=== PATIENT | female | born 1950 | race Caucasian/White ===

== ENCOUNTER 2016-03-02 16:50 | Inpatient (IN) | payer MEDICAID ==
--- NOTE | 2016-03-02 17:46 | EDPHY ---
H & P Stated Complaint: +abd and back pain since last ;no inj,no n/v/d; decreased w/tramadol Time Seen by Provider: 03/02/16 17:46 - Personal History Current Tetanus Diphtheria and Acellular Pertussis (TDAP): Yes - Medical/Surgical History Hx Asthma: No Hx Chronic Respiratory Disease: Yes Hx Diabetes: No Hx Cardiac Disease: Yes Hx Renal Disease: Yes Hx Cirrhosis: No Hx Alcoholism: No Hx HIV/AIDS: No Hx Splenectomy or Spleen Trauma: No Other PMH: HYPOTHYROIDISM, HAS A PORT,OPEN HEART SURGERY; HYPONATREMIA;BIPASS SURGERY;L .MASTECTOMY;CERVICAL CANCER;B CATARACTS;LAP IVANNA; CERVICAL CANCER; SHAUNA; BIPOLAR - Social History Smoking Status: Never smoked Constitutional: Initial Vital Signs Temperature (C) 37 C 03/02/16 17:11 Heart Rate 101 H 03/02/16 17:11 Respiratory Rate 18 03/02/16 17:11 Blood Pressure 141/84 H 03/02/16 17:11 O2 Sat (%) 94 03/02/16 17:11 O2 Delivery Mode Room Air O2 (L/minute) 2 Allergies/Adverse Reactions: morphine [Morphine] Allergy (Severe, Verified 03/02/16 17:11) SEVERE GENERALIZED PAIN codeine [Codeine] Allergy (Mild, Verified 03/02/16 17:11) hydrocodone bitartrate [From Vicodin] Allergy (Mild, Verified 03/02/16 17:11) Home Medications: Medication Instructions Recorded ARIPiprazole [Abilify 10 mg (*)] 10 mg PO DAILY@11/19/14 ARIPiprazole [Abilify 5 mg (*)] 5 mg PO HS@11/19/14 Acetaminophen [Tylenol ES 500 mg 500 mg PO Q6 PRN 11/19/14 (*)] Alendronate Sodium [Fosamax 70 MG 70 mg PO MO@0700 11/19/14 (*)] Aspirin [Aspirin 81mg (*)] 81 mg PO DAILY@11/19/14 Atorvastatin Calcium [Lipitor 20 20 mg PO HS@11/19/14 mg (*)] Calcium Carbonate/Vitamin D3 1 tab PO TID@08,12,11/19/14 [Os-Derek 500-Vit D3 600 Caplet] Cholecalciferol Vit D3 [Vitamin D3 800 units PO DAILY@11/19/14 (*)] Clobetasol Propionate 1 davin TP Q4 PRN 11/19/14 Diclofenac Sodium [Voltaren Gel 2 davin TP QID@08,,, PRN 11/19/14 (*)] Divalproex ER [Depakote ER 250 MG 250 mg PO HS@11/19/14 (*)] Divalproex ER [Depakote ER 500 MG 500 mg PO HS@11/19/14 (*)] Docusate Sodium [Colace 100 MG (*)] 100 mg PO DAILY@,11/19/14 Ferrous Sulfate [Ferrous Sulf 325 325 mg PO DAILY@11/19/14 MG (*)] Levothyroxine [Synthroid 175 mcg 175 mcg PO DAILY@11/19/14 (*)] Loperamide HCl [Imodium 2 mg (*)] 2 mg PO DAILY PRN 11/19/14 Prochlorperazine Maleate 10 mg PO Q6 PRN 11/19/14 [Compazine 10mg (*)] Ranitidine HCl [Zantac] 150 mg PO BID@,11/19/14 Tizanidine HCl 4 mg PO TID@,,11/19/14 Hydrocortisone [Cortef 10 mg (*)] 10 mg PO DAILY@15 #30 tab 11/30/14 Polyethylene Glycol 3350 [Miralax 17 gm PO DAILY@01/14/15 17 gm (*)] Melatonin [Melatonin 3 MG (*)] 3 mg PO DAILY18 #30 tab 01/15/15 traMADol [Ultram 50 mg (*)] 25 mg PO DAILY PRN #0 tab 01/15/15 Hydrocortisone [Cortef 10 mg (*)] 20 mg PO DAILY@01/19/15 Acetaminophen [Tylenol ES 500 mg 500 mg PO Q6 PRN #40 tab 01/29/15 (*)] Furosemide [Lasix 20 MG (*)] 20 mg PO Q2D #15 tab 01/29/15 Metoprolol Succinate Xr [Toprol Xl 50 mg PO DAILY #30 tab 01/29/15 25 mg (*)] Warfarin Sodium [Coumadin 5MG (*)] 5 mg PO DAILY16 #30 tab 01/29/15 Medical Decision Making ED Course/Re-evaluation: CHIEF COMPLAINT: Abdominal and back pain HISTORY OF PRESENT ILLNESS: The patient is a 66 y/o female, with a complicated medical history, complaining of back and abdominal pain onset last upon waking, 5 days ago. Her pain is diffusely located throughout her abdomen and back. She denies vomiting, constipation, changes in food or fluid intake. She describes pain with eating. She has a history that includes bipolar disorder and developmental delay, CAD, CHF, and chronic kidney disease. REVIEW OF SYSTEMS: A 10 point review of systems was performed and is negative with the exception of the elements mentioned in the history of present illness. PHYSICAL EXAM: HR, BP, O2 Sat, RR. Temp noted General Appearance: Alert, well hydrated, appropriate, and cachectic. Head: Atraumatic without scalp tenderness or obvious injury Eyes: Pupils equal, round, reactive to light and accommodation, EOMI, no trauma , no injection. Ears: Clear bilaterally, no perforation, normal landmarks Nose: Atraumatic, no rhinorrhea, clear. Throat: There is no erythema or exudates, no lesions, normal tonsils, mucus membranes moist. Neck: Supple, 2+ carotid upstroke, nontender, no lymphadenopathy. Respiratory: No retractions, no distress, no wheezes, and no accessory muscle use. Lungs are clear to auscultation bilaterally. Cardiovascular: Regular rate and rhythm, no murmurs, rubs, or gallops. Bilateral carotid, radial, dorsalis pedis, and posterior tibial pulses intact. Good capillary refill all extremities. Gastrointestinal: Abdomen is soft, diffuse tenderness and some distension, no masses, no rebound, no guarding, no peritoneal signs. Musculoskeletal: Normal active ROM of all extremities, atraumatic. Diffuse thoracic tenderness. Neurological: Alert, appropriate, and interactive. The patient has normal DTRs and non-focal cranial nerves, motor, sensory, and cerebellar exam. Skin: No rashes, good turgor, no nodules on palpation. Past medical history: CAD post CABG, valvular heart disease, chronic kidney disease baseline creatinine of 1.1 to 1.4, chronic hyponatremia, CHF with diastolic dysfunction, pulmonary hypertension, bipolar mood disorder, breast cancer 2009, chronic anemia Past surgical history: CABG, cholecystectomy, left mastectomy, right port placement Family history: Noncontributory Social history: Family at bedside. Has lived at [facility] Prior medical history reviewed including [id number]/2015 for lethargy. DIAGNOSTICS/PROCEDURES/CRITICAL CARE TIME: The 12 lead EKG was interpreted by myself. EKG shows atrial fibrillation v-rate 75-100 with right axis deviation. See hard copy and/or "tracemaster" electronic copy for interpretation. Study: Chest x-ray Indication: Pain Results: Chest x-ray was obtained. The results of the study are Sequela of prior CABG, with no significant interval change since January 19, 2015. The study was read by the radiologist, Dr. Rodríguez. I viewed the images myself on the PACS system. Study: CT of the Abdomen/Pelvis Indication: Pain Results: CT scan of the abdomen was obtained. The results of the study are constipation. The study was read by the radiologist, Dr. Spears. I viewed the images myself on the PACS system. DIFFERENTIAL DIAGNOSIS: The differential diagnosis for the patient's abdominal pain included but was not limited to ovarian cyst, pelvic inflammatory disease, ovarian torsion, urinary tract infection, ectopic , cholecystitis, and appendicitis. MEDICAL DECISION MAKING: This is a chronically ill 66 y/o female with extensive cardiac, pulmonary, and mental health history who presents today with a 5-day history of diffuse abdominal and thoracic back pain. She denies changes in bowel or bladder function or food and fluid intake, however, patient has a developmental delay limiting us from verifying history. Plan for IV, labs, UA, EKG, chest x-ray, and abdominal CT. 50mcg IV Fentanyl and 4mg IV Zofran administered for symptoms. Her EKG shows a-fib, which is not previously mentioned in her records. No WBC. Creatinine 1.0. UA pending. 1852: Spoke with hospitalist service. Dr. Isaac accepts admission. 1956: 1gm IV Ceftriaxone administered due to UTI. CT shows constipation per Dr. Spears. I informed Dr. Isaac of this. - Data Points Laboratory Results: Laboratory Results 03/02/16 17:30 03/02/16 17:30 03/02/16 17:30 WBC 9.35 10^3/uL (3.80-9.50) RBC 3.38 L 10^6/uL (4.18-5.33) Hgb 11.3 L g/dL (12.6-16.3) Hct 33.4 L % (38.0-47.0) MCV 98.8 fL (81.5-99.8) MCH 33.4 pg (27.9-34.1) MCHC 33.8 g/dL (32.4-36.7) RDW 13.5 % (11.5-15.2) Plt Count 161 10^3/uL (150-400) MPV 10.1 fL (8.7-11.7) Neut % (Auto) 66.4 % (39.3-74.2) Lymph % (Auto) 19.1 % (15.0-45.0) [place] % (Auto) 11.1 % (4.5-13.0) Eos % (Auto) 1.1 % (0.6-7.6) Baso % (Auto) 0.5 % (0.3-1.7) Nucleat RBC Rel Count 0.0 % (0.0-0.2) Absolute Neuts (auto) 6.20 10^3/uL (1.70-6.50) Absolute Lymphs (auto) 1.79 10^3/uL (1.00-3.00) Absolute Monos (auto) 1.04 H 10^3/uL (0.30-0.80) Absolute Eos (auto) 0.10 10^3/uL (0.03-0.40) Absolute Basos (auto) 0.05 10^3/uL (0.02-0.10) Absolute Nucleated RBC 0.00 10^3/uL (0-0.01) Immature Gran % 1.8 H % (0.0-1.1) Immature Gran # 0.17 H 10^3/uL (0.00-0.10) D-Dimer 0.31 ug/mLFEU (0.00-0.50) Sodium 132 L mEq/L (134-144) Potassium 5.2 mEq/L (3.5-5.2) Chloride 85 L mEq/L (97-110) Carbon Dioxide 39 H mEq/l (22-31) Anion Gap 8 mEq/L (8-16) BUN 33 H mg/dL (7-23) Creatinine 1.0 mg/dL (0.6-1.0) Estimated GFR 56 Glucose 113 H mg/dL (70-100) Calcium 9.3 mg/dL (8.5-10.4) Medications Given: Discontinued Medications Fentanyl (Sublimaze) 50 mcg IVP EDNOW ONE Stop: 03/02/16 18:27 Last Admin: 03/02/16 18:37 Dose: 50 mcg Ondansetron HCl (Zofran) 4 mg IVP EDNOW ONE Stop: 03/02/16 18:27 Last Admin: 03/02/16 18:37 Dose: 4 mg Departure - Departure Disposition: [facility] Inpatient Acute Clinical Impression: Abdominal pain, New onset atrial fibrillation, UTI (urinary tract infection), Pyelonephritis Condition: Fair Report Scribed for: César Wong Report Scribed by: Jennifer Dan Date of Report: 03/02/16 Time of Report: 18:15
[2016-03-02 18:00] LABS: % IMMATURE GRANULYOCYTES 1.8 % (0.0-1.1); ABSOLUTE IMMATURE GRANULOCYTES 0.17 10^3/uL (0.00-0.10); ADD DIFF? NO; ADD MORPH? NO; ADD SCAN? NO; ATYPICAL LYMPHOCYTE FLAG 10 (0-99); FRAGMENT RBC FLAG 0 (0-99); HEMATOCRIT 33.4 % (38.0-47.0); HEMOGLOBIN 11.3 g/dL (12.6-16.3); LEFT SHIFT FLG 10 (0-99); LIPEMIA HEMOLYSIS FLAG 90 (0-99); MEAN CELL HEMOGLOBIN 33.4 pg (27.9-34.1); MEAN CELL HEMOGLOBIN CONCENTR. 33.8 g/dL (32.4-36.7); MEAN CELL VOLUME 98.8 fL (81.5-99.8); MEAN PLATELET VOLUME 10.1 fL (8.7-11.7); PLATELET CLUMPS FLAG 10 (0-99); PLATELET COUNT 161 10^3/uL (150-400); RED BLOOD CELL COUNT 3.38 10^6/uL (4.18-5.33); RED CELL DISTRIBUTION WIDTH 13.5 % (11.5-15.2)
[2016-03-02] MEDS ORDERED: ONDANSETRON 4 MG/2 ML VIAL IVP ONE (18:26)
[2016-03-02] MEDS ORDERED: fentaNYL 100 MCG/2 ML INJ IVP ONE (18:26)
[2016-03-02 18:34] LABS: ANION GAP 8 mEq/L (8-16); CALCIUM 9.3 mg/dL (8.5-10.4); CARBON DIOXIDE 39 mEq/l (22-31); CHLORIDE 85 mEq/L (97-110); GLOMERULAR FILTRATION RATE 56; GLUCOSE 113 mg/dL (70-100); POTASSIUM 5.2 mEq/L (3.5-5.2); SODIUM 132 mEq/L (134-144)
--- NOTE | 2016-03-02 18:36 | CPEKG ---
Heart Rate: 88 RR Interval: 682 QRSD Interval: 88 QT Interval: 396 QTC Interval: 480 QRS Gwinn: 125 T Wave Gwinn: 51 EKG Severity - ABNORMAL ECG - EKG Impression: ATRIAL FIBRILLATION, V-RATE 75-100 EKG Impression: RIGHT AXIS DEVIATION Electronically Signed By: César Wong 02-Mar-2016 20:16:23
--- NOTE | 2016-03-02 18:40 | DX ---
Chest, AP Upright and Lateral Views, at 5:46 p.m. Clinical History: 66-year-old female with chest and back pain. Comparison Study: Chest, dated January 19, 2015. Findings: Median sternotomy wires and mediastinal surgical clips are consistent with prior CABG. Ther e are surgical clips projected over the left axilla. There is a right subclavian central venous leeann ter Mediport which terminates at the SVC-right atrial junction. The cardiac size is upper normal. The pulmonary vasculature is equalized but unchanged, and there is some mild central perihilar bronchial wall thickening. There is persistent eventration of the anterior right hemidiaphragm. The bones are demineralized, and there is an old moderate compression fracture of L1, which is stable. There has be en development of a very mild compression deformity at T8 since the previous exam, and there is an ol d mild stable superior cortical endplate compression deformity at T10. There is no pneumothorax. Impression: Sequela of prior CABG, with no significant interval change since January 19, 2015.
[2016-03-02 19:37] LABS: COLOR YELLOW; LEUKOCYTE ESTERASE,URINE 3+ (NEGATIVE); NITRITE,URINE POSITIVE (NEGATIVE)
[2016-03-02 19:44] LABS: BACTERIA 4+ /hpf (NONE SEEN); MUCUS TRACE /lpf (NONE-1+); RBC,URINE 50-182 /hpf (0-3); WBC,URINE 50-182 /hpf (0-3)
[2016-03-02] MEDS ORDERED: ONDANSETRON 4 MG/2 ML VIAL IVP PRN (19:46)
[2016-03-02] MEDS ORDERED: ONDANSETRON DISINTEGRATING 4 MG TAB PO PRN (19:46)
[2016-03-02] MEDS ORDERED: ACETAMINOPHEN 325 MG TAB PO PRN (19:46)
[2016-03-02 20:10] LABS: INR 2.99 (0.83-1.16); PROTIME(PATIENT) 31.5 SEC (12.0-15.0)
[2016-03-02 20:11] LABS: APTT 63.8 SEC (23.0-38.0)
--- NOTE | 2016-03-02 20:17 | CT ---
CT abdomen pelvis without contrast dated March 02, 2016 Indication: 66-year-old woman with diffuse abdominal pain, suspected pyelonephritis. Evaluate for ob struction. Technique: 1.25-mm thick helically acquired slices were obtained through the abdomen and pelvis. IV c ontrast was not administered due to chronic nephritis. Dose reduction techniques were utilized. Comparison: CT abdomen and pelvis dated November 23, 2014. Findings: Large volume of retained stool is present throughout the normal caliber bowel. No obstruct ion or adynamic ileus. The appendix is normal. Scattered diverticula are present throughout the sigmo id colon. No pneumoperitoneum, ascites, enlarged lymph node, or mass. The noncontrast liver, spleen, pancreas, adrenal glands, and kidneys are unremarkable. No hydronephro sis or perinephric fluid collection. No nephrolithiasis or ureteral calculi. The contracted urinary b ladder has mild diffuse wall thickening, similar to October 2014. The uterus is normal in size. No adnexal mass. Coarse calcification along the posterior and anterior wall of the pericardium and right atrium is unc hanged. Chronic right basilar scarring versus atelectasis is unchanged. No pleural effusion. The abdominal aorta is normal caliber with moderate calcified plaque. The moderate L1 compression fra cture is unchanged. A mild T10 compression fracture is new since 2014, however, does not appear to be acute. Chronic/old bilateral sacral insufficiency fractures, sclerosis of the left anterior column of the ac etabulum, sclerosis in the right inferior pubic ramus, and deformed healed bilaterally inferior pubic rami fractures are all unchanged. No new fractures or new sclerotic lesions. Impression: 1. Constipation. No evidence of acute bowel obstruction. 2. Normal appendix. 3. Mild sigmoid diverticulosis is unchanged. 4. No hydronephrosis, ureteral calculi or localized perinephric inflammatory process. 5. Old compression fractures at L1 and T10. 6. Old sacral insufficiency fractures. Stable sclerotic lesions in the pelvis are likely sequela of r emote trauma. Comment: The results were discussed with Dr. César Wong at 7:58 p.m. on March 02, 2016.
[2016-03-02] MEDS ORDERED: traMADol 50 MG TAB PO PRN (20:19)
[2016-03-02] MEDS ORDERED: HYDROmorphONE/DILAUDID 1 MG/ML SYR IVP PRN (22:09)
[2016-03-02] MEDS: POLYETHYLENE GLYCOL 3350 17 GM PKT PO SCH (22:43)
[2016-03-02] MEDS ORDERED: NS 1,000 ML IV SCH (23:00)
--- NOTE | 2016-03-02 23:33 | GHP ---
[f rep st] HISTORY AND PHYSICAL DATE OF ADMISSION: 03/02/2016 CHIEF COMPLAINT: Abdominal and back pain. HPI: a 66-year-old female with history of developmental delay, CAD status post CABG, SHAUNA, CKD presenting with abdominal pain since . It is diffuse and sharp in nature that has been constant with some radiation to her back. She denies any associated nausea or emesis. No diarrhea. She has had increased urinary frequency and urgency but no dysuria. She has had a decreased appetite and more fatigued. No fevers, chills, or sweats. She has shortness of breath that is chronic with exertion. She also has headaches which are chronic for her. She has not eaten any unusual foods or any trauma to her abdomen. REVIEW OF SYSTEMS: I completed a 10-point review of systems, negative except as noted in HPI. PAST MEDICAL HISTORY: 1. CAD status post CABG. 2. Valvular heart disease. 3. CKD with a baseline creatinine of 1.1 to 1.4. 4. Chronic hyponatremia. 5. Diastolic heart failure. 6. Pulmonary hypertension. 7. Chronic hypoxemic respiratory failure, 2-3 L. 8. Hypothyroidism. 9. Hypertension. 10. History of breast cancer. 11. Anemia. 12. 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 13. SHAUNA. 14. Bipolar. 15. Atrial fibrillation (01/2015). PAST SURGICAL HISTORY: 1. Left mastectomy. 2. Cholecystectomy. FAMILY HISTORY: Dad with an CO. Mother with COPD and CHF. SOCIAL HISTORY: Lives at [facility] for 8 years. Has a son. No tobacco , illicits or alcohol. ALLERGIES: Morphine, codeine, hydrocodone. HOME MEDICATIONS: 1. Coumadin 2.5 mg Tuesdays, 5 mg every other day. 2. Tramadol 50 mg p.r.n. 3. Tizanidine three times daily. 4. Zantac twice daily. 5. MiraLAX p.r.n. 6. Synthroid 175 mcg. 7. Cortef 10 mg daily at 5:00, 20 mg at 8:00. 8. Lasix 20 mg every other day. 9. Iron sulfate daily. 10. Colace. 11. Depakote 250 at bedtime. 12. Vitamin D3. 13. Calcium carbonate/vitamin-D. 14. Lipitor 20 mg. 15. Abilify 5 mg at bedtime. 16. 10 mg p.o. daily. 17. Fosamax 70 mg weekly. 18. Tylenol p.r.n. PHYSICAL EXAM: VITAL SIGNS: Temperature 36.8, blood pressure 160/110, heart rate is in the 90s. Respiration 12, 96% on 2 L. GENERAL: appears younger than stated age. No acute distress. Overweight. HEENT: PERRLA and EOMI. Dry mucous membranes. CV: Regular rate and rhythm. No murmurs, gallops, or rubs. LUNGS: Clear to auscultation bilaterally. ABDOMEN: Bilateral suprapubic and lower abdominal pain. No rebound. She does have voluntary guarding. Positive bowel sounds. : Bilateral suprapubic tenderness. No CVA tenderness. MUSCULOSKELETAL: 5/5 upper lower extremity strength. NEURO: 2 through 12 intact. No focal deficits. PSYCH: Alert and oriented x3. Very pleasant. LABS: WBC 9.3, hemoglobin 11.3, hematocrit 33, platelets 161. INR is 2.9. PT is 31. PTT 63. Sodium 132, potassium 5.2, chloride 85, carbon dioxide 39, BUN 33, creatinine 1.0, glucose 113, calcium 9.3. UA: 51-82 WBCs, +4 bacteria, +3 leuko esterase. Urine culture is pending. EKG is personally reviewed by me, poor-quality read as atrial fibrillation. On telemetry patient does have P waves. Chest x-ray is personally reviewed by me. Sternotomy wires in place. No effusion or opacity. Abdominal pelvic CT: Constipation with no evidence of bowel obstruction. Normal appendix. Mild sigmoid diverticulosis is unchanged. No hydronephrosis. Old compression fracture L1 and T10. Old sacral insufficiency fractures. ASSESSMENT/PLAN: 1. Acute abdominal pain: secondary to acute UTI. Abdomen and pelvis was negative for acute obstruction or infection. Culture is pending. Treat with IV ceftriaxone and await sensitivities. 2. Urinary tract infection: No evidence of hydronephrosis. Continue IV ceftriaxone, await culture data. 3. History of coronary artery disease, status post CABG. She is not medically treated for this at this time. 4. Chronic kidney disease. Creatinine actually 1 today. 5. Chronic hyponatremia. Sodium is mildly low today. We will give gentle IV fluids. 6. Compensated diastolic heart failure: Upon review TTE in October 2014 shows an EF of 50%. RA is dilated with an RVSP of 44 mmHg. Will hold Lasix given decreased p.o. intake and appearing dry on exam. 7. Hypothyroidism. Continue levothyroxine. 8. Chronic hypoxemic respiratory failure: Secondary to SHAUNA/pulmonary hypertension at her baseline 2 L. No evidence of volume overload. 9. Bipolar disorder. Continue home medications. 10. Permanent atrial fibrillation: This was initially diagnosed in January 2015. MADHU-VASc score is 3. She is currently rate controlled. INR is 2.99. Will hold Coumadin tonight and recheck INR in the morning. 11. Accelerated hypertension. Suspect this is due to acute pain. Provide p.r.n. tramadol and Tylenol as per her request. 12. History of breast cancer, status post mastectomy. 13. Normocytic anemia. Continue iron. 14. History of AVNRT, stable. 15. Diet: Regular. 16. DVT prophylaxis. On Coumadin. 17. Disposition: Patient warrants observation admission given acute abdominal pain with new UTI. Will treat with IV ceftriaxone and await cultures. /[id number]/MODL MTDD
[2016-03-02] MEDS ORDERED: traMADol 50 MG TAB PO ONE (23:52)
[2016-03-03] MEDS: DIVALPROEX ER 250 MG TAB PO SCH ×2 (00:07→19:36)
[2016-03-03] MEDS: ATORVASTATIN CALCIUM 20 MG TAB PO SCH ×2 (00:09→19:37)
[2016-03-03] MEDS: DOCUSATE SODIUM 100 MG CAP PO SCH ×4 (00:09→20:30)
[2016-03-03] MEDS: ARIPiprazole 5 MG TAB PO SCH ×2 (00:10→19:37)
[2016-03-03] MEDS: traMADol 50 MG TAB PO PRN ×3 (04:07→19:37)
[2016-03-03] MEDS: LEVOTHYROXINE 175 MCG TAB PO SCH (05:24)
[2016-03-03] MEDS: ACETAMINOPHEN 500 MG TAB PO PRN ×3 (05:24→22:30)
[2016-03-03 05:53] LABS: HEMATOCRIT 34.3 % (38.0-47.0); HEMOGLOBIN 11.4 g/dL (12.6-16.3); MEAN CELL HEMOGLOBIN 32.5 pg (27.9-34.1); MEAN CELL HEMOGLOBIN CONCENTR. 33.2 g/dL (32.4-36.7); MEAN CELL VOLUME 97.7 fL (81.5-99.8); RED BLOOD CELL COUNT 3.51 10^6/uL (4.18-5.33); RED CELL DISTRIBUTION WIDTH 13.8 % (11.5-15.2)
[2016-03-03 06:05] LABS: INR 2.99 (0.83-1.16); PROTIME(PATIENT) 31.5 SEC (12.0-15.0)
[2016-03-03 06:07] LABS: ANION GAP 8 mEq/L (8-16); CALCIUM 8.1 mg/dL (8.5-10.4); CARBON DIOXIDE 37 mEq/l (22-31); CHLORIDE 89 mEq/L (97-110); CREATININE 0.8 mg/dL (0.6-1.0); GLOMERULAR FILTRATION RATE > 60; GLUCOSE 98 mg/dL (70-100); POTASSIUM 4.5 mEq/L (3.5-5.2); SODIUM 134 mEq/L (134-144)
[2016-03-03] MEDS: CHOLECALCIFEROL VIT D3 1,000 UNITS TAB PO SCH (07:50)
[2016-03-03] MEDS: ARIPiprazole 10 MG TAB PO SCH (07:50)
[2016-03-03] MEDS: CALCIUM CARB W/VIT D 500 MG TAB PO SCH ×3 (07:51→17:38)
[2016-03-03] MEDS: FAMOTIDINE 20 MG TAB PO SCH ×2 (07:51→17:38)
[2016-03-03] MEDS: HYDROCORTISONE 10 MG TAB PO SCH ×2 (07:51→14:41)
[2016-03-03] MEDS: FERROUS SULFATE 325 MG TAB PO SCH (07:52)
[2016-03-03] MEDS ORDERED: DOCUSATE SODIUM 100 MG CAP PO SCH (08:00)
[2016-03-03] MEDS ORDERED: ENOXAPARIN 40 MG/0.4 ML SYR SC SCH (09:00)
--- NOTE | 2016-03-03 10:00 | HOSPPROG ---
Hospitalist Progress Note Assessment/Plan: Patient is a 66-year-old female who has a history of being developmental delayed , coronary artery disease status post CABG, chronic kidney disease who presented to the emergency room abdominal pain since last . Today is my 1st encounter with the patient. Chart reviewed. #. Urinary tract infection ceftriaxone started on March 02 abdominal/pelvic CT shows constipation with no evidence bowel obstruction. Normal appendix. Mild sigmoid diverticulosis. no hydronephrosis #. abdominal pain due to the above also possibly due to constipation #. constipation per patient has not had a bowel movement several days /order bowel protocol #. hematuria will follow in the outpatient setting # permanent atrial fibrillation INR is 2.99/ no change from yesterday will hold for now and recheck in the morning #. hypertension she is on Lasix every other day but not on any other antihypertensive medicines will follow if remains elevated will treat #. coronary artery disease status post CABG #. bipolar disorder on Abilify stable #. chronic kidney disease creatinine is 0.8 #. chronic hypoxemic respiratory failure at her baseline on 2 L #. plan. She will require another midnight stay. She continues to complain of significant abdominal pain. Will recheck an INR in the morning and hopefully can be discharged tomorrow if she has improved. Subjective: Monet is c/o abdominal pain. Objective: Vital Signs Temp Pulse Resp BP Pulse Ox 36.6 C 98 18 152/105 H 94 03/03/16 07:13 03/03/16 07:13 03/03/16 07:13 03/03/16 07:13 03/03/16 07:13 Laboratory Results 03/03/16 05:30 03/03/16 05:30 03/02/16 03/03/16 03/04/16 05:59 05:59 05:59 Intake Total 1125 Output Total 300 Balance 1125 -300 PT 31.5 SEC (12.0-15.0) H 03/03/16 05:30 INR 2.99 (0.83-1.16) H 03/03/16 05:30 - Physical Exam Constitutional: chronically ill appearing, obese Eyes: PERRL Ears, Nose, Mouth, Throat: hearing normal Cardiovascular: regular rate and rhythym Respiratory: no respiratory distress Gastrointestinal: normoactive bowel sounds, No tenderness Skin: warm Neurologic: AAOx3 Psychiatric: interacting appropriately, not anxious ICD10 Worksheet Patient Problems: Problems Problem Status Diagnosed Abdominal pain Acute Acute encephalopathy Acute Altered mental status Acute Atrial fibrillation Acute Chronic diastolic CHF (congestive heart failure) Acute Chronic hypoxemic respiratory failure Acute Hyponatremia Acute New onset atrial fibrillation Acute Pyelonephritis Acute UTI (urinary tract infection) Acute CAD (coronary artery disease), [place] coronary artery Acute Chronic kidney disease (CKD) Acute VHD (valvular heart disease) Acute
[2016-03-03] MEDS ORDERED: BISACODYL 10 MG SUPP PR PRN (10:33)
[2016-03-03] MEDS ORDERED: POLYETHYLENE GLYCOL 3350 17 GM PKT PO PRN (10:33)
[2016-03-03] MEDS ORDERED: LACTULOSE 20 GM/30 ML UDCUP PO PRN (10:33)
[2016-03-03] MEDS ORDERED: DIVALPROEX ER 250 MG TAB PO SCH (20:00)
[2016-03-03] MEDS ORDERED: ATORVASTATIN CALCIUM 20 MG TAB PO SCH (20:00)
[2016-03-03] MEDS ORDERED: ARIPiprazole 5 MG TAB PO SCH (20:00)
[2016-03-03] MEDS: SENNOSIDES/DOCUSATE SODIUM TAB PO SCH (20:27)
[2016-03-03] MEDS: POLYETHYLENE GLYCOL 3350 17 GM PKT PO SCH (22:30)
[2016-03-04] MEDS: traMADol 50 MG TAB PO PRN ×3 (01:32→17:21)
[2016-03-04] MEDS: LEVOTHYROXINE 175 MCG TAB PO SCH (05:02)
[2016-03-04] MEDS: ACETAMINOPHEN 500 MG TAB PO PRN ×3 (05:02→21:18)
[2016-03-04 05:21] LABS: HEMATOCRIT 33.2 % (38.0-47.0); MEAN CELL HEMOGLOBIN 32.4 pg (27.9-34.1); MEAN CELL HEMOGLOBIN CONCENTR. 33.1 g/dL (32.4-36.7); MEAN CELL VOLUME 97.9 fL (81.5-99.8); RED BLOOD CELL COUNT 3.39 10^6/uL (4.18-5.33); RED CELL DISTRIBUTION WIDTH 13.8 % (11.5-15.2)
[2016-03-04 05:38] LABS: INR 2.61 (0.83-1.16); PROTIME(PATIENT) 28.2 SEC (12.0-15.0)
[2016-03-04 05:49] LABS: ANION GAP 5 mEq/L (8-16); CALCIUM 8.4 mg/dL (8.5-10.4); CARBON DIOXIDE 36 mEq/l (22-31); CHLORIDE 88 mEq/L (97-110); CREATININE 0.8 mg/dL (0.6-1.0); GLOMERULAR FILTRATION RATE > 60; GLUCOSE 86 mg/dL (70-100); POTASSIUM 4.9 mEq/L (3.5-5.2); SODIUM 129 mEq/L (134-144)
[2016-03-04] MEDS: DOCUSATE SODIUM 100 MG CAP PO SCH ×2 (08:54→21:14)
[2016-03-04] MEDS: FERROUS SULFATE 325 MG TAB PO SCH (08:54)
[2016-03-04] MEDS: CALCIUM CARB W/VIT D 500 MG TAB PO SCH ×3 (08:54→15:47)
[2016-03-04] MEDS: SENNOSIDES/DOCUSATE SODIUM TAB PO SCH ×2 (08:54→21:13)
[2016-03-04] MEDS: HYDROCORTISONE 10 MG TAB PO SCH ×2 (08:54→15:47)
[2016-03-04] MEDS: ARIPiprazole 10 MG TAB PO SCH (08:54)
[2016-03-04] MEDS: CHOLECALCIFEROL VIT D3 1,000 UNITS TAB PO SCH (08:55)
[2016-03-04] MEDS: FAMOTIDINE 20 MG TAB PO SCH ×2 (08:55→15:47)
[2016-03-04] MEDS ORDERED: FUROSEMIDE 20 MG TAB PO SCH (09:00)
--- NOTE | 2016-03-04 12:55 | HOSPPROG ---
Hospitalist Progress Note Assessment/Plan: Patient is a 66-year-old female who has a history of being developmental delayed , coronary artery disease status post CABG, chronic kidney disease who presented to the emergency room abdominal pain since last . #. Urinary tract infection/ ecoli (rodriguez sensitive) ceftriaxone started on March 02 abdominal/pelvic CT shows constipation with no evidence bowel obstruction. Normal appendix. Mild sigmoid diverticulosis. no hydronephrosis #. abdominal pain c/o left upper quadrant pain not able to reproduce with palpation #. constipation resolved #. hyponatremia urine studies pending #. hematuria follow up in the outpatient setting # permanent atrial fibrillation INR is therapeutic without resuming her normal dose of Coumadin will give a lower dose than home med x 1 today (Coumadin 1 mg) #. hypertension she is on Lasix every other day but not on any other antihypertensive medicines will follow if remains elevated will treat #. coronary artery disease status post CABG #. bipolar disorder on Abilify stable #. chronic kidney disease creatinine is 0.8 #. chronic hypoxemic respiratory failure at her baseline on 2 L #. plan. evaluate urine studies/ increase mobilization/ repeat labs in a.m. Subjective: Sofy says she is tired and is having some luq pain. Says she has a good appetite. Objective: Vital Signs Temp Pulse Resp BP Pulse Ox 36.3 C 73 18 110/55 L 96 03/04/16 11:03 03/04/16 11:03 03/04/16 11:03 03/04/16 11:03 03/04/16 11:03 Laboratory Results 03/04/16 05:08 03/04/16 05:08 03/03/16 03/04/16 03/05/16 05:59 05:59 05:59 Intake Total 1396 Output Total 200 Balance 1196 PT 28.2 SEC (12.0-15.0) H 03/04/16 05:08 INR 2.61 (0.83-1.16) H 03/04/16 05:08 - Physical Exam Constitutional: no apparent distress, obese Eyes: PERRL Ears, Nose, Mouth, Throat: hearing normal Cardiovascular: regular rate and rhythym Respiratory: no respiratory distress Gastrointestinal: normoactive bowel sounds, soft, non-tender abdomen, No guarding, No rebound, No distension Skin: warm Musculoskeletal: no muscle tenderness Neurologic: AAOx3 Psychiatric: interacting appropriately, not anxious ICD10 Worksheet Patient Problems: Problems Problem Status Diagnosed Abdominal pain Acute Acute encephalopathy Acute Altered mental status Acute Atrial fibrillation Acute Chronic diastolic CHF (congestive heart failure) Acute Chronic hypoxemic respiratory failure Acute Hyponatremia Acute New onset atrial fibrillation Acute Pyelonephritis Acute UTI (urinary tract infection) Acute CAD (coronary artery disease), [place] coronary artery Acute Chronic kidney disease (CKD) Acute VHD (valvular heart disease) Acute
[2016-03-04] MEDS ORDERED: WARFARIN SODIUM 1 MG TAB PO ONE (16:00)
[2016-03-04] MEDS: DIVALPROEX ER 250 MG TAB PO SCH (21:12)
[2016-03-04] MEDS: ATORVASTATIN CALCIUM 20 MG TAB PO SCH (21:13)
[2016-03-04] MEDS: ARIPiprazole 5 MG TAB PO SCH (21:13)
[2016-03-04] MEDS: POLYETHYLENE GLYCOL 3350 17 GM PKT PO SCH (21:23)
[2016-03-05] MEDS: traMADol 50 MG TAB PO PRN ×2 (01:46→09:33)
[2016-03-05] MEDS: LEVOTHYROXINE 175 MCG TAB PO SCH (05:11)
[2016-03-05 05:30] LABS: HEMATOCRIT 34.8 % (38.0-47.0); HEMOGLOBIN 11.7 g/dL (12.6-16.3); MEAN CELL HEMOGLOBIN 32.2 pg (27.9-34.1); MEAN CELL HEMOGLOBIN CONCENTR. 33.6 g/dL (32.4-36.7); MEAN CELL VOLUME 95.9 fL (81.5-99.8); RED BLOOD CELL COUNT 3.63 10^6/uL (4.18-5.33); RED CELL DISTRIBUTION WIDTH 13.3 % (11.5-15.2)
[2016-03-05 05:34] LABS: INR 1.89 (0.83-1.16); PROTIME(PATIENT) 21.8 SEC (12.0-15.0)
[2016-03-05 05:45] LABS: CALCIUM 8.6 mg/dL (8.5-10.4); CHLORIDE 85 mEq/L (97-110); CREATININE 0.8 mg/dL (0.6-1.0); GLOMERULAR FILTRATION RATE > 60; GLUCOSE 86 mg/dL (70-100); POTASSIUM 4.5 mEq/L (3.5-5.2); SODIUM 131 mEq/L (134-144)
[2016-03-05 05:56] LABS: ANION GAP 4 mEq/L (8-16)
[2016-03-05 05:58] LABS: CARBON DIOXIDE 42 mEq/l (22-31)
[2016-03-05 07:51] VITALS: RESP 18
[2016-03-05] MEDS: DOCUSATE SODIUM 100 MG CAP PO SCH (08:59)
[2016-03-05] MEDS: SENNOSIDES/DOCUSATE SODIUM TAB PO SCH (08:59)
[2016-03-05] MEDS: ARIPiprazole 10 MG TAB PO SCH (09:00)
[2016-03-05] MEDS: FERROUS SULFATE 325 MG TAB PO SCH (09:00)
[2016-03-05] MEDS: FAMOTIDINE 20 MG TAB PO SCH (09:00)
[2016-03-05] MEDS: HYDROCORTISONE 10 MG TAB PO SCH ×2 (09:00→14:47)
[2016-03-05] MEDS: CHOLECALCIFEROL VIT D3 1,000 UNITS TAB PO SCH (09:00)
[2016-03-05] MEDS: CALCIUM CARB W/VIT D 500 MG TAB PO SCH ×2 (09:00→12:54)
[2016-03-05 11:51] VITALS: BP 129/86; PULSE 90; TEMP 98.4; O2SAT 96
[2016-03-05] MEDS ORDERED: LIDOCAINE 5% 1 EA PATCH TD SCH (12:00)
[2016-03-05] MEDS ORDERED: PATCH REMOVAL 1 EA PATCH TD SCH (21:00)
--- NOTE | 2016-03-06 00:42 | GDS ---
[f rep st] DISCHARGE SUMMARY DISCHARGE DIAGNOSES: 1. Pansensitive Escherichia coli urinary tract infection. 2. Abdominal pain. 3. Constipation. 4. Hyponatremia. 5. Hematuria. 6. Permanent atrial fibrillation. 7. Hypertension. 8. History of coronary artery disease. 9. Bipolar disorder. 10. Multiple compression fractures. 11. Chronic kidney disease. 12. Chronic hypoxemic respiratory failure. STUDIES AND PROCEDURE DONE: CT of the abdomen. PHYSICAL EXAMINATION: GENERAL: The patient is alert and oriented. VITAL SIGNS: Are afebrile at 36.4, pulse is 90, respiratory rate is 18, blood pressure is 129/86. S he is saturating 96% on 2 L. I have seen and evaluated the patient on the day of discharge. HOSPITAL COURSE: The patient is a 66-year-old female, presented to the emergency room, complains of abdominal pain. She was evaluated and diagnosed with: 1. Pansensitive E coli urinary tract infection. She was treated during this hospitalization with Ro cephin, with no further therapy warranted. 2. Hematuria. This requires outpatient followup with a urologist. 3. Abdominal pain. The patient complains of left upper quadrant abdominal pain that is near the wendy ast. This is likely referred pain from the patient's compression fractures. Lidoderm patch has been initiated. 4. Constipation. This has resolved. 5. Hyponatremia. This has improved. The patient's sodium is 131 on the date of disposition. 6. Permanent atrial fibrillation. The patient will continue her normal dose of Coumadin. 7. Hypertension. The patient may require further medication management for her hypertension with th e addition of more antihypertensive medications. I will defer to her primary care physician. 8. History of coronary artery disease. 9. Bipolar disorder. We have continued her previously prescribed medications. 10. Chronic kidney disease. This is within normal limits. 11. Chronic hypoxemic respiratory failure. She is on her baseline 2 L oxygen requirement. DISPOSITION: The patient will be discharged home to return to [facility], where she normally resides. They have assured us that they have plenty of assistance for her at the time of disposition , with no need for further home care. DISCHARGE MEDICATIONS: Please refer to EMR form. I provided the patient a prescription for Lidoderm patches. FOLLOWUP: Will be with her primary care physician, Dr. Arnaldo Zambrano, in the next 3-4 days. TIME SPENT: I spent greater than 35 minutes in the care, coordination, and management of the patient 's disposition. /[id number]/MODL
== END 2016-03-05 15:17 | disposition home health service (06) | DRG 690 ==
LOC: F3E 21:01 → OBSVTOIN 03-03 09:57
PROVIDERS: ADMIT Internal Medicine; ATTEND Internal Medicine
DX: N39.0 Urinary tract infection, site not specified (principal); B96.20 Unspecified Escherichia coli [E. coli] as the cause of diseases classified elsewhere; E87.1 Hypo-osmolality and hyponatremia; R31.9 Hematuria, unspecified; K59.00 Constipation, unspecified; E03.9 Hypothyroidism, unspecified; G47.33 Obstructive sleep apnea (adult) (pediatric); J96.10 Chronic respiratory failure, unspecified whether with hypoxia or hypercapnia; I48.2 Chronic atrial fibrillation; I12.9 Hypertensive chronic kidney disease with stage 1 through stage 4 chronic kidney disease, or unspecified chronic kidney disease; N18.9 Chronic kidney disease, unspecified; I50.30 Unspecified diastolic (congestive) heart failure; I25.10 Atherosclerotic heart disease of native coronary artery without angina pectoris; F31.9 Bipolar disorder, unspecified; Z79.01 Long term (current) use of anticoagulants; Z99.81 Dependence on supplemental oxygen; Z85.3 Personal history of malignant neoplasm of breast; Z95.1 Presence of aortocoronary bypass graft
CPT/HCPCS: 96374; 97116-GP; 97162-GP; G0378; J0696; J2405; J3010

== ENCOUNTER → 2016-09-28 | Outpatient (CLI) | payer MEDICAID | LOC: FIMAGING 14:51 | PROVIDERS: ATTEND Internal Medicine Hematology & Oncology | DX: Z12.31 Encounter for screening mammogram for malignant neoplasm of breast (principal); Z85.3 Personal history of malignant neoplasm of breast; Z90.12 Acquired absence of left breast and nipple | CPT/HCPCS: G0202-52 ==

== ENCOUNTER 2016-12-25 16:38 | Inpatient (IN) | payer MEDICAID ==
--- NOTE | 2016-12-25 16:42 | EDPHY ---
H & P Source: Patient Exam Limitations: No limitations - Medical/Surgical History Hx Asthma: No Hx Chronic Respiratory Disease: Yes Hx Diabetes: No Hx Cardiac Disease: Yes Hx Renal Disease: Yes Hx Cirrhosis: No Hx Alcoholism: No Hx HIV/AIDS: No Hx Splenectomy or Spleen Trauma: No Other PMH: HYPOTHYROIDISM, HAS A PORT,OPEN HEART SURGERY; HYPONATREMIA;BYPASS SURGERY;L .MASTECTOMY;CERVICAL CANCER;B CATARACTS;LAP IVANNA; CERVICAL CANCER; SHAUNA; BIPOLAR - Social History Smoking Status: Never smoked Time Seen by Provider: 12/25/16 16:41 HPI/ROS: CHIEF COMPLAINT: Multiple complaints including dizziness, chest pain and fatigue HISTORY OF PRESENT ILLNESS: The patient presents to the emergency department from a care home with multiple complaints including dizziness, reproducible chest wall pain and fatigue. The patient has a reported history of bipolar mood disorder. She is on a number of medications including Depakote. The patient has a history of atrial fibrillation is chronically anticoagulated. She denies any history of fall or trauma. The patient denies history of fever, vomiting or dysuria. The patient denies any rash, acute arthralgias or abdominal pain. REVIEW OF SYSTEMS: A comprehensive 10 point review of systems is otherwise negative aside from elements mentioned in the history of present illness. (Sam Holguin) - Physical Exam Exam: General Appearance: Alert, no acute distress, obese female Eyes: Pupils equal and round no pallor or injection ENT, Mouth: Mucous membranes moist Respiratory: Tenderness to palpation left anterior chest wall, no subcutaneous emphysema, lungs clear to auscultation Cardiovascular: Regular rate and rhythm Gastrointestinal: Abdomen is soft and nontender, no masses, bowel sounds normal Neurological: A&O, normal motor function, normal sensory exam, normal cranial nerves Skin: Warm and dry, no rashes Musculoskeletal: Neck is supple nontender Extremities: symmetrical, full range of motion (Sam Holguin) Constitutional: Initial Vital Signs Temperature (C) 36.7 C 12/25/16 16:45 Heart Rate 88 12/25/16 16:45 Respiratory Rate 15 12/25/16 16:45 Blood Pressure 136/60 H 12/25/16 16:45 O2 Sat (%) 99 12/25/16 16:45 O2 Delivery Mode Nasal Cannula O2 (L/minute) 2 Allergies/Adverse Reactions: morphine [Morphine] Allergy (Severe, Verified 03/02/16 17:11) SEVERE GENERALIZED PAIN codeine [Codeine] Allergy (Mild, Verified 03/02/16 17:11) hydrocodone bitartrate [From Vicodin] Allergy (Mild, Verified 03/02/16 17:11) Home Medications: Medication Instructions Recorded ARIPiprazole [Abilify 10 mg (*)] 10 mg PO DAILY@11/19/14 ARIPiprazole [Abilify 5 mg (*)] 5 mg PO HS@11/19/14 Acetaminophen [Tylenol ES 500 mg 500 mg PO Q6 PRN 11/19/14 (*)] Alendronate Sodium [Fosamax 70 MG 70 mg PO MO@0700 11/19/14 (*)] Atorvastatin Calcium [Lipitor 20 20 mg PO HS@11/19/14 mg (*)] Calcium Carbonate/Vitamin D3 1 tab PO TID@,,11/19/14 [Os-Derek 500-Vit D3 600 Caplet] Cholecalciferol Vit D3 [Vitamin D3 800 units PO DAILY@11/19/14 (*)] Divalproex ER [Depakote ER 250 MG 750 mg PO HS@11/19/14 (*)] Docusate Sodium [Colace 100 MG (*)] 100 mg PO DAILY@,11/19/14 Ferrous Sulfate [Ferrous Sulf 325 325 mg PO DAILY@11/19/14 MG (*)] Levothyroxine [Synthroid 175 mcg 175 mcg PO DAILY@11/19/14 (*)] Ranitidine HCl [Zantac] 150 mg PO BID@,11/19/14 Tizanidine HCl 4 mg PO TID@,,11/19/14 Hydrocortisone [Cortef 10 mg (*)] 10 mg PO DAILY@15 #30 tab 11/30/14 Polyethylene Glycol 3350 [Miralax 17 gm PO MOTUWETHFRSA 01/14/15 17 gm (*)] Hydrocortisone [Cortef 10 mg (*)] 20 mg PO DAILY@01/19/15 Furosemide [Lasix 20 MG (*)] 20 mg PO Q2D #15 tab 01/29/15 Warfarin Sodium [Coumadin 2.5MG 2.5 mg PO TU 03/02/16 (*)] Warfarin Sodium [Coumadin 5MG (*)] 5 mg PO SUMOWETHFRSA 03/02/16 traMADol [Ultram 50 mg (*)] 50 mg PO DAILY PRN 03/02/16 Lidocaine 5% [Lidoderm 5% Patch 1 ea TD DAILY #30 patch 03/05/16 (*)] Medical Decision Making - Diagnostics EKG Interpretation: EKG: Complete interpretation has been separately recorded in the [facility] archive. Summary impression: Atrial fibrillation, rate 97 (Sam Holguin) Imaging Results: Imaging Impressions Chest X-Ray 12/25/16 16:54 Impression: Nothing acute identified in this patient who has had prior cardiac bypass surgery. ED Course/Re-evaluation: The patient presents to the ED with multiple complaints including reproducible chest wall pain, fatigue and nonspecific dizziness. The patient is anticoagulated for atrial fibrillation. She has no evidence of congestive heart failure on exam or chest x-ray testing. The patient does have reproducible chest wall pain without evidence of zoster. She is in chronic atrial fibrillation. The patient will undergo screening testing including Depakote lab tests, INR checks, urinalysis electrolyte screening. I feel the studies are normal the patient can be discharged home back to her long term facility. The patient will be turned over Dr. Espino at shift change to follow up on the results of the studies. (Sam Holguin) 1800: Patient was signed over to me at 6:00 p.m. shift change. I did go and see and evaluate the patient. She is resting. She does complain of anterior musculoskeletal chest discomfort. It is reproducible on my exam. I have ordered her Tylenol for this. She denies any shortness of breath. I am waiting her labs including electrolytes Depakote level and urine. 1853: Patient's urinalysis resulted shows nitrite positive UTI. I have ordered her 1 g Rocephin. Urine culture. 1855: I did re-evaluate this patient this time. Patient is requesting to be admitted as she is "feels awful "she states she feels globally weak. She does have a nitrite positive UTI. Additionally her sodium is slightly low. I will order 500 cc fluid bolus. I will admitted to the hospitalist service for generalized weakness, UTI as well as hyponatremia. (Paresh Espino) Differential Diagnosis: Differential diagnosis considered includes rib fracture, zoster, pneumothorax, metabolic abnormality, Depakote toxicity, urinary tract infection (Sam Holguin) - Data Points Laboratory Results: Laboratory Results 12/25/16 17:22 12/25/16 17:22 12/25/16 12/25/16 12/25/16 18:10 17:22 17:22 WBC RBC Hgb Hct MCV MCH MCHC RDW Plt Count MPV Neut % (Auto) Lymph % (Auto) [facility] % (Auto) Eos % (Auto) Baso % (Auto) Nucleat RBC Rel Count Absolute Neuts (auto) Absolute Lymphs (auto) Absolute Monos (auto) Absolute Eos (auto) Absolute Basos (auto) Absolute Nucleated RBC Immature Gran % Immature Gran # PT 26.9 SEC H SEC (12.0-15.0) INR 2.46 H (0.83-1.16) APTT 39.6 SEC H SEC (23.0-38.0) Sodium 131 mEq/L L mEq/L (134-144) Potassium 4.8 mEq/L mEq/L (3.3-5.0) Chloride 83 mEq/L L mEq/L (97-110) Carbon Dioxide 39 mEq/l H mEq/l (22-31) Anion Gap 9 mEq/L mEq/L (8-16) BUN 28 mg/dL H mg/dL (7-23) Creatinine 1.0 mg/dL mg/dL (0.6-1.0) Estimated GFR 56 Glucose 117 mg/dL H mg/dL (70-100) Calcium 8.6 mg/dL mg/dL (8.5-10.4) Troponin I < 0.012 ng/mL ng/mL (0.000-0.034) Urine Color YELLOW Urine Appearance MODERATELY TURBID Urine pH 6.0 (5.0-7.5) Ur Specific Henderson 1.015 (1.002-1.030) Urine Protein NEGATIVE (NEGATIVE) Urine Ketones NEGATIVE (NEGATIVE) Urine Blood 1+ H (NEGATIVE) Urine Nitrate POSITIVE H (NEGATIVE) Urine Bilirubin NEGATIVE (NEGATIVE) Urine Urobilinogen 2.0 EU H EU (0.2-1.0) Ur Leukocyte Esterase 3+ H (NEGATIVE) Urine RBC 3-5 /hpf H /hpf (0-3) Urine WBC 50-182 /hpf H /hpf (0-3) Ur Epithelial Cells TRACE /lpf /lpf (NONE-1+) Urine Bacteria 4+ /hpf H /hpf (NONE SEEN) Urine Glucose 1+ H (NEGATIVE) Valproic Acid 58.4 mcg/mL mcg/mL (50.0-150.0) 12/25/16 17:22 WBC 8.92 10^3/uL 10^3/uL (3.80-9.50) RBC 3.10 10^6/uL L 10^6/uL (4.18-5.33) Hgb 10.7 g/dL L g/dL (12.6-16.3) Hct 30.9 % L % (38.0-47.0) MCV 99.7 fL fL (81.5-99.8) MCH 34.5 pg H pg (27.9-34.1) MCHC 34.6 g/dL g/dL (32.4-36.7) RDW 13.3 % % (11.5-15.2) Plt Count 147 10^3/uL L 10^3/uL (150-400) MPV 10.2 fL fL (8.7-11.7) Neut % (Auto) 69.9 % % (39.3-74.2) Lymph % (Auto) 15.5 % % (15.0-45.0) [facility] % (Auto) 10.7 % % (4.5-13.0) Eos % (Auto) 1.6 % % (0.6-7.6) Baso % (Auto) 0.6 % % (0.3-1.7) Nucleat RBC Rel Count 0.0 % % (0.0-0.2) Absolute Neuts (auto) 6.25 10^3/uL 10^3/uL (1.70-6.50) Absolute Lymphs (auto) 1.38 10^3/uL 10^3/uL (1.00-3.00) Absolute Monos (auto) 0.95 10^3/uL H 10^3/uL (0.30-0.80) Absolute Eos (auto) 0.14 10^3/uL 10^3/uL (0.03-0.40) Absolute Basos (auto) 0.05 10^3/uL 10^3/uL (0.02-0.10) Absolute Nucleated RBC 0.00 10^3/uL 10^3/uL (0-0.01) Immature Gran % 1.7 % H % (0.0-1.1) Immature Gran # 0.15 10^3/uL H 10^3/uL (0.00-0.10) PT INR APTT Sodium Potassium Chloride Carbon Dioxide Anion Gap BUN Creatinine Estimated GFR Glucose Calcium Troponin I Urine Color Urine Appearance Urine pH Ur Specific Henderson Urine Protein Urine Ketones Urine Blood Urine Nitrate Urine Bilirubin Urine Urobilinogen Ur Leukocyte Esterase Urine RBC Urine WBC Ur Epithelial Cells Urine Bacteria Urine Glucose Valproic Acid Medications Given: Discontinued Medications Acetaminophen (Tylenol) 500 mg PO EDNOW ONE Stop: 12/25/16 18:01 Last Admin: 12/25/16 18:16 Dose: 500 mg Departure - Departure Disposition: [facility] Acute Clinical Impression: Generalized weakness, Hyponatremia UTI (urinary tract infection) Qualifiers: Urinary tract infection type: acute cystitis Hematuria presence: with hematuria Qualified Code(s): N30.01 - Acute cystitis with hematuria Condition: Fair Referrals: Patient,NotPresent [Unknown] - As per Instructions
--- NOTE | 2016-12-25 16:54 | CPEKG ---
Heart Rate: 97 RR Interval: 619 QRSD Interval: 94 QT Interval: 368 QTC Interval: 468 QRS Wilson: 104 T Wave Wilson: 54 EKG Severity - ABNORMAL ECG - EKG Impression: ATRIAL FIBRILLATION, V-RATE 87-117 EKG Impression: RIGHT AXIS DEVIATION Electronically Signed By: Sam Holguin 25-Dec-2016 17:31:00
[2016-12-25 17:33] LABS: % IMMATURE GRANULYOCYTES 1.7 % (0.0-1.1); ABSOLUTE IMMATURE GRANULOCYTES 0.15 10^3/uL (0.00-0.10); ADD DIFF? NO; ADD MORPH? NO; ADD SCAN? NO; ATYPICAL LYMPHOCYTE FLAG 0 (0-99); FRAGMENT RBC FLAG 0 (0-99); HEMATOCRIT 30.9 % (38.0-47.0); HEMOGLOBIN 10.7 g/dL (12.6-16.3); LEFT SHIFT FLG 10 (0-99); LIPEMIA HEMOLYSIS FLAG 90 (0-99); MEAN CELL HEMOGLOBIN 34.5 pg (27.9-34.1); MEAN CELL HEMOGLOBIN CONCENTR. 34.6 g/dL (32.4-36.7); MEAN CELL VOLUME 99.7 fL (81.5-99.8); MEAN PLATELET VOLUME 10.2 fL (8.7-11.7); PLATELET CLUMPS FLAG 0 (0-99); PLATELET COUNT 147 10^3/uL (150-400); RED CELL DISTRIBUTION WIDTH 13.3 % (11.5-15.2)
[2016-12-25 17:42] LABS: APTT 39.6 SEC (23.0-38.0); INR 2.46 (0.83-1.16); PROTIME(PATIENT) 26.9 SEC (12.0-15.0)
[2016-12-25 17:49] LABS: ANION GAP 9 mEq/L (8-16); CALCIUM 8.6 mg/dL (8.5-10.4); CARBON DIOXIDE 39 mEq/l (22-31); CHLORIDE 83 mEq/L (97-110); GLOMERULAR FILTRATION RATE 56; GLUCOSE 117 mg/dL (70-100); SODIUM 131 mEq/L (134-144)
[2016-12-25 17:50] LABS: POTASSIUM 4.8 mEq/L (3.3-5.0)
[2016-12-25] MEDS ORDERED: ACETAMINOPHEN 500 MG TAB PO ONE (18:00)
[2016-12-25 18:02] LABS: TROPONIN I < 0.012 ng/mL (0.000-0.034)
[2016-12-25 18:41] LABS: COLOR YELLOW; LEUKOCYTE ESTERASE,URINE 3+ (NEGATIVE); NITRITE,URINE POSITIVE (NEGATIVE)
[2016-12-25 18:43] LABS: BACTERIA 4+ /hpf (NONE SEEN); WBC,URINE 50-182 /hpf (0-3)
[2016-12-25] MEDS ORDERED: NS 500 ML IV ONE (18:56)
[2016-12-25] MEDS ORDERED: ONDANSETRON DISINTEGRATING 4 MG TAB PO PRN (20:37)
[2016-12-25] MEDS ORDERED: ONDANSETRON 4 MG/2 ML VIAL IVP PRN (20:37)
[2016-12-25] MEDS ORDERED: KETOROLAC 30 MG/1 ML SDV IVP PRN (20:39)
[2016-12-25] MEDS: DIVALPROEX ER 250 MG TAB PO SCH (21:20)
[2016-12-25] MEDS: DOCUSATE SODIUM 100 MG CAP PO SCH (21:20)
[2016-12-25] MEDS: ARIPiprazole 5 MG TAB PO SCH (21:21)
[2016-12-25] MEDS: SODIUM CL NASAL 45 ML BTL EACHNARE SCH (21:21)
--- NOTE | 2016-12-25 22:43 | GHP ---
[f rep st] HISTORY AND PHYSICAL DATE OF ADMISSION: 12/25/2016 CHIEF COMPLAINT: Weakness, chest pain. HISTORY OF PRESENT ILLNESS: This is a 66-year-old female with history of multiple medical problems. She does have bipolar as well. She presents with a couple days of chest pain, which she states is w orse with deep inspiration and with palpation. She also feels dizzy and fatigued. She admits to a l ittle bit of dysuria. No abdominal pain. No diarrhea. REVIEW OF SYSTEMS: A 10-point review of systems was obtained and, other than stated, was negative. PAST MEDICAL HISTORY: 1. Bipolar. 2. Atrial fibrillation. 3. History of coronary artery disease, status post CABG. 4. Valvular heart disease. 5. Chronic kidney disease. 6. Diastolic heart failure. 7. Pulmonary hypertension. 8. Hypothyroidism. 9. Hypertension. 10. History of breast cancer. 11. History of AV node reentry tachycardia ablation. 12. Obstructive sleep apnea. PAST SURGICAL HISTORY: Left mastectomy, and cholecystectomy. FAMILY HISTORY: Dad with an MD. Mother with COPD and CHF. SOCIAL HISTORY: Lives at the [facility]. No alcohol or tobacco. PHYSICAL EXAMINATION: VITAL SIGNS: Afebrile. Blood pressure is 126/72, heart rate 88, oxygen satur ation 100% on 2 L. GENERAL: The patient is well developed, no apparent distress. HEENT: Nonicteri c sclerae. Extraocular movements intact. Moist mucous membranes. NECK: Supple. No thyromegaly. LUNGS: Good effort. Clear to auscultation bilaterally. CARDIOVASCULAR: Regular rate and rhythm. No murmurs, rubs, gallops. CHEST: There is reproducible chest pain. ABDOMEN: Positive bowel sound s. Soft, nontender, nondistended. No hepatosplenomegaly. EXTREMITIES: 1+ edema which the patient states is chronic. SKIN: Without rash, dry, intact. NEUROLOGIC: Alert and oriented x3. Moving al l 4 extremities equally. PSYCH: Normal affect. LABORATORY DATA: White count 8, hemoglobin 10, platelets 147. Sodium 131, creatinine 1.0. UA shows urinary tract infection. Chest x-ray, personally reviewed and interpreted, is negative. EKG, perso paulino reviewed and interpreted, shows atrial fibrillation. ASSESSMENT: This is a 66-year-old female with multiple medical problems, presenting with urinary tra ct infection. PLAN: 1. Urinary tract infection. Will continue ceftriaxone. Await cultures. 2. History of atrial fibrillation. The patient's INR is therapeutic and rate controlled. 3. Chest pain. This appears reproducible. Will try some IV Toradol. Will get another troponin in the morning, although that I do not believe this is acute coronary syndrome. 4. Bipolar. Continue medications. 5. Presumed adrenal insufficiency. Will continue hydrocortisone. 6. Mild hyponatremia. This is consistent with previous sodiums. /[id number]/MODL
[2016-12-26] MEDS: NS 1,000 ML IV SCH ×2 (00:10→14:19)
[2016-12-26] MEDS: LEVOTHYROXINE 175 MCG TAB PO SCH (04:40)
[2016-12-26 05:03] LABS: % IMMATURE GRANULYOCYTES 1.4 % (0.0-1.1); ABSOLUTE IMMATURE GRANULOCYTES 0.15 10^3/uL (0.00-0.10); ADD DIFF? NO; ADD MORPH? NO; ADD SCAN? NO; ATYPICAL LYMPHOCYTE FLAG 0 (0-99); FRAGMENT RBC FLAG 0 (0-99); HEMATOCRIT 31.9 % (38.0-47.0); HEMOGLOBIN 10.7 g/dL (12.6-16.3); LEFT SHIFT FLG 10 (0-99); LIPEMIA HEMOLYSIS FLAG 80 (0-99); MEAN CELL HEMOGLOBIN 33.6 pg (27.9-34.1); MEAN CELL HEMOGLOBIN CONCENTR. 33.5 g/dL (32.4-36.7); MEAN CELL VOLUME 100.3 fL (81.5-99.8); MEAN PLATELET VOLUME 10.6 fL (8.7-11.7); PLATELET CLUMPS FLAG 0 (0-99); PLATELET COUNT 150 10^3/uL (150-400); RED BLOOD CELL COUNT 3.18 10^6/uL (4.18-5.33); RED CELL DISTRIBUTION WIDTH 13.3 % (11.5-15.2)
[2016-12-26 05:16] LABS: ALANINE AMINOTRANSFERASE 32 IU/L (9-52); ALBUMIN 3.6 g/dL (3.5-5.0); ALKALINE PHOSPHATASE 81 IU/L (38-126); ANION GAP 8 mEq/L (8-16); ASPARTATE AMINOTRANSFERASE 24 IU/L (14-46); BILIRUBIN,TOTAL 0.2 mg/dL (0.1-1.4); CALCIUM 8.4 mg/dL (8.5-10.4); CARBON DIOXIDE 38 mEq/l (22-31); CHLORIDE 89 mEq/L (97-110); CREATININE 0.9 mg/dL (0.6-1.0); GLOMERULAR FILTRATION RATE > 60; GLUCOSE 87 mg/dL (70-100); POTASSIUM 4.2 mEq/L (3.5-5.2); SODIUM 135 mEq/L (134-144); TOTAL PROTEIN 6.6 g/dL (6.3-8.2)
[2016-12-26 05:26] LABS: TROPONIN I < 0.012 ng/mL (0.000-0.034)
[2016-12-26] MEDS ORDERED: NON-FORMULARY NEW DRUG (Ranitidine Hcl [Zantac] 150 MG) PO SCH (08:00)
[2016-12-26] MEDS ORDERED: [UNRECOGNIZED DRUG - OTHER] EACHNARE SCH (08:00)
[2016-12-26] MEDS ORDERED: SODIUM CHLORIDE EACHNARE SCH (08:00)
[2016-12-26] MEDS: METOPROLOL SUCCINATE XR 25 MG TAB PO SCH (09:17)
[2016-12-26] MEDS: HYDROCORTISONE 10 MG TAB PO SCH ×2 (09:18→14:21)
[2016-12-26] MEDS: ARIPiprazole 10 MG TAB PO SCH (09:19)
[2016-12-26] MEDS: DOCUSATE SODIUM 100 MG CAP PO SCH ×2 (09:19→20:29)
[2016-12-26] MEDS: ENOXAPARIN 40 MG/0.4 ML SYR SC SCH (09:20)
[2016-12-26] MEDS: FAMOTIDINE 20 MG TAB PO SCH ×2 (09:20→16:20)
[2016-12-26] MEDS: LIDOCAINE 5% 1 EA PATCH TD SCH (09:22)
[2016-12-26] MEDS: SODIUM CL NASAL 45 ML BTL EACHNARE SCH ×3 (09:29→20:54)
[2016-12-26] MEDS: FERROUS SULFATE 325 MG TAB PO SCH (14:21)
[2016-12-26] MEDS ORDERED: HYDROCORTISONE 100 MG/2 ML VIAL IVP ONE (14:43)
--- NOTE | 2016-12-26 14:43 | HOSPPROG ---
Hospitalist Progress Note Assessment/Plan: * UTI with sepsis -IV ceftriaxone pending culture -patient still very weak with ongoing dysuria -continue to monitor inpatient * Bipolar * Adrenal insufficiency -stress dose IV steroids x 1 * CAD/CABG * Afib, SVT s/p ablation -metprolol -chronic warfarin - continue * Chronic respiratory failure 2L * Obesity BMI 37 Subjective: No complaints other than ongoing weakness Objective: Vital Signs Temp Pulse Resp BP Pulse Ox 37.1 C 94 15 150/67 H 95 12/26/16 12:06 12/26/16 12:06 12/26/16 12:06 12/26/16 12:06 12/26/16 12:06 Laboratory Results 12/26/16 04:30 12/26/16 04:30 12/25/16 12/26/16 12/27/16 05:59 05:59 05:59 Intake Total 1023 Output Total 700 600 Balance 323 -600 PT 26.9 SEC (12.0-15.0) H 12/25/16 17:22 INR 2.46 (0.83-1.16) H 12/25/16 17:22 EKG viewed by me, my personal interpretation is - diffuse TW flat CXR - negative - Physical Exam Constitutional: no apparent distress, appears nourished, not in pain Cardiovascular: regular rate and rhythym, no murmur, rub, or gallop Respiratory: no respiratory distress, no rales or rhonchi, clear to auscultation Gastrointestinal: normoactive bowel sounds, soft, non-tender abdomen, no palpable masses Skin: no rashes or abrasions, no fluctuance, no induration Neurologic: AAOx3, sensation intact bilaterally Psychiatric: interacting appropriately, not anxious, not encephalopathic, thought process linear ICD10 Worksheet Patient Problems: Problems Problem Status Onset Generalized weakness Acute Hyponatremia Acute UTI (urinary tract infection) Acute Abdominal pain Acute Acute encephalopathy Acute Altered mental status Acute Atrial fibrillation Acute CAD (coronary artery disease), [place] coronary artery Acute Chronic diastolic CHF (congestive heart failure) Acute Chronic hypoxemic respiratory failure Acute Chronic kidney disease (CKD) Acute New onset atrial fibrillation Acute Pyelonephritis Acute VHD (valvular heart disease) Acute
--- NOTE | 2016-12-26 15:12 | PDMN ---
Medical Necessity Medical necessity: C/M review: est. > 2 MN LOS for eval and TX of acute and persistent urinary tract with sepsis, generalized weakness requiring IV fluids, ongoing IV Ceftriaxone, acute inpt PT/OT, comorbid bipolar disorder, adrenal insufficiency, CAD S/P CABG, atrial fibrillation / SVT A/P ablation, chronic respiratory failure with continuous O2 2L/min requirement, obesity per 2016 Hospitalist progress note.
[2016-12-26] MEDS: WARFARIN SODIUM 5 MG TAB PO SCH (16:20)
[2016-12-26] MEDS: DIVALPROEX ER 250 MG TAB PO SCH (20:29)
[2016-12-26] MEDS: ARIPiprazole 5 MG TAB PO SCH (20:29)
[2016-12-26] MEDS: ATORVASTATIN CALCIUM 20 MG TAB PO SCH (20:30)
[2016-12-26] MEDS: ACETAMINOPHEN 325 MG TAB PO PRN (20:34)
[2016-12-26] MEDS: traMADol 50 MG TAB PO PRN (20:34)
[2016-12-27] MEDS: LEVOTHYROXINE 175 MCG TAB PO SCH (04:54)
[2016-12-27 05:08] LABS: % IMMATURE GRANULYOCYTES 1.8 % (0.0-1.1); ABSOLUTE IMMATURE GRANULOCYTES 0.19 10^3/uL (0.00-0.10); ADD DIFF? NO; ADD MORPH? NO; ADD SCAN? NO; ATYPICAL LYMPHOCYTE FLAG 0 (0-99); FRAGMENT RBC FLAG 0 (0-99); HEMATOCRIT 31.5 % (38.0-47.0); HEMOGLOBIN 10.9 g/dL (12.6-16.3); LEFT SHIFT FLG 10 (0-99); LIPEMIA HEMOLYSIS FLAG 90 (0-99); MEAN CELL HEMOGLOBIN 34.8 pg (27.9-34.1); MEAN CELL HEMOGLOBIN CONCENTR. 34.6 g/dL (32.4-36.7); MEAN CELL VOLUME 100.6 fL (81.5-99.8); MEAN PLATELET VOLUME 10.2 fL (8.7-11.7); PLATELET CLUMPS FLAG 0 (0-99); PLATELET COUNT 137 10^3/uL (150-400); RED BLOOD CELL COUNT 3.13 10^6/uL (4.18-5.33); RED CELL DISTRIBUTION WIDTH 13.4 % (11.5-15.2)
[2016-12-27 05:17] LABS: INR 1.68 (0.83-1.16); PROTIME(PATIENT) 19.8 SEC (12.0-15.0)
[2016-12-27 05:27] LABS: ANION GAP 7 mEq/L (8-16); CARBON DIOXIDE 37 mEq/l (22-31); CHLORIDE 90 mEq/L (97-110); CREATININE 0.8 mg/dL (0.6-1.0); GLOMERULAR FILTRATION RATE > 60; GLUCOSE 100 mg/dL (70-100); POTASSIUM 4.8 mEq/L (3.5-5.2); SODIUM 134 mEq/L (134-144)
[2016-12-27] MEDS: ARIPiprazole 10 MG TAB PO SCH (08:59)
[2016-12-27] MEDS: FAMOTIDINE 20 MG TAB PO SCH ×2 (08:59→16:20)
[2016-12-27] MEDS: ACETAMINOPHEN 325 MG TAB PO PRN (08:59)
[2016-12-27] MEDS: traMADol 50 MG TAB PO PRN ×2 (08:59→20:41)
[2016-12-27] MEDS: HYDROCORTISONE 10 MG TAB PO SCH ×2 (09:00→14:18)
[2016-12-27] MEDS: ENOXAPARIN 40 MG/0.4 ML SYR SC SCH (09:01)
[2016-12-27] MEDS: DOCUSATE SODIUM 100 MG CAP PO SCH ×2 (09:01→20:42)
[2016-12-27] MEDS: POLYETHYLENE GLYCOL 3350 17 GM PKT PO SCH (09:01)
[2016-12-27] MEDS: LIDOCAINE 5% 1 EA PATCH TD SCH (09:01)
[2016-12-27] MEDS: METOPROLOL SUCCINATE XR 25 MG TAB PO SCH (09:04)
[2016-12-27] MEDS: SODIUM CL NASAL 45 ML BTL EACHNARE SCH ×3 (11:37→20:58)
[2016-12-27] MEDS: FERROUS SULFATE 325 MG TAB PO SCH (14:18)
--- NOTE | 2016-12-27 15:52 | HOSPPROG ---
Hospitalist Progress Note Assessment/Plan: * UTI with sepsis -IV ceftriaxone - Ecoli -change to PO abx on discharge -c/o flank pain - check renal US * Bipolar * Adrenal insufficiency -PO hydrocortisone * CAD/CABG * Afib, SVT s/p ablation -metoprolol -chronic warfarin - continue * Chronic respiratory failure 2L * CHF - suspect a little volume overload - IV lasix x 1 -recheck ECHO (last 2014 with severe pulm HTN, torrential TR) * SHAUNA - CPAP intolerant - likely source of her pulm HTN * Obesity BMI 37 Subjective: Still feels terrible. Back pain. SOB. Objective: Vital Signs Temp Pulse Resp BP Pulse Ox 36.8 C 82 20 101/57 L 99 12/27/16 11:50 12/27/16 11:50 12/27/16 11:50 12/27/16 11:50 12/27/16 11:50 Laboratory Results 12/27/16 04:45 12/27/16 04:45 12/26/16 12/27/16 12/28/16 05:59 05:59 05:59 Intake Total 2499 Output Total 500 350 Balance 1998 - PT 19.8 SEC (12.0-15.0) H 12/27/16 04:45 INR 1.68 (0.83-1.16) H 12/27/16 04:45 CXR viewed, my personal interpretation is - possible CHF - Physical Exam Constitutional: no apparent distress, appears nourished, not in pain Cardiovascular: regular rate and rhythym, no murmur, rub, or gallop Respiratory: no respiratory distress, no rales or rhonchi, clear to auscultation Gastrointestinal: normoactive bowel sounds, soft, non-tender abdomen, no palpable masses Skin: no rashes or abrasions, no fluctuance, no induration Neurologic: AAOx3, sensation intact bilaterally Psychiatric: interacting appropriately, not anxious, not encephalopathic, thought process linear ICD10 Worksheet Patient Problems: Problems Problem Status Onset Generalized weakness Acute Hyponatremia Acute UTI (urinary tract infection) Acute Abdominal pain Acute Acute encephalopathy Acute Altered mental status Acute Atrial fibrillation Acute CAD (coronary artery disease), [place] coronary artery Acute Chronic diastolic CHF (congestive heart failure) Acute Chronic hypoxemic respiratory failure Acute Chronic kidney disease (CKD) Acute New onset atrial fibrillation Acute Pyelonephritis Acute VHD (valvular heart disease) Acute
[2016-12-27] MEDS ORDERED: FUROSEMIDE 20 MG/2 ML VIAL IVP ONE (15:55)
[2016-12-27] MEDS ORDERED: FLU VACC QS 2017-18 (3YR+)/PF 0.5 ML SYR (FLUARIX QUAD) IM ONE (16:06)
[2016-12-27] MEDS: WARFARIN SODIUM 5 MG TAB PO SCH (16:20)
[2016-12-27] MEDS: ATORVASTATIN CALCIUM 20 MG TAB PO SCH (20:41)
[2016-12-27] MEDS: ARIPiprazole 5 MG TAB PO SCH (20:41)
[2016-12-27] MEDS: DIVALPROEX ER 250 MG TAB PO SCH (20:42)
[2016-12-28] MEDS: LEVOTHYROXINE 175 MCG TAB PO SCH (05:30)
[2016-12-28 05:59] LABS: % IMMATURE GRANULYOCYTES 2.2 % (0.0-1.1); ABSOLUTE IMMATURE GRANULOCYTES 0.26 10^3/uL (0.00-0.10); ADD DIFF? NO; ADD MORPH? NO; ADD SCAN? NO; ATYPICAL LYMPHOCYTE FLAG 0 (0-99); FRAGMENT RBC FLAG 0 (0-99); HEMATOCRIT 31.7 % (38.0-47.0); HEMOGLOBIN 10.8 g/dL (12.6-16.3); LEFT SHIFT FLG 20 (0-99); LIPEMIA HEMOLYSIS FLAG 90 (0-99); MEAN CELL HEMOGLOBIN 35.2 pg (27.9-34.1); MEAN CELL HEMOGLOBIN CONCENTR. 34.1 g/dL (32.4-36.7); MEAN CELL VOLUME 103.3 fL (81.5-99.8); MEAN PLATELET VOLUME 10.3 fL (8.7-11.7); PLATELET CLUMPS FLAG 0 (0-99); PLATELET COUNT 127 10^3/uL (150-400); RED BLOOD CELL COUNT 3.07 10^6/uL (4.18-5.33); RED CELL DISTRIBUTION WIDTH 13.9 % (11.5-15.2)
[2016-12-28 06:11] LABS: INR 2.33 (0.83-1.16); PROTIME(PATIENT) 25.8 SEC (12.0-15.0)
[2016-12-28 06:44] LABS: ANION GAP 12 mEq/L (8-16); CALCIUM 8.4 mg/dL (8.5-10.4); CARBON DIOXIDE 36 mEq/l (22-31); CHLORIDE 89 mEq/L (97-110); CREATININE 0.8 mg/dL (0.6-1.0); GLOMERULAR FILTRATION RATE > 60; GLUCOSE 88 mg/dL (70-100); POTASSIUM 4.8 mEq/L (3.5-5.2); SODIUM 137 mEq/L (134-144)
[2016-12-28] MEDS: traMADol 50 MG TAB PO PRN ×3 (08:43→20:54)
[2016-12-28] MEDS: LIDOCAINE 5% 1 EA PATCH TD SCH (08:43)
[2016-12-28] MEDS: ARIPiprazole 10 MG TAB PO SCH (08:43)
[2016-12-28] MEDS: METOPROLOL SUCCINATE XR 25 MG TAB PO SCH (08:43)
[2016-12-28] MEDS: DOCUSATE SODIUM 100 MG CAP PO SCH ×2 (08:44→20:54)
[2016-12-28] MEDS: HYDROCORTISONE 10 MG TAB PO SCH ×2 (08:44→12:31)
[2016-12-28] MEDS: ENOXAPARIN 40 MG/0.4 ML SYR SC SCH (08:45)
[2016-12-28] MEDS: FAMOTIDINE 20 MG TAB PO SCH ×2 (08:45→17:48)
[2016-12-28] MEDS: SODIUM CL NASAL 45 ML BTL EACHNARE SCH ×3 (08:45→20:57)
[2016-12-28] MEDS: POLYETHYLENE GLYCOL 3350 17 GM PKT PO SCH (08:47)
[2016-12-28] MEDS: FERROUS SULFATE 325 MG TAB PO SCH (12:31)
--- NOTE | 2016-12-28 12:59 | ECHO ---
[email or web address] [address] [address] Main: [phone] Fax: Transthoracic Echocardiogram Name: GALLO LIM MR#: [id number] Study Date: 12/28/2016 Study Time: 10:01 AM Date of : 1950 Age: 66 year(s) Height: 152.4 cm (60 in.) Weight: 86.18 kg (190 lb.) BSA: 1.83 m2 Gender: Female Examination: Echo Indication: CHF, History of CABG/Ablation Image Quality: Contrast: Requested by: Waleska Medel BP: 134 mmHg/102 mmHg Heart Rate: Rhythm: Indication: CHF, History of CABG/Ablation Procedure Staff Molder Hand: Letty Wesley Reading Physician: Bronson Vale Requesting Provider: Conclusions: Normal left ventricular size and systolic function. LVEF estimated at 60-65% without ischemic appearing wall motion abnormalities. Flattened interventricular septum noted in diastole consistent with right-sided volume overload. Moderately dilated right-sided chambers. Normal appearing mitral and aortic valves with mild mitral regurgitation. Poorly visualized tricuspid valve with torrential tricuspid regurgitation. The estimated RVSP is moderately elevated at 45 mm Hg. Measurements: Chambers Valvular Assessment AV/MV Valvular Assessment TV/PV Normal Normal Normal Name Value Range Name Value Range Name Value Range Ao Hina (MM): 2.8 cm (2.2 cm-3.7 MV E Vmax: 1.18 m/s ( - ) TR Vmax: 2.96 mm/s ( - ) cm) TR PGmax: 35 mmHg ( - ) IVSd (2D): 1.2 cm (0.6 cm-1.1 syst. PAP: 45 mmHg ( - ) cm) LVDd (2D): 3.9 cm (3.9 cm-5.3 cm) LVPWd (2D): 1.0 cm ( - ) EF Range: 60-65 % Continued Measurements: Chambers Valvular Assessment AV/MV Valvular Assessment TV/PV Name Value Name Value Name Value LADs: 4.1 cm MV E/E' Septal: 10.60 CVP (est.): 10 mmHg LADs Lon.7 cm MV E/E' Lateral: 10.60 LA Area: 20.6 cm2 Additional Vessels Patient: GALLO LIM Study Date: 12/28/2016 Page 1 of 2 10:01 AM Name Value Ao Ascendin.1 cm Findings: Left Ventricle: Normal size left ventricle. The ejection fraction is estimated to be 60-65 %. Flattened septum consistent with RV pressure/volume overload.. Right Ventricle: Moderately dilated right ventricle. Left Atrium: The left atrium is mildly dilated. Right Atrium: The right atrium is severely dilated. Mitral Valve: The mitral valve is normal in appearance. Mild mitral valve regurgitation is present. Aortic Valve: The aortic valve is tri-leaflet. Tricuspid Valve: The pulmonary artery pressure is mildly increased. Tricuspid leaflets do not coapt. Torrential tricuspid regurgitation. RVSP is 45mmHG. . Pulmonic Valve: Pulmonary valve not well visualized. (No Signature Object) Patient: GALLO LIM Study Date: 12/28/2016 Page 2 of 2 10:01 AM [id number]
--- NOTE | 2016-12-28 16:31 | ASMTCMCOM ---
CM Note CM Note Notes: Discharge plan is for patient to return to [facility] assisted living on discharge. Patients B/P up today . Patient has renal infusfficiency, is Bi Polar and has AFIB. When UTI is managed patient will discharge back home. Case management will follow. Date Signed: 12/28/2016 04:31 PM Electronically Signed By:DUSTY Mahoney
[2016-12-28] MEDS ORDERED: WARFARIN SODIUM 2.5 MG TAB PO SCH (17:00)
--- NOTE | 2016-12-28 18:00 | HOSPPROG ---
Hospitalist Progress Note Assessment/Plan: 66 yo F with severe bipolar disease as well as mulitple other medical problems including AI, CAD, A fib, residing at [facility] presenting with UTI # e coli UTI: started on IV ctx, US not showing any abscess or stranding, will be able to transition to oral at discharge # sepsis: 2/2 above, wbc still mildly elevated but afebrile and HD stable, unfortunately blood cultures had not been obtained prior to initiation of abx # bipolar d/o: continued on home meds, patient remains intermittently only limited in responsiveness, will dc back to her prior living situation # pulmonary htn: repeat echo showing RVSP of 45, continued torrential TR, 2/2 underlying zaida/ohs, continue supplemental o2, will add back low dose lasix # AI: continue PO hydrocortisone, no signs of adrenal crisis so far # HTN: very labile BP, largely in goal range but then occasional spikes with SBP >200 for no clear reason (? monitor error), will get f/u with manual BP for very elevated readings, currently BP at goal with only metoprolol 12.5 bid # chronic respiratory failure: baseline o2 need of 2L, has required slightly more but breathing appears unlabored, suspect underlying atelectasis, repeat cxr in am , IS and oob to chair as able # zaida: intolerant of cpap, contributing to right heart failure # obesity: recommending lifestyle modification # IP status Patient new to my care. Old records reviewed and summarized as above. Care plan reviewed with CM, further hx obtained from patients sister present at bedside. Subjective: no significant overnight events, patient denies pain Objective: Vital Signs Temp Pulse Resp BP Pulse Ox 37.1 C 89 22 H 134/72 H 95 12/28/16 17:51 12/28/16 17:51 12/28/16 17:51 12/28/16 17:51 12/28/16 17:51 Laboratory Results 12/28/16 05:45 12/28/16 05:45 12/27/16 12/28/16 12/29/16 05:59 05:59 05:59 Intake Total 2499 2100 650 Output Total 500 1750 650 Balance 1998 350 0 PT 25.8 SEC (12.0-15.0) H 12/28/16 05:45 INR 2.33 (0.83-1.16) H 12/28/16 05:45 awake alert minimally interactive anicteric op clear rrr no mrg dec bs at bases no w/r/r obese soft nt ble edema warm dry well perfused oriented, somnolent, minimally interactive ICD10 Worksheet Patient Problems: Problems Problem Status Onset Chronic kidney disease (CKD) Acute CAD (coronary artery disease), [place] coronary artery Acute VHD (valvular heart disease) Acute Hyponatremia Acute Altered mental status Acute Chronic hypoxemic respiratory failure Acute Acute encephalopathy Acute Atrial fibrillation Acute Chronic diastolic CHF (congestive heart failure) Acute Abdominal pain Acute New onset atrial fibrillation Acute UTI (urinary tract infection) Acute Pyelonephritis Acute Generalized weakness Acute
[2016-12-28] MEDS: ACETAMINOPHEN 325 MG TAB PO PRN (20:54)
[2016-12-28] MEDS: ARIPiprazole 5 MG TAB PO SCH (20:54)
[2016-12-28] MEDS: DIVALPROEX ER 250 MG TAB PO SCH (20:55)
[2016-12-28] MEDS: ATORVASTATIN CALCIUM 20 MG TAB PO SCH (20:55)
[2016-12-29] MEDS: LEVOTHYROXINE 175 MCG TAB PO SCH (05:35)
[2016-12-29] MEDS: ACETAMINOPHEN 325 MG TAB PO PRN ×2 (05:35→22:07)
[2016-12-29 06:46] LABS: % IMMATURE GRANULYOCYTES 2.5 % (0.0-1.1); ABSOLUTE IMMATURE GRANULOCYTES 0.23 10^3/uL (0.00-0.10); ADD DIFF? NO; ADD MORPH? NO; ADD SCAN? NO; ATYPICAL LYMPHOCYTE FLAG 0 (0-99); FRAGMENT RBC FLAG 0 (0-99); HEMATOCRIT 30.2 % (38.0-47.0); LEFT SHIFT FLG 20 (0-99); LIPEMIA HEMOLYSIS FLAG 80 (0-99); MEAN CELL HEMOGLOBIN 34.7 pg (27.9-34.1); MEAN CELL HEMOGLOBIN CONCENTR. 33.1 g/dL (32.4-36.7); MEAN CELL VOLUME 104.9 fL (81.5-99.8); MEAN PLATELET VOLUME 10.9 fL (8.7-11.7); PLATELET CLUMPS FLAG 0 (0-99); PLATELET COUNT 112 10^3/uL (150-400); RED BLOOD CELL COUNT 2.88 10^6/uL (4.18-5.33); RED CELL DISTRIBUTION WIDTH 13.8 % (11.5-15.2)
[2016-12-29 06:57] LABS: INR 3.11 (0.83-1.16); PROTIME(PATIENT) 32.5 SEC (12.0-15.0)
[2016-12-29 07:07] LABS: ANION GAP 10 mEq/L (8-16); CALCIUM 8.2 mg/dL (8.5-10.4); CARBON DIOXIDE 35 mEq/l (22-31); CHLORIDE 87 mEq/L (97-110); CREATININE 1.4 mg/dL (0.6-1.0); GLOMERULAR FILTRATION RATE 38; GLUCOSE 89 mg/dL (70-100); POTASSIUM 5.2 mEq/L (3.5-5.2); SODIUM 132 mEq/L (134-144)
[2016-12-29] MEDS ORDERED: FUROSEMIDE 20 MG TAB PO SCH (09:00)
[2016-12-29] MEDS: LIDOCAINE 5% 1 EA PATCH TD SCH (09:04)
[2016-12-29] MEDS: HYDROCORTISONE 10 MG TAB PO SCH ×2 (09:05→14:11)
[2016-12-29] MEDS: METOPROLOL SUCCINATE XR 25 MG TAB PO SCH (09:06)
[2016-12-29] MEDS: DOCUSATE SODIUM 100 MG CAP PO SCH ×2 (09:06→22:10)
[2016-12-29] MEDS: FAMOTIDINE 20 MG TAB PO SCH (09:07)
[2016-12-29] MEDS: ARIPiprazole 10 MG TAB PO SCH (09:07)
[2016-12-29] MEDS: POLYETHYLENE GLYCOL 3350 17 GM PKT PO SCH (09:08)
[2016-12-29] MEDS: SODIUM CL NASAL 45 ML BTL EACHNARE SCH ×3 (09:12→22:10)
[2016-12-29] MEDS: FERROUS SULFATE 325 MG TAB PO SCH (11:40)
[2016-12-29] MEDS: NS 1,000 ML IV SCH ×2 (12:58→22:04)
--- NOTE | 2016-12-29 16:08 | HOSPPROG ---
Hospitalist Progress Note Assessment/Plan: 66 yo F with severe bipolar disease as well as mulitple other medical problems including AI, CAD, A fib, residing at [facility] presenting with UTI # e coli UTI: started on IV ctx, US not showing any abscess or stranding, will be able to transition to oral at discharge # sepsis: 2/2 above, wbc normalized , unfortunately blood cultures had not been obtained prior to initiation of abx # bipolar d/o: continued on home meds, patient remains intermittently only limited in responsiveness, will dc back to her prior living situation # fabi: new overnight, in setting of getting lasix and limited po intake--will hold lasix and dc toradol, repeat creat in am. Could be due to poor forward flow despite total body overload, but holding diuretics for now. # acute on chronic diastolic heart failure: with preserved EF but new pulmonary edema on cxr and right sided heart failure as next, holding diuresis given fabi as above for now (at home on 3x/week lasix) # pulmonary htn: repeat echo showing RVSP of 45, continued torrential TR, 2/2 underlying zaida/ohs, continue supplemental o2, lasix in am so long as renal function improved # AI: continue PO hydrocortisone, no signs of adrenal crisis so far # HTN: has been essentially low to normal on current dose of metoprolol, some elevated readings noted that were likely errors, continue current meds # chronic respiratory failure: baseline o2 need of 2L, currently increased to 3- 5L with mild pulmonary edema noted on personal review of cxr as above , IS and oob to chair as able, lasix in am if renal function stable # zaida: intolerant of cpap, contributing to right heart failure # obesity: recommending lifestyle modification # IP status Subjective: no significant overnight events, patient states she is feeling "not great" today, with complaints including sob, generalized fatigue Objective: Vital Signs Temp Pulse Resp BP Pulse Ox 36.9 C 84 20 140/99 H 90 L 12/29/16 15:19 12/29/16 15:19 12/29/16 15:19 12/29/16 15:19 12/29/16 15:19 Laboratory Results 12/29/16 05:45 12/29/16 05:45 12/28/16 12/29/16 12/30/16 05:59 05:59 05:59 Intake Total 2100 2150 Output Total 1750 750 500 Balance 350 1400 -500 PT 32.5 SEC (12.0-15.0) H 12/29/16 05:45 INR 3.11 (0.83-1.16) H 12/29/16 05:45 awake alert eating in chair anicteric op clear rrr no mrg dec bs at bases no w/r/r obese soft nt ble edema warm dry well perfused oriented, somnolent, sitting up and eating ICD10 Worksheet Patient Problems: Problems Problem Status Onset Generalized weakness Acute Hyponatremia Acute UTI (urinary tract infection) Acute Abdominal pain Acute Acute encephalopathy Acute Altered mental status Acute Atrial fibrillation Acute CAD (coronary artery disease), [place] coronary artery Acute Chronic diastolic CHF (congestive heart failure) Acute Chronic hypoxemic respiratory failure Acute Chronic kidney disease (CKD) Acute New onset atrial fibrillation Acute Pyelonephritis Acute VHD (valvular heart disease) Acute
[2016-12-29] MEDS: DIVALPROEX ER 250 MG TAB PO SCH (22:04)
[2016-12-29] MEDS: ATORVASTATIN CALCIUM 20 MG TAB PO SCH (22:09)
[2016-12-29] MEDS: ARIPiprazole 5 MG TAB PO SCH (22:09)
[2016-12-29] MEDS: traMADol 50 MG TAB PO PRN (22:10)
[2016-12-30] MEDS: LEVOTHYROXINE 175 MCG TAB PO SCH (05:12)
[2016-12-30 05:42] LABS: INR 3.37 (0.83-1.16); PROTIME(PATIENT) 34.6 SEC (12.0-15.0)
[2016-12-30] MEDS: POLYETHYLENE GLYCOL 3350 17 GM PKT PO SCH (07:55)
[2016-12-30] MEDS: SODIUM CL NASAL 45 ML BTL EACHNARE SCH ×3 (07:56→21:31)
[2016-12-30] MEDS: LIDOCAINE 5% 1 EA PATCH TD SCH (07:56)
[2016-12-30] MEDS: HYDROCORTISONE 10 MG TAB PO SCH ×2 (07:57→13:38)
[2016-12-30] MEDS: METOPROLOL SUCCINATE XR 25 MG TAB PO SCH (07:57)
[2016-12-30] MEDS: FAMOTIDINE 20 MG TAB PO SCH (07:57)
[2016-12-30] MEDS: DOCUSATE SODIUM 100 MG CAP PO SCH ×2 (07:57→21:31)
[2016-12-30] MEDS: ARIPiprazole 10 MG TAB PO SCH (07:58)
[2016-12-30] MEDS: FERROUS SULFATE 325 MG TAB PO SCH (11:50)
--- NOTE | 2016-12-30 12:00 | ASMTCMCOM ---
CM Note CM Note Notes: Pt lives at [facility]. PT/OT are rcommending home care. Pt has used [facility] in the past and would like to use them again. She asked that a PROFESSOR OF PHILOSOPHY be added as well. LM for intake at [facility] and faxed referral. C/M will continue to follow. Date Signed: 12/30/2016 11:59 AM Electronically Signed By:Claudia Kelly LCSW
[2016-12-30 12:26] LABS: ANION GAP 8 mEq/L (8-16); CALCIUM 7.8 mg/dL (8.5-10.4); CARBON DIOXIDE 38 mEq/l (22-31); CHLORIDE 82 mEq/L (97-110); CREATININE 0.7 mg/dL (0.6-1.0); GLOMERULAR FILTRATION RATE > 60; GLUCOSE 158 mg/dL (70-100); POTASSIUM 4.4 mEq/L (3.5-5.2); SODIUM 128 mEq/L (134-144)
[2016-12-30] MEDS ORDERED: FUROSEMIDE 20 MG/2 ML VIAL IVP ONE ×2 (14:46→22:58)
--- NOTE | 2016-12-30 14:51 | HOSPPROG ---
Hospitalist Progress Note Assessment/Plan: 66 yo F with severe bipolar disease as well as mulitple other medical problems including AI, CAD, A fib, residing at [facility] presenting with UTI # e coli UTI: started on IV ctx, US not showing any abscess or stranding, will transition to oral for am dose # sepsis: 2/2 above, wbc normalized , unfortunately blood cultures had not been obtained prior to initiation of abx # bipolar d/o: continued on home meds, patient remains intermittently only limited in responsiveness, will dc back to her prior living situation # fabi: now resolved, will need to resume lasix given volume overload as below, continue to monitor renal function # hyponatremia: appears volume overloaded and resuming lasix x 1 for now, will get urine osms/na, ? SIADH # acute on chronic diastolic heart failure: with preserved EF but new pulmonary edema on cxr and right sided heart failure as next, starting lasix today and will monitor renal function/na # pulmonary htn: repeat echo showing RVSP of 45, continued torrential TR, 2/2 underlying zaida/ohs, continue supplemental o2, lasix as above # AI: continue PO hydrocortisone, no signs of adrenal crisis so far # HTN: has been essentially low to normal on current dose of metoprolol, some elevated readings noted that were likely errors, continue current meds # chronic respiratory failure: baseline o2 need of 2L, currently increased to 3- 5L with mild pulmonary edema noted on personal review of cxr as above , IS and oob to chair as able, lasix in am if renal function stable # zaida: intolerant of cpap, contributing to right heart failure # obesity: recommending lifestyle modification # IP status--will return to [facility] in likely next 1-2 days Subjective: no significant overnight events, when asked how she is doing she says "terrible", states her shoulder hurts but also admits her shoulder always hurts, no other complaints Objective: Vital Signs Temp Pulse Resp BP Pulse Ox 36.8 C 98 20 155/85 H 95 12/30/16 08:00 12/30/16 08:50 12/30/16 08:50 12/30/16 08:50 12/30/16 08:50 Laboratory Results 12/29/16 05:45 12/30/16 11:49 12/29/16 12/30/16 12/31/16 05:59 05:59 05:59 Intake Total 2150 Output Total 750 1450 500 Balance 1400 -1450 -500 PT 34.6 SEC (12.0-15.0) H 12/30/16 04:45 INR 3.37 (0.83-1.16) H 12/30/16 04:45 awake alert minimally verbally interactive anicteric op clear rrr no mrg dec bs at bases no w/r/r obese soft nt ble edema warm dry well perfused oriented, somnolent ICD10 Worksheet Patient Problems: Problems Problem Status Onset Generalized weakness Acute Hyponatremia Acute UTI (urinary tract infection) Acute Abdominal pain Acute Acute encephalopathy Acute Altered mental status Acute Atrial fibrillation Acute CAD (coronary artery disease), [place] coronary artery Acute Chronic diastolic CHF (congestive heart failure) Acute Chronic hypoxemic respiratory failure Acute Chronic kidney disease (CKD) Acute New onset atrial fibrillation Acute Pyelonephritis Acute VHD (valvular heart disease) Acute
--- NOTE | 2016-12-30 18:31 | CPEKG ---
Heart Rate: 91 RR Interval: 659 QRSD Interval: 80 QT Interval: 380 QTC Interval: 468 QRS [place]: 105 T Wave [place]: 83 EKG Severity - ABNORMAL ECG - EKG Impression: ATRIAL FIBRILLATION, V-RATE 68-127 EKG Impression: RIGHT AXIS DEVIATION Electronically Signed By: Jitendra Torres 31-Dec-2016 09:22:47
[2016-12-30] MEDS ORDERED: ATROPINE SULFATE 0.4 MG/ML VIAL IVP PRN (18:36)
--- NOTE | 2016-12-30 18:50 | HOSPPROG ---
Hospitalist Progress Note Assessment/Plan: 66 yo female with h/o CAD, s/p CABG, A fib, and chronic heart failure admitted with UTI, now being diuresed due to volume overload. Called by RN for bradycardia, HR 20-30 for 20-30 sec, 2 events. Reviewed rhythm strips, slow A fib. She had another event lasting 40 seconds with a 7 second pause. Pt evaluated. She c/o CP, SOB, dizziness, and back pain. She received 20 mg IV lasix this afternoon and has diuresed nicely, putting out 1.5L urine since then. CXR reveals pulmonary edema. HR currently 80-90. RR 22. 5 LPM, up from baseline 2 LPM. Gen: pale, slightly somnolent, but awakens and answers questions Neck: +JVD CV irregularly irregular Pulm b/l crackles at bases Ext: 2+ b/l LE pitting edema A&P: Symptomatic bradycardia / slow A fib with HR down to 25-30 and 7 second pause -discussed with cards. -hold coumadin, give Vit K and FFP to reverse INR as she'll need a pacer with 7 sec pause. NPO at midnight. -pacer pads in place -start low dose dopamine -stop beta hiral (last dose this am, just 12.5 mg) -prn atropine -trend trop -cont telemetry monitoring -transfer to SDU -may need more lasix A total of 40 minutes was spent providing face to face critical care, reviewing chart and discussing case with specialty care. Objective: Vital Signs Temp Pulse Resp BP Pulse Ox 36.8 C 83 24 H 148/91 H 94 12/30/16 17:20 12/30/16 17:20 12/30/16 17:20 12/30/16 18:40 12/30/16 17:20 Laboratory Results 12/29/16 05:45 12/30/16 11:49 12/29/16 12/30/16 12/31/16 05:59 05:59 05:59 Intake Total 2150 750 Output Total 750 1450 800 Balance 1400 -1450 -50 PT 34.6 SEC (12.0-15.0) H 12/30/16 04:45 INR 3.37 (0.83-1.16) H 12/30/16 04:45 ICD10 Worksheet Patient Problems: Problems Problem Status Onset Generalized weakness Acute Hyponatremia Acute UTI (urinary tract infection) Acute Abdominal pain Acute Acute encephalopathy Acute Altered mental status Acute Atrial fibrillation Acute CAD (coronary artery disease), [place] coronary artery Acute Chronic diastolic CHF (congestive heart failure) Acute Chronic hypoxemic respiratory failure Acute Chronic kidney disease (CKD) Acute New onset atrial fibrillation Acute Pyelonephritis Acute VHD (valvular heart disease) Acute
[2016-12-30] MEDS ORDERED: ATROPINE SULFATE 1 MG/10 ML SYR IVP PRN (19:00)
[2016-12-30] MEDS ORDERED: PHYTONADIONE 5 MG in NS 50 ML IV ONE (21:07)
[2016-12-30] MEDS: ARIPiprazole 5 MG TAB PO SCH (21:31)
[2016-12-30] MEDS: ATORVASTATIN CALCIUM 20 MG TAB PO SCH (21:31)
[2016-12-30] MEDS: DIVALPROEX ER 250 MG TAB PO SCH (22:00)
[2016-12-30] MEDS: NS 1,000 ML IV SCH (22:06)
[2016-12-30] MEDS: traMADol 50 MG TAB PO PRN (22:06)
--- NOTE | 2016-12-30 23:08 | CPEKG ---
Heart Rate: 112 RR Interval: 536 QRSD Interval: 76 QT Interval: 348 QTC Interval: 475 QRS [place]: 120 T Wave [place]: 11 EKG Severity - ABNORMAL ECG - EKG Impression: ATRIAL FIBRILLATION, V-RATE 85-119 EKG Impression: RIGHT AXIS DEVIATION EKG Impression: MINIMAL ST DEPRESSION, LATERAL LEADS Electronically Signed By: Jitendra Torres 31-Dec-2016 09:22:54
--- NOTE | 2016-12-30 23:08 | HOSPPROG ---
Hospitalist Progress Note Assessment/Plan: Hospitalist Night Float Note Paged by RN patient transferred from PCU to SDU for bradycardia and pauses. History of atrial fibrillation. Patient started on dopamin after 2100 for bradycardia and since noted increased sob. developed worsening dyspnea and hypoxia despite oxy mask with sat 80s. Patient refusing bipap 2/2 discomfort of it. C/o substernal chest pain, chest tightness and SOB. Labs, echo, cxr from approx 1500 reviewed showing pulmonary edema. VS reviewed. SBP 190s, HR 100s. Afib on monitor Gen - NAD. patient appears acute on chronically ill. obese. increased WOB. pale. awake. oxy mask in place. CV - distant heart sounds. tachy, irreg. Resp - tachypneic with shallow breaths. labored breathing. decreased lung sounds right lung base. crackles left lung bases. decreased air movement. no wheezing/rhonchi. Abd - obese. distended but soft. no point tenderness/rebound guarding. Ext - edematous Neuro - nonfocal patient awake. generalized weakness. able to move all extremities. Psych - patient alert and cooperative. slightly anxious. Plan - lasix 20, - d/c dopamine - HR now 100s - trop, ekg now. - cxr from 1500 c/w pulmonary edema. - d/c IVF. - repeat cxr, kub ekg showing afib V rate 100s. minimal st depression inferior leads, movement artifact lateral leads with minimal st depression. Objective: Vital Signs Temp Pulse Resp BP Pulse Ox 36.8 C 30 L 24 H 148/91 H 94 12/30/16 17:20 12/30/16 19:25 12/30/16 17:20 12/30/16 18:40 12/30/16 17:20 Laboratory Results 12/29/16 05:45 12/30/16 11:49 12/29/16 12/30/16 12/31/16 05:59 05:59 05:59 Intake Total 2150 750 Output Total 750 1450 800 Balance 1400 -1450 -50 PT 34.6 SEC (12.0-15.0) H 12/30/16 04:45 INR 3.37 (0.83-1.16) H 12/30/16 04:45 ICD10 Worksheet Patient Problems: Problems Problem Status Onset Generalized weakness Acute Hyponatremia Acute UTI (urinary tract infection) Acute Abdominal pain Acute Acute encephalopathy Acute Altered mental status Acute Atrial fibrillation Acute CAD (coronary artery disease), [place] coronary artery Acute Chronic diastolic CHF (congestive heart failure) Acute Chronic hypoxemic respiratory failure Acute Chronic kidney disease (CKD) Acute New onset atrial fibrillation Acute Pyelonephritis Acute VHD (valvular heart disease) Acute
[2016-12-31 00:02] LABS: PCO2 VENOUS 78 mmHg (40-44); PH VENOUS BLOOD 7.33 (7.31-7.42); PO2 VENOUS 47 mmHg (35-40); TCO2 VENOUS 42 mEq/L (23-27); VEN MEASURED OXYGEN SATURATION 76 % (65-75)
[2016-12-31] MEDS: LORazepam 2 MG/ML INJ IVP PRN (01:57)
[2016-12-31 02:09] LABS: COLOR YELLOW; LEUKOCYTE ESTERASE,URINE NEGATIVE (NEGATIVE); NITRITE,URINE NEGATIVE (NEGATIVE)
[2016-12-31 02:11] LABS: MUCUS TRACE /lpf (NONE-1+)
[2016-12-31 04:50] LABS: ADD DIFF? YES; ADD MORPH? NO; ADD SCAN? NO; ATYPICAL LYMPHOCYTE FLAG 0 (0-99); FRAGMENT RBC FLAG 0 (0-99); HEMATOCRIT 29.8 % (38.0-47.0); LEFT SHIFT FLG 20 (0-99); LIPEMIA HEMOLYSIS FLAG 80 (0-99); MEAN CELL HEMOGLOBIN 33.8 pg (27.9-34.1); MEAN CELL HEMOGLOBIN CONCENTR. 33.6 g/dL (32.4-36.7); MEAN CELL VOLUME 100.7 fL (81.5-99.8); MEAN PLATELET VOLUME 10.1 fL (8.7-11.7); PLATELET CLUMPS FLAG 20 (0-99); PLATELET COUNT 132 10^3/uL (150-400); RED BLOOD CELL COUNT 2.96 10^6/uL (4.18-5.33); RED CELL DISTRIBUTION WIDTH 13.2 % (11.5-15.2)
[2016-12-31] MEDS ORDERED: PROPOFOL/EMULSION 1,000 MG/100 ML BOTTLE IV ONE (04:51)
[2016-12-31] MEDS: FUROSEMIDE 40 MG/4 ML VIAL IVP SCH ×2 (04:58→17:35)
[2016-12-31 04:59] LABS: INR 1.67 (0.83-1.16); PROTIME(PATIENT) 19.7 SEC (12.0-15.0)
[2016-12-31] MEDS ORDERED: PROPOFOL/EMULSION 100 ML IV SCH (05:00)
[2016-12-31] MEDS ORDERED: fentaNYL/NACL 100 ML IV SCH (05:00)
[2016-12-31] MEDS ORDERED: DILTIAZEM 125 MG in D5W 125 ML IV SCH (05:00)
[2016-12-31 05:14] LABS: PLATELET ESTIMATE DECREASED (ADEQ)
[2016-12-31] MEDS ORDERED: MIDAZOLAM 2 MG/2 ML VIAL ONE (05:14)
[2016-12-31 05:15] LABS: MACROCYTES 2+; POLYCHROMASIA 1+; STOMATOCYTES 1+
[2016-12-31 05:16] LABS: LARGE PLATELETS PRESENT
[2016-12-31 05:19] LABS: CALCIUM 8.2 mg/dL (8.5-10.4); CHLORIDE 76 mEq/L (97-110); CREATININE 0.7 mg/dL (0.6-1.0); GLOMERULAR FILTRATION RATE > 60; GLUCOSE 123 mg/dL (70-100); POTASSIUM 4.7 mEq/L (3.5-5.2); SODIUM 128 mEq/L (134-144)
[2016-12-31 05:28] LABS: ANION GAP 10 mEq/L (8-16); CARBON DIOXIDE 42 mEq/l (22-31)
[2016-12-31 05:30] LABS: TROPONIN I < 0.012 ng/mL (0.000-0.034)
[2016-12-31] MEDS ORDERED: MIDAZOLAM 2 MG/2 ML VIAL IVP ONE (05:30)
--- NOTE | 2016-12-31 05:31 | EDPHY ---
Inpatient Procedure Narrative: 0500 12/31/16 I was asked by the hospitalist service to come and see and evaluate this patient for impending respiratory failure and need for emergent intubation. When I arrived to this patient's ICU Room, the patient was tachypneic in the 40s satting 86% on a non-rebreather and tachycardia to the 150s Afib. Upon my evaluation the patient was minimally responsive. She appeared to be in respiratory distress with a significant need for supplemental oxygen. High- flow non-rebreather. Patient impending respiratory failure. The patient is not a DNR. The hospitalist service did talk to her earlier about possible intubation she was okay with this. Intubation Procedure: This patient was laid flat with to towel rolls under her shoulders. My assessment she had a very small oropharyngeal opening, a short neck, with loss of landmarks. I ask for RSI medications. 20 mg of etomidate was pulled up as well as 100 mg succinylcholine. Talpa scope was set up. With the use of glide scope blade 3 direct visualization of the cords was obtained after 20 mg of IV etomidate was given. She maintained an O2 saturation of 100% during intubation. Direct visualization of the cords were seen and passage of a 7.0 endotracheal tube was passed directly through the cords. Humidified air was seen in the endotracheal tube. She had bilateral breath sounds equal. And capnography for change with BVM. She tolerated this very well. There no complications. Endotracheal tube intubation was confirmed with chest x-ray. Critical Care: Total Critical Care Time Spent Managing this Patient: 20 Minutes. This time was spent Exclusively with this patient. This Care was exclusive of procedures. The Organ System/life at risk was impending respiratory failure This Patient was in Critical Condition because respiratory failure, AFib With RVR Final Diagnosis: Respiratory Failure. Final Diagnosis: Afib RVR.
[2016-12-31] MEDS: NOREPINEPHRINE/NS 500 ML IV SCH ×2 (05:35→21:55)
[2016-12-31] MEDS: LEVOTHYROXINE 175 MCG TAB PO SCH (05:57)
[2016-12-31 06:28] LABS: BASE EXCESS 14.3 mEq/L (-2.5-2.5); BICARBONATE 40 mEq/L (22-26); MEASURED OXYGEN SATURATION 99 % (92-95); P/F RATIO 144 RATIO; PCO2 53 mmHg (34-38); PO2 144 mmHg (65-75); SIMV YES
[2016-12-31 06:29] LABS: O2 CONCENTRATIION 100 % (0-100); PRESSURE SUPPORT 10
[2016-12-31 06:31] LABS: TCO2 41 mEq/L (23-27)
[2016-12-31] MEDS ORDERED: SUCCINYLCHOLINE CHLORIDE*ANESTHESIA ONLY*200 MG/10 ML SYR IVP ONE (06:37)
[2016-12-31] MEDS ORDERED: ETOMIDATE 40 MG/20 ML INJ ONE (06:37)
[2016-12-31] MEDS: SODIUM CL NASAL 45 ML BTL EACHNARE SCH ×3 (07:56→21:56)
--- NOTE | 2016-12-31 08:10 | HOSPPROG ---
Hospitalist Progress Note Assessment/Plan: Hospitalist Night Float Note Paged by RN approximately 0298 regarding patient sudden worsening respiratory status, HR to 160s and AMS. Patient was amenable overnight to placement of bipap and appeared to tolerate very well. She also received diuresis with approximately 1.5 liters ouput. Patient c/o sob. no chest pain. fatigue. was not oriented to place/time and was previously conversant. VS, chart reviewed. HR 130s-150s at bedside in rapid afib. Gen - Moderate respiratory distress with poor inspiratory effort and intermittent gasping. patient confused/somnolent but arousable to name. CV - distant heart sounds, tachy 130s. Respiratory - further diminished lung wood diffusely, no wheezing. Abd - obese. soft distended no change from previous exam. Ext - edematous similar. Neuro - patient moves all extremities. generalized weakness but no focal deficits. no facial drooping. confused. Psych - confused to place and time. not agitated. Given patient worsening respiratory status and pulmonary edema felt patient required emergent intubation and ED provider Dr. Polk consulted. Previously discussed with patient during my previous visit regarding her code status and specifically regarding intubation. Patient desired full intubation and this was also relayed to ED provider before proceeding. Patient developed low BPs and HR persistently in the 130s-150s. Cardizem gtt was ordered. patient subsequently developed hypotension and levophed had been started with response. Patient with single port site and unable to obtain peripheral access for sedation. Surgery was consulted to evaluate for additional line access and I spoke with Dr. Brandt. consideration for amiodarone gtt deferred with hx prolonged qt. cardiology previously consulted when patient developed bradycardia and they will be called for further recommendations for atrial fib. Patient s/p ffp with inr down from 3.3 to 1.67 and further diuresis received. Consults overnight ED provider, Surgery, cardiology, critical care. A: acute on chronic respiratory failure with hypercarbia and hypoxia atrial fibrillation RVR. pulmonary edema hypotension/shock suspect cardiogenic. admitted for sepsis but had appeared to be stabilized and on appropriate abx therapy. acute on chronic diastolic chf cad ecoli uti sepsis fabi hyponatremia pulmonary htn benign essential HTN SHAUNA morbid obesity (BMI 40.3) thrombocytopenia leukocytosis hypothyroidism anemia thrombocytopenia P: -intubated and critical care consulted. improved aeration on cxr. persistent pulm edema. -continue diuresis -continue cardizem. cardiology consulted rate improving. -s/p ffp and vit k reversal inr now 1.67 -surgery consulted for additional line access. -BPs improved wean off levophed. -continue levaquin uti. +SIRS criterial with leukocytosis and tachycardia likely reactive related to respiratory/cardiac status. previously normal WBC on abx. afebrile. cultures not re-ordered. total critical care time this morning 45 minutes. Objective: Vital Signs Temp Pulse Resp BP Pulse Ox 36.6 C 96 22 H 213/164 H 99 12/31/16 00:00 12/31/16 07:54 12/31/16 07:54 12/31/16 04:00 12/31/16 07:54 Laboratory Results 12/31/16 04:35 12/31/16 05:00 12/30/16 12/31/16 01/01/17 05:59 05:59 05:59 Intake Total 1244.0 Output Total 1450 2750 Balance -1450 -1506.0 PT 19.7 SEC (12.0-15.0) H D 12/31/16 04:35 INR 1.67 (0.83-1.16) H 12/31/16 04:35 ICD10 Worksheet Patient Problems: Problems Problem Status Onset Generalized weakness Acute Hyponatremia Acute UTI (urinary tract infection) Acute Abdominal pain Acute Acute encephalopathy Acute Altered mental status Acute Atrial fibrillation Acute CAD (coronary artery disease), [place] coronary artery Acute Chronic diastolic CHF (congestive heart failure) Acute Chronic hypoxemic respiratory failure Acute Chronic kidney disease (CKD) Acute New onset atrial fibrillation Acute Pyelonephritis Acute VHD (valvular heart disease) Acute
[2016-12-31] MEDS ORDERED: PIPERACILLIN/TAZO 4.5 GM/DEX 100 ML IV SCH (09:03)
--- NOTE | 2016-12-31 09:17 | HOSPPROG ---
Hospitalist Progress Note Assessment/Plan: # acute respiratory failure d/t diffuse infiltrates - ddx TACO/pulm edema, TRALI, aspiration - intubated, moderate vent settings - cont diuresis - will broaden antibiotics to cover aspiration, check pct; check blood cultures # fever - blood cultures, broad abx for now; check pct # chronic a-fib, had bradycardia with 7s pause last night (was on dopamine), currently RVR - cards consulted; dilt is concerning; will need ppm at some point # sepsis d/t e. coli UTI - now covered with zosyn # shock - on low dose levophed; sepsis vs cardiogenic # dCHF, acute on chronic - cont diuresis # pulm htn # adrenal insufficiency - on hydrocortisone as outpatient - stress dose steroids # metabolic alkalosis - chronic # bipolar - cont abilify, depakote # hyponatremia # SHAUNA # morbid obesity # htn - holding meds total critical care time for hospitalist service is 85 minutes - [address] West, an I spent an additional 40 minutes this morning Subjective: last night events - ellis with 7 second pause; started on dopamine, INR reversed with FFPx2; subsequently developed AMS, resp failure requiring intubation; CXR c/w pulm edema; currently on dilt Objective: Vital Signs Temp Pulse Resp BP Pulse Ox 38.9 C H 98 22 H 104/56 L 99 12/31/16 08:00 12/31/16 08:00 12/31/16 08:00 12/31/16 08:00 12/31/16 08:00 Laboratory Results 12/31/16 04:35 12/31/16 05:00 12/30/16 12/31/16 01/01/17 05:59 05:59 05:59 Intake Total 1244.0 Output Total 1450 2750 360 Balance -1450 -1506.0 -360 PT 19.7 SEC (12.0-15.0) H D 12/31/16 04:35 INR 1.67 (0.83-1.16) H 12/31/16 04:35 - Physical Exam Constitutional: other (intubated, sedated) Cardiovascular: no murmur, rub, or gallop, tachycardia Respiratory: no respiratory distress, other (mild basilar crackels) Gastrointestinal: soft, non-tender abdomen ICD10 Worksheet Patient Problems: Problems Problem Status Onset Generalized weakness Acute Hyponatremia Acute UTI (urinary tract infection) Acute Abdominal pain Acute Acute encephalopathy Acute Altered mental status Acute Atrial fibrillation Acute CAD (coronary artery disease), [place] coronary artery Acute Chronic diastolic CHF (congestive heart failure) Acute Chronic hypoxemic respiratory failure Acute Chronic kidney disease (CKD) Acute New onset atrial fibrillation Acute Pyelonephritis Acute VHD (valvular heart disease) Acute
[2016-12-31] MEDS: DOCUSATE SODIUM 100 MG CAP PO SCH (09:30)
[2016-12-31] MEDS: FAMOTIDINE 20 MG TAB PO SCH (09:30)
[2016-12-31] MEDS: POLYETHYLENE GLYCOL 3350 17 GM PKT PO SCH (09:31)
[2016-12-31 09:37] LABS: INR 1.74 (0.83-1.16); PROTIME(PATIENT) 20.4 SEC (12.0-15.0)
[2016-12-31 09:42] LABS: ANION GAP 9 mEq/L (8-16); CALCIUM 8.3 mg/dL (8.5-10.4); CARBON DIOXIDE 39 mEq/l (22-31); CHLORIDE 77 mEq/L (97-110); CREATININE 0.8 mg/dL (0.6-1.0); GLOMERULAR FILTRATION RATE > 60; GLUCOSE 88 mg/dL (70-100); POTASSIUM 3.7 mEq/L (3.5-5.2); SODIUM 125 mEq/L (134-144)
[2016-12-31 09:53] LABS: TROPONIN I 0.037 ng/mL (0.000-0.034)
[2016-12-31] MEDS ORDERED: ALTEPLASE 2 MG VIAL IVP PRN (10:16)
[2016-12-31] MEDS: ARIPiprazole 10 MG TAB PO SCH (10:46)
[2016-12-31] MEDS: FERROUS SULFATE 325 MG TAB PO SCH (10:47)
[2016-12-31] MEDS: LIDOCAINE 5% 1 EA PATCH TD SCH (10:48)
[2016-12-31] MEDS ORDERED: PROTOCOL POTASSIUM 1 DOSE MISC PRN (10:53)
[2016-12-31] MEDS ORDERED: ACETAMINOPHEN 650 MG/20.3 ML UDCUP TUBE PRN (10:59)
[2016-12-31] MEDS: FAMOTIDINE 20 MG/NACL 50 ML IV SCH (11:28)
[2016-12-31 11:38] LABS: PROCALCITONIN 0.34 ng/mL (0.02-0.10)
--- NOTE | 2016-12-31 11:57 | PDCARCONS ---
Cardiology Consult Reason for Consult: Chronic atrial fibrillation, sick sinus syndrome, bradycardia. Chief Complaint: Chronic atrial fibrillation, bradycardia. Requesting Physician: Dr. Mary Worthington. History of Present Illness: 66-year-old female typically followed as an outpatient in our clinic by Dr. Avi Foster. Her cardiovascular history is significant for CAD status post 2 vessel bypass surgery (gomez to the LAD, SVG to the circumflex) in 2003. She has a history of chronic atrial fibrillation typically treated with low-dose metoprolol and chronic Coumadin therapy as well as chronic diastolic congestive heart failure. She has multiple medical problems to include a history of bipolar disorder. She was admitted with atypical chest discomfort with low suspicion for acute coronary syndrome. She was subsequently found to have a urinary tract infection. Her symptoms are difficult to ascertain in light of her bipolar disorder. Apparently, she had a widely positive review of systems. Currently, she is intubated on mechanical ventilation. We were consulted regarding episodes of bradycardia with heart rates in the 20s. Additionally, she had a single 7 second pause. These were apparently asymptomatic. She is only on metoprolol 12-,1/2 mg twice daily. Because of this and therapeutic INR she was administered fresh frozen plasma last night. Shortly after receiving this medication she developed worsening respiratory failure and ultimately mechanical ventilation. This was associated with a chest x-ray indicating acute volume overload. Her ECG was stable in atrial fibrillation at the time. Her initial set of cardiac enzymes was normal. Currently she is in the intensive care unit. She has had a low-grade temperature overnight. She is on low-dose pressors. During the night she was started on diltiazem for additional rate control. History Information - Allergies/Home Medication List Allergies/Adverse Reactions: morphine [Morphine] Allergy (Severe, Verified 03/02/16 17:11) SEVERE GENERALIZED PAIN codeine [Codeine] Allergy (Mild, Verified 03/02/16 17:11) hydrocodone bitartrate [From Vicodin] Allergy (Mild, Verified 03/02/16 17:11) Home Medications: ARIPiprazole [Abilify 10 mg (*)] 10 mg PO DAILY@08 11/19/14 [Last Taken 12/25/16 ] ARIPiprazole [Abilify 5 mg (*)] 5 mg PO HS@11/19/14 [Last Taken 12/24/16] Acetaminophen [Tylenol ES 500 mg (*)] 500 mg PO Q4 PRN 11/19/14 [Last Taken ] Alendronate Sodium [Fosamax 70 MG (*)] 70 mg PO MO@0700 11/19/14 [Last Taken ] Atorvastatin Calcium [Lipitor 20 mg (*)] 20 mg PO HS@11/19/14 [Last Taken ] Calcium Carbonate/Vitamin D3 [Os-Derek 500-Vit D3 600 Caplet] 1 tab PO TID@, 11/19/14 [Last Taken 12/25/16 12:00] Divalproex ER [Depakote ER 250 MG (*)] 750 mg PO HS@11/19/14 [Last Taken ] Ferrous Sulfate [Ferrous Sulf 325 MG (*)] 325 mg PO DAILY@11/19/14 [Last Taken 12/25/16] Levothyroxine [Synthroid 175 mcg (*)] 175 mcg PO DAILY@11/19/14 [Last Taken 12/25/16] Ranitidine HCl [Zantac] 150 mg PO BID@11/19/14 [Last Taken 12/25/16 08:00] Tizanidine HCl 4 mg PO TID@11/19/14 [Last Taken 12/25/16 14:00] Polyethylene Glycol 3350 [Miralax 17 gm (*)] 8.5 gm PO MOTUWETHFRSA@01/14/15 [Last Taken 12/25/16] Hydrocortisone [Cortef 10 mg (*)] 20 mg PO DAILY@01/19/15 [Last Taken ] Warfarin Sodium [Coumadin 2.5MG (*)] 2.5 mg PO TUTHSA@03/02/16 [Last Taken 17:00] Warfarin Sodium [Coumadin 5MG (*)] 5 mg PO SUMOWEFR@03/02/16 [Last Taken ] traMADol [Ultram 50 mg (*)] 50 mg PO Q12 PRN 03/02/16 [Last Taken 12/23/16] Cholecalciferol Vit D3 [Vitamin D3 (*)] 1,000 units PO DAILY@12/25/16 [Last Taken 12/25/16] Docusate Sodium [Colace 100 MG (*)] 100 mg PO BID 12/25/16 [Last Taken 12/25/16] Furosemide [Lasix 20 MG (*)] 20 mg PO MOWESA@12/25/16 [Last Taken 12/25/16] Hydrocortisone [Cortef 10 mg (*)] 10 mg PO DAILY@14 12/25/16 [Last Taken ] Lidocaine 5% [Lidoderm 5% Patch (*)] 1 ea TD DAILY@12/25/16 [Last Taken 12/25] Metoprolol Succinate Xr [Toprol Xl 25 mg (*)] 12.5 mg PO DAILY@12/25/16 [ Last Taken 12/25/16] Prochlorperazine Maleate [Compazine 10mg (*)] 10 mg PO Q6 PRN 12/25/16 [Last Taken Unknown] Sodium Chloride [[place]] 1 spray EACHNARE TID@,,12/25/16 [Last Taken 12:00] I have personally reviewed and updated: family history, medical history, social history, surgical history Past Medical History: - Social History Smoking Status: Never smoked Physical Exam Physical Exam: She is currently intubated and sedated on mechanical ventilation Temp Pulse Resp BP Pulse Ox 38.9 C H 90 22 H 101/35 L 97 12/31/16 08:00 12/31/16 09:00 12/31/16 09:00 12/31/16 09:00 12/31/16 09:00 O2 (L/minute) 15 FIO2 (%) 50 Cardiovascular: irregularly irregular, No systolic murmur, No diastolic murmur, No JVD Peripheral Pulses: 2+: carotid (R), carotid (L) Respiratory: no rales or rhonchi (Anterior exam) Gastrointestinal: normoactive bowel sounds, soft, non-tender abdomen, No tenderness, No ascites, No lopez's sign Skin: warm Lab and Imaging 12/31/16 04:35 12/31/16 09:05 WBC 14.93 10^3/uL (3.80-9.50) H 12/31/16 04:35 RBC 2.96 10^6/uL (4.18-5.33) L 12/31/16 04:35 Hgb 10.0 g/dL (12.6-16.3) L 12/31/16 04:35 Hct 29.8 % (38.0-47.0) L 12/31/16 04:35 MCV 100.7 fL (81.5-99.8) H 12/31/16 04:35 MCH 33.8 pg (27.9-34.1) 12/31/16 04:35 MCHC 33.6 g/dL (32.4-36.7) 12/31/16 04:35 RDW 13.2 % (11.5-15.2) 12/31/16 04:35 Plt Count 132 10^3/uL (150-400) L 12/31/16 04:35 MPV 10.1 fL (8.7-11.7) 12/31/16 04:35 Neut % (Auto) Not Reported 12/31/16 04:35 Lymph % (Auto) Not Reported 12/31/16 04:35 [place] % (Auto) Not Reported 12/31/16 04:35 Eos % (Auto) Not Reported 12/31/16 04:35 Baso % (Auto) Not Reported 12/31/16 04:35 Nucleat RBC Rel Count 0.0 % (0.0-0.2) 12/31/16 04:35 Absolute Neuts (auto) Not Reported 12/31/16 04:35 Absolute Lymphs (auto) Not Reported 12/31/16 04:35 Absolute Monos (auto) Not Reported 12/31/16 04:35 Absolute Eos (auto) Not Reported 12/31/16 04:35 Absolute Basos (auto) Not Reported 12/31/16 04:35 Absolute Nucleated RBC 0.00 10^3/uL (0-0.01) 12/31/16 04:35 Immature Gran % Not Reported 12/31/16 04:35 Seg Neutrophils % 50 % 12/31/16 04:35 Band Neutrophils % 5 % 12/31/16 04:35 Lymphocytes % 30 % 12/31/16 04:35 Monocytes % 8 % 12/31/16 04:35 Eosinophils % 3 % 12/31/16 04:35 Basophils % 1 % 12/31/16 04:35 Metamyelocytes % 3 % 12/31/16 04:35 Immature Gran # Not Reported 12/31/16 04:35 Absolute Seg Neuts 7.47 10^/uL (1.70-6.50) H 12/31/16 04:35 Absolute Band Neuts 0.75 10^3/uL (0.00-0.70) H 12/31/16 04:35 Absolute Lymphocytes 4.48 10^3/uL (1.00-3.00) H 12/31/16 04:35 Absolute Monocytes 1.19 10^3/uL (0.30-0.80) H 12/31/16 04:35 Absolute Eosinophils 0.45 10^3/uL (0.03-0.40) H 12/31/16 04:35 Absolute Basophils 0.15 10^3/uL (0.02-0.10) H 12/31/16 04:35 Absolute Metamyelocyte 0.45 10^3/mL (0.00-0.00) H 12/31/16 04:35 Platelet Estimate DECREASED (ADEQ) L 12/31/16 04:35 Large Platelets PRESENT H 12/31/16 04:35 Polychromasia 1+ H 12/31/16 04:35 Oval Macrocytes 2+ H 12/31/16 04:35 Stomatocytes 1+ H 12/31/16 04:35 PT 20.4 SEC (12.0-15.0) H 12/31/16 09:05 INR 1.74 (0.83-1.16) H 12/31/16 09:05 APTT 39.6 SEC (23.0-38.0) H 12/25/16 17:22 Puncture Site LEFT RADIAL 12/31/16 06:20 Patient Temperature 37.0 DEGREES 12/31/16 06:20 pCO2 53 mmHg (34-38) H 12/31/16 06:20 pO2 144 mmHg (65-75) H 12/31/16 06:20 Total CO2 41 mEq/L (23-27) H* 12/31/16 06:20 ABG pH 7.49 (7.35-7.45) H 12/31/16 06:20 ABG PO2/FiO2 Ratio 144 RATIO 12/31/16 06:20 ABG HCO3 40 mEq/L (22-26) H 12/31/16 06:20 ABG O2 Saturation 99 % (92-95) H 12/31/16 06:20 ABG Base Excess 14.3 mEq/L (-2.5-2.5) H 12/31/16 06:20 VBG pH 7.33 (7.31-7.42) 12/30/16 23:56 VBG HCO3 39 mEQ/L (22-26) H 12/30/16 23:56 VBG Total CO2 42 mEq/L (23-27) H 12/30/16 23:56 VBG O2 Saturation 76 % (65-75) H 12/30/16 23:56 VBG Base Excess 11.4 mEq/L (-2.5-2.5) H 12/30/16 23:56 VBG Lactic Acid 1.6 mmol/L (0.7-2.1) 12/31/16 06:15 Mixed VBG pCO2 78 mmHg (40-44) H 12/30/16 23:56 Mixed VBG pO2 47 mmHg (35-40) H 12/30/16 23:56 O2 Concentration % 100 % (0-100) 12/31/16 06:20 Set Respiration Rate 20 12/31/16 06:20 SIMV YES 12/31/16 06:20 Tidal Volume 450 12/31/16 06:20 PEEP 5 12/31/16 06:20 Pressure Support 10 12/31/16 06:20 Sodium 125 mEq/L (134-144) L 12/31/16 09:05 Potassium 3.7 mEq/L (3.5-5.2) 12/31/16 09:05 Chloride 77 mEq/L (97-110) L 12/31/16 09:05 Carbon Dioxide 39 mEq/l (22-31) H 12/31/16 09:05 Anion Gap 9 mEq/L (8-16) 12/31/16 09:05 BUN 16 mg/dL (7-23) 12/31/16 09:05 Creatinine 0.8 mg/dL (0.6-1.0) 12/31/16 09:05 Estimated GFR > 60 12/31/16 09:05 Glucose 88 mg/dL (70-100) 12/31/16 09:05 Calcium 8.3 mg/dL (8.5-10.4) L 12/31/16 09:05 Total Bilirubin 0.2 mg/dL (0.1-1.4) 12/26/16 04:30 AST 24 IU/L (14-46) 12/26/16 04:30 ALT 32 IU/L (9-52) 12/26/16 04:30 Alkaline Phosphatase 81 IU/L (38-126) 12/26/16 04:30 Troponin I 0.037 ng/mL (0.000-0.034) H 12/31/16 09:05 NT-Pro-B Natriuret Pep 3840 pg/mL (0-125) H 12/28/16 05:45 Total Protein 6.6 g/dL (6.3-8.2) 12/26/16 04:30 Albumin 3.6 g/dL (3.5-5.0) 12/26/16 04:30 Procalcitonin 0.34 ng/mL (0.02-0.10) H 12/31/16 09:05 Urine Color YELLOW 12/30/16 22:05 Urine Appearance CLEAR 12/30/16 22:05 Urine pH 7.0 (5.0-7.5) 12/30/16 22:05 Ur Specific [place] 1.013 (1.002-1.030) 12/30/16 22:05 Urine Protein 1+ (NEGATIVE) H 12/30/16 22:05 Urine Ketones NEGATIVE (NEGATIVE) 12/30/16 22:05 Urine Blood 1+ (NEGATIVE) H 12/30/16 22:05 Urine Nitrate NEGATIVE (NEGATIVE) 12/30/16 22:05 Urine Bilirubin NEGATIVE (NEGATIVE) 12/30/16 22:05 Urine Urobilinogen NEGATIVE EU (0.2-1.0) 12/30/16 22:05 Ur Leukocyte Esterase NEGATIVE (NEGATIVE) 12/30/16 22:05 Urine RBC 10-15 /hpf (0-3) H 12/30/16 22:05 Urine WBC 1-3 /hpf (0-3) 12/30/16 22:05 Ur Epithelial Cells Not Reported 12/30/16 22:05 Urine Bacteria 4+ /hpf (NONE SEEN) H 12/25/16 18:10 Urine Mucus TRACE /lpf (NONE-1+) 12/30/16 22:05 Urine Osmolality 475 mosmo/kg (300-900) 12/30/16 22:05 Ur Random Sodium 121 mEq/L (30-90) H 12/30/16 22:05 Urine Glucose 2+ (NEGATIVE) H 12/30/16 22:05 Valproic Acid 58.4 mcg/mL (50.0-150.0) 12/25/16 17:22 Patient ABO/Rh A POSITIVE 12/30/16 21:30 Visualized and Interpreted Chest x-ray results: Yes Visualized and Interpreted imaging results: Yes Visualized and Interpreted EKG results: Yes EKG additional interpertation: Atrial fibrillation. No ischemic ST or T changes. I also reviewed telemetry. This indicates atrial fibrillation with periods of bradycardia additionally, she was evidence of a 7 second pause. Echocardiogram: Previous echocardiograms have indicated normal left ventricular systolic function. She did have moderate to severe tricuspid regurgitation. Additionally , she had a stress myocardial perfusion imaging study in our office last December that was noted to be normal. A/P Assessment: 1. Chronic atrial fibrillation. 2. Evidence of sick sinus syndrome with bradycardia and a single 7 second pause. Symptoms are difficult to ascertain at the present time. 3. Coronary artery disease with previous bypass surgery dating back to 2003. Currently, this appears to be quiescent. 4. Acute hypoxic respiratory failure requiring intubation and mechanical ventilation. Likely related to acute congestive heart failure. Likely related to volume overload and history of diastolic dysfunction. Aspiration has not been excluded. Blood transfusion reaction also has not been excluded. 5. Possible sepsis. Discussion: Her history is difficult to ascertain. She does have clear evidence of atrial fibrillation with sick sinus syndrome. She has a class 1 indication for placement of a permanent pacemaker. Her recent medical deterioration, in my opinion, prohibits the safe performance of this procedure at the present time. Fortunately, she appears to be stable and is not manifesting any further bradyarrhythmias. He does have a history of breast cancer with a previous left mastectomy. She also has a right subclavian port in place. It is not clear whether not she had left chest wall radiation in the past however her tissue does not appear consistent with prior radiation. This certainly affects the choice of access for placement of a permanent pacemaker in the future. Her oncologist is Marium Harp. I placed a call out to her earlier today however I have not heard back regarding the details of her previous cancer therapy. Currently, I think her underlying CAD is stable. Plan: 1. I have asked him to reduce the diltiazem to allow relative tachycardia especially in the setting of this acute illness. I think we can accept the resting heart rate of 120 or less. 2. She will be monitored carefully for Chris arrhythmias. 3. I would like to investigate her history of breast cancer further. 4. I think at some point, in the near future, she would benefit from performance of a left-sided venogram to define her venous anatomy as part of planning for placement of a permanent pacemaker. 5. We will continue to trend her enzymes. 6. She is being treated with intravenous diuretics and broad-spectrum antibiotics. 7. Will follow along with you. Review of Systems Review of Systems: At this time review of systems was not possible as the patient is on mechanical ventilation and sedated. Past Medical History PMH: - Personal History Current Tetanus Diphtheria and Acellular Pertussis (TDAP): Unsure - Medical/Surgical History Hx Asthma: No Hx Chronic Respiratory Disease: Yes Hx Cardiac Disease: Yes Hx Diabetes: No Hx Renal Disease: Yes Hx Alcoholism: No Hx Cirrhosis: No Hx HIV/AIDS: No Hx Splenectomy or Spleen Trauma: No Other PMH: HYPOTHYROIDISM, HAS A PORT,OPEN HEART SURGERY; HYPONATREMIA;BYPASS SURGERY;L .MASTECTOMY;CERVICAL CANCER;B CATARACTS;LAP IVANNA; CERVICAL CANCER; SHAUNA; BIPOLAR - Social History Smoking Status: Never smoked Additional Social History:
[2016-12-31] MEDS ORDERED: POTASSIUM Cl (KCl) 50 ML IV ONE ×2 (12:00→19:29)
[2016-12-31 12:28] LABS: ANION GAP 10 mEq/L (8-16); CARBON DIOXIDE 36 mEq/l (22-31); CHLORIDE 79 mEq/L (97-110); CREATININE 0.9 mg/dL (0.6-1.0); GLOMERULAR FILTRATION RATE > 60; GLUCOSE 113 mg/dL (70-100); MAGNESIUM 1.1 mg/dL (1.6-2.3); POTASSIUM 3.4 mEq/L (3.5-5.2); SODIUM 125 mEq/L (134-144)
[2016-12-31 12:38] LABS: TROPONIN I 0.043 ng/mL (0.000-0.034)
[2016-12-31] MEDS: VALPROIC ACID 250 MG/5 ML UDCUP TUBE SCH ×3 (13:08→21:56)
[2016-12-31] MEDS: ARIPiprazole 10 MG TAB TUBE SCH (13:09)
[2016-12-31] MEDS: FERROUS SULFATE 300 MG/5 ML UD CUP TUBE SCH (13:14)
[2016-12-31] MEDS: HYDROCORTISONE 10 MG TAB PO SCH (13:18)
--- NOTE | 2016-12-31 13:22 | ECHO ---
[email or web address] [address] [address] Main: [phone] Fax: Transthoracic Echocardiogram Name: GALLO LIM MR#: [id number] Study Date: 12/31/2016 Study Time: 09:42 AM Date of : 1950 Age: 66 year(s) Height: 152.4 cm (60 in.) Weight: 93.44 kg (206 lb.) BSA: 1.89 m2 Gender: Female Examination: Echo Indication: CHF Image Quality: Contrast: Requested by: Bronson Vale BP: 90 mmHg/53 mmHg Heart Rate: Rhythm: Normal sinus rhythm with ectopy Indication: CHF Procedure Staff Chief Of Hospital Medicine: Jovani Patiño Reading Physician: Bernabe Sequeira Requesting Provider: Measurements: Chambers Valvular Assessment AV/MV Valvular Assessment TV/PV Normal Normal Normal Name Value Range Name Value Range Name Value Range Ao Hina (MM): 2.7 cm (2.2 cm-3.7 AV Vmax: 0.94 m/s (1 m/s-1.7 TR Vmax: 2.95 mm/s ( - ) cm) m/s) TR PGmax: 35 mmHg ( - ) IVSd (2D): 1.0 cm (0.6 cm-1.1 AV maxP mmHg ( - ) syst. PAP: 45 mmHg ( - ) cm) LVOT Vmax: 0.76 m/s (0.7 m/s-1.1 PV Vmax: 0.71 m/s (0.6 m/s-0.9 LVDd (2D): 3.9 cm (3.9 cm-5.3 m/s) m/s) cm) MV E Vmax: 0.87 m/s ( - ) PV PGmax: 2 mmHg ( - ) LVDs (2D): 2.5 cm (2.1 cm-4 cm) LVPWd (2D): 1.1 cm ( - ) LVEF (2D): 64 (>=54 %) RVDd(2D): 5.0 cm (1.9 cm-3.8 cmmm) Continued Measurements: Chambers Valvular Assessment AV/MV Valvular Assessment TV/PV Name Value Name Value Name Value LADs Lon.8 cm MV E/E' Septal: 13.40 CVP (est.): 10 mmHg LA Area: 16.8 cm2 LA Volume: 40 ml LA Volume Index: 21.2 ml/m2 Findings: Left Ventricle: Normal size left ventricle. Normal global systolic LV function. EF is 64 %. Patient: GALLO LIM Study Date: 12/31/2016 Page 1 of 2 09:42 AM Right Ventricle: There is abnormal septal motion with diastolic flattening suggestive of RV volume/pressure overload. . Left Atrium: The left atrium is mildly dilated. Right Atrium: The right atrium is severely dilated. Mitral Valve: The mitral valve is normal in appearance. Mild mitral valve regurgitation is present. Aortic Valve: The aortic valve is tri-leaflet. The aortic valve is normal in appearance. Tricuspid Valve: Severe tricuspid regurgitation is present. RVSP is 45 mmHg.. Pulmonic Valve: The pulmonic valve is normal in appearance and function. Aorta: The aorta is normal. Pericardium: No pericardial effusion. (No Signature Object) Patient: GALLO LIM Study Date: 12/31/2016 Page 2 of 2 09:42 AM [id number]
[2016-12-31] MEDS ORDERED: PROTOCOL MAGNESIUM 1 DOSE IV PRN (13:49)
[2016-12-31] MEDS: HYDROCORTISONE 100 MG/2 ML VIAL IVP SCH ×2 (14:15→21:56)
[2016-12-31 14:17] LABS: BASE EXCESS 14.2 mEq/L (-2.5-2.5); BICARBONATE 36 mEq/L (22-26); MEASURED OXYGEN SATURATION 95 % (92-95); PCO2 31 mmHg (34-38); PO2 65 mmHg (65-75); TCO2 37 mEq/L (23-27)
[2016-12-31] MEDS ORDERED: MAGNESIUM SULF 2 GM/WATER 50 ML IV ONE (14:17)
[2016-12-31 14:19] LABS: ASSIST CONTROL YES
[2016-12-31 14:20] LABS: O2 CONCENTRATIION 40 % (0-100); P/F RATIO 163 RATIO
[2016-12-31] MEDS: PIPERACILLIN/TAZO 4.5 GM/DEX 100 ML IV SCH ×2 (15:53→21:55)
[2016-12-31 17:28] LABS: ASSIST CONTROL YES; BASE EXCESS 12.2 mEq/L (-2.5-2.5); BICARBONATE 37 mEq/L (22-26); MEASURED OXYGEN SATURATION 94 % (92-95); O2 CONCENTRATIION 40 % (0-100); P/F RATIO 163 RATIO; PCO2 46 mmHg (34-38); PO2 65 mmHg (65-75); TCO2 38 mEq/L (23-27)
[2016-12-31 17:29] LABS: END TIDAL CO2 45
[2016-12-31 18:12] LABS: MAGNESIUM 1.9 mg/dL (1.6-2.3)
--- NOTE | 2016-12-31 20:15 | GCON ---
[f rep st] CONSULTATION CRITICAL CARE CONSULT. DATE OF CONSULTATION: 12/31/2016 HISTORY OF PRESENT ILLNESS: The patient is a 66-year-old female with a complex medical history which includes atrial fibrillation and coronary artery disease. She was admitted on 12/25/2016 complainin g of atypical chest pain and dizziness, and was found to have a urinary tract infection, treated with antibiotics. During the course of her hospital stay however, she developed sinus bradycardia followe d by a 7-second pause, was subsequently moved to the telemetry unit of the hospital for further monit oring, and developed exacerbation of her atrial fibrillation. Because of the pause and the rapid Ave b, this was considered to be diagnostic with sick sinus syndrome. Cardiology was notified, was plann ing to put a permanent pacemaker in today. However, she had been chronically anticoagulated with war farin, and was given fresh frozen plasma last evening. Subsequent to that, however, she developed se penelope respiratory failure and required emergent intubation overnight. Her chest x-ray showed diffuse pulmonary infiltrates consistent with edema and possibly a transfusion-related acute lung injury. In any case, after the intubation she was hypotensive and required pressors for some time. Her atrial fibrillation was controlled with diltiazem drip. However, shortly after the intubation the pressors were quickly weaned off. She received stress doses of steroids due to a reported known adrenal insuf ficiency. Her heart rate did slow down to the low 100s, and Cardiology was prompt at the bedside and found her AFib to be relatively rate controlled. In the evaluation, however, it was revealed that s he did have a T-max of 38.9 and increase in her white blood cell count from 9 to 14, and pacer plans were put on hold due to concerns about infection. Blood cultures were drawn. REVIEW OF SYSTEMS: Otherwise negative. PAST MEDICAL HISTORY: Includes: 1. Atrial fibrillation as described above, known diastolic dysfunction. 2. Known pulmonary hypertension, though the severity is unknown to me. 3. Hypothyroidism. 4. Remote breast cancer. 5. Cervical cancer. 6. Cataracts. 7. Bipolar disorder. 8. Hyperlipidemia. 9. Anemia. 10. Hypertension. 11. Possible adrenal insufficiency, though this has not been well explored to this point. PAST SURGICAL HISTORY: Includes mastectomy, coronary artery bypass grafting, laparoscopic cholecyste ctomy, and previous ablation for SVT. SOCIAL HISTORY: Includes no smoking, no alcohol. FAMILY HISTORY: Includes hyperlipidemia. CURRENT MEDICATIONS: Include Abilify, Lipitor, diltiazem, Colace, Pepcid, fentanyl, iron, Lasix 40 m g IV q.12 hours started today, Solu-Cortef 100 mg q.8 hours, Synthroid, Ativan p.r.n., Levophed p.r.n ., which is currently off Zofran, Zosyn, propofol, Zanaflex, Ultram, Depakote, warfarin. EXAMINATION: VITAL SIGNS: As I said, her T-max was quite high, but her T-current is 37.3, a blood p ressure is 139/75, heart rate of 93 in AFib, respiratory rate is 10 on a ventilator, with saturation of 93%. GENERAL: She was sedated on a ventilator in no apparent distress. HEENT: Pupils equally r ound and reactive to light. Nonicteric and noninjected. Mucous membranes are moist without erythema or exudate. NECK: Supple without adenopathy or jugular vein distention. LUNGS: Breath sounds are coarse bilaterally, but no obvious wheezing. HEART: Irregularly irregular. I cannot detect a murmu r. ABDOMEN: Soft, nontender, nondistended with normoactive bowel tones. EXTREMITIES: No clubbing, cyanosis, or edema. NEUROLOGIC: Grossly nonfocal. SKIN: Warm and dry without evidence of rash. OBJECTIVE DATA: Includes chest x-ray showing significant pulmonary edema. White count is 14.9, hematocrit of 29.8, platelets of 132. Her sodium is 125, potassium 3.7, chlorid e 77, bicarb 39, BUN 16, creatinine 0.8. Troponin was negative x2, but did jump to 0.037 after her e vent. Urinalysis from yesterday was fairly unremarkable. ASSESSMENT AND PLAN: 1. Acute respiratory failure in the setting of what is probably pre-existing compensated hypercapnic respiratory failure. The current issue is probably related to pulmonary edema, could be transfusion -associated cardiac overload, though the amount of fresh frozen plasma was fairly small. Transfusion -associated acute lung injury is also a possibility. In all cases, however, I do not think this repr esents an aspiration pneumonia, though it is indeed possible. She is getting diuretic therapy which I think is appropriate. We will continue to support her on the ventilator. Looking at her labs on a dmission, her baseline bicarb is 39, suggesting the chronic elements as mentioned above. Subsequentl y, we should shoot for an acceptable CO2 level that allows her to maintain a bicarb of about 40, and not overshoot this so that we prevent having difficulty extubating her. Otherwise, she should stay s edated today and achieve her diuresis, and then we will reassess that with blood gases and chest x-ra ys in the morning. 2. Atrial fibrillation with rapid ventricular response. Her heart rate has slowed down reasonably w ith diltiazem, and there is no longer hypotension involved. Cardiology will proceed eventually with permanent pacemaker. At this point I do not feel that it is urgent she get a transvenous pacer, but that is always another possibility should she show evidence of sinus pauses. 3. Hypotension. This is probably related to the intubation. It has resolved on its own, though I d o agree with the stress dose steroids in the meantime. If her blood pressure remains stable througho ut the next 24 hours, we can probably reduce her steroid dose down to her baseline. 4. Pulmonary hypertension. An echocardiogram performed on this admission; her right ventricular sys tolic pressure was measured at 45. It is probably related to sleep apnea as well as her atrial fibri llation, diastolic dysfunction, but not pulmonary arterial hypertension, and not a candidate for pulm onary hypertension-specific drugs. Correcting her sleep apnea and maintaining that once she is recov ered from this event would certainly be paramount moving forward. 5. Fever with elevated white count. This certainly could be related to the transfusion that she rec eived last night versus an aspiration. It is difficult to determine that at this time. I think the Zosyn is quite reasonable. Blood cultures have been drawn. We will have to follow this closely. 6. Urinary tract infection, is pansensitive Escherichia coli, and Zosyn should be more than adequate to cover this at this time. A total of about 60 minutes of critical care time was required in the evaluation of this patient, inc luding time at the bedside as well as ongoing ventilator and atrial fibrillation management, discussi ons with family and nurses. /[id number]/[id number]
[2016-12-31] MEDS: ATORVASTATIN CALCIUM 20 MG TAB TUBE SCH (21:56)
[2016-12-31] MEDS: ARIPiprazole 5 MG TAB TUBE SCH (22:00)
[2016-12-31] MEDS ORDERED: DILTIAZEM HCL/D5W 125 ML IV SCH (23:15)
[2017-01-01] MEDS: PIPERACILLIN/TAZO 4.5 GM/DEX 100 ML IV SCH ×4 (04:30→22:18)
[2017-01-01 04:40] LABS: % IMMATURE GRANULYOCYTES 2.1 % (0.0-1.1); ADD DIFF? NO; ADD MORPH? NO; ADD SCAN? NO; ATYPICAL LYMPHOCYTE FLAG 0 (0-99); FRAGMENT RBC FLAG 0 (0-99); HEMATOCRIT 29.5 % (38.0-47.0); HEMOGLOBIN 10.3 g/dL (12.6-16.3); LEFT SHIFT FLG 20 (0-99); LIPEMIA HEMOLYSIS FLAG 90 (0-99); MEAN CELL HEMOGLOBIN 33.6 pg (27.9-34.1); MEAN CELL HEMOGLOBIN CONCENTR. 34.9 g/dL (32.4-36.7); MEAN CELL VOLUME 96.1 fL (81.5-99.8); MEAN PLATELET VOLUME 9.8 fL (8.7-11.7); PLATELET CLUMPS FLAG 0 (0-99); PLATELET COUNT 165 10^3/uL (150-400); RED BLOOD CELL COUNT 3.07 10^6/uL (4.18-5.33); RED CELL DISTRIBUTION WIDTH 13.2 % (11.5-15.2)
[2017-01-01 05:04] LABS: CALCIUM 8.6 mg/dL (8.5-10.4); CHLORIDE 87 mEq/L (97-110); GLOMERULAR FILTRATION RATE 56; GLUCOSE 148 mg/dL (70-100); POTASSIUM 3.4 mEq/L (3.5-5.2); SODIUM 134 mEq/L (134-144)
[2017-01-01 05:10] LABS: ANION GAP 1 mEq/L (8-16)
[2017-01-01 05:12] LABS: CARBON DIOXIDE 46 mEq/l (22-31)
[2017-01-01 06:11] LABS: INR 1.44 (0.83-1.16); PROTIME(PATIENT) 17.5 SEC (12.0-15.0)
[2017-01-01] MEDS: HYDROCORTISONE 100 MG/2 ML VIAL IVP SCH ×3 (06:11→22:15)
[2017-01-01] MEDS: LEVOTHYROXINE 175 MCG TAB TUBE SCH (06:11)
[2017-01-01] MEDS: FUROSEMIDE 40 MG/4 ML VIAL IVP SCH ×2 (06:11→18:07)
[2017-01-01] MEDS: POTASSIUM Cl (KCl) 50 ML IV SCH ×3 (07:41→09:23)
[2017-01-01] MEDS: VALPROIC ACID 250 MG/5 ML UDCUP TUBE SCH ×3 (07:45→19:57)
[2017-01-01] MEDS: FAMOTIDINE 20 MG/NACL 50 ML IV SCH (07:45)
[2017-01-01] MEDS ORDERED: POLYETHYLENE GLYCOL 3350 17 GM PKT TUBE SCH (08:00)
[2017-01-01] MEDS: LIDOCAINE 5% 1 EA PATCH TD SCH (08:49)
[2017-01-01] MEDS: SODIUM CL NASAL 45 ML BTL EACHNARE SCH ×3 (08:49→19:53)
[2017-01-01 08:58] LABS: BASE EXCESS 14.7 mEq/L (-2.5-2.5); BICARBONATE 39 mEq/L (22-26); MEASURED OXYGEN SATURATION 93 % (92-95); PCO2 41 mmHg (34-38); PO2 60 mmHg (65-75); TCO2 40 mEq/L (23-27)
[2017-01-01 09:07] LABS: ASSIST CONTROL YES; O2 CONCENTRATIION 40 % (0-100); P/F RATIO 150 RATIO
[2017-01-01 09:08] LABS: END TIDAL CO2 36; TOTAL RATE 12
[2017-01-01] MEDS ORDERED: ONDANSETRON DISINTEGRATING 4 MG TAB TUBE PRN (10:00)
[2017-01-01] MEDS: ARIPiprazole 10 MG TAB TUBE SCH (10:00)
--- NOTE | 2017-01-01 10:42 | PDCARPN ---
Cardiology Progress Note Chief Complaint: Intubated and sedated Assessment/Plan: Assessment: 01-01-17 Ongoing antibiotic therapy for suspected infection (nothing has been isolated at present). No further high grade AV block has been noted. Currently off anticoagulation. Pulm/crit care with plans to work on weaning the patient off vent today. From a cardiovascular standpoint, the patient will need to have PPM implanted, but given the acuity of the current events, would work toward resolution (if possible) prior to this implant. Would like to have >72 hours of antibiotics as well as lack of pyrexia prior to implant of PPM. 12-31-16 66-year-old female typically followed as an outpatient in our clinic by Dr. Avi Foster. Her cardiovascular history is significant for CAD status post 2 vessel bypass surgery (gomez to the LAD, SVG to the circumflex) in 2003. She has a history of chronic atrial fibrillation typically treated with low-dose metoprolol and chronic Coumadin therapy as well as chronic diastolic congestive heart failure. She has multiple medical problems to include a history of bipolar disorder. She was admitted with atypical chest discomfort with low suspicion for acute coronary syndrome. She was subsequently found to have a urinary tract infection. Her symptoms are difficult to ascertain in light of her bipolar disorder. Apparently, she had a widely positive review of systems. Currently, she is intubated on mechanical ventilation. We were consulted regarding episodes of bradycardia with heart rates in the 20s. Additionally, she had a single 7 second pause. These were apparently asymptomatic. She is only on metoprolol 12-,1/2 mg twice daily. Because of this and therapeutic INR she was administered fresh frozen plasma last night. Shortly after receiving this medication she developed worsening respiratory failure and ultimately mechanical ventilation. This was associated with a chest x-ray indicating acute volume overload. Her ECG was stable in atrial fibrillation at the time. Her initial set of cardiac enzymes was normal. Currently she is in the intensive care unit. She has had a low-grade temperature overnight. She is on low-dose pressors. During the night she was started on diltiazem for additional rate control. Plan: (1) Maintain supportive measure as at present (2) Would resume anticoagulation therapy for this patient given the ongoing and chronic atrial fibrillation (3) Vent weaning trial today (4) Statins should continue with history of HLP (and maintain annual assessment of cholesterol and LFTs) (5) Cardiology will continue to follow over course of stay - patient should not go home without a pacer given the pause duration that was noted Subjective: Intubated and sedated Reviewed/Discussed With: hospitalist, multidisciplinary team Objective: Vital Signs (8 Hrs) Temp Pulse Resp BP Pulse Ox 01/01/17 10:00 80 12 113/65 98 01/01/17 09:17 91 12 94 01/01/17 07:00 36.3 C 87 12 108/53 L 94 01/01/17 06:00 36.4 C 91 12 140/59 H 93 01/01/17 05:00 96 12 140/59 H 94 01/01/17 04:40 89 12 95 01/01/17 03:00 80 17 128/64 H 93 Intake/Output (24 Hrs) 12/31/16 01/01/17 01/02/17 05:59 05:59 04:59 Intake Total 1244.0 1824 Output Total 2750 5485 Balance -1506.0 -3661 Intake: Oral (ml) 700 IV Intake (ml) 312 IV Infused (ml) 544.0 1512 Diltiazem 125 mg In D5w 9.1 99 125 ml @ Per Protocol IV CONT ANNA Rx#:[id number] Norepinephrine/Ns 500 ml 53 676 @ Titrate IV CONT ANNA Rx# :[id number] Ns 1,000 ml @ 100 mls/hr 425 429 IV CONT ANNA Rx#: [id number] Propofol/Emulsion 100 ml 2.6 207 @ Titrate IV CONT ANNA Rx# :[id number] cefTRIAXone 1 GM/DEXTROSE 50 50 ml @ 100 mls/hr IV DAILY ANNA Rx#:[id number] fentaNYL/NACL 100 ml @ As 4.3 101 Directed IV CONT ANNA Rx# :[id number] Output: Urine (ml) 2750 5485 Bedside Commode 500 Catheter 1950 5485 Toilet 300 Other: Weight 93.7 kg 93.4 kg Number of Voids Bedside Commode 4 Toilet 1 Number of Stools Bedside Commode 1 Toilet 1 1 Result Diagrams: 01/01/17 04:36 01/01/17 04:36 Cardiac Labs: Cardiac Lab Results (72 Hrs) 12/31/16 12/31/16 12/31/16 11:45 09:05 05:00 Troponin I 0.043 H 0.037 H < 0.012 12/30/16 23:00 Troponin I < 0.012 Telemetry: atrial fibrillation with mild elevation in heart rates (RVR) - Physical Exam Constitutional: no apparent distress Eyes: PERRL Ears, Nose, Mouth, Throat: moist mucous membranes Cardiovascular: irregularly irregular, No jugular vein distention Peripheral Pulses: 2+: dorsalis-pedis (R), dorsalis-pedis (L) Respiratory: reduced air movement, other (course breath sounds) Gastrointestinal: normoactive bowel sounds Skin: no rashes, no edema Psychiatric: encephalopathic (patient sedated with vent ) ICD10 Worksheet Patient Problems: Problems Problem Status Onset Generalized weakness Acute Hyponatremia Acute UTI (urinary tract infection) Acute Abdominal pain Acute Acute encephalopathy Acute Altered mental status Acute Atrial fibrillation Acute CAD (coronary artery disease), [place] coronary artery Acute Chronic diastolic CHF (congestive heart failure) Acute Chronic hypoxemic respiratory failure Acute Chronic kidney disease (CKD) Acute New onset atrial fibrillation Acute Pyelonephritis Acute VHD (valvular heart disease) Acute
--- NOTE | 2017-01-01 11:00 | HOSPPROG ---
Hospitalist Progress Note Assessment/Plan: # acute hypoxic and hypercapnic respiratory failure d/t diffuse infiltrates - ddx TACO/pulm edema, TRALI, aspiration - intubated, moderate vent settings - cont diuresis/abx # suspected aspiration pna - cont zosyn; BCx ngtd # septic shock d/t aspiration pna - try to wean levophed today # chronic a-fib, had bradycardia with 7s pause currently RVR - tentative plan ppm on Tuesday - cont dilt gtt for HR>120 # dCHF, acute on chronic - cont diuresis # pulm htn # adrenal insufficiency - on hydrocortisone as outpatient - stress dose steroids - taper tomorrow # bipolar - cont abilify, depakote # hyponatremia # SHAUNA # morbid obesity # htn - holding meds Subjective: more alert today; seems uncomfortable Objective: Vital Signs Temp Pulse Resp BP Pulse Ox 36.3 C 80 12 113/65 98 01/01/17 07:00 01/01/17 10:00 01/01/17 10:00 01/01/17 10:00 01/01/17 10:00 Laboratory Results 01/01/17 04:36 01/01/17 04:36 12/31/16 01/01/17 01/02/17 05:59 05:59 04:59 Intake Total 1244.0 1824 Output Total 2750 5485 Balance -1506.0 -3661 PT 17.5 SEC (12.0-15.0) H 01/01/17 04:36 INR 1.44 (0.83-1.16) H 01/01/17 04:36 35 minutes critical care time - Physical Exam Constitutional: other (intubated, uncomfortable, trying to grab ET tube) Cardiovascular: regular rate and rhythym, no murmur, rub, or gallop Respiratory: no respiratory distress, no rales or rhonchi, clear to auscultation Gastrointestinal: normoactive bowel sounds, soft, non-tender abdomen, no palpable masses ICD10 Worksheet Patient Problems: Problems Problem Status Onset Chronic kidney disease (CKD) Acute CAD (coronary artery disease), [place] coronary artery Acute VHD (valvular heart disease) Acute Hyponatremia Acute Altered mental status Acute Chronic hypoxemic respiratory failure Acute Acute encephalopathy Acute Atrial fibrillation Acute Chronic diastolic CHF (congestive heart failure) Acute Abdominal pain Acute New onset atrial fibrillation Acute UTI (urinary tract infection) Acute Pyelonephritis Acute Generalized weakness Acute
--- NOTE | 2017-01-01 11:30 | ASMTCMCOM ---
CM Note CM Note Notes: Flitch Hanger to attempt extubation today. Likely pacemaker placement Tuesday. Therapies will attempt to work with patient when extubated and able. [facility]RN/[facility]). Patient's sister Hallie Hogan is proxy. Date Signed: 01/01/2017 11:29 AM Electronically Signed By:Katie Landeros RN
[2017-01-01] MEDS: ENOXAPARIN 100 MG/ML SYR SC SCH ×2 (13:30→19:52)
[2017-01-01] MEDS: FERROUS SULFATE 300 MG/5 ML UD CUP TUBE SCH (13:32)
--- NOTE | 2017-01-01 16:53 | PDINTPN ---
Supervisor Dehydrogenation Progress Note Assessment/Plan: Assessment/plan: 66 F with ?developmental delay and lives in assisted living admitted with atypical chest pain. She was found to have a UTI and started abx, but developed a sinus pause consistent w/SSS. Because of chronic afib, she was on coumadin and was treated with vitamin K and FFP in anticipation of permanent pacer when she developed respiratory failure, fever, and rapid afib requiring intubation and a dilt drip. Her BP dropped post-intubation but improved rapidly and her dilt kept her rate <120. * Acute respiratory failure with hypoxemia- the ddx includes TRALI, TACO, or PNA ; though I favor PNA based on her Tm >38, elevated WBC, though her procalcitonin was only moderately elevated. She has been treated with Zosyn with improved parameters, and was extubated 01/01 without difficulty. Bcx remain negative. * SHAUNA- this is a known diagnosis and she said she is supposed to wear CPAP at home. Will attempt this tonight empirically to minimize risk of additional arrhythmia. * Acid base- I suspect she has a chronic compensated respiratory acidosis, with a baseline CO2 near 50. SAhe was admitted with a HCO3 of 39. * Afib- she responded fairly well to dilt and is being managed by cards. Avoided amiodarone 2/2 long half life and off at this time. Restart for HR > 120. Start Lovenox for bridge to allow dc for PPM on tuesday * SSS- as above. Subjective: Stable overnight with well-controlled afib off diltiazem. Objective: Vital Signs Temp Pulse Resp BP Pulse Ox 36.7 C 91 25 H 113/68 92 01/01/17 16:00 01/01/17 16:00 01/01/17 16:00 01/01/17 16:00 01/01/17 16:00 Laboratory Results 01/01/17 04:36 01/01/17 04:36 12/31/16 01/01/17 01/02/17 05:59 05:59 04:59 Intake Total 1244.0 1824 Output Total 2750 5485 Balance -1506.0 -3661 PT 17.5 SEC (12.0-15.0) H 01/01/17 04:36 INR 1.44 (0.83-1.16) H 01/01/17 04:36 Physical Exam - Physical Exam General Appearance: alert, no apparent distress, obese EENT: PERRL/EOMI Neck: supple Respiratory: lungs clear, normal breath sounds, No respiratory distress Cardiac/Chest: irregularly irregular, No edema Abdomen: non-tender, soft, No distended Skin: normal color, warm/dry Lymphatic: no adenopathy Extremities: No pedal edema Neuro/Psych: alert, normal mood/affect, cognition abnormalities ICD10 Worksheet Patient Problems: Problems Problem Status Onset Generalized weakness Acute Hyponatremia Acute UTI (urinary tract infection) Acute Abdominal pain Acute Acute encephalopathy Acute Altered mental status Acute Atrial fibrillation Acute CAD (coronary artery disease), [place] coronary artery Acute Chronic diastolic CHF (congestive heart failure) Acute Chronic hypoxemic respiratory failure Acute Chronic kidney disease (CKD) Acute New onset atrial fibrillation Acute Pyelonephritis Acute VHD (valvular heart disease) Acute
[2017-01-01] MEDS: ATORVASTATIN CALCIUM 20 MG TAB TUBE SCH (19:51)
[2017-01-01] MEDS: ARIPiprazole 5 MG TAB TUBE SCH (19:51)
[2017-01-01] MEDS: LORazepam 2 MG/ML INJ IVP PRN (19:53)
[2017-01-01] MEDS: traMADol 50 MG TAB TUBE PRN (19:57)
[2017-01-01] MEDS ORDERED: POTASSIUM Cl (KCl) 50 ML IV SCH (22:30)
[2017-01-02] MEDS: PIPERACILLIN/TAZO 4.5 GM/DEX 100 ML IV SCH ×4 (04:59→21:17)
[2017-01-02] MEDS: FUROSEMIDE 40 MG/4 ML VIAL IVP SCH (05:02)
[2017-01-02] MEDS: HYDROCORTISONE 100 MG/2 ML VIAL IVP SCH ×3 (05:02→21:20)
[2017-01-02] MEDS: LEVOTHYROXINE 175 MCG TAB TUBE SCH (05:02)
[2017-01-02 05:27] LABS: ADD DIFF? NO; ADD MORPH? NO; ADD SCAN? NO; ATYPICAL LYMPHOCYTE FLAG 0 (0-99); FRAGMENT RBC FLAG 0 (0-99); HEMATOCRIT 29.1 % (38.0-47.0); HEMOGLOBIN 10.1 g/dL (12.6-16.3); LEFT SHIFT FLG 10 (0-99); LIPEMIA HEMOLYSIS FLAG 90 (0-99); MEAN CELL HEMOGLOBIN 34.5 pg (27.9-34.1); MEAN CELL HEMOGLOBIN CONCENTR. 34.7 g/dL (32.4-36.7); MEAN CELL VOLUME 99.3 fL (81.5-99.8); MEAN PLATELET VOLUME 9.9 fL (8.7-11.7); PLATELET CLUMPS FLAG 0 (0-99); PLATELET COUNT 164 10^3/uL (150-400); RED BLOOD CELL COUNT 2.93 10^6/uL (4.18-5.33); RED CELL DISTRIBUTION WIDTH 13.7 % (11.5-15.2)
[2017-01-02 05:45] LABS: CALCIUM 7.8 mg/dL (8.5-10.4); CHLORIDE 84 mEq/L (97-110); GLOMERULAR FILTRATION RATE 56; GLUCOSE 128 mg/dL (70-100); POTASSIUM 3.3 mEq/L (3.5-5.2); SODIUM 136 mEq/L (134-144)
[2017-01-02 05:57] LABS: ANION GAP 11 mEq/L (8-16)
[2017-01-02 05:58] LABS: CARBON DIOXIDE 41 mEq/l (22-31)
[2017-01-02] MEDS: ENOXAPARIN 100 MG/ML SYR SC SCH ×2 (08:28→21:21)
[2017-01-02] MEDS: FAMOTIDINE 20 MG/NACL 50 ML IV SCH (08:28)
[2017-01-02] MEDS: POTASSIUM Cl (KCl) 50 ML IV SCH ×3 (08:29→09:03)
[2017-01-02] MEDS: LIDOCAINE 5% 1 EA PATCH TD SCH (08:29)
[2017-01-02] MEDS: SODIUM CL NASAL 45 ML BTL EACHNARE SCH ×3 (08:30→21:22)
[2017-01-02] MEDS: ARIPiprazole 10 MG TAB TUBE SCH (08:35)
[2017-01-02] MEDS: VALPROIC ACID 250 MG/5 ML UDCUP TUBE SCH (08:36)
--- NOTE | 2017-01-02 09:10 | HOSPPROG ---
Hospitalist Progress Note Assessment/Plan: # acute hypoxic and hypercapnic respiratory failure d/t diffuse infiltrates - ddx TACO/pulm edema, TRALI, aspiration - suspect aspiration pneumonia at this point - extubated 01/01 - cont decrease diuretics # suspected aspiration pna - cont zosyn; BCx ngtd # vol status - very negative over the last few days - lasix 20 PO daily # septic shock d/t aspiration pna - resolved, off pressors # chronic a-fib, had bradycardia with 7s pause currently RVR - tentative plan ppm on Tuesday - cont dilt gtt for HR>120 - AC with lovenox # dCHF, chronic - close to euvolemia - lasix PO today # pulm htn # adrenal insufficiency - on hydrocortisone as outpatient - stress dose steroids - tapered today # bipolar - cont abilify, depakote # hyponatremia - resolved # hypoK - replete # SHAUNA # morbid obesity # htn - holding meds Subjective: Extubated successfully yesterday; complains of lower extremity pain Objective: Vital Signs Temp Pulse Resp BP Pulse Ox 36.8 C 117 H 16 176/86 H 96 01/02/17 09:00 01/02/17 09:00 01/02/17 09:00 01/02/17 09:00 01/02/17 09:00 Laboratory Results 01/02/17 05:10 01/02/17 05:10 01/01/17 01/02/17 01/03/17 06:59 05:59 05:59 Intake Total Output Total Balance PT 17.5 SEC (12.0-15.0) H 01/01/17 04:36 INR 1.44 (0.83-1.16) H 01/01/17 04:36 High risk - Physical Exam Constitutional: obese, unkempt Cardiovascular: regular rate and rhythym, no murmur, rub, or gallop Respiratory: no respiratory distress, no rales or rhonchi, clear to auscultation Gastrointestinal: normoactive bowel sounds, soft, non-tender abdomen, no palpable masses ICD10 Worksheet Patient Problems: Problems Problem Status Onset Chronic kidney disease (CKD) Acute CAD (coronary artery disease), [place] coronary artery Acute VHD (valvular heart disease) Acute Hyponatremia Acute Altered mental status Acute Chronic hypoxemic respiratory failure Acute Acute encephalopathy Acute Atrial fibrillation Acute Chronic diastolic CHF (congestive heart failure) Acute Abdominal pain Acute New onset atrial fibrillation Acute UTI (urinary tract infection) Acute Pyelonephritis Acute Generalized weakness Acute
--- NOTE | 2017-01-02 09:42 | PDCARPN ---
Cardiology Progress Note Chief Complaint: Patient feeling better today. Assessment/Plan: Assessment: 01-02-17 Patient doing better today. Pulm/Critical care with extubation yesterday. Pressors have been stopped. IV diltiazem has also been stopped. CVA/thrombus prophylaxis with lovenox continues. Heart rates on telemetry were 110-120 bpm. Patient with semi productive cough, and some chest tightness secondary to this symptom. Ongoing antibiotic therapy. No fevers for the past several days. WBC elevation with left shift continues to be noted. 01-01-17 Ongoing antibiotic therapy for suspected infection (nothing has been isolated at present). No further high grade AV block has been noted. Currently off anticoagulation. Pulm/crit care with plans to work on weaning the patient off vent today. From a cardiovascular standpoint, the patient will need to have PPM implanted, but given the acuity of the current events, would work toward resolution (if possible) prior to this implant. Would like to have >72 hours of antibiotics as well as lack of pyrexia prior to implant of PPM. 12-31-16 66-year-old female typically followed as an outpatient in our clinic by Dr. Avi Foster. Her cardiovascular history is significant for CAD status post 2 vessel bypass surgery (gomez to the LAD, SVG to the circumflex) in 2003. She has a history of chronic atrial fibrillation typically treated with low-dose metoprolol and chronic Coumadin therapy as well as chronic diastolic congestive heart failure. She has multiple medical problems to include a history of bipolar disorder. She was admitted with atypical chest discomfort with low suspicion for acute coronary syndrome. She was subsequently found to have a urinary tract infection. Her symptoms are difficult to ascertain in light of her bipolar disorder. Apparently, she had a widely positive review of systems. Currently, she is intubated on mechanical ventilation. We were consulted regarding episodes of bradycardia with heart rates in the 20s. Additionally, she had a single 7 second pause. These were apparently asymptomatic. She is only on metoprolol 12-,1/2 mg twice daily. Because of this and therapeutic INR she was administered fresh frozen plasma last night. Shortly after receiving this medication she developed worsening respiratory failure and ultimately mechanical ventilation. This was associated with a chest x-ray indicating acute volume overload. Her ECG was stable in atrial fibrillation at the time. Her initial set of cardiac enzymes was normal. Currently she is in the intensive care unit. She has had a low-grade temperature overnight. She is on low-dose pressors. During the night she was started on diltiazem for additional rate control. Plan: (1) Would maintain anticoagulation (lovenox at present, but oral therapies can be resumed) (2) Patient should have PPM prior to discharge, but would follow signs and symptoms over the next 24 hours (3) Statins for HLP to continue (4) Maintain psych medications as at present - there was moderate confusion noted today, but given the acuity of the events that have been noted, this is understandable (5) Would start oral CCB (diltiazem, 30 mg three times per day) for assistance with both HTN and heart rate control (6) Cardiology will continue to see the patient Subjective: Chest pains/pressure noted today, but may be attributed to the coughing that the patient has been manifesting Reviewed/Discussed With: multidisciplinary team Objective: Vital Signs (8 Hrs) Temp Pulse Resp BP Pulse Ox 01/02/17 09:00 36.8 C 117 H 16 176/86 H 96 01/02/17 05:49 36.8 C 90 24 H 106/89 H 93 01/02/17 05:00 36.7 C 84 24 H 132/56 H 94 01/02/17 04:15 83 21 H 93 01/02/17 03:00 36.6 C 86 20 123/68 H 93 Intake/Output (24 Hrs) 01/01/17 01/02/17 01/03/17 06:59 05:59 05:59 Intake Total Output Total Balance Intake: IV Intake (ml) IV Infused (ml) Diltiazem 125 mg In D5w 125 ml @ Per Protocol IV CONT ANNA Rx#:[id number] Norepinephrine/Ns 500 ml @ Titrate IV CONT ANNA Rx# :[id number] Ns 1,000 ml @ 100 mls/hr IV CONT ANNA Rx#: [id number] Propofol/Emulsion 100 ml @ Titrate IV CONT ANNA Rx# :[id number] fentaNYL/NACL 100 ml @ As Directed IV CONT ANNA Rx# :[id number] Output: Urine (ml) Catheter Other: Weight Number of Stools Bedpan Toilet Result Diagrams: 01/02/17 05:10 01/02/17 05:10 Cardiac Labs: Cardiac Lab Results (72 Hrs) 12/31/16 12/31/16 12/31/16 11:45 09:05 05:00 Troponin I 0.043 H 0.037 H < 0.012 12/30/16 23:00 Troponin I < 0.012 Telemetry: atrial fibrillation with rapid ventricular response (up to 120 bpm) - Physical Exam Constitutional: no apparent distress, obese Eyes: PERRL, EOMI Ears, Nose, Mouth, Throat: moist mucous membranes Cardiovascular: irregularly irregular, No jugular vein distention Peripheral Pulses: 2+: dorsalis-pedis (R), dorsalis-pedis (L) Respiratory: reduced air movement, inspiratory crackles Gastrointestinal: no tenderness Skin: warm Neurologic: AAOx3, CN II-XII grossly intact Psychiatric: cooperative, interactive, encephalopathic ICD10 Worksheet Patient Problems: Problems Problem Status Onset Generalized weakness Acute Hyponatremia Acute UTI (urinary tract infection) Acute Abdominal pain Acute Acute encephalopathy Acute Altered mental status Acute Atrial fibrillation Acute CAD (coronary artery disease), [place] coronary artery Acute Chronic diastolic CHF (congestive heart failure) Acute Chronic hypoxemic respiratory failure Acute Chronic kidney disease (CKD) Acute New onset atrial fibrillation Acute Pyelonephritis Acute VHD (valvular heart disease) Acute
[2017-01-02] MEDS ORDERED: FUROSEMIDE 20 MG TAB PO ONE (11:00)
[2017-01-02] MEDS: FERROUS SULFATE 300 MG/5 ML UD CUP TUBE SCH (11:19)
[2017-01-02] MEDS ORDERED: DILTIAZEM 30 MG TAB PO SCH (12:00)
--- NOTE | 2017-01-02 12:51 | PDINTPN ---
Front Office Specialist Progress Note Assessment/Plan: Assessment/plan: 66 F with ?developmental delay and lives in assisted living admitted with atypical chest pain. She was found to have a UTI and started abx, but developed a sinus pause consistent w/SSS. Because of chronic afib, she was on coumadin and was treated with vitamin K and FFP in anticipation of permanent pacer when she developed respiratory failure, fever, and rapid afib requiring intubation and a dilt drip. Her BP dropped post-intubation but improved rapidly and her dilt kept her rate <120. * Acute respiratory failure with hypoxemia- the ddx includes TRALI, TACO, or PNA ; though I favor PNA based on her Tm >38, elevated WBC, though her procalcitonin was only moderately elevated. She has been treated with Zosyn with improved parameters, and was extubated 01/01 without difficulty. Bcx remain negative, and WBC remains stable at 14. * SHAUNA- this is a known diagnosis and she said she is supposed to wear CPAP at home. Tolerated CPAP reasonably well, but did use ativan. Would prefer to avoid sedation on CPAP as much as possible. * Acid base- I suspect she has a chronic compensated respiratory acidosis, with a baseline CO2 near 50. She was admitted with a HCO3 of 39. * Afib- started PO diltiazem today. No further sinus pauses as previously noted. * SSS- as above. 01/02/17 12:49 Subjective: extubated 01/01 Objective: Vital Signs Temp Pulse Resp BP Pulse Ox 36.8 C 113 H 19 119/68 98 01/02/17 09:00 01/02/17 12:27 01/02/17 12:00 01/02/17 12:27 01/02/17 12:00 Laboratory Results 01/02/17 05:10 01/02/17 05:10 01/01/17 01/02/17 01/03/17 06:59 05:59 05:59 Intake Total Output Total 900 Balance -900 PT 17.5 SEC (12.0-15.0) H 01/01/17 04:36 INR 1.44 (0.83-1.16) H 01/01/17 04:36 Physical Exam - Physical Exam General Appearance: alert, no apparent distress, obese EENT: PERRL/EOMI Neck: supple Respiratory: lungs clear, normal breath sounds, No respiratory distress Cardiac/Chest: irregularly irregular, No edema Abdomen: non-tender, soft, No distended Skin: normal color, warm/dry Lymphatic: no adenopathy Extremities: No pedal edema Neuro/Psych: alert, normal mood/affect, cognition abnormalities ICD10 Worksheet Patient Problems: Problems Problem Status Onset Generalized weakness Acute Hyponatremia Acute UTI (urinary tract infection) Acute Abdominal pain Acute Acute encephalopathy Acute Altered mental status Acute Atrial fibrillation Acute CAD (coronary artery disease), [place] coronary artery Acute Chronic diastolic CHF (congestive heart failure) Acute Chronic hypoxemic respiratory failure Acute Chronic kidney disease (CKD) Acute New onset atrial fibrillation Acute Pyelonephritis Acute VHD (valvular heart disease) Acute
[2017-01-02] MEDS: traMADol 50 MG TAB TUBE PRN (14:13)
[2017-01-02] MEDS ORDERED: DILTIAZEM 125 MG in D5W 125 ML IV SCH (14:45)
[2017-01-02] MEDS ORDERED: DILTIAZEM HCL/D5W 125 ML IV SCH (15:00)
[2017-01-02] MEDS ORDERED: ONDANSETRON DISINTEGRATING 4 MG TAB PO PRN (16:00)
[2017-01-02] MEDS: FERROUS SULFATE 325 MG TAB PO SCH (16:04)
[2017-01-02 18:00] LABS: POTASSIUM 3.5 mEq/L (3.5-5.2)
[2017-01-02] MEDS ORDERED: POTASSIUM CL 10 MEQ TAB PO ONE (18:10)
[2017-01-02] MEDS: traMADol 50 MG TAB PO PRN (21:17)
[2017-01-02] MEDS: DIVALPROEX ER 250 MG TAB PO SCH (21:19)
[2017-01-02] MEDS: ARIPiprazole 5 MG TAB PO SCH (21:19)
[2017-01-02] MEDS: ATORVASTATIN CALCIUM 20 MG TAB PO SCH (21:19)
[2017-01-03] MEDS: ACETAMINOPHEN 325 MG TAB PO PRN (00:52)
[2017-01-03] MEDS: LORazepam 2 MG/ML INJ IVP PRN ×2 (00:54→20:44)
[2017-01-03] MEDS: PIPERACILLIN/TAZO 4.5 GM/DEX 100 ML IV SCH ×4 (04:05→20:43)
[2017-01-03 04:19] LABS: HEMATOCRIT 28.1 % (38.0-47.0); HEMOGLOBIN 9.5 g/dL (12.6-16.3); MEAN CELL HEMOGLOBIN 34.2 pg (27.9-34.1); MEAN CELL HEMOGLOBIN CONCENTR. 33.8 g/dL (32.4-36.7); MEAN CELL VOLUME 101.1 fL (81.5-99.8); RED BLOOD CELL COUNT 2.78 10^6/uL (4.18-5.33); RED CELL DISTRIBUTION WIDTH 13.8 % (11.5-15.2)
[2017-01-03 05:05] LABS: CALCIUM 7.2 mg/dL (8.5-10.4); CHLORIDE 79 mEq/L (97-110); CREATININE 1.1 mg/dL (0.6-1.0); GLOMERULAR FILTRATION RATE 50; GLUCOSE 126 mg/dL (70-100); POTASSIUM 3.1 mEq/L (3.5-5.2); SODIUM 134 mEq/L (134-144)
[2017-01-03 05:27] LABS: ANION GAP 11 mEq/L (8-16)
[2017-01-03 05:29] LABS: CARBON DIOXIDE 44 mEq/l (22-31)
[2017-01-03] MEDS: HYDROCORTISONE 100 MG/2 ML VIAL IVP SCH (05:51)
[2017-01-03] MEDS: LEVOTHYROXINE 175 MCG TAB PO SCH (05:51)
[2017-01-03] MEDS: POTASSIUM Cl (KCl) 50 ML IV SCH ×5 (06:08→23:53)
[2017-01-03] MEDS ORDERED: MAGNESIUM SULF 1 GM/DEXTROSE 100 ML IV ONE (06:15)
[2017-01-03] MEDS: LIDOCAINE 5% 1 EA PATCH TD SCH (08:24)
[2017-01-03] MEDS: POLYETHYLENE GLYCOL 3350 17 GM PKT PO SCH (08:43)
[2017-01-03] MEDS: ARIPiprazole 10 MG TAB PO SCH (08:50)
[2017-01-03] MEDS: FUROSEMIDE 20 MG TAB PO SCH (08:51)
[2017-01-03] MEDS: ENOXAPARIN 100 MG/ML SYR SC SCH ×2 (08:52→20:44)
[2017-01-03] MEDS ORDERED: FUROSEMIDE 20 MG/2 ML VIAL IVP SCH (09:00)
[2017-01-03] MEDS: SODIUM CL NASAL 45 ML BTL EACHNARE SCH ×3 (09:23→20:42)
[2017-01-03] MEDS: traMADol 50 MG TAB PO PRN (09:26)
--- NOTE | 2017-01-03 09:32 | HOSPPROG ---
Hospitalist Progress Note Assessment/Plan: 67F with chronic a-fib admitted with weakness. Treated for an e.coli UTI. Course c/b 7s pause. Cards then planned ppm, her INR was reversed with FFP. She subsequently had respiratory failure and fever - concerned for aspiration. She was intubated, now extubated. Plan will be to place ppm soon, timing per cards. # chronic a-fib, had bradycardia with 7s pause currently RVR - ppm per cards - ok to tolerate HR up to 120 - AC with lovenox # acute hypoxic and hypercapnic respiratory failure d/t diffuse infiltrates - ddx TACO/pulm edema, TRALI, aspiration - suspect aspiration pneumonia at this point - extubated 01/01 # acid base - seems most c/w compensated resp acidosis # diarrhea - send c. dif # suspected aspiration pna - cont zosyn D#06/04 # septic shock d/t aspiration pna - resolved, off pressors # dCHF, chronic - close to euvolemia - lasix PO today # pulm htn # adrenal insufficiency - on hydrocortisone as outpatient - home dose steroids today # bipolar - cont abilify, depakote # hyponatremia - resolved # hypoK - replete # SHAUNA # morbid obesity # htn - holding meds, may need to restart soon # dispo - PCU Subjective: having diarrhea; feels "lousy" Objective: Vital Signs Temp Pulse Resp BP Pulse Ox 36.6 C 96 21 H 147/95 H 98 01/03/17 08:00 01/03/17 08:00 01/03/17 08:00 01/03/17 08:00 01/03/17 08:00 Laboratory Results 01/03/17 04:00 01/03/17 04:00 01/02/17 01/03/17 01/04/17 05:59 05:59 05:59 Intake Total 2329 Output Total 1125 Balance 1204 PT 17.5 SEC (12.0-15.0) H 01/01/17 04:36 INR 1.44 (0.83-1.16) H 01/01/17 04:36 high risk - Physical Exam Constitutional: obese Cardiovascular: no murmur, rub, or gallop, irregularly irregular, tachycardia Respiratory: no respiratory distress, no rales or rhonchi, clear to auscultation Gastrointestinal: normoactive bowel sounds, soft, non-tender abdomen, no palpable masses ICD10 Worksheet Patient Problems: Problems Problem Status Onset Chronic kidney disease (CKD) Acute CAD (coronary artery disease), [place] coronary artery Acute VHD (valvular heart disease) Acute Hyponatremia Acute Altered mental status Acute Chronic hypoxemic respiratory failure Acute Acute encephalopathy Acute Atrial fibrillation Acute Chronic diastolic CHF (congestive heart failure) Acute Abdominal pain Acute New onset atrial fibrillation Acute UTI (urinary tract infection) Acute Pyelonephritis Acute Generalized weakness Acute
[2017-01-03] MEDS: HYDROCORTISONE 10 MG TAB PO SCH ×2 (10:15→17:39)
[2017-01-03] MEDS: FERROUS SULFATE 325 MG TAB PO SCH (12:42)
[2017-01-03] MEDS: ARIPiprazole 5 MG TAB PO SCH (20:40)
[2017-01-03] MEDS: ATORVASTATIN CALCIUM 20 MG TAB PO SCH (20:40)
[2017-01-03] MEDS: DIVALPROEX ER 250 MG TAB PO SCH (20:41)
[2017-01-03 20:53] LABS: POTASSIUM 3.3 mEq/L (3.5-5.2)
[2017-01-04] MEDS: traMADol 50 MG TAB PO PRN ×3 (00:31→22:39)
[2017-01-04] MEDS: PIPERACILLIN/TAZO 4.5 GM/DEX 100 ML IV SCH ×4 (03:54→22:39)
[2017-01-04] MEDS: LORazepam 2 MG/ML INJ IVP PRN (04:01)
[2017-01-04 04:14] LABS: % IMMATURE GRANULYOCYTES 2.7 % (0.0-1.1); ABSOLUTE IMMATURE GRANULOCYTES 0.29 10^3/uL (0.00-0.10); ADD DIFF? NO; ADD MORPH? NO; ADD SCAN? NO; ATYPICAL LYMPHOCYTE FLAG 20 (0-99); FRAGMENT RBC FLAG 0 (0-99); HEMATOCRIT 32.7 % (38.0-47.0); LEFT SHIFT FLG 20 (0-99); LIPEMIA HEMOLYSIS FLAG 80 (0-99); MEAN CELL HEMOGLOBIN 34.3 pg (27.9-34.1); MEAN CELL HEMOGLOBIN CONCENTR. 33.6 g/dL (32.4-36.7); MEAN CELL VOLUME 101.9 fL (81.5-99.8); MEAN PLATELET VOLUME 9.4 fL (8.7-11.7); PLATELET CLUMPS FLAG 0 (0-99); PLATELET COUNT 201 10^3/uL (150-400); RED BLOOD CELL COUNT 3.21 10^6/uL (4.18-5.33); RED CELL DISTRIBUTION WIDTH 13.7 % (11.5-15.2)
[2017-01-04 04:38] LABS: CHLORIDE 83 mEq/L (97-110); CREATININE 0.9 mg/dL (0.6-1.0); GLOMERULAR FILTRATION RATE > 60; GLUCOSE 107 mg/dL (70-100); MAGNESIUM 2.2 mg/dL (1.6-2.3); POTASSIUM 3.8 mEq/L (3.5-5.2); SODIUM 137 mEq/L (134-144)
[2017-01-04 04:57] LABS: ANION GAP 7 mEq/L (8-16)
[2017-01-04 05:00] LABS: CARBON DIOXIDE 47 mEq/l (22-31)
[2017-01-04] MEDS ORDERED: POTASSIUM Cl (KCl) 50 ML IV ONE (05:20)
[2017-01-04] MEDS ORDERED: POTASSIUM Cl (KCl) 100 ML IV ONE (05:30)
[2017-01-04] MEDS: LEVOTHYROXINE 175 MCG TAB PO SCH (05:53)
[2017-01-04] MEDS: POLYETHYLENE GLYCOL 3350 17 GM PKT PO SCH (08:30)
[2017-01-04] MEDS: LIDOCAINE 5% 1 EA PATCH TD SCH (08:44)
[2017-01-04] MEDS: HYDROCORTISONE 10 MG TAB PO SCH ×2 (08:45→16:56)
[2017-01-04] MEDS: SODIUM CL NASAL 45 ML BTL EACHNARE SCH ×3 (08:45→20:17)
[2017-01-04] MEDS: FUROSEMIDE 20 MG TAB PO SCH (08:46)
[2017-01-04] MEDS: ARIPiprazole 10 MG TAB PO SCH (10:57)
[2017-01-04] MEDS: ENOXAPARIN 100 MG/ML SYR SC SCH ×2 (10:57→20:18)
--- NOTE | 2017-01-04 11:21 | SOAPPROG ---
SOAP Progress Note Assessment/Plan: Assessment/Plan: This is a 67 yr old female with complex medical and psychosocial prob who has been in AF and had 7 sec of asystole and slow HR on Dilt. Pt has done well off of Dilt and tolerating relative tachycardia. SHe has maintained hemodynamic stability. In terms of placing a PPM, the pt's bipolar disorder as well as predisposition to infection is concerning. Would recommend long-term monitoring and if she has more episodes of bradycardia or heart blocks clinically, consider pacemaker implant. 01/04/17 11:02 Subjective: Pt is concerned about the heat in the room but not answering any questions directed at her. Seems comfortable. Up in chair Objective: Vital Signs Temp Pulse Resp BP Pulse Ox 36.7 C 115 H 19 155/88 H 100 01/04/17 08:00 01/04/17 08:00 01/04/17 08:00 01/04/17 08:00 01/04/17 08:00 Laboratory Results 01/04/17 04:05 01/04/17 04:05 01/03/17 01/04/17 01/05/17 05:59 05:59 05:59 Intake Total 2329 2766 Output Total 1125 1070 Balance 1204 1696 PT 17.5 SEC (12.0-15.0) H 01/01/17 04:36 INR 1.44 (0.83-1.16) H 01/01/17 04:36 Physical Exam - Physical Exam General Appearance: alert, no apparent distress EENT: PERRL/EOMI, No scleral icterus (R), No scleral icterus (L) Neck: non-tender, supple Respiratory: decreased breath sounds, No crackles Cardiac/Chest: irregularly irregular, No gallop Abdomen: non-tender, soft, No organomegaly Skin: warm/dry ICD10 Worksheet Patient Problems: Problems Problem Status Onset Generalized weakness Acute Hyponatremia Acute UTI (urinary tract infection) Acute Abdominal pain Acute Acute encephalopathy Acute Altered mental status Acute Atrial fibrillation Acute CAD (coronary artery disease), [place] coronary artery Acute Chronic diastolic CHF (congestive heart failure) Acute Chronic hypoxemic respiratory failure Acute Chronic kidney disease (CKD) Acute New onset atrial fibrillation Acute Pyelonephritis Acute VHD (valvular heart disease) Acute
[2017-01-04] MEDS: FERROUS SULFATE 325 MG TAB PO SCH (12:58)
--- NOTE | 2017-01-04 17:42 | ASMTCMCOM ---
CM Note CM Note Notes: PT recommending that patient have HC at [facility] [place] OT recommending increased support at [facility]. [facility] has been involved with patient at [facility]. Date Signed: 01/04/2017 05:42 PM Electronically Signed By:Lucille Araiza LCSW
--- NOTE | 2017-01-04 17:51 | HOSPPROG ---
Hospitalist Progress Note Assessment/Plan: 67F with chronic a-fib admitted with weakness. Treated for an e.coli UTI. Course c/b 7s pause. Cards then planned ppm, her INR was reversed with FFP. She subsequently had respiratory failure and fever - concerned for aspiration. She was intubated, now extubated. # chronic a-fib, had bradycardia with prolonged pauses - noted HR in 140's after workign with PT then hours later 5-7 second pauses TELE (persoanlly reviewed and interpreted) afib with rates 110-160 - discussed with Cardiology plan for permanent pacemaker in the morning - ok to tolerate HR up to 120 - AC with lovenox # acute hypoxic and hypercapnic respiratory failure d/t diffuse infiltrates- oxygen saturations 96% on 2 L ddx pulm edema, TRALI, aspiration - suspect aspiration pneumonia at this point - extubated 01/01 - continue Zosyn # diarrhea - negative c. dif # suspected aspiration pna - cont zosyn D#07/04 # septic shock d/t aspiration pna - resolved, off pressors # dCHF, chronic - close to euvolemia - continue lasix PO # pulm htn # adrenal insufficiency - on hydrocortisone as outpatient - home dose steroids today # bipolar - cont abilify, depakote # hyponatremia - resolved # hypoK - replete # SHAUNA # morbid obesity # htn - holding meds # dispo - > 2 midnights as the patient remains acutely ill requiring pacemaker placement I have discussed the case with Dr. Ervin from Cardiology will make patient NPO in anticipation of device Subjective: Feels fatigued denies chest pain Objective: Vital Signs Temp Pulse Resp BP Pulse Ox 36.9 C 23 L 16 98/52 L 96 01/04/17 11:38 01/04/17 16:45 01/04/17 16:00 01/04/17 16:00 01/04/17 16:00 Laboratory Results 01/04/17 04:05 01/04/17 04:05 01/03/17 01/04/17 01/05/17 05:59 05:59 05:59 Intake Total 2329 2766 Output Total 1125 1070 Balance 1204 1696 PT 17.5 SEC (12.0-15.0) H 01/01/17 04:36 INR 1.44 (0.83-1.16) H 01/01/17 04:36 - Physical Exam Constitutional: chronically ill appearing, obese Eyes: anicteric sclera Ears, Nose, Mouth, Throat: moist mucous membranes Cardiovascular: irregularly irregular, tachycardia Respiratory: no respiratory distress, reduced air movement, inspiratory crackles Gastrointestinal: normoactive bowel sounds Genitourinary: no bladder fullness Skin: warm Musculoskeletal: No asymmetric calves Neurologic: AAOx3 Psychiatric: flat affect, No agitated Lymph, Heme, Immunologic: no cervical LAD ICD10 Worksheet Patient Problems: Problems Problem Status Onset Generalized weakness Acute Hyponatremia Acute UTI (urinary tract infection) Acute Abdominal pain Acute Acute encephalopathy Acute Altered mental status Acute Atrial fibrillation Acute CAD (coronary artery disease), [place] coronary artery Acute Chronic diastolic CHF (congestive heart failure) Acute Chronic hypoxemic respiratory failure Acute Chronic kidney disease (CKD) Acute New onset atrial fibrillation Acute Pyelonephritis Acute VHD (valvular heart disease) Acute
[2017-01-04 18:57] LABS: POTASSIUM 3.3 mEq/L (3.5-5.2)
[2017-01-04] MEDS: ARIPiprazole 5 MG TAB PO SCH (20:16)
[2017-01-04] MEDS: DIVALPROEX ER 250 MG TAB PO SCH (20:16)
[2017-01-04] MEDS: ATORVASTATIN CALCIUM 20 MG TAB PO SCH (20:18)
[2017-01-04] MEDS: POTASSIUM Cl (KCl) 50 ML IV SCH ×2 (22:10→22:11)
[2017-01-04] MEDS ORDERED: POTASSIUM CL 10 MEQ TAB PO ONE (22:13)
[2017-01-04] MEDS: ACETAMINOPHEN 325 MG TAB PO PRN (22:38)
[2017-01-05] MEDS: PIPERACILLIN/TAZO 4.5 GM/DEX 100 ML IV SCH ×4 (05:01→21:17)
[2017-01-05] MEDS: LEVOTHYROXINE 175 MCG TAB PO SCH (05:33)
[2017-01-05 06:12] LABS: HEMATOCRIT 32.1 % (38.0-47.0); HEMOGLOBIN 10.4 g/dL (12.6-16.3); MEAN CELL HEMOGLOBIN 33.7 pg (27.9-34.1); MEAN CELL HEMOGLOBIN CONCENTR. 32.4 g/dL (32.4-36.7); MEAN CELL VOLUME 103.9 fL (81.5-99.8); RED BLOOD CELL COUNT 3.09 10^6/uL (4.18-5.33)
[2017-01-05 06:32] LABS: CHLORIDE 84 mEq/L (97-110); CREATININE 0.9 mg/dL (0.6-1.0); GLOMERULAR FILTRATION RATE > 60; GLUCOSE 80 mg/dL (70-100); POTASSIUM 3.5 mEq/L (3.5-5.2); SODIUM 135 mEq/L (134-144)
[2017-01-05 06:42] LABS: ANION GAP 7 mEq/L (8-16)
[2017-01-05 06:44] LABS: CARBON DIOXIDE 44 mEq/l (22-31)
[2017-01-05] MEDS: POLYETHYLENE GLYCOL 3350 17 GM PKT PO SCH (07:45)
[2017-01-05] MEDS ORDERED: POTASSIUM CL 10 MEQ TAB PO ONE (07:49)
[2017-01-05] MEDS: LIDOCAINE 5% 1 EA PATCH TD SCH (07:56)
[2017-01-05] MEDS: FUROSEMIDE 20 MG TAB PO SCH (08:09)
[2017-01-05] MEDS: HYDROCORTISONE 10 MG TAB PO SCH ×2 (08:10→15:14)
[2017-01-05] MEDS: SODIUM CL NASAL 45 ML BTL EACHNARE SCH ×3 (08:11→21:18)
[2017-01-05] MEDS: ACETAMINOPHEN 325 MG TAB PO PRN ×2 (09:33→21:22)
[2017-01-05] MEDS: ENOXAPARIN 100 MG/ML SYR SC SCH (09:34)
[2017-01-05] MEDS: traMADol 50 MG TAB PO PRN ×2 (09:34→21:22)
[2017-01-05] MEDS: ARIPiprazole 10 MG TAB PO SCH (09:34)
[2017-01-05] MEDS: FERROUS SULFATE 325 MG TAB PO SCH (12:30)
--- NOTE | 2017-01-05 14:41 | PDPCPN ---
Palliative Care Progress Note Assessment/Plan: Referring provider: Dr Hanks Reason for consult: Complex medical decision making Symptom control HPI: Monet Gimenez is a 67 yo with PMH diastolic CHF, CKF, a fib and bipolar admitted to the hospital for chest pain, fatigue and dizziness. Found to have postivie UA being treated for UTI. Hospitalization complicated by acute respiatory failure likely 2/2 aspiration requiring intubation. Now extubated. Also complicated by 7 second pause with tachycardia and bradycardia recommended for pacemaker placement. Palliative care consulted for complex medical decision making. Met with Monet this afternoon. She states she is "sick of all this up and down". She states she wants to feel well again and go home. We started a discussion around her goals and what matters most to her. While she is sick of being in the hospital and not feeling good, she wants to get back to being stronger and feeling better with medical interventions. She was a little confused on the exact details of her medical care or discharge plan but understands why she is in the hospital and what is going on. She states her sister Hallie is her MDPOA and they have never had a discussion about her goals of care or wishes. We discussed if she were to get sick again in the future what she might want. She would want re intubation if needed for a short/temporary issues but would not want to be dependent on machines for the rest of her life. She stated she does not want "heroics". We discussed in detail her wishes and she would not want resuscitation if her heart completely stops and instead would want a natural . She values being at the [employer] and participating in activities with singing being her favorite. Also spoke with her sister Hallie about the above conversation. Hallie agrees Monet would likely not survive true resuscitation efforts and is glad to have some details of our conversation. We discussed filling out a MOST form together and Hallie will be in the hospital tomorrow for the pacemaker placement. Hallie had concerns with how to prevent Monet from getting worse in the future and we had a discussion of the normal course of life for someone with multiple medical problems. Discussed it is likely she will have exacerbations of illness in the future including infections due to her MMP and aging. Also discussed quality of life vs quantity and at some point in the future Monet may decide to change her above wishes if she cannot get back to a good quality of life. Assessment: Physical: - Pain: chronic pain -continue tramadol as scheduled - tylenol PRN - zanaflex scheduled - Dyspnea: - oxygen as needed - weakness - PT/OT Emotional/psychological: Hx of bipolar: - continue home meds Advanced Care Planning: Is patient decisional?: yes Code Status: Full- would not want heroics MD KENT: her sister Hallie is MDPOA. Scanned into medical record Plan: Will have PC follow up on filling out a MOST form tomorrow with the sister present. While Monet does not want to keep being sick and "up and down" she would want some medical interventions and life prolonging measures for temporary or short term. She does want a pacemaker. 01/05/17 15:06 Subjective: I'm feeling ok Objective: Social History: 2 sisters local and involved. On disability and has lived at [facility] for 9 years. 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 Medication list reviewed ROS: General: fatigue, weakness ENT: negative Resp: dyspnea, cough GI: negative : negative MS: negative Skin: negative Neuro: negative Psych: bipolar Functional assessment: PPS: 50% Functional status: dependent on ADLs, IADLs Vital Signs Temp Pulse Resp BP Pulse Ox 37.1 C 104 H 18 103/59 L 98 01/05/17 11:12 01/05/17 12:28 01/05/17 11:12 01/05/17 12:28 01/05/17 11:12 Microbiology 12/31/16 09:40 Blood Culture - Final Blood 12/31/16 09:10 Blood Culture - Final Blood Laboratory Results 01/05/17 05:45 01/05/17 05:45 01/04/17 01/05/17 01/06/17 05:59 05:59 05:59 Intake Total 2766 901 Output Total 1070 Balance 1696 901 PT 17.5 SEC (12.0-15.0) H 01/01/17 04:36 INR 1.44 (0.83-1.16) H 01/01/17 04:36 Physical Exam - Physical Exam General Appearance: alert, no apparent distress Respiratory: No respiratory distress, No accessory muscle use Skin: normal color, warm/dry Extremities: pedal edema Neuro/Psych: alert, oriented x 3 ICD10 Worksheet Patient Problems: Problems Problem Status Onset Generalized weakness Acute Hyponatremia Acute Palliative care encounter Acute UTI (urinary tract infection) Acute Abdominal pain Acute Acute encephalopathy Acute Altered mental status Acute Atrial fibrillation Acute CAD (coronary artery disease), [place] coronary artery Acute Chronic diastolic CHF (congestive heart failure) Acute Chronic hypoxemic respiratory failure Acute Chronic kidney disease (CKD) Acute New onset atrial fibrillation Acute Pyelonephritis Acute VHD (valvular heart disease) Acute - ICD10 Problem Qualifiers (1) Palliative care encounter
--- NOTE | 2017-01-05 14:59 | HOSPPROG ---
Hospitalist Progress Note Assessment/Plan: 67F with chronic a-fib admitted with weakness. Treated for an e.coli UTI. Course c/b 7s pause. Cards then planned ppm, her INR was reversed with FFP. She subsequently had respiratory failure and fever - concerned for aspiration. She was intubated, now extubated. # chronic a-fib, had bradycardia with prolonged pauses - variability remained overnight TELE (personally reviewed and interpreted) afib HR in 140's with prolonged pauses - plan for permanent pacemaker in the morning - AC with lovenox # acute hypoxic and hypercapnic respiratory failure d/t diffuse infiltrates- oxygen saturations 98% on 5 L ddx pulm edema, TRALI, aspiration - suspect aspiration pneumonia at this point - extubated 01/01 - completing Zosyn day #08/04 # diarrhea - negative c. dif # suspected aspiration pna - cont zosyn D#08/04 # septic shock d/t aspiration pna - resolved, off pressors # dCHF, chronic - appears euvolemic - continue lasix PO # pulm htn # adrenal insufficiency - on hydrocortisone as outpatient - home dose steroids # bipolar - cont abilify, depakote # hyponatremia - resolved # hypoK - replete # SHAUNA # morbid obesity # htn - holding meds # dispo - > 2 midnights as the patient remains acutely ill requiring pacemaker placement I have discussed the case with Dr. Hanks - we will plan for pacemaker tomorrow am Subjective: exhausted Objective: Vital Signs Temp Pulse Resp BP Pulse Ox 37.1 C 104 H 18 103/59 L 98 01/05/17 11:12 01/05/17 12:28 01/05/17 11:12 01/05/17 12:28 01/05/17 11:12 Microbiology 12/31/16 09:40 Blood Culture - Final Blood 12/31/16 09:10 Blood Culture - Final Blood Laboratory Results 01/05/17 05:45 01/05/17 05:45 01/04/17 01/05/17 01/06/17 05:59 05:59 05:59 Intake Total 2766 901 Output Total 1070 Balance 1696 901 PT 17.5 SEC (12.0-15.0) H 01/01/17 04:36 INR 1.44 (0.83-1.16) H 01/01/17 04:36 - Physical Exam Constitutional: no apparent distress Eyes: anicteric sclera Ears, Nose, Mouth, Throat: moist mucous membranes Cardiovascular: regular rate and rhythym Respiratory: no respiratory distress, No inspiratory crackles Gastrointestinal: normoactive bowel sounds Genitourinary: no bladder fullness Skin: warm Musculoskeletal: No asymmetric calves Neurologic: AAOx3 Psychiatric: interacting appropriately, No agitated Lymph, Heme, Immunologic: no cervical LAD ICD10 Worksheet Patient Problems: Problems Problem Status Onset Generalized weakness Acute Hyponatremia Acute Palliative care encounter Acute UTI (urinary tract infection) Acute Abdominal pain Acute Acute encephalopathy Acute Altered mental status Acute Atrial fibrillation Acute CAD (coronary artery disease), [place] coronary artery Acute Chronic diastolic CHF (congestive heart failure) Acute Chronic hypoxemic respiratory failure Acute Chronic kidney disease (CKD) Acute New onset atrial fibrillation Acute Pyelonephritis Acute VHD (valvular heart disease) Acute
[2017-01-05 20:17] LABS: POTASSIUM 4.1 mEq/L (3.5-5.2)
[2017-01-05] MEDS: ATORVASTATIN CALCIUM 20 MG TAB PO SCH (21:17)
[2017-01-05] MEDS: DIVALPROEX ER 250 MG TAB PO SCH (21:17)
[2017-01-05] MEDS: ARIPiprazole 5 MG TAB PO SCH (21:17)
[2017-01-05] MEDS: PATCH REMOVAL 1 EA PATCH TD SCH (21:18)
[2017-01-06] MEDS: PIPERACILLIN/TAZO 4.5 GM/DEX 100 ML IV SCH ×4 (03:58→22:25)
[2017-01-06] MEDS: ACETAMINOPHEN 325 MG TAB PO PRN ×2 (04:11→23:23)
[2017-01-06 04:46] LABS: ABSOLUTE NRBC COUNT 0.02 10^3/uL (0-0.01); ADD DIFF? YES; ADD MORPH? NO; ADD SCAN? NO; ATYPICAL LYMPHOCYTE FLAG 10 (0-99); FRAGMENT RBC FLAG 0 (0-99); HEMATOCRIT 31.2 % (38.0-47.0); HEMOGLOBIN 10.1 g/dL (12.6-16.3); LEFT SHIFT FLG 50 (0-99); LIPEMIA HEMOLYSIS FLAG 80 (0-99); MEAN CELL HEMOGLOBIN 33.6 pg (27.9-34.1); MEAN CELL HEMOGLOBIN CONCENTR. 32.4 g/dL (32.4-36.7); MEAN CELL VOLUME 103.7 fL (81.5-99.8); MEAN PLATELET VOLUME 9.1 fL (8.7-11.7); NRBC-AUTO% 0.2 % (0.0-0.2); PLATELET CLUMPS FLAG 10 (0-99); PLATELET COUNT 199 10^3/uL (150-400); RED BLOOD CELL COUNT 3.01 10^6/uL (4.18-5.33); RED CELL DISTRIBUTION WIDTH 13.9 % (11.5-15.2)
[2017-01-06 04:55] LABS: INR 1.11 (0.83-1.16); PROTIME(PATIENT) 14.2 SEC (12.0-15.0)
[2017-01-06 04:56] LABS: APTT 34.5 SEC (23.0-38.0)
[2017-01-06 05:12] LABS: ALANINE AMINOTRANSFERASE 67 IU/L (9-52); ALBUMIN 3.3 g/dL (3.5-5.0); ALKALINE PHOSPHATASE 92 IU/L (38-126); ASPARTATE AMINOTRANSFERASE 44 IU/L (14-46); BILIRUBIN,TOTAL 0.3 mg/dL (0.1-1.4); CALCIUM 8.3 mg/dL (8.5-10.4); CHLORIDE 84 mEq/L (97-110); CREATININE 0.9 mg/dL (0.6-1.0); GLOMERULAR FILTRATION RATE > 60; GLUCOSE 84 mg/dL (70-100); MAGNESIUM 1.9 mg/dL (1.6-2.3); POTASSIUM 3.7 mEq/L (3.5-5.2); SODIUM 137 mEq/L (134-144); TOTAL PROTEIN 6.2 g/dL (6.3-8.2)
[2017-01-06 05:31] LABS: ANION GAP 9 mEq/L (8-16)
[2017-01-06 05:32] LABS: CARBON DIOXIDE 44 mEq/l (22-31)
[2017-01-06 05:35] LABS: HYPOCHROMIA 1+; MACROCYTES 2+; PLATELET ESTIMATE ADEQUATE (ADEQ)
[2017-01-06] MEDS ORDERED: BACITRACIN IRRIGATION/NS 50,000 UNITS/1,000 ML BTL IRR ONE (06:00)
[2017-01-06] MEDS ORDERED: NS 1,000 ML IV ONE (06:00)
[2017-01-06] MEDS ORDERED: ceFAZolin 2 GM/SWFI 2 GM/20 ML SYR IVP ONE (06:00)
[2017-01-06] MEDS: LEVOTHYROXINE 175 MCG TAB PO SCH (06:45)
[2017-01-06] MEDS: LIDOCAINE 5% 1 EA PATCH TD SCH (09:09)
[2017-01-06] MEDS: ARIPiprazole 10 MG TAB PO SCH (09:12)
[2017-01-06] MEDS: SODIUM CL NASAL 45 ML BTL EACHNARE SCH ×3 (09:13→22:32)
[2017-01-06] MEDS: HYDROCORTISONE 10 MG TAB PO SCH ×2 (09:13→17:04)
[2017-01-06] MEDS: POLYETHYLENE GLYCOL 3350 17 GM PKT PO SCH (09:14)
--- NOTE | 2017-01-06 10:46 | ASMTCMCOM ---
CM Note CM Note Notes: Pallative met w/ pts sister Hallie this AM. CM spoke w/ Fatimah Sanchez NP and she will have FRANCISCO Sterling fill out consent to have pacemaker placed. Consent obtained and pacemaker will be placed today. OT and PT are both recommending SNF. CM to follow after procedure. Date Signed: 01/06/2017 10:46 AM Electronically Signed By:MARY Crook
[2017-01-06] MEDS ORDERED: MIDAZOLAM 2 MG/2 ML VIAL ONE (11:08)
[2017-01-06] MEDS ORDERED: LIDOCAINE 1% 300 MG/30 ML SDV ONE (11:08)
[2017-01-06] MEDS ORDERED: fentaNYL 100 MCG/2 ML INJ ONE (11:08)
[2017-01-06] MEDS ORDERED: BUPIVACAINE 0.5% 30 ML SDV ONE (11:08)
--- NOTE | 2017-01-06 11:17 | PDPROPOC ---
Sedation Plan of Care Sedation Plan of Care: vital signs stable, mental status noted, patient can tolerate sedation ASA Classification: ASA 3 Planned drugs: midazolam Mallampati Score: Class 3 Mallampati Reference Image: Patient passed 3-3-2 rule?: Yes
--- NOTE | 2017-01-06 11:17 | PDHPUP ---
History & Physical Update H&P update statement: This history and physical update is based on an assessment of the patient which was completed after admission or registration (within 24 hours), but prior to the surgery/procedure. H&P update: H&P reviewed & patient examined, no change in patient's condition since H&P completed
--- NOTE | 2017-01-06 13:53 | HOSPPROG ---
Hospitalist Progress Note Assessment/Plan: 67F with chronic a-fib admitted with weakness. Treated for an e.coli UTI. Course c/b 7s pause. Cards then planned ppm, her INR was reversed with FFP. She subsequently had respiratory failure and fever - concerned for aspiration. She was intubated, now extubated. # Chronic a-fib, also has bradycardia with prolonged pauses - variability remained overnight TELE (personally reviewed and interpreted) afib HR in 110's overnight - plan for permanent pacemaker in the morning - AC with lovenox- has been on hold for pacemaker - restart per cardiology # acute hypoxic and hypercapnic respiratory failure d/t diffuse infiltrates- oxygen saturations 99% on 4 L ddx pulm edema, TRALI, aspiration - suspect aspiration pneumonia at this point - extubated 01/01 - completing Zosyn today #09/03 # diarrhea - resolved -negative c. dif # suspected aspiration pna - cont zosyn D#09/03 # septic shock d/t aspiration pna - resolved, off pressors # dCHF, chronic - appears euvolemic - continue lasix PO # pulm htn # adrenal insufficiency - on hydrocortisone as outpatient - home dose steroids # bipolar - cont abilify, depakote # hyponatremia - resolved # hypoK - replete # SHAUNA # morbid obesity # htn - holding meds # dispo - > 2 midnights as the patient remains acutely ill requiring pacemaker placement I have discussed the case with Dr. Hanks - we will plan for pacemaker today - discussed with RN will work to wean O2 today Subjective: slept well - breathing better Objective: Vital Signs Temp Pulse Resp BP Pulse Ox 37.1 C 102 H 21 H 162/97 H 99 01/06/17 09:03 01/06/17 09:03 01/06/17 09:03 01/06/17 09:03 01/06/17 09:03 Microbiology 12/31/16 09:40 Blood Culture - Final Blood 12/31/16 09:10 Blood Culture - Final Blood Laboratory Results 01/06/17 04:20 01/06/17 04:20 01/05/17 01/06/17 01/07/17 05:59 05:59 05:59 Intake Total 901 1030 Balance 901 1030 PT 14.2 SEC (12.0-15.0) 11/09/17 04:20 INR 1.11 (0.83-1.16) 01/06/17 04:20 - Physical Exam Constitutional: no apparent distress, obese Eyes: anicteric sclera Ears, Nose, Mouth, Throat: moist mucous membranes Cardiovascular: systolic murmur, irregularly irregular Respiratory: no respiratory distress, inspiratory crackles Gastrointestinal: normoactive bowel sounds Genitourinary: no bladder fullness Skin: warm, normal color Musculoskeletal: No asymmetric calves Neurologic: AAOx3 Psychiatric: interacting appropriately, not anxious Lymph, Heme, Immunologic: no cervical LAD ICD10 Worksheet Patient Problems: Problems Problem Status Onset Generalized weakness Acute Hyponatremia Acute Palliative care encounter Acute UTI (urinary tract infection) Acute Abdominal pain Acute Acute encephalopathy Acute Altered mental status Acute Atrial fibrillation Acute CAD (coronary artery disease), [place] coronary artery Acute Chronic diastolic CHF (congestive heart failure) Acute Chronic hypoxemic respiratory failure Acute Chronic kidney disease (CKD) Acute New onset atrial fibrillation Acute Pyelonephritis Acute VHD (valvular heart disease) Acute
--- NOTE | 2017-01-06 14:07 | CPEKG ---
Heart Rate: 88 RR Interval: 682 QRSD Interval: 78 QT Interval: 356 QTC Interval: 431 QRS [place]: 88 T Wave [place]: 88 EKG Severity - ABNORMAL ECG - EKG Impression: ATRIAL FIBRILLATION, V-RATE 79-101 EKG Impression: PAIRED VENTRICULAR PREMATURE COMPLEXES EKG Impression: BORDERLINE RIGHT AXIS DEVIATION EKG Impression: BORDERLINE T ABNORMALITIES, ANT-LAT LEADS Electronically Signed By: Lee Min 06-Jan-2017 17:24:38
[2017-01-06] MEDS: FUROSEMIDE 20 MG TAB PO SCH (14:43)
--- NOTE | 2017-01-06 16:35 | ECHO ---
[email or web address] [place] [id number] Main: [phone] Fax: Transthoracic Echocardiogram Name: GALLO LIM MR#: [id number] Study Date: 01/06/2017 Study Time: 01:24 PM Date of : 1950 Age: 67 year(s) Height: 152.4 cm (60 in.) Weight: 86.64 kg (191 lb.) BSA: 1.83 m2 Gender: Female Examination: Limited Echo Indication: S/P PPm, Increased PVC, eval for effusion 140 Image Quality: Contrast: Requested by: Jonathan Hanks BP: 140 mmHg/70 mmHg Heart Rate: Rhythm: Indication: S/P PPm, Increased PVC, eval for effusion Procedure Staff Senior Care Assistant: Letty Martinez Physician: Jitendra Riley Requesting Provider: Conclusions: Normal size left ventricle. Normal global systolic LV function. Severe tricuspid regurgitation is present. No pericardial effusion. There is pericardial fat. Measurements: Chambers Valvular Assessment AV/MV Valvular Assessment TV/PV Normal Normal Normal Name Value Range Name Value Range Name Value Range TR Vmax: 2.86 mm/s ( - ) TR PGmax: 33 mmHg ( - ) syst. PAP: 43 mmHg ( - ) Continued Measurements: Valvular Assessment TV/PV Name Value CVP (est.): 10 mmHg Findings: Left Ventricle: Normal size left ventricle. Normal global systolic LV function. Tricuspid Valve: Severe tricuspid regurgitation is present. Pericardium: Patient: GALLO LIM Study Date: 01/06/2017 Page 1 of 2 01:24 PM No pericardial effusion. There is pericardial fat. (No Signature Object) Patient: GALLO LIM Study Date: 01/06/2017 Page 2 of 2 01:24 PM [id number]
--- NOTE | 2017-01-06 16:40 | EPPROC ---
Electrophysiology Procedure Note: PROCEDURE PERFORMED: 1. Implantation of an V Pacemaker 2. Subclavian vein angiography 3. Fluoroscopy INDICATION: This is a 67 yr old female who had permanent AF. Pt was in the hospital for urosepsis and while undergoing treatment for the same, she was noted to have significant pauses. When her Diltiazem was stopped she had significant tachycardia. In view of this it was decided to implant single chamber pacemaker so as to manage rate with Diltiazem and the pacemaker will prevent pauses related to diltiazem. PROCEDURE NOTE: Patient presented to the cardiac catheterization laboratory in a fasting, post absorptive state. Cardiac feed mill lab technician nurse administered moderate sedation. The left infraclavicular area was prepped and draped in the usual sterile fashion. Lidocaine plus bupivacaine was used for local anesthesia. Left subclavian venography was performed by injection of iodinated contrast into the PICC line. This was done to assure patency of the vein and also to assess for any anatomical aberrations. Using usual technique, left cephalic vein was accessed and guidewire was placed. Placement of the guidewire into the venous system was confirmed by low -pressure blood return and also by visualizing the guide wire advancing into the inferior vena cava. One #7 Sinhala sheath was advanced under fluoroscopic guidance over the guidewire. An active fixation ventricular lead was advanced into the right ventricular apex and screwed in place. The peel away sheath was removed. Pacing thresholds, sensing parameters and lead impedances were measured. There was no diaphragmatic stimulation at maximum output. The lead was sutured to the prepectoral fascia with 3 nonabsorbable sutures. The pocket was again inspected for any bleeding. The lead was attached to the pacemaker securely. The pacemaker was inserted into the pocket and secured in place with a nonabsorbable suture. Fluoroscopy was performed in [place] and [place] planes to verify right-sided placement of the lead. Also fluoroscopy of the pacemaker pocket was performed. The pacemaker pocket was closed in 3 layers with absorbable monocryl sutures. Appropriate dressing was applied. The patient left the cardiac catheterization laboratory in stable condition. Serial Numbers: 1. Device: ST Damian Assurity MRI [id number] 2. Ventricular Lead: St Damian Tendril [id number] SN [id number] Stimulation Thresholds & Impedance Measurements: 1. Ventricular Lead 6.3mV, 0.7@0.5ms, 467Ohms Chris Pacing Parameters 1. Pacing mode: VVI 2. Lower rate: 60 3. Upper tracking rate:130 4. Upper sensor rate:130 Patient Problems: Problems Problem Status Onset Generalized weakness Acute Hyponatremia Acute Palliative care encounter Acute UTI (urinary tract infection) Acute Abdominal pain Acute Acute encephalopathy Acute Altered mental status Acute Atrial fibrillation Acute CAD (coronary artery disease), [place] coronary artery Acute Chronic diastolic CHF (congestive heart failure) Acute Chronic hypoxemic respiratory failure Acute Chronic kidney disease (CKD) Acute New onset atrial fibrillation Acute Pyelonephritis Acute VHD (valvular heart disease) Acute
[2017-01-06] MEDS ORDERED: POTASSIUM CL 10 MEQ TAB PO ONE ×2 (16:52→22:15)
[2017-01-06] MEDS: traMADol 50 MG TAB PO PRN ×2 (17:03→23:21)
[2017-01-06] MEDS: FERROUS SULFATE 325 MG TAB PO SCH (17:03)
[2017-01-06] MEDS: DIVALPROEX ER 250 MG TAB PO SCH (20:55)
[2017-01-06] MEDS: ARIPiprazole 5 MG TAB PO SCH (20:55)
[2017-01-06] MEDS: ATORVASTATIN CALCIUM 20 MG TAB PO SCH (20:55)
[2017-01-06 21:22] LABS: POTASSIUM 3.6 mEq/L (3.5-5.2)
[2017-01-06] MEDS: PATCH REMOVAL 1 EA PATCH TD SCH (22:32)
[2017-01-06] MEDS ORDERED: NS 500 ML IV ONE (23:54)
[2017-01-07] MEDS ORDERED: NS BOLUS 500 ML (Wide open) IV ONE (02:05)
[2017-01-07] MEDS: LEVOTHYROXINE 175 MCG TAB PO SCH (04:40)
[2017-01-07 05:17] LABS: ABSOLUTE NRBC COUNT 0.02 10^3/uL (0-0.01); ADD DIFF? YES; ADD MORPH? NO; ADD SCAN? NO; ATYPICAL LYMPHOCYTE FLAG 10 (0-99); FRAGMENT RBC FLAG 0 (0-99); HEMATOCRIT 28.2 % (38.0-47.0); HEMOGLOBIN 9.1 g/dL (12.6-16.3); LEFT SHIFT FLG 50 (0-99); LIPEMIA HEMOLYSIS FLAG 80 (0-99); MEAN CELL HEMOGLOBIN 34.1 pg (27.9-34.1); MEAN CELL HEMOGLOBIN CONCENTR. 32.3 g/dL (32.4-36.7); MEAN CELL VOLUME 105.6 fL (81.5-99.8); MEAN PLATELET VOLUME 9.4 fL (8.7-11.7); NRBC-AUTO% 0.2 % (0.0-0.2); PLATELET CLUMPS FLAG 20 (0-99); PLATELET COUNT 176 10^3/uL (150-400); RED BLOOD CELL COUNT 2.67 10^6/uL (4.18-5.33); RED CELL DISTRIBUTION WIDTH 14.1 % (11.5-15.2)
[2017-01-07 05:36] LABS: CALCIUM 7.8 mg/dL (8.5-10.4); CHLORIDE 87 mEq/L (97-110); CREATININE 0.8 mg/dL (0.6-1.0); GLOMERULAR FILTRATION RATE > 60; GLUCOSE 85 mg/dL (70-100); MAGNESIUM 1.9 mg/dL (1.6-2.3); POTASSIUM 4.4 mEq/L (3.5-5.2); SODIUM 135 mEq/L (134-144)
[2017-01-07 05:43] LABS: ANION GAP 5 mEq/L (8-16)
[2017-01-07 05:45] LABS: CARBON DIOXIDE 43 mEq/l (22-31)
[2017-01-07 06:16] LABS: MACROCYTES 1+; PLATELET ESTIMATE ADEQUATE (ADEQ); POLYCHROMASIA 1+
[2017-01-07] MEDS: traMADol 50 MG TAB PO PRN ×2 (08:53→18:22)
[2017-01-07] MEDS: LIDOCAINE 5% 1 EA PATCH TD SCH (09:16)
[2017-01-07] MEDS: ARIPiprazole 10 MG TAB PO SCH (09:16)
[2017-01-07] MEDS: HYDROCORTISONE 10 MG TAB PO SCH ×2 (09:16→15:27)
[2017-01-07] MEDS: FUROSEMIDE 20 MG TAB PO SCH (09:16)
[2017-01-07] MEDS: POLYETHYLENE GLYCOL 3350 17 GM PKT PO SCH (09:21)
[2017-01-07] MEDS: SODIUM CL NASAL 45 ML BTL EACHNARE SCH ×3 (09:21→20:29)
--- NOTE | 2017-01-07 09:24 | CPEKG ---
Heart Rate: 96 RR Interval: 625 QRSD Interval: 82 QT Interval: 352 QTC Interval: 445 QRS [place]: 119 T Wave [place]: -26 EKG Severity - ABNORMAL ECG - EKG Impression: ATRIAL FIBRILLATION, V-RATE 71-123 EKG Impression: RIGHT AXIS DEVIATION Electronically Signed By: Lee Min 07-Jan-2017 15:52:02
--- NOTE | 2017-01-07 11:32 | ASMTCMCOM ---
CM Note CM Note Notes: Pt is post op day 1 from having her pace marker placed. CM met w/ pt for dispo planning. Initially pt was not agreeable to going to SNF. Pt requested CM speak w/ Hallie, sister who is MDPOA. Hallie believes that it would be in pts best interest to go to a SNF. ULTC-100 completed and faxed to [facility]. CM faxed attached signed ULTC-100 to [employer]. Referrals made to [facility], [facility], [facility], [facility], [facility], and to [facility]. CM to follow. Date Signed: 01/07/2017 11:31 AM Electronically Signed By:MARY Crook
--- NOTE | 2017-01-07 13:43 | HOSPPROG ---
Hospitalist Progress Note Assessment/Plan: DIAGNOSES: # acute symptomatic bradycardia in the setting of Chronic a-fib, now status post pacemaker placed earlier January 07 - AC with lovenox- has been on hold for pacemaker - restart per cardiology # acute and chronic hypoxic and hypercapnic respiratory failure d/t diffuse infiltrates- oxygen saturations 99% on 4 L - ddx pulm edema, TRALI, aspiration - suspect aspiration pneumonia at this point - extubated 01/01, has completed a 7 day course of Zosyn # suspected aspiration pna, status post Zosyn # septic shock d/t aspiration pna - resolved, off pressors # ongoing dysuria, associated with bilateral flank pain and tenderness, marked pyuria and E coli urine cultures at the time of admission - follow-up UA on December 30 had improvement in pyuria but she remained symptomatic. In the setting of all of the above question whether this is true urinary tract infection or not, but As her white count is rising and she has ongoing symptoms will want to check to make sure she does not have potentially a pyelonephritis or other complicated aspect to urinary findings # dCHF, chronic - continue lasix PO # SHAUNA and pulm htn, morbid obesity # adrenal insufficiency - on hydrocortisone as outpatient - home dose steroids # bipolar - cont abilify, depakote # hyponatremia - resolved # hypoK - replete # htn - holding meds PLANS: -recheck UA and if concerns may need to consider renal imaging and re-culture -continue observe on senior analytical chemist after pacemaker placement -physical occupational therapy SUBJECTIVE: Patient seen today after her pacemaker placement She complains of ongoing fatigue and weakness, and ongoing pain at her left flank which has been present since admission. She does admit to a little bit of urethral dysuria as well. (she is now status post 7 days of antibiotic for sensitive E coli urine infection) No chills or sweats, no nausea, is hungry Still some mild dyspnea OBJECTIVE Vitals reviewed: Stable without fever Medicare Biller, my review: Currently paced Exam: Fairly somnolent and groggy but arousable to conversation, Extremely weak skin warm dry color ok resps not labored lungs clear BSs heart regular abd soft nondistended very mild diffuse tenderness without guarding or rebound, bowel sounds present Some tenderness at right and left flank limbs warm, no edema iv site ok Laboratory data: White blood cell count is increased somewhat today at 13,000 Hemoglobin is down a bit at 10 Chem panel stable Objective: Vital Signs Temp Pulse Resp BP Pulse Ox 37.1 C 100 18 116/65 98 01/07/17 11:06 01/07/17 08:09 01/07/17 11:06 01/07/17 11:06 01/07/17 11:06 Laboratory Results 01/07/17 04:50 01/07/17 04:50 01/06/17 01/07/17 01/08/17 06:59 06:59 06:59 Intake Total 1030 2700 Output Total 750 Balance 1030 1950 PT 14.2 SEC (12.0-15.0) 01/06/17 04:20 INR 1.11 (0.83-1.16) 01/06/17 04:20 - Time Spent With Patient Time Spent with Patient: greater than 35 minutes Time Spent with Patient: Greater than 35 minutes spent on this patients care, greater than 50% of time spent counseling, educating, and coordinating care regarding the above mentioned plan. ICD10 Worksheet Patient Problems: Problems Problem Status Onset Generalized weakness Acute Hyponatremia Acute Palliative care encounter Acute UTI (urinary tract infection) Acute Abdominal pain Acute Acute encephalopathy Acute Altered mental status Acute Atrial fibrillation Acute CAD (coronary artery disease), [place] coronary artery Acute Chronic diastolic CHF (congestive heart failure) Acute Chronic hypoxemic respiratory failure Acute Chronic kidney disease (CKD) Acute New onset atrial fibrillation Acute Pyelonephritis Acute VHD (valvular heart disease) Acute
[2017-01-07] MEDS: WARFARIN SODIUM 5 MG TAB PO SCH (15:26)
[2017-01-07] MEDS: FERROUS SULFATE 325 MG TAB PO SCH (15:27)
--- NOTE | 2017-01-07 17:17 | PDCARPN ---
Cardiology Progress Note Chief Complaint: Perm Atrial Fibrillation Assessment/Plan: Assessment: Permanent A Fib---On Diltiazem for rate control and Warfarin for anticoagulation on admit. Her rates became low and she had asystole 10 sec pause. She was monitored closely and pacemaker placement was delayed due to her psychosocial state, and concern for infection due to fevers, related to her UTI. Off Diltiazem her heart rates got significantly high. It was felt at this time her risk for infection was low, and a [facility] [employer] single chamber pacemaker was placed with no complications. Pacemaker low rate 60, and high rate 130. Pacer Site evaluation on left upper lateral chest -shoulder: With no bleeding, area swollen, with tenderness, and no hematoma. Pressure dressing in place. Pacemaker will need to be checked by [facility] at [facility] in one week, along with wound check. Follow up with Dr Hanks in one month. Diltiazem restarted. Plan: Will sign off for now. Call if further needs. 01/07/17 16:54 Subjective: "My shoulder hurts." Analgesic given just previous to visit. She answers questions but is groggy. Reviewed/Discussed With: hospitalist, multidisciplinary team Time Spent With Patient: 10 minutes. Objective: Vital Signs (8 Hrs) Temp Pulse Resp BP Pulse Ox 01/07/17 16:00 36.9 C 93 14 116/65 95 01/07/17 11:06 37.1 C 18 116/65 98 Intake/Output (24 Hrs) 01/06/17 01/07/17 01/08/17 05:59 05:59 05:59 Intake Total 1030 2700 Output Total 750 Balance 1030 1950 Intake: Oral (ml) 780 1475 IV Intake (ml) 250 IV Infused (ml) 1225 Ns 500 ml @ 500 mls/hr IV 500 ONCE ONE Rx#:[id number] Ns 500 ml @ 500 mls/hr IV 500 ONCE ONE Rx#:[id number] Piperacillin/Tazo 4.5 gm/ 225 Dex 100 ml @ 200 mls/hr IV Q6H [facility] Rx#:[id number] Output: Urine (ml) 750 Bedside Commode 200 Incontinence 550 Other: Weight 89.4 kg Intake Quantity Yes Sufficient Number of Voids Bedpan 2 Bedside Commode 1 Incontinence 1 Toilet 2 1 Number of Stools Bedside Commode 1 Incontinence 1 Toilet 2 1 Result Diagrams: 01/07/17 04:50 01/07/17 04:50 - Physical Exam Constitutional: general pain (at new implanted pacemaker site. ) Cardiovascular: regular rate and rhythm, no murmurs, no rubs Respiratory: no crackles, no wheezes Skin: warm Psychiatric: cooperative, following commands ICD10 Worksheet Patient Problems: Problems Problem Status Onset Chronic kidney disease (CKD) Acute CAD (coronary artery disease), [place] coronary artery Acute VHD (valvular heart disease) Acute Hyponatremia Acute Altered mental status Acute Chronic hypoxemic respiratory failure Acute Acute encephalopathy Acute Atrial fibrillation Acute Chronic diastolic CHF (congestive heart failure) Acute Abdominal pain Acute New onset atrial fibrillation Acute UTI (urinary tract infection) Acute Pyelonephritis Acute Generalized weakness Acute Palliative care encounter Acute
[2017-01-07 19:06] LABS: POTASSIUM 4.3 mEq/L (3.5-5.2)
[2017-01-07] MEDS: ACETAMINOPHEN 325 MG TAB PO PRN (20:28)
[2017-01-07] MEDS: DIVALPROEX ER 250 MG TAB PO SCH (20:28)
[2017-01-07] MEDS: ATORVASTATIN CALCIUM 20 MG TAB PO SCH (20:29)
[2017-01-07] MEDS: ENOXAPARIN 100 MG/ML SYR SC SCH (20:29)
[2017-01-07] MEDS: ARIPiprazole 5 MG TAB PO SCH (20:29)
[2017-01-07] MEDS: PATCH REMOVAL 1 EA PATCH TD SCH (20:30)
[2017-01-08 03:25] LABS: COLOR PALE YELLOW; LEUKOCYTE ESTERASE,URINE TRACE (NEGATIVE); NITRITE,URINE NEGATIVE (NEGATIVE)
[2017-01-08] MEDS: traMADol 50 MG TAB PO PRN (06:45)
[2017-01-08] MEDS: LEVOTHYROXINE 175 MCG TAB PO SCH (06:45)
[2017-01-08 07:24] LABS: INR 1.14 (0.83-1.16); PROTIME(PATIENT) 14.5 SEC (12.0-15.0)
[2017-01-08] MEDS: POLYETHYLENE GLYCOL 3350 17 GM PKT PO SCH (07:53)
[2017-01-08] MEDS: SODIUM CL NASAL 45 ML BTL EACHNARE SCH ×3 (07:55→21:43)
[2017-01-08] MEDS: ENOXAPARIN 100 MG/ML SYR SC SCH ×2 (07:56→20:45)
[2017-01-08] MEDS: LIDOCAINE 5% 1 EA PATCH TD SCH (07:56)
[2017-01-08 07:58] LABS: POTASSIUM 4.4 mEq/L (3.5-5.2)
[2017-01-08] MEDS: ARIPiprazole 10 MG TAB PO SCH (09:53)
[2017-01-08] MEDS: FUROSEMIDE 20 MG TAB PO SCH (09:53)
[2017-01-08] MEDS: HYDROCORTISONE 10 MG TAB PO SCH ×2 (09:54→17:47)
[2017-01-08] MEDS: ACETAMINOPHEN 325 MG TAB PO PRN (11:34)
[2017-01-08] MEDS: FERROUS SULFATE 325 MG TAB PO SCH (11:34)
[2017-01-08] MEDS ORDERED: FUROSEMIDE 40 MG/4 ML VIAL IVP ONE (14:04)
--- NOTE | 2017-01-08 14:13 | HOSPPROG ---
Hospitalist Progress Note Assessment/Plan: DIAGNOSES: # acute symptomatic bradycardia in the setting of Chronic a-fib, now status post pacemaker placed earlier January 07 - AC with lovenox- has been on hold for pacemaker - restart per cardiology # acute and chronic hypoxic and hypercapnic respiratory failure d/t diffuse infiltrates- oxygen saturations 99% on 4 L - ddx pulm edema, TRALI, aspiration - suspect aspiration pneumonia at this point - extubated 01/01, has completed a 7 day course of Zosyn -still some edema present at this time and probably benefit from further diuresis # suspected aspiration pna, status post Zosyn -unable to see full lung wood on yesterday's chest x-ray adequately, appeared still likely some infiltrates persisting # persisting diffuse of probably related largely to volume resuscitation from her sepsis this with atrial fibrillation and chronic diastolic heart disease # septic shock d/t aspiration pna - resolved, off pressors # ongoing dysuria, associated with bilateral flank pain and tenderness, marked pyuria and E coli urine cultures at the time of admission - repeat UA yesterday borderline with slight increase in pyuria # dCHF, chronic - continue lasix PO # SHAUNA and pulm htn, morbid obesity # adrenal insufficiency - on hydrocortisone as chronically # bipolar - cont abilify, depakote # hyponatremia - resolved # hypoK - replete # htn - holding meds PLANS: -will give extra dose of IV Lasix now on reassess volume status -repeat chest x-ray in morning -continue far temperatures in her flank symptoms and consider repeating UA again tomorrow, I do not think she has infection but difficult to rule out -continue observe on jukebox operator after pacemaker placement -physical occupational therapy -DC planning, will likely need fci facility at discharge SUBJECTIVE: Still complains of pain at her left greater than right flank unchanged from yesterday Otherwise less ache, feels a bit stronger, more alert, eating better Still remains quite weak and nonambulatory Did not work with physical therapy yesterday due to sedation from her pacer OBJECTIVE Vitals reviewed: Temperature 37.4 degrees now, otherwise Stable Traveling Construction Superintendent, my review: Intermittent AFib with rate approximately 100 and pacing Exam: Sitting up in chair E Now wide awake, alert oriented talkative Remains very weak skin warm dry color ok Pacer site looks okay resps not labored lungs clear BSs but difficult auscultation heart regular abd soft nondistended some bilateral flank tenderness otherwise no tenderness today, bowel sounds present limbs warm, no edema iv site ok Objective: Vital Signs Temp Pulse Resp BP Pulse Ox 37.4 C 103 H 21 H 143/65 H 94 01/08/17 11:02 01/08/17 11:02 01/08/17 11:02 01/08/17 11:02 01/08/17 11:02 Laboratory Results 01/07/17 04:50 01/08/17 06:30 01/07/17 01/08/17 01/09/17 06:59 06:59 06:59 Intake Total 2700 800 500 Output Total 750 600 Balance 1950 200 500 PT 14.5 SEC (12.0-15.0) 01/08/17 06:30 INR 1.14 (0.83-1.16) 01/08/17 06:30 - Time Spent With Patient Time Spent with Patient: greater than 35 minutes Time Spent with Patient: Greater than 35 minutes spent on this patients care, greater than 50% of time spent counseling, educating, and coordinating care regarding the above mentioned plan. ICD10 Worksheet Patient Problems: Problems Problem Status Onset Generalized weakness Acute Hyponatremia Acute Palliative care encounter Acute UTI (urinary tract infection) Acute Abdominal pain Acute Acute encephalopathy Acute Altered mental status Acute Atrial fibrillation Acute CAD (coronary artery disease), [place] coronary artery Acute Chronic diastolic CHF (congestive heart failure) Acute Chronic hypoxemic respiratory failure Acute Chronic kidney disease (CKD) Acute New onset atrial fibrillation Acute Pyelonephritis Acute VHD (valvular heart disease) Acute
[2017-01-08] MEDS ORDERED: WARFARIN SODIUM 2.5 MG TAB PO SCH (17:00)
[2017-01-08] MEDS: ARIPiprazole 5 MG TAB PO SCH (19:40)
[2017-01-08] MEDS: ATORVASTATIN CALCIUM 20 MG TAB PO SCH (19:40)
[2017-01-08] MEDS: DIVALPROEX ER 250 MG TAB PO SCH (19:41)
[2017-01-08] MEDS: PATCH REMOVAL 1 EA PATCH TD SCH (20:47)
[2017-01-09 04:37] LABS: ADD DIFF? YES; ADD MORPH? NO; ADD SCAN? NO; ATYPICAL LYMPHOCYTE FLAG 0 (0-99); FRAGMENT RBC FLAG 0 (0-99); HEMATOCRIT 26.9 % (38.0-47.0); HEMOGLOBIN 9.1 g/dL (12.6-16.3); LEFT SHIFT FLG 80 (0-99); LIPEMIA HEMOLYSIS FLAG 90 (0-99); MEAN CELL HEMOGLOBIN 34.7 pg (27.9-34.1); MEAN CELL HEMOGLOBIN CONCENTR. 33.8 g/dL (32.4-36.7); MEAN CELL VOLUME 102.7 fL (81.5-99.8); MEAN PLATELET VOLUME 9.7 fL (8.7-11.7); PLATELET CLUMPS FLAG 0 (0-99); PLATELET COUNT 219 10^3/uL (150-400); RED BLOOD CELL COUNT 2.62 10^6/uL (4.18-5.33); RED CELL DISTRIBUTION WIDTH 14.5 % (11.5-15.2)
[2017-01-09 05:12] LABS: INR 1.62 (0.83-1.16); PROTIME(PATIENT) 19.3 SEC (12.0-15.0)
[2017-01-09 05:29] LABS: MACROCYTES 1+; PLATELET ESTIMATE ADEQUATE (ADEQ); POLYCHROMASIA 1+
[2017-01-09 05:30] LABS: CALCIUM 8.5 mg/dL (8.5-10.4); CHLORIDE 86 mEq/L (97-110); CREATININE 0.7 mg/dL (0.6-1.0); GLOMERULAR FILTRATION RATE > 60; GLUCOSE 95 mg/dL (70-100); POTASSIUM 3.8 mEq/L (3.5-5.2); SODIUM 135 mEq/L (134-144)
[2017-01-09 05:37] LABS: ANION GAP 9 mEq/L (8-16); CARBON DIOXIDE 40 mEq/l (22-31)
[2017-01-09] MEDS: LEVOTHYROXINE 175 MCG TAB PO SCH (06:10)
[2017-01-09] MEDS: SODIUM CL NASAL 45 ML BTL EACHNARE SCH ×3 (08:00→19:49)
[2017-01-09] MEDS: HYDROCORTISONE 10 MG TAB PO SCH ×2 (08:24→16:20)
[2017-01-09] MEDS: ARIPiprazole 10 MG TAB PO SCH (08:24)
[2017-01-09] MEDS: ENOXAPARIN 100 MG/ML SYR SC SCH ×2 (08:24→19:48)
[2017-01-09] MEDS: LIDOCAINE 5% 1 EA PATCH TD SCH (08:25)
[2017-01-09] MEDS: FUROSEMIDE 20 MG TAB PO SCH (09:11)
[2017-01-09] MEDS: FERROUS SULFATE 325 MG TAB PO SCH (11:44)
[2017-01-09] MEDS: traMADol 50 MG TAB PO PRN (11:44)
[2017-01-09] MEDS ORDERED: FUROSEMIDE 40 MG/4 ML VIAL IVP ONE ×2 (15:55→16:15)
--- NOTE | 2017-01-09 16:16 | HOSPPROG ---
Hospitalist Progress Note Assessment/Plan: DIAGNOSES: # Question of free pleural space air vs appearance of that due to pulmonary abnormality - no new clinic symptoms or exam findings to suggest concerning change but hard to define what the anatomy is here -will order CT scan # acute symptomatic bradycardia in the setting of Chronic a-fib, now status post pacemaker placed earlier January 07 - AC with lovenox- has been on hold for pacemaker - restart per cardiology # acute and chronic hypoxic and hypercapnic respiratory failure d/t diffuse infiltrates- oxygen saturations 99% on 4 L - ddx pulm edema, TRALI, aspiration - suspect aspiration pneumonia at this point - extubated 01/01, has completed a 7 day course of Zosyn -still some edema present at this time and probably benefit from further diuresis # suspected aspiration pna, status post Zosyn -unable to see full lung wood on yesterday's chest x-ray adequately, appeared still likely some infiltrates persisting # persisting diffuse of probably related largely to volume resuscitation from her sepsis this with atrial fibrillation and chronic diastolic heart disease # septic shock d/t aspiration pna - resolved, off pressors # ongoing dysuria, associated with bilateral flank pain and tenderness, marked pyuria and E coli urine cultures at the time of admission - repeat UA yesterday borderline with slight increase in pyuria # dCHF, chronic - continue lasix PO # SHAUNA and pulm htn, morbid obesity # adrenal insufficiency - on hydrocortisone as chronically # bipolar - cont abilify, depakote # hyponatremia - resolved # hypoK - replete # htn - holding meds PLANS: -CT chest to evaluate ? of pleural air R subpulmonic -further IV Lasix now, recheck volume status in am -continue observe on environmental services aide after pacemaker placement -physical occupational therapy -DC planning, probable SNF this week ([facility] pending) SUBJECTIVE: Still complains of pain at her left greater than right flank unchanged from yesterday Otherwise less ache, feels a bit stronger, more alert, eating better Still remains quite weak and nonambulatory Did not work with physical therapy yesterday due to sedation from her pacer OBJECTIVE Vitals reviewed: Temperature 37.4 degrees now, otherwise Stable Visual Artist, my review: Intermittent AFib with rate approximately 100 and pacing Exam: Sitting up in chair E Now wide awake, alert oriented talkative Remains very weak skin warm dry color ok Pacer site looks okay resps not labored lungs clear BSs but difficult auscultation heart regular abd soft nondistended some bilateral flank tenderness otherwise no tenderness today, bowel sounds present limbs warm, no edema iv site ok CXR today: I have reviewed with Dr Costa Sin and Dr Hall: There is air that appears to either be a subpulmonic air collection vs some atelectasis or edema in the lower R lung in a band pattern creating that appearance. Objective: Vital Signs Temp Pulse Resp BP Pulse Ox 36.9 C 100 27 H 111/81 H 97 01/09/17 11:24 01/09/17 11:24 01/09/17 11:24 01/09/17 11:24 01/09/17 11:24 Laboratory Results 01/09/17 04:20 01/09/17 04:20 01/08/17 01/09/17 01/10/17 06:59 06:59 06:59 Intake Total 800 2280 150 Output Total 600 2820 300 Balance 200 -540 -150 PT 19.3 SEC (12.0-15.0) H 01/09/17 04:20 INR 1.62 (0.83-1.16) H 01/09/17 04:20 ICD10 Worksheet Patient Problems: Problems Problem Status Onset Generalized weakness Acute Hyponatremia Acute Palliative care encounter Acute UTI (urinary tract infection) Acute Abdominal pain Acute Acute encephalopathy Acute Altered mental status Acute Atrial fibrillation Acute CAD (coronary artery disease), [place] coronary artery Acute Chronic diastolic CHF (congestive heart failure) Acute Chronic hypoxemic respiratory failure Acute Chronic kidney disease (CKD) Acute New onset atrial fibrillation Acute Pyelonephritis Acute VHD (valvular heart disease) Acute
[2017-01-09] MEDS: WARFARIN SODIUM 5 MG TAB PO SCH (16:20)
[2017-01-09] MEDS: DIVALPROEX ER 250 MG TAB PO SCH (19:48)
[2017-01-09] MEDS: ARIPiprazole 5 MG TAB PO SCH (19:49)
[2017-01-09] MEDS: PATCH REMOVAL 1 EA PATCH TD SCH (19:49)
[2017-01-09] MEDS: ATORVASTATIN CALCIUM 20 MG TAB PO SCH (19:49)
[2017-01-10] MEDS: ACETAMINOPHEN 325 MG TAB PO PRN (04:28)
[2017-01-10] MEDS: LEVOTHYROXINE 175 MCG TAB PO SCH (04:29)
[2017-01-10] MEDS: traMADol 50 MG TAB PO PRN ×3 (04:29→23:50)
[2017-01-10 05:05] LABS: ADD DIFF? YES; ADD MORPH? NO; ADD SCAN? NO; ATYPICAL LYMPHOCYTE FLAG 0 (0-99); FRAGMENT RBC FLAG 0 (0-99); HEMATOCRIT 26.9 % (38.0-47.0); HEMOGLOBIN 8.9 g/dL (12.6-16.3); LEFT SHIFT FLG 60 (0-99); LIPEMIA HEMOLYSIS FLAG 80 (0-99); MEAN CELL HEMOGLOBIN 34.1 pg (27.9-34.1); MEAN CELL HEMOGLOBIN CONCENTR. 33.1 g/dL (32.4-36.7); MEAN CELL VOLUME 103.1 fL (81.5-99.8); MEAN PLATELET VOLUME 9.9 fL (8.7-11.7); PLATELET CLUMPS FLAG 20 (0-99); PLATELET COUNT 248 10^3/uL (150-400); RED BLOOD CELL COUNT 2.61 10^6/uL (4.18-5.33); RED CELL DISTRIBUTION WIDTH 14.6 % (11.5-15.2)
[2017-01-10 05:09] LABS: INR 2.27 (0.83-1.16); PROTIME(PATIENT) 25.2 SEC (12.0-15.0)
[2017-01-10] MEDS ORDERED: HYDROmorphone HCL/NS/PF 0.4 MG/2 ML SYR IVP ONE (05:21)
[2017-01-10 05:51] LABS: MACROCYTES 1+; POLYCHROMASIA 1+
[2017-01-10 05:54] LABS: PLATELET ESTIMATE ADEQUATE (ADEQ)
--- NOTE | 2017-01-10 09:05 | HOSPPROG ---
Hospitalist Progress Note Assessment/Plan: #Permanent atrial fibrillation: Dilt 120mg added today. Hold AC with hematoma #Pacemaker hematoma: holding anticoagulation. Repeat H/H in AM. Ice. PRN opioid for pain-control #Septic shock: resolved. Aspiration PNA vxs. UTI . s/p Zosyn #Bradycardia: s/p pacer Jan 07. #Hypothyroidism: LT4 #Decompensated diastolic HF: cont diuresis #SHAUNA/pulm HTN: CPAP, Lasix #Bipolar d/o: depakote #Diet: cardiac #DVT ppx: SCDs #Disp: cont inpatient admission with pacer hematoma, diuresis Subjective: nauseated. Pain at pacer site Objective: Vital Signs Temp Pulse Resp BP Pulse Ox 36.8 C 100 18 165/77 H 100 01/10/17 08:00 01/10/17 08:00 01/10/17 08:00 01/10/17 08:00 01/10/17 08:00 Laboratory Results 01/10/17 04:35 01/09/17 04:20 01/09/17 01/10/17 01/11/17 05:59 05:59 05:59 Intake Total 2280 650 Output Total 3120 950 Balance -840 -300 PT 25.2 SEC (12.0-15.0) H 01/10/17 04:35 INR 2.27 (0.83-1.16) H 01/10/17 04:35 - Physical Exam Constitutional: obese, other (pale) Eyes: PERRL Ears, Nose, Mouth, Throat: moist mucous membranes Cardiovascular: irregularly irregular, edema (+1 LE edema, BL ), other (pacer with hematoma, mild TTP. Small amount of brusing) Respiratory: no respiratory distress Gastrointestinal: normoactive bowel sounds, soft, non-tender abdomen Genitourinary: no bladder fullness Skin: warm Musculoskeletal: full muscle strength Neurologic: AAOx3 Psychiatric: flat affect ICD10 Worksheet Patient Problems: Problems Problem Status Onset Generalized weakness Acute Hyponatremia Acute Palliative care encounter Acute UTI (urinary tract infection) Acute Abdominal pain Acute Acute encephalopathy Acute Altered mental status Acute Atrial fibrillation Acute CAD (coronary artery disease), [place] coronary artery Acute Chronic diastolic CHF (congestive heart failure) Acute Chronic hypoxemic respiratory failure Acute Chronic kidney disease (CKD) Acute New onset atrial fibrillation Acute Pyelonephritis Acute VHD (valvular heart disease) Acute
[2017-01-10] MEDS: FUROSEMIDE 20 MG TAB PO SCH (09:20)
[2017-01-10] MEDS: HYDROCORTISONE 10 MG TAB PO SCH ×2 (09:21→15:36)
[2017-01-10] MEDS: ARIPiprazole 10 MG TAB PO SCH (09:21)
[2017-01-10] MEDS: POLYETHYLENE GLYCOL 3350 17 GM PKT PO SCH (09:21)
[2017-01-10] MEDS: LIDOCAINE 5% 1 EA PATCH TD SCH (09:23)
[2017-01-10] MEDS: SODIUM CL NASAL 45 ML BTL EACHNARE SCH ×3 (09:24→21:14)
--- NOTE | 2017-01-10 09:55 | PDCARPN ---
Cardiology Progress Note Chief Complaint: left shoulder pain Assessment/Plan: Assessment: s/ PPM with pocket hematoma AF HTN UTI Plan: 01/10/17 09:52 Hold coumadin/lovenox Check AM CBC Conservative tx Can re-start AC tx when hematoma stabilizes Subjective: pt c/o pain at PPM site Reviewed/Discussed With: other (RN) Time Spent With Patient: 25 min Objective: Vital Signs (8 Hrs) Temp Pulse Resp BP Pulse Ox 01/10/17 08:00 36.8 C 100 18 165/77 H 100 01/10/17 04:00 36.7 C 99 18 169/91 H 99 Intake/Output (24 Hrs) 01/09/17 01/10/17 01/11/17 05:59 05:59 05:59 Intake Total 2280 650 Output Total 3120 950 Balance -840 -300 Intake: Oral (ml) 2280 650 Output: Urine (ml) 3120 950 Bedpan 1220 Bedside Commode 1900 650 Toilet 300 Other: Weight 88.3 kg Number of Voids Bedpan 1 Bedside Commode 2 2 Incontinence 2 1 Toilet 1 Number of Stools Bedside Commode 1 Incontinence 1 Toilet 2 Post Void Residual Scan Volume (ml) Incontinence 32 Result Diagrams: 01/10/17 04:35 01/09/17 04:20 - Physical Exam Constitutional: no apparent distress Eyes: PERRL Ears, Nose, Mouth, Throat: moist mucous membranes Cardiovascular: irregularly irregular Peripheral Pulses: 1+: dorsalis-pedis (R), dorsalis-pedis (L) Respiratory: no wheezes Skin: other (left sided pocket hematoma) Neurologic: AAOx3 Psychiatric: cooperative ICD10 Worksheet Patient Problems: Problems Problem Status Onset Generalized weakness Acute Hyponatremia Acute Palliative care encounter Acute UTI (urinary tract infection) Acute Abdominal pain Acute Acute encephalopathy Acute Altered mental status Acute Atrial fibrillation Acute CAD (coronary artery disease), [place] coronary artery Acute Chronic diastolic CHF (congestive heart failure) Acute Chronic hypoxemic respiratory failure Acute Chronic kidney disease (CKD) Acute New onset atrial fibrillation Acute Pyelonephritis Acute VHD (valvular heart disease) Acute
[2017-01-10] MEDS ORDERED: HYDROmorphONE/DILAUDID 2 MG TAB PO PRN (10:58)
--- NOTE | 2017-01-10 13:50 | ASMTCMCOM ---
CM Note CM Note Notes: Patient's [facility] video game maker is Monica Uribe [phone]. I called and left a message asking her to let us know when she has completed her ULTC 100 evaluation. Tessa from [facility] and Brendon from the [facility] both called today to stay they can accept patient pending the above. CM will follow. Current case management discharge plan: SNF rehabilitation Date Signed: 01/10/2017 01:50 PM Electronically Signed By:Katie Landeros RN
[2017-01-10] MEDS: FERROUS SULFATE 325 MG TAB PO SCH (15:29)
[2017-01-10] MEDS: DIVALPROEX ER 250 MG TAB PO SCH (21:13)
[2017-01-10] MEDS: ARIPiprazole 5 MG TAB PO SCH (21:14)
[2017-01-10] MEDS: ATORVASTATIN CALCIUM 20 MG TAB PO SCH (21:14)
[2017-01-10] MEDS: PATCH REMOVAL 1 EA PATCH TD SCH (21:18)
[2017-01-11 03:38] LABS: CHLORIDE 79 mEq/L (97-110); CREATININE 0.8 mg/dL (0.6-1.0); GLOMERULAR FILTRATION RATE > 60; GLUCOSE 83 mg/dL (70-100); POTASSIUM 4.1 mEq/L (3.5-5.2); SODIUM 131 mEq/L (134-144)
[2017-01-11 03:50] LABS: ANION GAP 6 mEq/L (8-16)
[2017-01-11 03:52] LABS: CARBON DIOXIDE 46 mEq/l (22-31)
[2017-01-11 04:05] LABS: HEMATOCRIT 24.7 % (38.0-47.0); MEAN CELL HEMOGLOBIN 33.8 pg (27.9-34.1); MEAN CELL HEMOGLOBIN CONCENTR. 32.4 g/dL (32.4-36.7); MEAN CELL VOLUME 104.2 fL (81.5-99.8); RED BLOOD CELL COUNT 2.37 10^6/uL (4.18-5.33); RED CELL DISTRIBUTION WIDTH 14.9 % (11.5-15.2)
[2017-01-11 04:14] LABS: INR 2.56 (0.83-1.16); PROTIME(PATIENT) 27.8 SEC (12.0-15.0)
[2017-01-11] MEDS: LEVOTHYROXINE 175 MCG TAB PO SCH (06:40)
[2017-01-11] MEDS: traMADol 50 MG TAB PO PRN ×3 (06:40→20:46)
--- NOTE | 2017-01-11 07:45 | PDCARPN ---
Cardiology Progress Note Chief Complaint: left shoulder hematoma Assessment/Plan: Assessment: s/ PPM with pocket hematoma AF HTN UTI Plan: 01/10/17 09:52 Hold coumadin/lovenox Check AM CBC Conservative tx Can re-start AC tx when hematoma stabilizes 01/11/17 07:42 Stable Hgb lower, 8.0--continue to monitor No AC tx elevated INR--no reversal needed at this time as AC tx is being held. If INR continues to rise/Hgb drops, can consider transfusion/vit K check labs in AM Subjective: c/o generalized malaise Reviewed/Discussed With: other (RN) Time Spent With Patient: 25 min Objective: Vital Signs (8 Hrs) Temp Pulse Resp BP Pulse Ox 01/11/17 03:05 36.7 C 90 19 104/68 96 01/11/17 00:00 37.1 C 90 18 102/60 94 Intake/Output (24 Hrs) 01/10/17 01/11/17 01/12/17 05:59 05:59 05:59 Intake Total 650 550 Output Total 950 2350 Balance -300 -1800 Intake: Oral (ml) 650 550 Output: Urine (ml) 950 2350 Bedside Commode 650 Incontinence 200 Toilet 300 2150 Other: Weight 88.3 kg 88.9 kg Number of Voids Bedside Commode 2 Incontinence 1 Toilet 1 1 Number of Stools Toilet 2 1 Post Void Residual Scan Volume (ml) Incontinence 32 Result Diagrams: 01/11/17 03:10 01/11/17 03:10 - Physical Exam Constitutional: no apparent distress Eyes: PERRL Ears, Nose, Mouth, Throat: moist mucous membranes Cardiovascular: irregularly irregular Respiratory: clear to auscultate bilat Gastrointestinal: normoactive bowel sounds Skin: no edema, other (left pocket hematoma) Neurologic: AAOx3 Psychiatric: cooperative ICD10 Worksheet Patient Problems: Problems Problem Status Onset Generalized weakness Acute Hyponatremia Acute Palliative care encounter Acute UTI (urinary tract infection) Acute Abdominal pain Acute Acute encephalopathy Acute Altered mental status Acute Atrial fibrillation Acute CAD (coronary artery disease), [place] coronary artery Acute Chronic diastolic CHF (congestive heart failure) Acute Chronic hypoxemic respiratory failure Acute Chronic kidney disease (CKD) Acute New onset atrial fibrillation Acute Pyelonephritis Acute VHD (valvular heart disease) Acute
[2017-01-11] MEDS: HYDROCORTISONE 10 MG TAB PO SCH ×2 (07:52→16:14)
[2017-01-11] MEDS: LIDOCAINE 5% 1 EA PATCH TD SCH (07:53)
[2017-01-11] MEDS: ARIPiprazole 10 MG TAB PO SCH (07:53)
[2017-01-11] MEDS: DILTIAZEM CD 120 MG CAP PO SCH (07:53)
[2017-01-11] MEDS: FUROSEMIDE 20 MG TAB PO SCH (07:53)
[2017-01-11] MEDS: SODIUM CL NASAL 45 ML BTL EACHNARE SCH ×3 (08:03→20:47)
[2017-01-11] MEDS: POLYETHYLENE GLYCOL 3350 17 GM PKT PO SCH (08:04)
[2017-01-11] MEDS: ACETAMINOPHEN 325 MG TAB PO PRN ×2 (08:13→20:47)
[2017-01-11] MEDS ORDERED: NS 250 ML IV ONE (10:00)
--- NOTE | 2017-01-11 10:44 | HOSPPROG ---
Hospitalist Progress Note Assessment/Plan: #Permanent atrial fibrillation: Dilt 120mg added today. Hold AC with hematoma #Somnolence: suspect hypercarbia. Stat ABG #Hypotension: due to overdiuresis. Improved with 250cc NS. #Pacemaker hematoma: holding anticoagulation. Repeat H/H in AM. Ice. PRN opioid for pain-control #Septic shock: resolved. Aspiration PNA vxs. UTI . s/p Zosyn #Bradycardia: s/p pacer Jan 07. #Hypothyroidism: LT4 #Decompensated diastolic HF: cont diuresis #SHAUNA/pulm HTN: CPAP, Lasix #Bipolar d/o: depakote #Diet: cardiac #DVT ppx: SCDs #Disp: cont inpatient admission with pacer hematoma, diuresis Subjective: dizzy this morning with SBP 90. No CP or palps Objective: Vital Signs Temp Pulse Resp BP Pulse Ox 36.8 C 86 17 152/62 H 98 01/11/17 08:14 01/11/17 08:14 01/11/17 08:14 01/11/17 08:14 01/11/17 08:14 Laboratory Results 01/11/17 03:10 01/11/17 03:10 01/10/17 01/11/17 01/12/17 05:59 05:59 05:59 Intake Total 650 550 Output Total 950 2350 Balance -300 -1800 PT 27.8 SEC (12.0-15.0) H 01/11/17 03:10 INR 2.56 (0.83-1.16) H 01/11/17 03:10 - Physical Exam Constitutional: other (pale, sitting in chair, somnolent) Eyes: PERRL Ears, Nose, Mouth, Throat: moist mucous membranes Cardiovascular: regular rate and rhythym, edema (trace ankle edema) Respiratory: other (decreased sounds at bases) Gastrointestinal: normoactive bowel sounds, soft, non-tender abdomen Genitourinary: no bladder fullness, no bladder tenderness Skin: warm Musculoskeletal: full muscle strength, other (left pectoral pacer site with less swelling and bruising today) Neurologic: AAOx3, CN II-XII Intact Psychiatric: interacting appropriately ICD10 Worksheet Patient Problems: Problems Problem Status Onset Generalized weakness Acute Hyponatremia Acute Palliative care encounter Acute UTI (urinary tract infection) Acute Abdominal pain Acute Acute encephalopathy Acute Altered mental status Acute Atrial fibrillation Acute CAD (coronary artery disease), [place] coronary artery Acute Chronic diastolic CHF (congestive heart failure) Acute Chronic hypoxemic respiratory failure Acute Chronic kidney disease (CKD) Acute New onset atrial fibrillation Acute Pyelonephritis Acute VHD (valvular heart disease) Acute
[2017-01-11 11:40] LABS: BASE EXCESS 11.7 mEq/L (-2.5-2.5); BICARBONATE 38 mEq/L (22-26); MEASURED OXYGEN SATURATION 96 % (92-95); PCO2 68 mmHg (34-38); PO2 83 mmHg (65-75); TCO2 40 mEq/L (23-27)
[2017-01-11] MEDS: FERROUS SULFATE 325 MG TAB PO SCH (13:23)
--- NOTE | 2017-01-11 14:02 | ASMTCMCOM ---
CM Note CM Note Notes: 01/11/2017 Case Management Note Received call from Meena Marin [facility] embedded case manager. Faxed OT and PT notes at her request to [phone]. Meena can be reached at [phone]. Case Management anticipating d/c to SNF rehab once approved by [facility]. Case Management to follow. Date Signed: 01/11/2017 02:01 PM Electronically Signed By:Soni Oh RN
[2017-01-11] MEDS: ARIPiprazole 5 MG TAB PO SCH (20:47)
[2017-01-11] MEDS: DIVALPROEX ER 250 MG TAB PO SCH (20:47)
[2017-01-11] MEDS: ATORVASTATIN CALCIUM 20 MG TAB PO SCH (20:47)
[2017-01-11] MEDS: PATCH REMOVAL 1 EA PATCH TD SCH (20:48)
[2017-01-12] MEDS: LEVOTHYROXINE 175 MCG TAB PO SCH (02:09)
[2017-01-12] MEDS: ACETAMINOPHEN 325 MG TAB PO PRN ×3 (02:09→19:51)
[2017-01-12] MEDS: traMADol 50 MG TAB PO PRN ×3 (04:06→17:13)
[2017-01-12 04:46] LABS: HEMATOCRIT 24.5 % (38.0-47.0); HEMOGLOBIN 8.2 g/dL (12.6-16.3); MEAN CELL HEMOGLOBIN 34.9 pg (27.9-34.1); MEAN CELL HEMOGLOBIN CONCENTR. 33.5 g/dL (32.4-36.7); MEAN CELL VOLUME 104.3 fL (81.5-99.8); RED BLOOD CELL COUNT 2.35 10^6/uL (4.18-5.33); RED CELL DISTRIBUTION WIDTH 15.1 % (11.5-15.2)
[2017-01-12 05:03] LABS: ANION GAP 9 mEq/L (8-16); CALCIUM 8.1 mg/dL (8.5-10.4); CARBON DIOXIDE 39 mEq/l (22-31); CHLORIDE 81 mEq/L (97-110); CREATININE 1.1 mg/dL (0.6-1.0); GLOMERULAR FILTRATION RATE 50; GLUCOSE 89 mg/dL (70-100); POTASSIUM 4.1 mEq/L (3.5-5.2); SODIUM 129 mEq/L (134-144)
--- NOTE | 2017-01-12 06:50 | PDCARPN ---
Cardiology Progress Note Chief Complaint: left pocket hematoma Assessment/Plan: Assessment: s/ PPM with pocket hematoma AF HTN UTI Plan: 01/10/17 09:52 Hold coumadin/lovenox Check AM CBC Conservative tx Can re-start AC tx when hematoma stabilizes 01/11/17 07:42 Stable Hgb lower, 8.0--continue to monitor No AC tx elevated INR--no reversal needed at this time as AC tx is being held. If INR continues to rise/Hgb drops, can consider transfusion/vit K check labs in AM 01/12/17 06:47 Hgb low but stable Elevated Cr with decreased Na--check labs in AM INR pending Continue to hold AC tx today hematoma stable Subjective: c/o generalized malaise Time Spent With Patient: 25 min Objective: Vital Signs (8 Hrs) Temp Pulse Resp BP Pulse Ox 01/12/17 04:00 36.1 C 83 16 93/63 L 98 01/11/17 23:11 36.3 C 67 16 99/53 L 91 L Intake/Output (24 Hrs) 01/11/17 01/12/17 01/13/17 05:59 05:59 05:59 Intake Total 550 1650 Output Total 2350 1150 100 Balance -1800 500 -100 Intake: Oral (ml) 550 1650 Output: Urine (ml) 2350 1150 100 Incontinence 200 200 Toilet 2150 950 100 Other: Weight 88.9 kg 90.1 kg Number of Voids Incontinence 1 Toilet 1 1 1 Number of Stools Toilet 1 1 Result Diagrams: 01/12/17 04:30 01/12/17 04:30 - Physical Exam Constitutional: no apparent distress Cardiovascular: irregularly irregular Respiratory: no wheezes Gastrointestinal: no tenderness Skin: warm, other (left pocket hematoma) Musculoskeletal: other Neurologic: AAOx3 Psychiatric: cooperative ICD10 Worksheet Patient Problems: Problems Problem Status Onset Generalized weakness Acute Hyponatremia Acute Palliative care encounter Acute UTI (urinary tract infection) Acute Abdominal pain Acute Acute encephalopathy Acute Altered mental status Acute Atrial fibrillation Acute CAD (coronary artery disease), [place] coronary artery Acute Chronic diastolic CHF (congestive heart failure) Acute Chronic hypoxemic respiratory failure Acute Chronic kidney disease (CKD) Acute New onset atrial fibrillation Acute Pyelonephritis Acute VHD (valvular heart disease) Acute
[2017-01-12] MEDS: POLYETHYLENE GLYCOL 3350 17 GM PKT PO SCH (07:33)
[2017-01-12] MEDS: HYDROCORTISONE 10 MG TAB PO SCH ×2 (07:33→16:25)
[2017-01-12] MEDS: ARIPiprazole 10 MG TAB PO SCH (07:33)
[2017-01-12] MEDS: DILTIAZEM CD 120 MG CAP PO SCH (07:33)
[2017-01-12] MEDS: LIDOCAINE 5% 1 EA PATCH TD SCH (07:34)
[2017-01-12] MEDS: SODIUM CL NASAL 45 ML BTL EACHNARE SCH ×3 (07:50→20:15)
--- NOTE | 2017-01-12 11:40 | HOSPPROG ---
Hospitalist Progress Note Assessment/Plan: #Permanent atrial fibrillation: Dilt 120mg added today. Hold AC with hematoma #Anemia: mild drop in H/H may be due to hematoma. Repeat in AM #Hyponatremia: urine studies c/w pre-renal. Give gentle IVFs. #Somnolence: yesterday due to hypercarbia; improved with Bipap #Hypotension: due to overdiuresis. Improved with IVFs yesterday #Pacemaker hematoma: holding anticoagulation. Repeat H/H in AM. Ice. PRN opioid for pain-control #Septic shock: resolved. Aspiration PNA vxs. UTI . s/p Zosyn #Bradycardia: s/p pacer Jan 07. #Hypothyroidism: LT4 #Decompensated diastolic HF: cont diuresis #SHAUNA/pulm HTN: CPAP, Lasix #Bipolar d/o: depakote #Diet: cardiac #DVT ppx: SCDs #Disp: cont inpatient admission with pacer hematoma, diuresis Subjective: tired this morning Objective: Vital Signs Temp Pulse Resp BP Pulse Ox 36.9 C 85 20 108/62 99 01/12/17 07:45 01/12/17 07:45 01/12/17 07:45 01/12/17 07:45 01/12/17 07:45 Laboratory Results 01/12/17 04:30 01/12/17 04:30 01/11/17 01/12/17 01/13/17 05:59 05:59 05:59 Intake Total 550 2150 Output Total 2350 1650 100 Balance -1800 500 -100 PT 27.8 SEC (12.0-15.0) H 01/11/17 03:10 INR 2.56 (0.83-1.16) H 01/11/17 03:10 - Physical Exam Constitutional: chronically ill appearing, other (tired-appearing) Ears, Nose, Mouth, Throat: moist mucous membranes Cardiovascular: regular rate and rhythym, edema (+3 LE edema) Respiratory: no respiratory distress, no rales or rhonchi Gastrointestinal: normoactive bowel sounds, soft, non-tender abdomen Genitourinary: no bladder fullness Skin: warm Musculoskeletal: full muscle strength, other (left pectoral hematoma smaller today, less bruising) Neurologic: CN II-XII Intact Psychiatric: interacting appropriately, depressed, flat affect ICD10 Worksheet Patient Problems: Problems Problem Status Onset Generalized weakness Acute Hyponatremia Acute Palliative care encounter Acute UTI (urinary tract infection) Acute Abdominal pain Acute Acute encephalopathy Acute Altered mental status Acute Atrial fibrillation Acute CAD (coronary artery disease), [place] coronary artery Acute Chronic diastolic CHF (congestive heart failure) Acute Chronic hypoxemic respiratory failure Acute Chronic kidney disease (CKD) Acute New onset atrial fibrillation Acute Pyelonephritis Acute VHD (valvular heart disease) Acute
[2017-01-12] MEDS: FERROUS SULFATE 325 MG TAB PO SCH (13:24)
[2017-01-12] MEDS ORDERED: NS 1,000 ML IV SCH (14:15)
--- NOTE | 2017-01-12 15:23 | ASMTCMCOM ---
CM Note CM Note Notes: CM spoke w/ Lina at [facility] and she is not approving [facility] care at this time. CM notified [facility] that pt no longer needs LTC. According to Lina at [facility], sister has expressed that pt would like to return back to [facility]. CM spoke w/ La, at [facility] and they are willing to take pt back once she is medically stable. Pt is current w/ [facility]. CM called the sister and requested a call back. CM updated Dr. Isaac regarding d/c POC. CM to follow. Date Signed: 01/12/2017 03:23 PM Electronically Signed By:MARY Crook
[2017-01-12 19:00] LABS: ANION GAP 8 mEq/L (8-16); CALCIUM 7.9 mg/dL (8.5-10.4); CARBON DIOXIDE 38 mEq/l (22-31); CHLORIDE 76 mEq/L (97-110); CREATININE 1.2 mg/dL (0.6-1.0); GLOMERULAR FILTRATION RATE 45; GLUCOSE 126 mg/dL (70-100); POTASSIUM 4.4 mEq/L (3.5-5.2); SODIUM 122 mEq/L (134-144)
[2017-01-12] MEDS ORDERED: FUROSEMIDE 20 MG/2 ML VIAL IVP ONE (19:45)
[2017-01-12] MEDS: DIVALPROEX ER 250 MG TAB PO SCH (19:51)
[2017-01-12] MEDS: ARIPiprazole 5 MG TAB PO SCH (19:51)
[2017-01-12] MEDS: ATORVASTATIN CALCIUM 20 MG TAB PO SCH (20:15)
[2017-01-12] MEDS: PATCH REMOVAL 1 EA PATCH TD SCH (20:15)
[2017-01-13] MEDS: traMADol 50 MG TAB PO PRN ×2 (00:04→09:01)
[2017-01-13 00:23] LABS: ANION GAP 7 mEq/L (8-16); CARBON DIOXIDE 39 mEq/l (22-31); CHLORIDE 78 mEq/L (97-110); GLOMERULAR FILTRATION RATE 56; GLUCOSE 116 mg/dL (70-100); POTASSIUM 4.6 mEq/L (3.5-5.2); SODIUM 124 mEq/L (134-144)
[2017-01-13] MEDS: ACETAMINOPHEN 325 MG TAB PO PRN ×2 (01:51→09:00)
[2017-01-13] MEDS: LEVOTHYROXINE 175 MCG TAB PO SCH (03:50)
[2017-01-13 06:43] LABS: HEMATOCRIT 23.6 % (38.0-47.0); MEAN CELL HEMOGLOBIN 34.9 pg (27.9-34.1); MEAN CELL HEMOGLOBIN CONCENTR. 33.9 g/dL (32.4-36.7); MEAN CELL VOLUME 103.1 fL (81.5-99.8); RED BLOOD CELL COUNT 2.29 10^6/uL (4.18-5.33)
--- NOTE | 2017-01-13 06:56 | PDCARPN ---
Cardiology Progress Note Chief Complaint: hematoma/lethargy Assessment/Plan: Assessment: s/ PPM with pocket hematoma AF HTN UTI Plan: 01/10/17 09:52 Hold coumadin/lovenox Check AM CBC Conservative tx Can re-start AC tx when hematoma stabilizes 01/11/17 07:42 Stable Hgb lower, 8.0--continue to monitor No AC tx elevated INR--no reversal needed at this time as AC tx is being held. If INR continues to rise/Hgb drops, can consider transfusion/vit K check labs in AM 01/12/17 06:47 Hgb low but stable Elevated Cr with decreased Na--check labs in AM INR pending Continue to hold AC tx today hematoma stable 01/13/17 06:54 Labs pending Na reduced overnight, elevated Cr Pt responded well to lasix will reduce cardizem to prevent BP drop Add IV lasix today, can change to PO on 01/14 if Na improves INR pending, hematoma stable Subjective: c/o lethargy Reviewed/Discussed With: other (RN) Time Spent With Patient: 25 min Objective: Vital Signs (8 Hrs) Temp Pulse Resp BP Pulse Ox 01/13/17 03:51 36.6 C 60 12 100/69 96 01/13/17 00:15 114/52 L Intake/Output (24 Hrs) 01/12/17 01/13/17 01/14/17 05:59 05:59 05:59 Intake Total 2150 2340 Output Total 1650 1050 Balance 500 1290 Intake: Oral (ml) 2150 1840 IV Intake (ml) 200 IV Infused (ml) 300 Ns 1,000 ml @ 100 mls/hr 300 IV CONT ANNA Rx#: [id number] Output: Urine (ml) 1650 1050 Incontinence 700 200 Toilet 950 850 Other: Weight 90.1 kg 92.5 kg Intake Quantity Yes Sufficient Number of Voids Incontinence 2 1 Toilet 1 4 Number of Stools Toilet 1 1 Bladder Scan Volume (ml) Toilet 23 Result Diagrams: 01/13/17 06:10 01/12/17 23:32 - Physical Exam Constitutional: no apparent distress Cardiovascular: irregularly irregular Respiratory: no crackles Gastrointestinal: normoactive bowel sounds Skin: warm, other (left pocket hematoma) Musculoskeletal: no muscular tenderness Neurologic: AAOx3 Psychiatric: cooperative ICD10 Worksheet Patient Problems: Problems Problem Status Onset Generalized weakness Acute Hyponatremia Acute Palliative care encounter Acute UTI (urinary tract infection) Acute Abdominal pain Acute Acute encephalopathy Acute Altered mental status Acute Atrial fibrillation Acute CAD (coronary artery disease), [place] coronary artery Acute Chronic diastolic CHF (congestive heart failure) Acute Chronic hypoxemic respiratory failure Acute Chronic kidney disease (CKD) Acute New onset atrial fibrillation Acute Pyelonephritis Acute VHD (valvular heart disease) Acute
[2017-01-13 06:58] LABS: INR 1.48 (0.83-1.16); PROTIME(PATIENT) 17.9 SEC (12.0-15.0)
[2017-01-13 07:03] LABS: ANION GAP 5 mEq/L (8-16); CALCIUM 8.1 mg/dL (8.5-10.4); CARBON DIOXIDE 40 mEq/l (22-31); CHLORIDE 77 mEq/L (97-110); CREATININE 0.9 mg/dL (0.6-1.0); GLOMERULAR FILTRATION RATE > 60; GLUCOSE 80 mg/dL (70-100); POTASSIUM 4.1 mEq/L (3.5-5.2); SODIUM 122 mEq/L (134-144)
[2017-01-13] MEDS: LIDOCAINE 5% 1 EA PATCH TD SCH (08:59)
[2017-01-13] MEDS ORDERED: FUROSEMIDE 40 MG/4 ML VIAL IVP SCH (09:00)
[2017-01-13] MEDS: DILTIAZEM 30 MG TAB PO SCH ×2 (09:00→19:57)
[2017-01-13] MEDS: ARIPiprazole 10 MG TAB PO SCH (09:00)
[2017-01-13] MEDS: HYDROCORTISONE 10 MG TAB PO SCH ×2 (09:01→16:03)
[2017-01-13] MEDS: POLYETHYLENE GLYCOL 3350 17 GM PKT PO SCH (09:02)
[2017-01-13] MEDS: SODIUM CL NASAL 45 ML BTL EACHNARE SCH ×3 (09:02→19:59)
--- NOTE | 2017-01-13 09:08 | HOSPPROG ---
Hospitalist Progress Note Assessment/Plan: #Hypotension: multifactorial with Tramadol. Tinazadine, Dilt. Also intrasvasc dry based on urine lytes. Improved with albumin. I discussed with Dr. Joseph. Reduced dose of dilt #Permanent atrial fibrillation: Dilt 120mg added today. Hold AC with hematoma #Anemia: mild drop in H/H may be due to hematoma. Repeat in AM #Hyponatremia: drop overnight. Intravascularly dry and volume overload. Trial Lasix 20mg IV with albumin. #Somnolence: yesterday due to hypercarbia; improved with Bipap, Hold opioids, muscle relaxer #Pacemaker hematoma: holding anticoagulation. Ok to start coumadin without bridge tomorrow if labs stable #Septic shock: resolved. Aspiration PNA vxs. UTI . s/p Zosyn #Bradycardia: s/p pacer Jan 07. #Hypothyroidism: LT4 #Decompensated diastolic HF: cont diuresis #SHAUNA/pulm HTN: CPAP, Lasix #Bipolar d/o: depakote #Diet: cardiac #DVT ppx: SCDs #Disp: cont inpatient admission with pacer hematoma, diuresis Critical care time spent: 45 min bedside evaluating for hypotension, reviewing labs and d/w Dr. Joseph Subjective: lightheaded this morning, no SOB Objective: Vital Signs Temp Pulse Resp BP Pulse Ox 36.9 C 95 20 100/58 L 96 01/13/17 08:08 01/13/17 08:08 01/13/17 08:08 01/13/17 08:08 01/13/17 08:08 Laboratory Results 01/13/17 06:10 01/13/17 06:10 01/12/17 01/13/17 01/14/17 05:59 05:59 05:59 Intake Total 2150 2340 Output Total 1650 1050 100 Balance 500 1290 -100 PT 17.9 SEC (12.0-15.0) H D 01/13/17 06:10 INR 1.48 (0.83-1.16) H 01/13/17 06:10 - Physical Exam Constitutional: chronically ill appearing, other (pale, somnolent, but answering questions appropriately) Eyes: PERRL Ears, Nose, Mouth, Throat: moist mucous membranes Cardiovascular: edema (+2 leg edema) Respiratory: reduced air movement Gastrointestinal: normoactive bowel sounds, soft, non-tender abdomen Skin: warm Musculoskeletal: full muscle strength Neurologic: AAOx3 Psychiatric: other (somlonent, but AxOx3) ICD10 Worksheet Patient Problems: Problems Problem Status Onset Generalized weakness Acute Hyponatremia Acute Palliative care encounter Acute UTI (urinary tract infection) Acute Abdominal pain Acute Acute encephalopathy Acute Altered mental status Acute Atrial fibrillation Acute CAD (coronary artery disease), [place] coronary artery Acute Chronic diastolic CHF (congestive heart failure) Acute Chronic hypoxemic respiratory failure Acute Chronic kidney disease (CKD) Acute New onset atrial fibrillation Acute Pyelonephritis Acute VHD (valvular heart disease) Acute
[2017-01-13] MEDS ORDERED: ALBUMIN 25% 100 ML IV ONE ×2 (11:22→15:30)
[2017-01-13] MEDS ORDERED: DILTIAZEM 30 MG TAB PO SCH (12:00)
[2017-01-13] MEDS: FERROUS SULFATE 325 MG TAB PO SCH (13:21)
[2017-01-13 15:19] LABS: ANION GAP 10 mEq/L (8-16); CALCIUM 8.3 mg/dL (8.5-10.4); CARBON DIOXIDE 38 mEq/l (22-31); CHLORIDE 75 mEq/L (97-110); GLOMERULAR FILTRATION RATE 56; GLUCOSE 142 mg/dL (70-100); POTASSIUM 4.6 mEq/L (3.5-5.2); SODIUM 123 mEq/L (134-144)
[2017-01-13] MEDS ORDERED: FUROSEMIDE 20 MG/2 ML VIAL IVP ONE (15:30)
[2017-01-13] MEDS ORDERED: FUROSEMIDE 20 MG/2 ML VIAL IV ONE (16:00)
[2017-01-13] MEDS: DIVALPROEX ER 250 MG TAB PO SCH (19:56)
[2017-01-13] MEDS: ATORVASTATIN CALCIUM 20 MG TAB PO SCH (19:57)
[2017-01-13] MEDS: ARIPiprazole 5 MG TAB PO SCH (19:57)
[2017-01-13] MEDS: PATCH REMOVAL 1 EA PATCH TD SCH (19:58)
[2017-01-14 05:16] LABS: HEMATOCRIT 26.8 % (38.0-47.0); HEMOGLOBIN 9.1 g/dL (12.6-16.3); MEAN CELL VOLUME 103.1 fL (81.5-99.8); RED BLOOD CELL COUNT 2.6 10^6/uL (4.18-5.33); RED CELL DISTRIBUTION WIDTH 15.3 % (11.5-15.2)
[2017-01-14 05:25] LABS: BASE EXCESS 13.4 mEq/L (-2.5-2.5); BICARBONATE 41 mEq/L (22-26); MEASURED OXYGEN SATURATION 74 % (92-95); PO2 46 mmHg (65-75)
[2017-01-14 05:28] LABS: INR 1.25 (0.83-1.16); PROTIME(PATIENT) 15.7 SEC (12.0-15.0)
[2017-01-14 05:34] LABS: PCO2 78 mmHg (34-38)
[2017-01-14 05:35] LABS: TCO2 44 mEq/L (23-27)
[2017-01-14 05:35] LABS: CHLORIDE 81 mEq/L (97-110); CREATININE 0.7 mg/dL (0.6-1.0); GLOMERULAR FILTRATION RATE > 60; GLUCOSE 107 mg/dL (70-100); POTASSIUM 3.8 mEq/L (3.5-5.2); SODIUM 134 mEq/L (134-144)
[2017-01-14] MEDS: ACETAMINOPHEN 325 MG TAB PO PRN ×2 (05:35→16:31)
[2017-01-14] MEDS: LEVOTHYROXINE 175 MCG TAB PO SCH (05:35)
[2017-01-14 05:42] LABS: ANION GAP 13 mEq/L (8-16); CARBON DIOXIDE 40 mEq/l (22-31)
[2017-01-14] MEDS ORDERED: LORazepam 2 MG/ML INJ IVP PRN (05:44)
--- NOTE | 2017-01-14 07:21 | PDCARPN ---
Cardiology Progress Note Chief Complaint: SOB/lethargy Assessment/Plan: Assessment: s/ PPM with pocket hematoma AF HTN UTI Plan: 01/10/17 09:52 Hold coumadin/lovenox Check AM CBC Conservative tx Can re-start AC tx when hematoma stabilizes 01/11/17 07:42 Stable Hgb lower, 8.0--continue to monitor No AC tx elevated INR--no reversal needed at this time as AC tx is being held. If INR continues to rise/Hgb drops, can consider transfusion/vit K check labs in AM 01/12/17 06:47 Hgb low but stable Elevated Cr with decreased Na--check labs in AM INR pending Continue to hold AC tx today hematoma stable 01/13/17 06:54 Labs pending Na reduced overnight, elevated Cr Pt responded well to lasix will reduce cardizem to prevent BP drop Add IV lasix today, can change to PO on 01/14 if Na improves INR pending, hematoma stable 01/14/17 07:18 Early this AM pt had episode of increased resps/decreased O2 sat--? aspiration On Bipap, lethargic CXR pending elevated WBC pacer site stable, no growth in hematoma Hgb, renal function stabilized Continue supportive care--if patient stabilizes from a respiratory standpoint, can re-start oral AC tx Subjective: lethargic Reviewed/Discussed With: other (RN) Time Spent With Patient: 25 min Objective: Vital Signs (8 Hrs) Temp Pulse Resp BP Pulse Ox 01/14/17 06:21 99 26 H 93 01/14/17 04:48 36.7 C 107 H 40 H 124/90 H 100 01/14/17 04:20 117 H 48 H 78 L 01/14/17 04:00 37.0 C 111 H 20 136/84 H 98 Intake/Output (24 Hrs) 01/13/17 01/14/17 01/15/17 05:59 05:59 05:59 Intake Total 2340 1370 Output Total 1050 2952 Balance 1290 -1582 Intake: Oral (ml) 1840 1170 IV Intake (ml) 200 IV Infused (ml) 300 200 Albumin 25% 100 ml @ As 100 Directed IV ONCE ONE Rx#: [id number] Albumin 25% 100 ml @ As 100 Directed IV ONCE ONE Rx#: [id number] Ns 1,000 ml @ 100 mls/hr 300 IV CONT ANNA Rx#: [id number] Output: Urine (ml) 1050 2952 Bedside Commode 1602 Incontinence 200 1350 Toilet 850 Other: Weight 92.5 kg Intake Quantity Yes Yes Sufficient Output Comment Bedside Commode with student Incontinence soaked the entire bed Number of Voids Incontinence 1 1 Toilet 4 Number of Stools Incontinence 1 Toilet 1 Bladder Scan Volume (ml) Toilet 23 Result Diagrams: 01/14/17 04:55 01/14/17 04:55 - Physical Exam Constitutional: other (lethargic) Eyes: PERRL Cardiovascular: irregularly irregular Peripheral Pulses: 1+: femoral (R), femoral (L) Respiratory: reduced air movement Gastrointestinal: no tenderness Skin: warm Neurologic: other (lethargic) ICD10 Worksheet Patient Problems: Problems Problem Status Onset Generalized weakness Acute Hyponatremia Acute Palliative care encounter Acute UTI (urinary tract infection) Acute Abdominal pain Acute Acute encephalopathy Acute Altered mental status Acute Atrial fibrillation Acute CAD (coronary artery disease), [place] coronary artery Acute Chronic diastolic CHF (congestive heart failure) Acute Chronic hypoxemic respiratory failure Acute Chronic kidney disease (CKD) Acute New onset atrial fibrillation Acute Pyelonephritis Acute VHD (valvular heart disease) Acute
[2017-01-14 08:48] LABS: BASE EXCESS 14.3 mEq/L (-2.5-2.5); BICARBONATE 41 mEq/L (22-26); MEASURED OXYGEN SATURATION 68 % (92-95); PCO2 69 mmHg (34-38); TCO2 43 mEq/L (23-27)
[2017-01-14 08:58] LABS: PO2 35 mmHg (65-75)
[2017-01-14 09:02] LABS: BIPAP YES; EXP PRESSURE 8; O2 CONCENTRATIION 60 % (0-100); P/F RATIO 58 RATIO
[2017-01-14] MEDS ORDERED: FUROSEMIDE 20 MG/2 ML VIAL IVP ONE (09:16)
[2017-01-14] MEDS ORDERED: FUROSEMIDE 20 MG/2 ML VIAL ONE (09:20)
[2017-01-14] MEDS: ARIPiprazole 10 MG TAB PO SCH (09:36)
[2017-01-14] MEDS: DILTIAZEM 30 MG TAB PO SCH ×3 (09:36→20:53)
[2017-01-14] MEDS: HYDROCORTISONE 10 MG TAB PO SCH ×2 (09:37→15:28)
[2017-01-14] MEDS: SODIUM CL NASAL 45 ML BTL EACHNARE SCH ×3 (09:37→20:54)
[2017-01-14] MEDS: POLYETHYLENE GLYCOL 3350 17 GM PKT PO SCH (09:37)
[2017-01-14] MEDS ORDERED: FUROSEMIDE 40 MG/4 ML VIAL IVP ONE (09:39)
--- NOTE | 2017-01-14 10:21 | HOSPPROG ---
Hospitalist Progress Note Assessment/Plan: #Acute hypoxic resp failure: increased edema on CXR (personally reviewed). Diuresing. Transfer to SDU on Bipap. Repeat CXR was negative for PTX as read on firsr one. #Hypotension: resolved. Likely due to opioids, Dilt and intrasvasc dry. Improved with albumintifactorial with Tramadol. Tinazadine, Dilt. Also intrasvasc dry based on urine lytes. Improved with albumin. I discussed with Dr. Joseph. Reduced dose of dilt #Permanent atrial fibrillation: decreased dose of dilt Hold AC with hematoma #Anemia: mild drop in H/H may be due to hematoma. Repeat in AM #Hyponatremia: resolved with albumin and diuresis. #Somnolence: yesterday due to hypercarbia; improved with Bipap, Hold opioids, muscle relaxer #Pacemaker hematoma: holding anticoagulation. Ok to start coumadin without bridge tomorrow if labs stable #Septic shock: resolved. Aspiration PNA vxs. UTI . s/p Zosyn #Bradycardia: s/p pacer Jan 07. #Hypothyroidism: LT4 #Decompensated diastolic HF: cont diuresis #SHAUNA/pulm HTN: CPAP, Lasix #Bipolar d/o: depakote #Diet: cardiac #DVT ppx: SCDs #Disp: cont inpatient admission with pacer hematoma, diuresis Critical care time spent: 45 min bedside evaluating pt, reviewing imaging and coordinating transfer to SDU. Case d/w Dr. Ness Subjective: feeling very SOB, no CP. Objective: Vital Signs Temp Pulse Resp BP Pulse Ox 36.9 C 97 17 154/60 H 100 01/14/17 07:55 01/14/17 09:54 01/14/17 09:54 01/14/17 07:46 01/14/17 09:54 Laboratory Results 01/14/17 04:55 01/14/17 04:55 01/13/17 01/14/17 01/15/17 05:59 05:59 05:59 Intake Total 2340 1370 Output Total 1050 2952 Balance 1290 -1582 PT 15.7 SEC (12.0-15.0) H 01/14/17 04:55 INR 1.25 (0.83-1.16) H 01/14/17 04:55 - Physical Exam Constitutional: chronically ill appearing Eyes: PERRL Ears, Nose, Mouth, Throat: moist mucous membranes, hearing normal, other (Bipap mask in place) Cardiovascular: regular rate and rhythym, edema (+3 LE edema) Respiratory: respiratory distress, other (decreased BS at bilateral bases) Gastrointestinal: normoactive bowel sounds Genitourinary: No cobb in urethra Skin: warm Musculoskeletal: full muscle strength Neurologic: AAOx3, CN II-XII Intact Psychiatric: interacting appropriately ICD10 Worksheet Patient Problems: Problems Problem Status Onset Generalized weakness Acute Hyponatremia Acute Palliative care encounter Acute UTI (urinary tract infection) Acute Abdominal pain Acute Acute encephalopathy Acute Altered mental status Acute Atrial fibrillation Acute CAD (coronary artery disease), [place] coronary artery Acute Chronic diastolic CHF (congestive heart failure) Acute Chronic hypoxemic respiratory failure Acute Chronic kidney disease (CKD) Acute New onset atrial fibrillation Acute Pyelonephritis Acute VHD (valvular heart disease) Acute
[2017-01-14] MEDS: AMPICILLIN/SULBACTAM 3 GM in NS 100 ML IV SCH ×3 (10:31→17:25)
[2017-01-14 10:59] LABS: COLOR COLORLESS; LEUKOCYTE ESTERASE,URINE NEGATIVE (NEGATIVE); NITRITE,URINE NEGATIVE (NEGATIVE)
[2017-01-14] MEDS: FERROUS SULFATE 325 MG TAB PO SCH (15:12)
[2017-01-14] MEDS: LIDOCAINE 5% 1 EA PATCH TD SCH (15:21)
--- NOTE | 2017-01-14 15:28 | GCON ---
[f rep st] CONSULTATION DIGITAL EXPERIENCE MANAGER CONSULTATION REASON FOR ADMISSION TO INTENSIVE CARE UNIT: Hypercarbic respiratory failure. HISTORY OF PRESENT ILLNESS: The patient is a 67-year-old white female with a very extensive past med ical history, including obstructive sleep apnea, history of breast cancer, hypothyroidism, diastolic heart failure, valvular heart disease, atrial fibrillation, bipolar disease, coronary artery disease with coronary bypass graft, chronic renal insufficiency, pulmonary hypertension, and hypertension. S he was initially admitted to the hospital on December 26, 2016, for a urinary tract infection. She sp ent time in the intensive care unit but subsequently transferred to the floor 10 days ago. She began becoming more hypoxemic last night. ABG this morning revealed hypercarbic respiratory failure, and she was transferred to the intensive care unit. Currently, she is arousable and awakens easily, but is unable to provide any history. All history is gleaned from the medical record. PAST MEDICAL HISTORY: As above. ALLERGIES: Morphine, codeine, and hydrocodone. SOCIAL HISTORY: She resides at [facility]. No history of tobacco use. No history of alcohol use. CURRENT MEDICATIONS: Include Tylenol, Abilify, Lipitor, Cardizem, Depakote, Colace, ferrous sulfate, low-dose Lasix, hydrocortisone, levothyroxine, Ativan, Zofran, Zanaflex, tramadol, and Unasyn. PHYSICAL EXAMINATION: VITAL SIGNS: Blood pressure is 154/60, pulse is 100, respirations 20, tempera ture 36.9, oxygen saturation 100% on BiPAP. GENERAL: She is a moderately overweight elderly white f emale who is somnolent but arousable. HEENT: Eyes are PERRLA, EOMI. Throat exam is deferred second vani to BiPAP. NECK: Supple. No cervical adenopathy. HEART: Regular rate and rhythm without murmu rs, rubs, or gallops. LUNGS: Diminished breath sounds. There is very poor air movement but no whee ze. ABDOMEN: Soft, nontender. Bowel sounds are present. EXTREMITIES: No clubbing, cyanosis, or e gaurang. LABORATORY: Arterial blood gas: pH 7.39, pCO2 of 69, pO2 of 35, bicarb 43, oxygen saturation 68%. White count is 15 (this is up from 8.5 yesterday), hemoglobin 9.1, hematocrit 26, platelet count 286. Sodium 134, potassium 3.8, chloride 81, CO2 40, BUN 11, creatinine 0.7, glucose 107. Chest x-ray: Apical view shows diffuse pulmonary edema. There is a hint of a left pneumothorax. IMPRESSION: 1. Hypercarbic respiratory failure. 2. Diffuse pulmonary edema. 3. Possible pneumothorax. 4. Chronic renal insufficiency. 5. Bipolar disease. 6. Obstructive sleep apnea. 7. History of breast cancer. 8. Hypothyroidism. 9. History of pulmonary hypertension. PLAN: 1. Patient will be admitted to the step-down unit. 2. Will continue BiPAP. 3. Will recheck an ABG. 4. Would aggressively diurese the patient. 5. Check an echocardiogram. 6. Close cardiovascular monitoring. 7. Continue the majority of her current medications. /[id number]/MODL
[2017-01-14] MEDS: PATCH REMOVAL 1 EA PATCH TD SCH (20:53)
[2017-01-14] MEDS: DIVALPROEX ER 250 MG TAB PO SCH (20:53)
[2017-01-14] MEDS: ATORVASTATIN CALCIUM 20 MG TAB PO SCH (20:53)
[2017-01-14] MEDS: ARIPiprazole 5 MG TAB PO SCH (20:53)
[2017-01-15] MEDS: AMPICILLIN/SULBACTAM 3 GM in NS 100 ML IV SCH ×4 (00:45→17:56)
[2017-01-15 05:16] LABS: INR 1.3 (0.83-1.16); PROTIME(PATIENT) 16.2 SEC (12.0-15.0)
[2017-01-15 05:30] LABS: CALCIUM 8.6 mg/dL (8.5-10.4); CHLORIDE 80 mEq/L (97-110); CREATININE 0.6 mg/dL (0.6-1.0); GLOMERULAR FILTRATION RATE > 60; GLUCOSE 100 mg/dL (70-100); POTASSIUM 3.5 mEq/L (3.5-5.2); SODIUM 135 mEq/L (134-144)
[2017-01-15 05:46] LABS: ANION GAP 7 mEq/L (8-16)
[2017-01-15 05:47] LABS: CARBON DIOXIDE 48 mEq/l (22-31)
[2017-01-15] MEDS: LEVOTHYROXINE 175 MCG TAB PO SCH (07:26)
[2017-01-15] MEDS ORDERED: FUROSEMIDE 20 MG/2 ML VIAL IVP SCH (09:00)
--- NOTE | 2017-01-15 09:36 | PDINTPN ---
Immigration Law Specialist Progress Note Assessment/Plan: Assessment/Plan: * Hypercarbic respiratory failure-improved with BiPAP. Oxygen saturations are excellent, however patient is somewhat somnolent this morning -check ABG -wean FiO2 * Obstructive sleep apnea * Hypothyroidism * Diastolic heart failure * Atrial fibrillation * Bipolar disease * Coronary artery disease with history of coronary bypass graft * Chronic renal insufficiency * Pulmonary hypertension Subjective: Up in chair. Drowsy this morning. Objective: Vital Signs Temp Pulse Resp BP Pulse Ox 36.7 C 104 H 31 H 177/65 H 93 01/15/17 08:00 01/15/17 08:00 01/15/17 08:00 01/15/17 08:00 01/15/17 08:00 Laboratory Results 01/14/17 04:55 01/15/17 04:50 01/14/17 01/15/17 01/16/17 05:59 05:59 05:59 Intake Total 1370 750 Output Total 2952 4250 Balance -1582 -3500 PT 16.2 SEC (12.0-15.0) H 01/15/17 04:50 INR 1.30 (0.83-1.16) H 01/15/17 04:50 Physical Exam - Physical Exam General Appearance: other (Awakens easily but drowsy) EENT: PERRL/EOMI Neck: non-tender, full range of motion, supple, normal inspection Respiratory: decreased breath sounds, prolonged expiration, No wheezing Cardiac/Chest: normal peripheral pulses, regular rate, rhythm, systolic murmur Abdomen: normal bowel sounds, non-tender, soft Pelvic Exam: deferred Rectal: deferred Skin: normal color, warm/dry Extremities: non-tender Neuro/Psych: other (Drowsy) ICD10 Worksheet Patient Problems: Problems Problem Status Onset Generalized weakness Acute Hyponatremia Acute Palliative care encounter Acute UTI (urinary tract infection) Acute Abdominal pain Acute Acute encephalopathy Acute Altered mental status Acute Atrial fibrillation Acute CAD (coronary artery disease), [place] coronary artery Acute Chronic diastolic CHF (congestive heart failure) Acute Chronic hypoxemic respiratory failure Acute Chronic kidney disease (CKD) Acute New onset atrial fibrillation Acute Pyelonephritis Acute VHD (valvular heart disease) Acute
[2017-01-15] MEDS: LIDOCAINE 5% 1 EA PATCH TD SCH (09:45)
[2017-01-15] MEDS: POLYETHYLENE GLYCOL 3350 17 GM PKT PO SCH (09:45)
[2017-01-15] MEDS: ARIPiprazole 10 MG TAB PO SCH (09:45)
[2017-01-15] MEDS: FUROSEMIDE 20 MG/2 ML VIAL IVP SCH ×2 (09:46→14:58)
[2017-01-15] MEDS: DILTIAZEM 30 MG TAB PO SCH ×2 (09:46→19:36)
[2017-01-15] MEDS: HYDROCORTISONE 10 MG TAB PO SCH ×2 (09:46→15:04)
[2017-01-15] MEDS: SODIUM CL NASAL 45 ML BTL EACHNARE SCH ×4 (09:46→19:37)
[2017-01-15 10:37] LABS: ABSOLUTE NRBC COUNT 0.04 10^3/uL (0-0.01); ADD DIFF? YES; ADD MORPH? NO; ADD SCAN? NO; ATYPICAL LYMPHOCYTE FLAG 10 (0-99); FRAGMENT RBC FLAG 0 (0-99); HEMATOCRIT 27.2 % (38.0-47.0); LEFT SHIFT FLG 20 (0-99); LIPEMIA HEMOLYSIS FLAG 80 (0-99); MEAN CELL HEMOGLOBIN CONCENTR. 33.1 g/dL (32.4-36.7); MEAN CELL VOLUME 105.8 fL (81.5-99.8); MEAN PLATELET VOLUME 9.3 fL (8.7-11.7); NRBC-AUTO% 0.3 % (0.0-0.2); PLATELET CLUMPS FLAG 0 (0-99); PLATELET COUNT 261 10^3/uL (150-400); RED BLOOD CELL COUNT 2.57 10^6/uL (4.18-5.33); RED CELL DISTRIBUTION WIDTH 15.7 % (11.5-15.2)
[2017-01-15] MEDS ORDERED: PROTOCOL MAGNESIUM 1 DOSE IV PRN (11:36)
[2017-01-15] MEDS ORDERED: PROTOCOL POTASSIUM 1 DOSE MISC PRN (11:36)
[2017-01-15] MEDS ORDERED: POTASSIUM CL 10 MEQ TAB PO ONE ×2 (11:52→17:56)
[2017-01-15] MEDS: FERROUS SULFATE 325 MG TAB PO SCH (12:11)
[2017-01-15 14:07] LABS: MACROCYTES 2+; PLATELET ESTIMATE ADEQUATE (ADEQ); POLYCHROMASIA 2+
[2017-01-15 14:08] LABS: TOXIC GRANULATION PRESENT
--- NOTE | 2017-01-15 15:09 | HOSPPROG ---
Hospitalist Progress Note Assessment/Plan: #Acute hypoxic resp failure: increased edema on CXR (personally reviewed). Diuresing. improved w diuresis still w hypercarbia unasyn started given resp failure cxr yesterday w no infiltrate (interp by me) will likely dc abnx 01/16 #Hypotension: resolved. Likely due to opioids, Dilt and intrasvasc dry. Improved with albumintifactorial with Tramadol. Tinazadine, Dilt. Also intrasvasc dry based on urine lytes. Improved with albumin. I discussed with Dr. Joseph. Reduced dose of dilt #Permanent atrial fibrillation: decreased dose of dilt Hold AC with hematoma #Anemia: mild drop in H/H may be due to hematoma. Repeat in AM #Hyponatremia: resolved with albumin and diuresis. #Somnolence: yesterday due to hypercarbia; improved with Bipap, Hold opioids, muscle relaxer #Pacemaker hematoma: holding anticoagulation. start warfain today #Septic shock: resolved. Aspiration PNA vxs. UTI . s/p Zosyn #Bradycardia: s/p pacer Jan 07. #Hypothyroidism: LT4 #Decompensated diastolic HF: cont diuresis #SHAUNA/pulm HTN: CPAP, Lasix #Bipolar d/o: depakote #Diet: cardiac Subjective: diuresing well. case d/w dr del angel Objective: Vital Signs Temp Pulse Resp BP Pulse Ox 37.0 C 106 H 28 H 149/59 H 100 01/15/17 12:00 01/15/17 12:00 01/15/17 12:00 01/15/17 12:00 01/15/17 12:00 Laboratory Results 01/15/17 10:10 01/15/17 04:50 01/14/17 01/15/17 01/16/17 05:59 05:59 05:59 Intake Total 1370 750 Output Total 2952 4250 1150 Balance -1582 -3500 -1150 PT 16.2 SEC (12.0-15.0) H 01/15/17 04:50 INR 1.30 (0.83-1.16) H 01/15/17 04:50 - Physical Exam Constitutional: no apparent distress, appears nourished Eyes: PERRL, anicteric sclera Ears, Nose, Mouth, Throat: moist mucous membranes, hearing normal Cardiovascular: regular rate and rhythym, no murmur, rub, or gallop, other ( pacre hematoma w no redness, warmth or drainage) Respiratory: no respiratory distress, no rales or rhonchi Gastrointestinal: normoactive bowel sounds, soft, non-tender abdomen Genitourinary: cobb in urethra Skin: warm, normal color Musculoskeletal: full muscle strength ICD10 Worksheet Patient Problems: Problems Problem Status Onset Generalized weakness Acute Hyponatremia Acute Palliative care encounter Acute UTI (urinary tract infection) Acute Abdominal pain Acute Acute encephalopathy Acute Altered mental status Acute Atrial fibrillation Acute CAD (coronary artery disease), [place] coronary artery Acute Chronic diastolic CHF (congestive heart failure) Acute Chronic hypoxemic respiratory failure Acute Chronic kidney disease (CKD) Acute New onset atrial fibrillation Acute Pyelonephritis Acute VHD (valvular heart disease) Acute
[2017-01-15] MEDS: WARFARIN SODIUM 5 MG TAB PO SCH (15:26)
[2017-01-15 17:40] LABS: POTASSIUM 3.9 mEq/L (3.5-5.2)
--- NOTE | 2017-01-15 18:24 | ASMTCMCOM ---
CM Note CM Note Notes: Reviewed chart regarding discharge plan, pt's progress. Per prior CM notes, pt current w/ [facility]. Pt was previously at [facility] and would like to return. Pt has been accepted back. Lina at [facility] is not approving pt for LTC at this time (as of 01/12/17). Per MD notes, pt w/ hypercarbic resp failure on BiPap, extensive medical hx. Discharge needs and date remain TBD at this time. CM will cont to follow for potential needs. Current Discharge Plan: TBD Date Signed: 01/15/2017 06:23 PM Electronically Signed By:Shaniqua Yoo RN
[2017-01-15] MEDS: ATORVASTATIN CALCIUM 20 MG TAB PO SCH (19:36)
[2017-01-15] MEDS: DIVALPROEX ER 250 MG TAB PO SCH (19:36)
[2017-01-15] MEDS: ARIPiprazole 5 MG TAB PO SCH (19:36)
[2017-01-15] MEDS: PATCH REMOVAL 1 EA PATCH TD SCH (19:39)
[2017-01-16] MEDS: AMPICILLIN/SULBACTAM 3 GM in NS 100 ML IV SCH ×3 (00:07→12:30)
[2017-01-16 04:51] LABS: ADD DIFF? YES; ADD MORPH? NO; ADD SCAN? NO; ATYPICAL LYMPHOCYTE FLAG 0 (0-99); FRAGMENT RBC FLAG 0 (0-99); HEMATOCRIT 26.4 % (38.0-47.0); HEMOGLOBIN 8.7 g/dL (12.6-16.3); LEFT SHIFT FLG 30 (0-99); LIPEMIA HEMOLYSIS FLAG 80 (0-99); MEAN CELL HEMOGLOBIN 34.7 pg (27.9-34.1); MEAN CELL VOLUME 105.2 fL (81.5-99.8); MEAN PLATELET VOLUME 9.3 fL (8.7-11.7); PLATELET CLUMPS FLAG 0 (0-99); PLATELET COUNT 238 10^3/uL (150-400); RED BLOOD CELL COUNT 2.51 10^6/uL (4.18-5.33); RED CELL DISTRIBUTION WIDTH 15.5 % (11.5-15.2)
[2017-01-16 05:00] LABS: INR 1.37 (0.83-1.16); PROTIME(PATIENT) 16.9 SEC (12.0-15.0)
[2017-01-16 05:04] LABS: CALCIUM 8.3 mg/dL (8.5-10.4); CHLORIDE 77 mEq/L (97-110); CREATININE 0.6 mg/dL (0.6-1.0); GLOMERULAR FILTRATION RATE > 60; GLUCOSE 105 mg/dL (70-100); MAGNESIUM 1.4 mg/dL (1.6-2.3); POTASSIUM 3.7 mEq/L (3.5-5.2); SODIUM 132 mEq/L (134-144)
[2017-01-16 05:10] LABS: ANION GAP 7 mEq/L (8-16)
[2017-01-16 05:11] LABS: CARBON DIOXIDE 48 mEq/l (22-31)
[2017-01-16] MEDS ORDERED: POTASSIUM CL 10 MEQ TAB PO ONE (05:17)
[2017-01-16 05:37] LABS: MACROCYTES 1+; MICROCYTES 1+; PLATELET ESTIMATE ADEQUATE (ADEQ); POLYCHROMASIA 1+; TOXIC GRANULATION PRESENT; TOXIC VACUOLIZATION PRESENT
[2017-01-16 05:38] LABS: STOMATOCYTES 1+
[2017-01-16] MEDS: LEVOTHYROXINE 175 MCG TAB PO SCH (06:05)
[2017-01-16] MEDS ORDERED: MAGNESIUM SULF 2 GM/WATER 50 ML IV ONE (07:06)
[2017-01-16] MEDS: LIDOCAINE 5% 1 EA PATCH TD SCH (07:47)
[2017-01-16] MEDS: SODIUM CL NASAL 45 ML BTL EACHNARE SCH ×3 (07:47→21:17)
[2017-01-16] MEDS: DILTIAZEM 30 MG TAB PO SCH ×2 (07:48→21:09)
[2017-01-16] MEDS: FUROSEMIDE 20 MG/2 ML VIAL IVP SCH ×2 (07:48→16:07)
[2017-01-16] MEDS: ARIPiprazole 10 MG TAB PO SCH (07:48)
--- NOTE | 2017-01-16 09:28 | PDINTPN ---
Process Server Progress Note Assessment/Plan: Assessment/Plan: * Hypercarbic respiratory failure-improved with BiPAP. -continue BiPAP at night * Obstructive sleep apnea-continue BiPAP at night * Hypothyroidism * Diastolic heart failure * Atrial fibrillation * Bipolar disease * Coronary artery disease with history of coronary bypass graft * Chronic renal insufficiency * Pulmonary hypertension * Disposition-will transfer patient to the floor Subjective: Of with PT. Breathing easily. Awake and alert. Objective: Vital Signs Temp Pulse Resp BP Pulse Ox 36.6 C 108 H 19 148/58 H 94 01/16/17 07:58 01/16/17 07:58 01/16/17 07:58 01/16/17 07:58 01/16/17 07:58 Laboratory Results 01/16/17 04:35 01/16/17 04:35 01/15/17 01/16/17 01/17/17 05:59 05:59 05:59 Intake Total 750 1550 Output Total 4250 2950 Balance -3500 -1400 PT 16.9 SEC (12.0-15.0) H 01/16/17 04:35 INR 1.37 (0.83-1.16) H 01/16/17 04:35 Physical Exam - Physical Exam General Appearance: alert, no apparent distress EENT: PERRL/EOMI Neck: non-tender, full range of motion, supple, normal inspection Respiratory: decreased breath sounds, No respiratory distress, No wheezing Cardiac/Chest: normal peripheral pulses, regular rate, rhythm Abdomen: normal bowel sounds, non-tender, soft Pelvic Exam: deferred Rectal: deferred Skin: normal color, warm/dry ICD10 Worksheet Patient Problems: Problems Problem Status Onset Generalized weakness Acute Hyponatremia Acute Palliative care encounter Acute UTI (urinary tract infection) Acute Abdominal pain Acute Acute encephalopathy Acute Altered mental status Acute Atrial fibrillation Acute CAD (coronary artery disease), [place] coronary artery Acute Chronic diastolic CHF (congestive heart failure) Acute Chronic hypoxemic respiratory failure Acute Chronic kidney disease (CKD) Acute New onset atrial fibrillation Acute Pyelonephritis Acute VHD (valvular heart disease) Acute
[2017-01-16] MEDS: HYDROCORTISONE 10 MG TAB PO SCH ×2 (09:54→16:09)
[2017-01-16] MEDS: WARFARIN SODIUM 5 MG TAB PO SCH (16:09)
[2017-01-16] MEDS: FERROUS SULFATE 325 MG TAB PO SCH (16:09)
--- NOTE | 2017-01-16 16:19 | HOSPPROG ---
Hospitalist Progress Note Assessment/Plan: Acute hypoxic resp failure: increased edema on CXR (personally reviewed). Diuresing. improved w diuresis still w hypercarbia dc abx Hypotension: resolved. Likely due to opioids, Dilt and intrasvasc dry. Improved with albumintifactorial with Tramadol. Tinazadine, Dilt. Also intrasvasc dry based on urine lytes. Improved with albumin. I discussed with Dr. Joseph. Reduced dose of dilt Permanent atrial fibrillation: decreased dose of dilt Hold AC with hematoma Anemia: mild drop in H/H may be due to hematoma. Repeat in AM Hyponatremia: resolved with albumin and diuresis. Somnolence: yesterday due to hypercarbia; improved with Bipap, Hold opioids, muscle relaxer Pacemaker hematoma: holding anticoagulation. start warfain today Septic shock: resolved. Aspiration PNA vxs. UTI . s/p Zosyn #Bradycardia: s/p pacer Jan 07. #Hypothyroidism: LT4 #Decompensated diastolic HF: cont diuresis #SHAUNA/pulm HTN: CPAP, Lasix #Bipolar d/o: depakote #Diet: cardiac Subjective: case d/w dr del angel Objective: Vital Signs Temp Pulse Resp BP Pulse Ox 36.9 C 100 18 147/66 H 96 01/16/17 16:00 01/16/17 16:00 01/16/17 16:00 01/16/17 16:00 01/16/17 16:00 Laboratory Results 01/16/17 04:35 01/16/17 04:35 01/15/17 01/16/17 01/17/17 05:59 05:59 05:59 Intake Total 750 1550 Output Total 4250 2950 Balance -3500 -1400 PT 16.9 SEC (12.0-15.0) H 01/16/17 04:35 INR 1.37 (0.83-1.16) H 01/16/17 04:35 - Physical Exam Constitutional: no apparent distress, appears nourished Eyes: PERRL, anicteric sclera Ears, Nose, Mouth, Throat: moist mucous membranes, hearing normal Cardiovascular: regular rate and rhythym, no murmur, rub, or gallop, other ( hematoma soft, not warm) Respiratory: no respiratory distress, no rales or rhonchi Gastrointestinal: normoactive bowel sounds, soft, non-tender abdomen Genitourinary: no bladder fullness, cobb in urethra Skin: warm, normal color Musculoskeletal: full muscle strength, no muscle tenderness Neurologic: AAOx3 Psychiatric: interacting appropriately, not anxious ICD10 Worksheet Patient Problems: Problems Problem Status Onset Generalized weakness Acute Hyponatremia Acute Palliative care encounter Acute UTI (urinary tract infection) Acute Abdominal pain Acute Acute encephalopathy Acute Altered mental status Acute Atrial fibrillation Acute CAD (coronary artery disease), [place] coronary artery Acute Chronic diastolic CHF (congestive heart failure) Acute Chronic hypoxemic respiratory failure Acute Chronic kidney disease (CKD) Acute New onset atrial fibrillation Acute Pyelonephritis Acute VHD (valvular heart disease) Acute
[2017-01-16 18:06] LABS: POTASSIUM 4.2 mEq/L (3.5-5.2)
[2017-01-16] MEDS: DIVALPROEX ER 250 MG TAB PO SCH (21:08)
[2017-01-16] MEDS: ARIPiprazole 5 MG TAB PO SCH (21:09)
[2017-01-16] MEDS: ATORVASTATIN CALCIUM 20 MG TAB PO SCH (21:09)
[2017-01-16] MEDS: PATCH REMOVAL 1 EA PATCH TD SCH (21:11)
[2017-01-17 04:13] LABS: ADD DIFF? YES; ADD MORPH? NO; ADD SCAN? NO; ATYPICAL LYMPHOCYTE FLAG 0 (0-99); FRAGMENT RBC FLAG 0 (0-99); HEMATOCRIT 26.9 % (38.0-47.0); LEFT SHIFT FLG 30 (0-99); LIPEMIA HEMOLYSIS FLAG 80 (0-99); MEAN CELL HEMOGLOBIN 34.7 pg (27.9-34.1); MEAN CELL HEMOGLOBIN CONCENTR. 33.5 g/dL (32.4-36.7); MEAN CELL VOLUME 103.9 fL (81.5-99.8); PLATELET CLUMPS FLAG 10 (0-99); PLATELET COUNT 232 10^3/uL (150-400); RED BLOOD CELL COUNT 2.59 10^6/uL (4.18-5.33); RED CELL DISTRIBUTION WIDTH 15.3 % (11.5-15.2)
[2017-01-17 04:31] LABS: CALCIUM 8.2 mg/dL (8.5-10.4); CHLORIDE 76 mEq/L (97-110); CREATININE 0.7 mg/dL (0.6-1.0); GLOMERULAR FILTRATION RATE > 60; GLUCOSE 106 mg/dL (70-100); MAGNESIUM 1.8 mg/dL (1.6-2.3); POTASSIUM 3.9 mEq/L (3.5-5.2); SODIUM 130 mEq/L (134-144)
[2017-01-17 04:34] LABS: INR 1.75 (0.83-1.16); PROTIME(PATIENT) 20.5 SEC (12.0-15.0)
[2017-01-17 04:40] LABS: ANION GAP 9 mEq/L (8-16)
[2017-01-17 04:44] LABS: CARBON DIOXIDE 45 mEq/l (22-31)
[2017-01-17 04:50] LABS: MACROCYTES 1+; PLATELET ESTIMATE ADEQUATE (ADEQ); POLYCHROMASIA 1+; STOMATOCYTES 1+
[2017-01-17] MEDS ORDERED: POTASSIUM CL 10 MEQ TAB PO ONE (05:13)
[2017-01-17] MEDS ORDERED: MAGNESIUM SULF 1 GM/DEXTROSE 100 ML IV ONE (05:28)
[2017-01-17] MEDS: LEVOTHYROXINE 175 MCG TAB PO SCH (05:35)
[2017-01-17] MEDS: ACETAMINOPHEN 325 MG TAB PO PRN (05:44)
[2017-01-17] MEDS: ARIPiprazole 10 MG TAB PO SCH (08:02)
[2017-01-17] MEDS: POLYETHYLENE GLYCOL 3350 17 GM PKT PO SCH (08:02)
[2017-01-17] MEDS: DILTIAZEM 30 MG TAB PO SCH ×2 (08:03→20:44)
[2017-01-17] MEDS: LIDOCAINE 5% 1 EA PATCH TD SCH (08:03)
[2017-01-17] MEDS: FUROSEMIDE 20 MG/2 ML VIAL IVP SCH ×2 (08:03→15:30)
[2017-01-17] MEDS: HYDROCORTISONE 10 MG TAB PO SCH ×2 (09:14→15:28)
[2017-01-17] MEDS: SODIUM CL NASAL 45 ML BTL EACHNARE SCH ×3 (09:15→21:54)
[2017-01-17] MEDS: FERROUS SULFATE 325 MG TAB PO SCH (13:13)
--- NOTE | 2017-01-17 15:09 | ASMTCMCOM ---
CM Note CM Note Notes: Hospitalist concerned that patient has been in [facility] for a month and Therapies recommending SNF. Talking with Monet, she thinks that she is at her baseline activity house. She reports that she can transfer, use her walker and get to the bathroom, which is what Monet Diaz Norberto needs her to do. [facility] They can come out Tuesday AM to assess her. Spoke to her sister, Hallie who would like her to return to [facility] and is afraid if she goes to LTC will lose her bed at [facility]. She has had [facility] and they are will to continue their care of her. Referral info sent to [facility]. Date Signed: 01/17/2017 03:09 PM Electronically Signed By:Lucille Araiza LCSW
[2017-01-17] MEDS: WARFARIN SODIUM 5 MG TAB PO SCH (15:28)
--- NOTE | 2017-01-17 16:44 | HOSPPROG ---
Hospitalist Progress Note Assessment/Plan: Acute hypoxic resp failure: increased edema on CXR (personally reviewed). Diuresing. improved w diuresis still w hypercarbia dc abx Hypotension: resolved. Permanent atrial fibrillation: decreased dose of dilt Hold AC with hematoma Anemia: mild drop in H/H may be due to hematoma. Repeat in AM Hyponatremia: resolved with albumin and diuresis. Somnolence: yesterday due to hypercarbia; improved with Bipap, Hold opioids, muscle relaxer Pacemaker hematoma: holding anticoagulation. start warfain today volume overload: dc IV lasix Septic shock: resolved. Aspiration PNA vxs. UTI . s/p Zosyn #Bradycardia: s/p pacer Jan 07. #Hypothyroidism: LT4 #Decompensated diastolic HF: cont diuresis #SHAUNA/pulm HTN: CPAP, Lasix #Bipolar d/o: depakote #Diet: cardiac Subjective: anxious for dc. improving w PT and OT. case d/w dr almanza Objective: Vital Signs Temp Pulse Resp BP Pulse Ox 37.0 C 103 H 20 90/47 L 97 01/17/17 15:14 01/17/17 15:14 01/17/17 15:14 01/17/17 15:14 01/17/17 15:14 Laboratory Results 01/17/17 04:05 01/17/17 04:05 01/16/17 01/17/17 01/18/17 05:59 05:59 05:59 Intake Total 1550 1000 Output Total 2950 2500 Balance -1400 -1500 PT 20.5 SEC (12.0-15.0) H 01/17/17 04:05 INR 1.75 (0.83-1.16) H 01/17/17 04:05 - Physical Exam Constitutional: no apparent distress, appears nourished Eyes: PERRL, anicteric sclera Ears, Nose, Mouth, Throat: moist mucous membranes, hearing normal Cardiovascular: regular rate and rhythym, no murmur, rub, or gallop Respiratory: no respiratory distress, no rales or rhonchi Gastrointestinal: normoactive bowel sounds, soft, non-tender abdomen Genitourinary: No cobb in urethra Skin: warm, normal color Musculoskeletal: full muscle strength, no muscle tenderness Neurologic: AAOx3 ICD10 Worksheet Patient Problems: Problems Problem Status Onset Generalized weakness Acute Hyponatremia Acute Palliative care encounter Acute UTI (urinary tract infection) Acute Abdominal pain Acute Acute encephalopathy Acute Altered mental status Acute Atrial fibrillation Acute CAD (coronary artery disease), [place] coronary artery Acute Chronic diastolic CHF (congestive heart failure) Acute Chronic hypoxemic respiratory failure Acute Chronic kidney disease (CKD) Acute New onset atrial fibrillation Acute Pyelonephritis Acute VHD (valvular heart disease) Acute
[2017-01-17] MEDS: ATORVASTATIN CALCIUM 20 MG TAB PO SCH (20:44)
[2017-01-17] MEDS: ARIPiprazole 5 MG TAB PO SCH (20:44)
[2017-01-17] MEDS: DIVALPROEX ER 250 MG TAB PO SCH (20:45)
[2017-01-17] MEDS: PATCH REMOVAL 1 EA PATCH TD SCH (21:54)
[2017-01-18] MEDS: traMADol 50 MG TAB PO PRN (05:08)
[2017-01-18] MEDS: LEVOTHYROXINE 175 MCG TAB PO SCH (05:08)
[2017-01-18 05:54] LABS: ADD DIFF? YES; ADD MORPH? NO; ADD SCAN? NO; ATYPICAL LYMPHOCYTE FLAG 0 (0-99); FRAGMENT RBC FLAG 0 (0-99); HEMATOCRIT 28.8 % (38.0-47.0); HEMOGLOBIN 9.6 g/dL (12.6-16.3); LEFT SHIFT FLG 30 (0-99); LIPEMIA HEMOLYSIS FLAG 80 (0-99); MEAN CELL HEMOGLOBIN 34.3 pg (27.9-34.1); MEAN CELL HEMOGLOBIN CONCENTR. 33.3 g/dL (32.4-36.7); MEAN CELL VOLUME 102.9 fL (81.5-99.8); PLATELET CLUMPS FLAG 0 (0-99); PLATELET COUNT 223 10^3/uL (150-400); RED CELL DISTRIBUTION WIDTH 14.9 % (11.5-15.2)
[2017-01-18 06:03] LABS: CALCIUM 8.7 mg/dL (8.5-10.4); CHLORIDE 78 mEq/L (97-110); CREATININE 0.7 mg/dL (0.6-1.0); GLOMERULAR FILTRATION RATE > 60; GLUCOSE 99 mg/dL (70-100); INR 2.01 (0.83-1.16); MAGNESIUM 1.8 mg/dL (1.6-2.3); POTASSIUM 3.8 mEq/L (3.5-5.2); PROTIME(PATIENT) 22.9 SEC (12.0-15.0); SODIUM 129 mEq/L (134-144)
[2017-01-18 06:12] LABS: ANION GAP 9 mEq/L (8-16); CARBON DIOXIDE 42 mEq/l (22-31)
[2017-01-18 06:39] LABS: HYPOCHROMIA 1+; MICROCYTES 1+; POLYCHROMASIA 1+; STOMATOCYTES 1+
[2017-01-18 06:42] LABS: TOXIC VACUOLIZATION PRESENT
[2017-01-18 06:43] LABS: PLATELET ESTIMATE ADEQUATE (ADEQ)
[2017-01-18] MEDS ORDERED: MAGNESIUM SULF 1 GM/DEXTROSE 100 ML IV ONE (07:05)
[2017-01-18] MEDS ORDERED: POTASSIUM CL 10 MEQ TAB PO ONE (07:05)
[2017-01-18 07:16] VITALS: BP 143/69; RESP 20; TEMP 98.3
[2017-01-18] MEDS: POLYETHYLENE GLYCOL 3350 17 GM PKT PO SCH (07:34)
[2017-01-18] MEDS: HYDROCORTISONE 10 MG TAB PO SCH ×2 (07:36→15:30)
[2017-01-18] MEDS: ARIPiprazole 10 MG TAB PO SCH (07:36)
[2017-01-18] MEDS: LIDOCAINE 5% 1 EA PATCH TD SCH (07:36)
[2017-01-18] MEDS: DILTIAZEM 30 MG TAB PO SCH (07:36)
[2017-01-18] MEDS: SODIUM CL NASAL 45 ML BTL EACHNARE SCH ×2 (07:37→12:02)
[2017-01-18] MEDS: FERROUS SULFATE 325 MG TAB PO SCH (12:02)
[2017-01-18 13:46] VITALS: PULSE 114; O2SAT 94
[2017-01-18] MEDS: WARFARIN SODIUM 5 MG TAB PO SCH (15:30)
--- NOTE | 2017-01-18 15:58 | HOSPPROG ---
Hospitalist Progress Note Assessment/Plan: Acute hypoxic resp failure: increased edema on CXR (personally reviewed). Diuresing. improved w diuresis still w hypercarbia dc abx Hypotension: resolved. Permanent atrial fibrillation: decreased dose of dilt Hold AC with hematoma Anemia: mild drop in H/H may be due to hematoma. Repeat in AM Hyponatremia: resolved with albumin and diuresis. Somnolence: yesterday due to hypercarbia; improved with Bipap, Hold opioids, muscle relaxer Pacemaker hematoma: holding anticoagulation. start warfain today volume overload: dc IV lasix Septic shock: resolved. Aspiration PNA vxs. UTI . s/p Zosyn #Bradycardia: s/p pacer Jan 07. #Hypothyroidism: LT4 #Decompensated diastolic HF: cont diuresis #SHAUNA/pulm HTN: CPAP, Lasix #Bipolar d/o: depakote #dispo: back to [facility] > 30 minutes on dc Subjective: cleared for dc back to [facility] Objective: Vital Signs Temp Pulse Resp BP Pulse Ox 36.8 C 114 H 20 143/69 H 94 01/18/17 07:15 01/18/17 10:33 01/18/17 07:15 01/18/17 07:15 01/18/17 10:33 Laboratory Results 01/18/17 05:35 01/18/17 05:35 01/17/17 01/18/17 01/19/17 05:59 05:59 05:59 Intake Total 1000 1550 Output Total 2500 500 500 Balance -1500 1050 -500 PT 22.9 SEC (12.0-15.0) H 01/18/17 05:35 INR 2.01 (0.83-1.16) H 01/18/17 05:35 - Physical Exam Constitutional: no apparent distress, appears nourished Eyes: PERRL, anicteric sclera Ears, Nose, Mouth, Throat: moist mucous membranes, hearing normal Cardiovascular: regular rate and rhythym, no murmur, rub, or gallop Respiratory: no respiratory distress, no rales or rhonchi Gastrointestinal: normoactive bowel sounds, soft, non-tender abdomen Genitourinary: no bladder fullness Skin: warm, normal color Musculoskeletal: full muscle strength Neurologic: AAOx3 ICD10 Worksheet Patient Problems: Problems Problem Status Onset Chronic kidney disease (CKD) Acute CAD (coronary artery disease), [place] coronary artery Acute VHD (valvular heart disease) Acute Hyponatremia Acute Altered mental status Acute Chronic hypoxemic respiratory failure Acute Acute encephalopathy Acute Atrial fibrillation Acute Chronic diastolic CHF (congestive heart failure) Acute Abdominal pain Acute New onset atrial fibrillation Acute UTI (urinary tract infection) Acute Pyelonephritis Acute Generalized weakness Acute Palliative care encounter Acute
--- NOTE | 2017-01-18 16:02 | PDIAF ---
- Diagnosis Diagnosis: bradycardia Code Status: Full Code - Medication Management Discharge Medications: Medications to Continue on Transfer ARIPiprazole [Abilify 10 mg (*)] 10 mg PO DAILY@11/19/14 [Last Taken 12/25/16 ] ARIPiprazole [Abilify 5 mg (*)] 5 mg PO HS@11/19/14 [Last Taken 12/24/16] Acetaminophen [Tylenol ES 500 mg (*)] 500 mg PO Q4 PRN 11/19/14 [Last Taken ] Alendronate Sodium [Fosamax 70 MG (*)] 70 mg PO MO@0711/19/14 [Last Taken ] Atorvastatin Calcium [Lipitor 20 mg (*)] 20 mg PO HS@11/19/14 [Last Taken ] Calcium Carbonate/Vitamin D3 [Os-Derek 500-Vit D3 600 Cap[place]] 1 tab PO TID@11/19/14 [Last Taken 12/25/16 12:00] Divalproex ER [Depakote ER 250 MG (*)] 750 mg PO HS@11/19/14 [Last Taken ] Ferrous Sulfate [Ferrous Sulf 325 MG (*)] 325 mg PO DAILY@11/19/14 [Last Taken 12/25/16] Levothyroxine [Synthroid 175 mcg (*)] 175 mcg PO DAILY@11/19/14 [Last Taken 12/25/16] Ranitidine HCl [Zantac] 150 mg PO BID@11/19/14 [Last Taken 12/25/16 08:00] Tizanidine HCl 4 mg PO TID@11/19/14 [Last Taken 12/25/16 14:00] Polyethylene Glycol 3350 [Miralax 17 gm (*)] 8.5 gm PO MOTUWETHFRSA@01/14/15 [Last Taken 12/25/16] Hydrocortisone [Cortef 10 mg (*)] 20 mg PO DAILY@01/19/15 [Last Taken ] Warfarin Sodium [Coumadin 2.5MG (*)] 2.5 mg PO TUTHSA@03/02/16 [Last Taken 17:00] Warfarin Sodium [Coumadin 5MG (*)] 5 mg PO SUMOWEFR@17 03/02/16 [Last Taken ] traMADol [Ultram 50 mg (*)] 50 mg PO Q12 PRN 03/02/16 [Last Taken 12/23/16] Cholecalciferol Vit D3 [Vitamin D3 (*)] 1,000 units PO DAILY@12/25/16 [Last Taken 12/25/16] Docusate Sodium [Colace 100 MG (*)] 100 mg PO BID 12/25/16 [Last Taken 12/25/16] Furosemide [Lasix 20 MG (*)] 20 mg PO MOWESA@12/25/16 [Last Taken 12/25/16] Hydrocortisone [Cortef 10 mg (*)] 10 mg PO DAILY@14 12/25/16 [Last Taken ] Lidocaine 5% [Lidoderm 5% Patch (*)] 1 ea TD DAILY@12/25/16 [Last Taken 12/25] Metoprolol Succinate Xr [Toprol Xl 25 mg (*)] 12.5 mg PO DAILY@12/25/16 [ Last Taken 12/25/16] Prochlorperazine Maleate [Compazine 10mg (*)] 10 mg PO Q6 PRN 12/25/16 [Last Taken Unknown] Sodium Chloride [[place]] 1 spray EACHNARE TID@08,12,20 12/25/16 [Last Taken 12:00] Diltiazem [Cardizem Ir Q6hr] 30 mg PO Q12HRS #60 tab 01/18/17 [Last Taken Unknown] Discharge Medications: Refer to the Discharge Home Medication list for PRN reason. - Orders Services needed: Home Prison Care Face to Face: I certify that this patient was under my care and that I had the required [id number] encounter meeting the encounter requirements on the discharge day. My findings support the fact that the patient is homebound as defined in Home Care Face to Face Continued: CMS Chapter 7 Medicare Benefits Manual 30.1.1 , The condition of the patient is such that there exists a normal inability to leave home and consequently, leaving home would require a considerable and taxing effort. Isolation Type: None Diet Texture: Regular Texture Diet, Thin Liquids, Meds Whole w/Liquids - Follow Up Care Current Providers and Referrals: Patient,NotPresent [Unknown] - As per Instructions
--- NOTE | 2017-01-19 02:44 | GDS ---
[f rep st] DISCHARGE SUMMARY DISCHARGE DIAGNOSES: 1. Sepsis secondary to urinary tract infection with negative blood cultures. 2. Hypoxemic respiratory failure requiring intubation. 3. History of coronary artery disease. 4. History of atrial fibrillation. 5. Renal insufficiency. 6. Bradycardia, status post pacemaker. 7. Pacemaker pocket hematoma. 8. Chronic hypercarbic respiratory failure. 9. Bipolar. 10. Acute on chronic diastolic heart failure. 11. Pulmonary hypertension. 12. Chronic kidney disease. 13. History of breast cancer. 14. History of AV dali re-entry tachycardia, status post ablation. 15. Obstructive sleep apnea, intolerant of CPAP. Please see the admission history and physical by Dr. Zhen Gardiner on 12/25/2016. HOSPITAL COURSE: The patient presented with chest pain and was found to have, at that time, a normal white count, normal venous lactate, and positive UA. She was treated for E. coli UTI and subsequent ly developed bilateral pulmonary edema, ultimately, requiring mechanical ventilation. She was noted to be bradycardic in the 20s with a 7-second pause and pacer was placed. That was complicated by a s mall pacer pocket hematoma, which resolved and has been stable with resumption of anticoagulation. S he was on Coumadin prior to this. She was seen by palliative care with no major acute changes in the direction of her care. The patient was diuresed while here because of the volume resuscitation associated with sepsis. She received courses of antibiotics for pneumonia and was seen by Physical Therapy who initially recommen ding SNF, but she has achieved her baseline and is suitable for discharge back to the [facility]. She has outpatient followup with Cardiology. /[id number]/MODL
== END 2017-01-18 16:55 | disposition home health service (06) | DRG 871 ==
LOC: EDUNIT# → INTOOBSV 19:04 → F1N 19:55 → OBSVTOIN 12-26 14:07 → F2W 12-30 17:10 → F2N 12-30 20:06 → F2W 01-04 21:42 → F2N 01-14 09:50
PROVIDERS: ADMIT Internal Medicine; ATTEND Internal Medicine
DX: A41.9 Sepsis, unspecified organism (principal); J96.01 Acute respiratory failure with hypoxia; I50.33 Acute on chronic diastolic (congestive) heart failure; N39.0 Urinary tract infection, site not specified; L76.32 Postprocedural hematoma of skin and subcutaneous tissue following other procedure; J96.12 Chronic respiratory failure with hypercapnia; I25.10 Atherosclerotic heart disease of native coronary artery without angina pectoris; I48.2 Chronic atrial fibrillation; R00.1 Bradycardia, unspecified; F31.9 Bipolar disorder, unspecified; I27.20 Pulmonary hypertension, unspecified; N18.9 Chronic kidney disease, unspecified; G47.33 Obstructive sleep apnea (adult) (pediatric); B96.20 Unspecified Escherichia coli [E. coli] as the cause of diseases classified elsewhere; I49.5 Sick sinus syndrome; E66.09 Other obesity due to excess calories; Z68.37 Body mass index [BMI] 37.0-37.9, adult; Z85.3 Personal history of malignant neoplasm of breast; Z66 Do not resuscitate; Z23 Encounter for immunization; Z79.01 Long term (current) use of anticoagulants; Z95.1 Presence of aortocoronary bypass graft
CPT/HCPCS: 92526-GN; 92610-GN; 96365; 97110-GP; 97116-GP; 97161-GP; 97166-GO; 97168-GO; 97530-GO; 97530-GP; 97535-GO; C1751; C1769; C1786; C1898; G0008; G0378; G8978-GP-CJ; G8979-GP-CI; G8996-GN-CK; G8997-GN-CI; J0295; J0330; J0690; J0696; J1170; J1265; J1650; J1885; J1940; J2060; J2250; J2543; J2704; J3010; J3430; J3475; P9016; P9017; P9047

== ENCOUNTER 2017-01-24 12:04 | Inpatient (IN) | payer OTHER, MEDICAID ==
--- NOTE | 2017-01-24 12:20 | CPEKG ---
Heart Rate: 95 RR Interval: 632 QRSD Interval: 82 QT Interval: 344 QTC Interval: 433 QRS [place]: 124 T Wave [place]: 43 EKG Severity - ABNORMAL ECG - EKG Impression: ATRIAL FIBRILLATION, V-RATE 66-112 EKG Impression: ABERRANT COMPLEX EKG Impression: LEFT POSTERIOR FASCICULAR BLOCK Electronically Signed By: Jagdish Cardona 24-Jan-2017 15:33:27
[2017-01-24 12:47] LABS: ADD DIFF? YES; ADD MORPH? NO; ADD SCAN? NO; ATYPICAL LYMPHOCYTE FLAG 0 (0-99); FRAGMENT RBC FLAG 30 (0-99); HEMATOCRIT 24.8 % (38.0-47.0); HEMOGLOBIN 8.1 g/dL (12.6-16.3); LEFT SHIFT FLG 60 (0-99); LIPEMIA HEMOLYSIS FLAG 80 (0-99); MEAN CELL HEMOGLOBIN 33.8 pg (27.9-34.1); MEAN CELL HEMOGLOBIN CONCENTR. 32.7 g/dL (32.4-36.7); MEAN CELL VOLUME 103.3 fL (81.5-99.8); MEAN PLATELET VOLUME 10.1 fL (8.7-11.7); PLATELET CLUMPS FLAG 10 (0-99); PLATELET COUNT 178 10^3/uL (150-400); RED CELL DISTRIBUTION WIDTH 14.7 % (11.5-15.2)
[2017-01-24 12:53] LABS: ANION GAP 10 mEq/L (8-16); CALCIUM 8.9 mg/dL (8.5-10.4); CARBON DIOXIDE 39 mEq/l (22-31); CHLORIDE 77 mEq/L (97-110); GLOMERULAR FILTRATION RATE 56; GLUCOSE 138 mg/dL (70-100); POTASSIUM 4.4 mEq/L (3.5-5.2); SODIUM 126 mEq/L (134-144)
[2017-01-24] MEDS ORDERED: NALOXONE HCL 0.4 MG/ML INJ IVP ONE (12:55)
[2017-01-24] MEDS ORDERED: NALOXONE HCL 0.4 MG/ML INJ ONE (12:56)
[2017-01-24 13:01] LABS: INR 2.78 (0.83-1.16); PROTIME(PATIENT) 29.7 SEC (12.0-15.0)
[2017-01-24 13:02] LABS: APTT 45.4 SEC (23.0-38.0)
[2017-01-24 13:05] LABS: CK-MB INTERPRETATION NEGATIVE (NEGATIVE); TROPONIN I 0.014 ng/mL (0.000-0.034)
[2017-01-24 13:09] LABS: CREATINE KINASE-MB FRACTION 3.77 ng/mL (0.00-3.19)
--- NOTE | 2017-01-24 13:16 | EDPHY ---
H & P Time Seen by Provider: 01/24/17 12:13 HPI/ROS: HPI Shortness of breath, hypoxia. 67-[facility]-old [facility]. She arrived by ambulance. Recent hospital admission to our facility for urosepsis and hypoxemic respiratory failure requiring intubation. Staff reported this morning that she appeared at her baseline. She is on 2 L of nasal cannula oxygen 24/7. At 10:30 a.m. she started complaining of worsening shortness of breath. She complains of chest tightness now and shortness of breath. She has not had a fever according to the staff. ROS: Constitutional: No fever, no chills. No weakness. Eyes: No discharge. No changes in vision. ENT: No sore throat. No nasal congestion or rhinorrhea. Respiratory: No cough. As above. Cardiac: As above, no palpitations. Gastrointestinal: No abdominal pain, no vomiting, no diarrhea. Genitourinary: No hematuria. No dysuria or increased frequency with urination. Musculoskeletal: No back pain. No neck pain. No myalgias or arthralgias. Skin: No rashes. Neurological: No headache. No focal weakness or altered sensation. Past medical history: As above, history of coronary artery disease, atrial fibrillation on Coumadin, renal insufficiency, bradycardia with pacemaker, pacemaker pocket hematoma, chronic hypercarbic respiratory failure, bipolar, pulmonary hypertension, acute on chronic diastolic heart failure, AV dali reentry tachycardia with ablation, obstructive sleep apnea. She does not tolerate CPAP. Social history: No alcohol or tobacco. Lives at [facility]. Physical Exam: General Appearance: Obese habitus. On 10 L of oxygen by face mask with pulse oximetry currently 95-98%. Sleepy but easily arousable. Dyspneic. This patient is responding to questions appropriately in short wanted 3 word answers. This patient appears well-hydrated and well-nourished. Eyes: Pupils equal and round, small at 1-2 mm bilaterally, symmetrically reactive, no pallor or injection. No lid edema, erythema or injection. Respiratory: Mild retractions, tachypnea at 28, lung sounds are distant but clear anteriorly. Cardiovascular: Irregular rate and rhythm. Heart sounds are distant. No murmur appreciated. Right upper chest wall Port-A-Cath, left upper chest wall pacemaker pocket, draining left upper chest wall/shoulder pacemaker insertion site. Gastrointestinal: Obese habitus. Abdomen is soft and nontender, no masses, bowel sounds present. No focal tenderness at McBurney's point. No Gamez sign. Neurological: Motor sensory function is grossly intact. Cranial nerves are normal. Skin: Warm and dry, no rashes. Musculoskeletal: Neck is supple and nontender. Extremities are symmetrical. All joints range without pain or impingement. Psychiatric: No agitation. No depression. Database: EKG: EKG time is 12:18 p.m.: EKG shows a narrow complex atrial fibrillation with ventricular rate average of 95. Intermittent paced ventricular complexes. Left posterior fascicular block noted. No ST, T-wave changes indicative of ischemic or injury pattern. No significant change from comparison January 07 of this year. Imaging: Chest x-ray AP portable: Mild fluid overload versus CHF. No obvious infiltrate. Left upper chest wall pacemaker. Leads appear to be intact. Right upper chest Port-A-Cath. Interpreted by me. CT angiogram of the chest: Significant for right heart failure, large right atrium and inferior vena cava, small pleural effusions bilaterally, basilar atelectasis noted bilaterally. No pulmonary embolism. Results were discussed with staff radiologist Dr. Dalila Lindsey. Procedures: Emergency department course: IV established. Vital Signs reviewed. Temperature 37.8degrees. Patient is on 10 L of oxygen by face mask with pulse oximetry 96-90%. Blood pressure 86/53. She was given 0.4 mg of IV Narcan without significant response. 1:40 p.m., patient re-evaluated and improving. Now on nasal cannula oxygen at 5 L. pulse oximetry 98%, blood pressure 100/52. She was going for a CT angiogram at this time. Urinalysis ordered. 2:25 p.m., patient re-evaluated. She appears to be resting comfortably at this time. Vital signs are blood pressure 100/52. gasket supervisor shows a narrow complex irregular rhythm with ventricular rate of 78. Pulse oximetry currently is 99% on 5 L of nasal cannula oxygen. Hospitalist paged. She will be started on IV Levaquin for treatment of urinary tract infection. During her last admission she was treated with ceftriaxone. The patient was also given 40 mg of IV Lasix in the emergency department. Her anemia with a hemoglobin of 8.1 is not far off of her baseline. Of note during her last admission she was intubated after being given FFP for reversal of her INR prior to pacemaker placement. 2:35 p.m., spoke with on-call hospitalist. Patient's case and test results discussed in detail. Patient admitted to the hospitalist service in stable and improved condition. Differential Diagnosis: The differential diagnosis on this patient includes but is not limited to hypercarbic respiratory failure, pulmonary embolus, acute coronary syndrome, pneumonia, congestive heart failure exacerbation. This represents a partial list of diagnoses considered. These considerations are based on history, physical exam, past history, reassessment and diagnostic testing. Smoking Status: Never smoked Constitutional: Initial Vital Signs Temperature (C) 37.8 C 01/24/17 12:04 Heart Rate 89 01/24/17 12:04 Respiratory Rate 28 H 01/24/17 12:04 Blood Pressure 114/60 01/24/17 12:04 O2 Sat (%) 65 L 01/24/17 12:04 O2 Delivery Mode Nasal Cannula O2 (L/minute) 6 Allergies/Adverse Reactions: morphine [Morphine] Allergy (Severe, Verified 03/02/16 17:11) SEVERE GENERALIZED PAIN codeine [Codeine] Allergy (Mild, Verified 03/02/16 17:11) hydrocodone bitartrate [From Vicodin] Allergy (Mild, Verified 03/02/16 17:11) Home Medications: Medication Instructions Recorded ARIPiprazole [Abilify 10 mg (*)] 10 mg PO DAILY@08 11/19/14 ARIPiprazole [Abilify 5 mg (*)] 5 mg PO HS@11/19/14 Acetaminophen [Tylenol ES 500 mg 500 mg PO Q4 PRN 11/19/14 (*)] Alendronate Sodium [Fosamax 70 MG 70 mg PO MO@0711/19/14 (*)] Atorvastatin Calcium [Lipitor 20 20 mg PO HS@11/19/14 mg (*)] Calcium Carbonate/Vitamin D3 1 tab PO TID@,,11/19/14 [Os-Derek 500-Vit D3 600 Caplet] Divalproex ER [Depakote ER 250 MG 750 mg PO HS@11/19/14 (*)] Ferrous Sulfate [Ferrous Sulf 325 325 mg PO DAILY@11/19/14 MG (*)] Levothyroxine [Synthroid 175 mcg 175 mcg PO DAILY@11/19/14 (*)] Ranitidine HCl [Zantac] 150 mg PO BID@,11/19/14 Tizanidine HCl 4 mg PO TID@,,11/19/14 Polyethylene Glycol 3350 [Miralax 8.5 gm PO MOTUWETHFRSA@01/14/15 17 gm (*)] Hydrocortisone [Cortef 10 mg (*)] 20 mg PO DAILY@01/19/15 Warfarin Sodium [Coumadin 2.5MG 2.5 mg PO TUTHSA@03/02/16 (*)] Warfarin Sodium [Coumadin 5MG (*)] 5 mg PO SUMOWEFR@03/02/16 traMADol [Ultram 50 mg (*)] 50 mg PO Q12 PRN 03/02/16 Cholecalciferol Vit D3 [Vitamin D3 1,000 units PO DAILY@12/25/16 (*)] Docusate Sodium [Colace 100 MG (*)] 100 mg PO BID 12/25/16 Furosemide [Lasix 20 MG (*)] 20 mg PO MOWESA@12/25/16 Hydrocortisone [Cortef 10 mg (*)] 10 mg PO DAILY@12/25/16 Lidocaine 5% [Lidoderm 5% Patch 1 ea TD DAILY@12/25/16 (*)] Metoprolol Succinate Xr [Toprol Xl 12.5 mg PO DAILY@12/25/16 25 mg (*)] Prochlorperazine Maleate 10 mg PO Q6 PRN 12/25/16 [Compazine 10mg (*)] Sodium Chloride [[place]] 1 spray EACHNARE TID@,,12/25/16 Diltiazem [Cardizem Ir Q6hr] 30 mg PO Q12HRS #60 tab 01/18/17 Loperamide HCl [Imodium 2 mg (*)] 2 mg PO PRN PRN 01/24/17 Medical Decision Making - Data Points Laboratory Results: Laboratory Results 01/24/17 12:30 01/24/17 12:30 Microbiology Results: MICROBIOLOGY 01/24/17 13:25 Unspecified Urine Culture - Preliminary Gram Neg Paul Lactose Traveling Nurse 01/24/17 13:25 Nasal, Sinus - Swab Respiratory Panel (PCR) - Final No Organism Detected Medications Given: Acetaminophen (Tylenol) 650 mg PO Q4HRS PRN PRN Reason: Pain, Mild/Fever, Can Take PO Stop: 07/23/17 15:04 Last Admin: 01/24/17 20:50 Dose: 650 mg Albuterol/Ipratropium (Duoneb) 3 ml IH QID [facility] Stop: 07/23/17 15:59 Last Admin: 01/25/17 10:25 Dose: 3 ml Aripiprazole (Abilify) 10 mg PO DAILY@08 [facility] Stop: 07/24/17 07:59 Last Admin: 01/25/17 08:59 Dose: 10 mg Aripiprazole (Abilify) 5 mg PO HS@20 [facility] Stop: 07/23/17 19:59 Last Admin: 01/24/17 20:53 Dose: 5 mg Atorvastatin Calcium (Lipitor) 20 mg PO HS@20 [facility] Stop: 07/23/17 19:59 Last Admin: 01/24/17 20:53 Dose: 20 mg Calcium/Vitamin D (Calcium Carb W/Vit D) 500 mg PO TID@1200,1700,2000 [facility] Stop: 07/23/17 17:14 Last Admin: 01/24/17 20:53 Dose: 500 mg Cholecalciferol (Vitamin D) 1,000 units PO DAILY@08 [facility] Stop: 07/24/17 07:59 Last Admin: 01/25/17 08:59 Dose: 1,000 units Diltiazem HCl (Cardizem Immediate Release) 30 mg PO Q12HRS [facility] Stop: 07/23/17 20:59 Last Admin: 01/25/17 08:58 Dose: 30 mg Divalproex Sodium (Depakote Er) 750 mg PO HS@20 [facility] Stop: 07/23/17 19:59 Last Admin: 01/24/17 20:49 Dose: 750 mg Docusate Sodium (Colace) 100 mg PO BID [facility] Stop: 07/23/17 20:59 Last Admin: 01/25/17 08:58 Dose: 100 mg Famotidine (Pepcid) 20 mg PO BID@0800,1700 [facility] Stop: 07/23/17 16:59 Last Admin: 01/25/17 08:59 Dose: 20 mg Furosemide (Lasix Injection) 20 mg IVP BIDDIUR [facility] Stop: 07/24/17 08:59 Last Admin: 01/25/17 08:59 Dose: 20 mg Hydrocortisone (Cortef) 20 mg PO DAILY@08 [facility] Stop: 07/24/17 07:59 Last Admin: 01/25/17 08:59 Dose: 20 mg Levofloxacin/Dextrose (Levaquin 750 Mg (Premix)) 150 mls @ 100 mls/hr IV DAILY ANNA PRN Reason: Protocol Stop: 02/24/17 08:59 Last Admin: 01/25/17 08:58 Dose: 150 mls Levothyroxine Sodium (Synthroid) 175 mcg PO DAILY@06 [facility] Stop: 07/24/17 05:59 Last Admin: 01/25/17 05:27 Dose: 175 mcg Lidocaine (Lidoderm 5%) 1 ea TD DAILY@08 [facility] Stop: 07/24/17 07:59 Last Admin: 01/25/17 08:57 Dose: 1 ea Metoprolol Succinate (Toprol Xl) 12.5 mg PO DAILY@08 [facility] Stop: 07/24/17 07:59 Last Admin: 01/25/17 08:58 Dose: 12.5 mg Sodium Chloride (Security-[place]) 1 spray EACHNARE TID@0800,1200,2000 [facility] Stop: 07/23/17 19:59 Last Admin: 01/25/17 10:33 Dose: Not Given Tizanidine HCl (Zanaflex) 4 mg PO TID@08,14,20 [facility] Stop: 07/23/17 19:59 Last Admin: 01/25/17 08:58 Dose: 4 mg Tramadol HCl (Ultram) 50 mg PO Q12 PRN PRN Reason: Pain, Moderate Able to Take PO Stop: 07/23/17 16:37 Last Admin: 01/25/17 08:58 Dose: 50 mg Warfarin Sodium (Coumadin) 5 mg PO SUMOWEFR@17 [facility] Stop: 07/23/17 16:59 Last Admin: 01/24/17 18:30 Dose: 5 mg Discontinued Medications Furosemide (Lasix Injection) 40 mg IVP EDNOW ONE Stop: 01/24/17 15:00 Last Admin: 01/24/17 15:56 Dose: 20 mg Levofloxacin/Dextrose (Levaquin 500 Mg (Premix)) 100 mls @ 100 mls/hr IV EDNOW ONE PRN Reason: Protocol Stop: 01/24/17 15:28 Last Admin: 01/24/17 14:38 Dose: 100 mls Naloxone HCl (Narcan) 1 mg IVP EDNOW ONE Stop: 01/24/17 12:56 Last Admin: 01/24/17 12:59 Dose: 1 mg Departure - Departure Disposition: [facility] Acute Clinical Impression: Hypoxia, Congestive heart failure, Urinary tract infection, Anemia
[2017-01-24 13:26] LABS: MACROCYTES 1+; MICROCYTES 1+; POLYCHROMASIA 1+; SCHISTOCYTES 1+
[2017-01-24 13:29] LABS: PLATELET ESTIMATE ADEQUATE (ADEQ)
[2017-01-24] MEDS ORDERED: IOPAMIDOL (ISOVUE 370) 100 ML BTL IV ONE (13:32)
[2017-01-24 13:37] LABS: COLOR YELLOW; LEUKOCYTE ESTERASE,URINE 3+ (NEGATIVE); NITRITE,URINE POSITIVE (NEGATIVE)
[2017-01-24 13:50] LABS: BACTERIA 3+ /hpf (NONE SEEN); WBC,URINE 50-182 /hpf (0-3)
[2017-01-24] MEDS ORDERED: levOFLOXACIN 500 MG/DEXTROSE 100 ML IV ONE (14:29)
[2017-01-24] MEDS ORDERED: FUROSEMIDE 40 MG/4 ML VIAL IVP ONE (14:59)
[2017-01-24] MEDS ORDERED: ONDANSETRON 4 MG/2 ML VIAL IVP PRN (15:05)
[2017-01-24] MEDS ORDERED: ONDANSETRON DISINTEGRATING 4 MG TAB PO PRN (15:05)
--- NOTE | 2017-01-24 16:15 | GHP ---
[f rep st] HISTORY AND PHYSICAL DATE OF ADMISSION: 01/24/2017 CHIEF COMPLAINT: Shortness of breath. HISTORY OF PRESENT ILLNESS: 67-year-old female with recent very long and complicated hospitalization presents with worsening shortness of breath. She was admitted to this hospital from December 26, ischarged on January 18 to [facility]. Since then, she says over the past few days her catrachito rtness of breath has been getting worse. She tells me she has been getting worsening lower extremity edema. She has not had any fever or cough. She does not have any dysuria. Unclear exactly what di et she has been eating, though she has been eating at the cafeteria. She has been ambulating with a walker. She has not yet started PT and OT. Her previous hospitalization was initially for being treated for urinary tract infection, found to sen ve a 7 second pause. She received FFP with plans to place a permanent pacemaker. She then developed respiratory failure (unclear if this was cardiac overload or TRALI) requiring intubation. Continued her treatment for urinary tract infection as well as possible aspiration pneumonia. She did receive a pacemaker during that hospitalization. She had a small pocket hematoma. She had been then resume d on Coumadin for this. She was discharged on furosemide 3 times a week 20 mg oral. Her medications are given to her by staff at the [facility]. On presentation to the emergency department, she was found to be hypoxic about 65% on 5 L of oxygen. She was initially placed on face mask, however, weaned to 5 L nasal cannula without any additional i nterventions. PAST MEDICAL/PAST SURGICAL HISTORY: 1. Chronic hypoxic and hypercapnic respiratory failure. 2. History of coronary artery disease. 3. Chronic atrial fibrillation. Now status post pacemaker given a 7 second pause. 4. Chronic diastolic dysfunction. 5. Adrenal insufficiency. 6. Pulmonary hypertension. 7. Bipolar. 8. Chronic hyponatremia. 9. Hypokalemia. 10. SHAUNA. 11. Morbid obesity. 12. Hypertension. 13. History of breast cancer. MEDICATIONS: Please see medication reconciliation. ALLERGIES: Morphine, codeine, hydrocodone. SOCIAL HISTORY: She lives at [facility]. FAMILY HISTORY: Reviewed and noncontributory. REVIEW OF SYSTEMS: 10-point review of systems is conducted and is negative except for HPI. PHYSICAL EXAM: VITAL SIGNS: Blood pressure 100/52, heart rate 85, respiration rate 23, saturating 1 00% on 6 L nasal cannula. Temperature was 37.8. GENERAL: The patient is a pleasant female who is r esting comfortably in no acute distress. HEENT: Shows her to be normocephalic, atraumatic. CHEST: Shows her to have a recently placed left pacemaker with a small surrounding ecchymosis. CARDIOVASCU LAR: Shows a regular rate and rhythm. No murmurs, rubs, or gallops. PULMONARY: Shows her to have shallow respirations. Exam is difficult. I think there are faint bilateral basilar crackles. ABDOM EN: Soft, nontender, nondistended. SKIN: No rash. : No Sam. NEUROLOGIC: Shows her to be al ert and oriented x3. She is able to provide basic history. PSYCHIATRIC: Shows normal mood and affe ct. LABS: White count is 9.3, hemoglobin 11.1, INR 2.78. Sodium 126, bicarb 39, creatinine 1.0. Urinal ysis is positive nitrates, positive leuk esterase, 50-182 whites. DATA: 1. I discussed this with Dr. Cardona. Will plan to admit to telemetry. 2. I reviewed her chest and thorax CT angiogram that shows no pulmonary embolus, heart failure with a distended right atrium and pulmonary edema. 3. EKG, which I personally viewed and interpreted, shows atrial fibrillation. The rate is 95. She has a paced beat. Nothing acutely ischemic. IMPRESSION/PLAN: This is a 67-year-old female with a very recent, long complicated hospitalization p resents with acute on chronic respiratory failure and a urinary tract infection. 1. Acute on chronic hypoxic respiratory failure: Stabilized in the ED without any significant inter vention. Suspect that this is due to diastolic dysfunction given her pulmonary edema seen on CAT sca n. She has been treated on t.i.d. Lasix. It is possible this is just not enough for her. Her previ ous right ventricular systolic pressure was 45 mmHg with severe tricuspid regurgitation. I think for now will diurese her with furosemide. Follow her electrolytes and renal function. Her bicarb is ac tually lower than previous. I doubt she has significant problems with retention at this point. The likelihood of pulmonary embolus is very low given her therapeutic INR. Does not appear to be pneumon ia on her CT angiogram. Would consider getting another echocardiogram, though I will not order that now. Will trend troponins. 2. Acute on chronic diastolic exacerbation: Treatment as per above. 3. Urinary tract infection: Will send urine culture. Will continue Levaquin for now. 4. Mild acute kidney injury: Will follow this very closely with her furosemide administration. 5. Anemia: This is slightly lower than her previous. Would not transfuse at this point. 6. Hyponatremia: This is mild and she has somewhat chronic hyponatremia. Will follow carefully wit h furosemide. 7. Bipolar: Continue Abilify. 8. Adrenal insufficiency: Continue her steroids. 9. Chronic atrial fibrillation: Pacemaker. Continue diltiazem and Coumadin. 10. Obstructive sleep apnea: Continuous positive airway pressure. 11. Morbid obesity. /[id number]/MODL
[2017-01-24] MEDS: IPRATROPIUM/ALBUTEROL 3 ML DEYVIAL IH SCH ×2 (16:30→21:54)
[2017-01-24] MEDS ORDERED: PROCHLORPERAZINE MALEATE 10 MG TAB PO PRN (16:38)
[2017-01-24] MEDS ORDERED: LOPERAMIDE HCL 2 MG CAP PO PRN (16:38)
[2017-01-24] MEDS: WARFARIN SODIUM 5 MG TAB PO SCH (18:30)
[2017-01-24] MEDS: FAMOTIDINE 20 MG TAB PO SCH (18:30)
[2017-01-24] MEDS: CALCIUM CARB W/VIT D 500 MG TAB PO SCH ×2 (18:30→20:53)
[2017-01-24 19:38] LABS: TROPONIN I 0.092 ng/mL (0.000-0.034)
[2017-01-24] MEDS: DIVALPROEX ER 250 MG TAB PO SCH (20:49)
[2017-01-24] MEDS: traMADol 50 MG TAB PO PRN (20:49)
[2017-01-24] MEDS: ACETAMINOPHEN 325 MG TAB PO PRN (20:50)
[2017-01-24] MEDS: DOCUSATE SODIUM 100 MG CAP PO SCH (20:50)
[2017-01-24] MEDS: DILTIAZEM 30 MG TAB PO SCH (20:50)
[2017-01-24] MEDS: ARIPiprazole 5 MG TAB PO SCH (20:53)
[2017-01-24] MEDS: SODIUM CL NASAL 45 ML BTL EACHNARE SCH (20:53)
[2017-01-24] MEDS: ATORVASTATIN CALCIUM 20 MG TAB PO SCH (20:53)
[2017-01-25] MEDS: LEVOTHYROXINE 175 MCG TAB PO SCH (05:27)
[2017-01-25] MEDS: IPRATROPIUM/ALBUTEROL 3 ML DEYVIAL IH SCH ×4 (05:50→21:09)
[2017-01-25 06:26] LABS: ALANINE AMINOTRANSFERASE 43 IU/L (9-52); ALBUMIN 3.2 g/dL (3.5-5.0); ALKALINE PHOSPHATASE 74 IU/L (38-126); ASPARTATE AMINOTRANSFERASE 48 IU/L (14-46); BILIRUBIN,TOTAL 0.3 mg/dL (0.1-1.4); CALCIUM 8.5 mg/dL (8.5-10.4); CHLORIDE 76 mEq/L (97-110); CREATININE 1.3 mg/dL (0.6-1.0); GLOMERULAR FILTRATION RATE 41; GLUCOSE 78 mg/dL (70-100); POTASSIUM 4.6 mEq/L (3.5-5.2); SODIUM 127 mEq/L (134-144); TOTAL PROTEIN 5.9 g/dL (6.3-8.2)
[2017-01-25 06:27] LABS: ADD DIFF? YES; ADD MORPH? NO; ADD SCAN? NO; ATYPICAL LYMPHOCYTE FLAG 0 (0-99); FRAGMENT RBC FLAG 0 (0-99); HEMATOCRIT 23.8 % (38.0-47.0); HEMOGLOBIN 7.7 g/dL (12.6-16.3); LEFT SHIFT FLG 70 (0-99); LIPEMIA HEMOLYSIS FLAG 80 (0-99); MEAN CELL HEMOGLOBIN 33.3 pg (27.9-34.1); MEAN CELL HEMOGLOBIN CONCENTR. 32.4 g/dL (32.4-36.7); MEAN PLATELET VOLUME 10.6 fL (8.7-11.7); PLATELET CLUMPS FLAG 0 (0-99); PLATELET COUNT 170 10^3/uL (150-400); RED BLOOD CELL COUNT 2.31 10^6/uL (4.18-5.33); RED CELL DISTRIBUTION WIDTH 15.1 % (11.5-15.2)
[2017-01-25 06:28] LABS: INR 3.15 (0.83-1.16); PROTIME(PATIENT) 32.8 SEC (12.0-15.0)
[2017-01-25 06:35] LABS: ANION GAP 9 mEq/L (8-16)
[2017-01-25 06:37] LABS: CARBON DIOXIDE 42 mEq/l (22-31); TROPONIN I 0.098 ng/mL (0.000-0.034)
[2017-01-25 07:08] LABS: HYPOCHROMIA 1+; MACROCYTES 1+; PLATELET ESTIMATE ADEQUATE (ADEQ); POLYCHROMASIA 1+
[2017-01-25] MEDS: LIDOCAINE 5% 1 EA PATCH TD SCH (08:57)
[2017-01-25] MEDS: DOCUSATE SODIUM 100 MG CAP PO SCH ×2 (08:58→21:18)
[2017-01-25] MEDS: traMADol 50 MG TAB PO PRN (08:58)
[2017-01-25] MEDS: METOPROLOL SUCCINATE XR 25 MG TAB PO SCH (08:58)
[2017-01-25] MEDS: DILTIAZEM 30 MG TAB PO SCH ×2 (08:58→21:19)
[2017-01-25] MEDS: HYDROCORTISONE 10 MG TAB PO SCH ×2 (08:59→15:23)
[2017-01-25] MEDS: CHOLECALCIFEROL VIT D3 1,000 UNITS TAB PO SCH (08:59)
[2017-01-25] MEDS: FAMOTIDINE 20 MG TAB PO SCH ×2 (08:59→17:33)
[2017-01-25] MEDS: FUROSEMIDE 20 MG/2 ML VIAL IVP SCH ×2 (08:59→15:23)
[2017-01-25] MEDS: ARIPiprazole 10 MG TAB PO SCH (08:59)
[2017-01-25] MEDS: SODIUM CL NASAL 45 ML BTL EACHNARE SCH ×3 (10:33→21:21)
--- NOTE | 2017-01-25 11:06 | PDMN ---
Medical Necessity Medical necessity: est los>2mn for acute on chronic resp failure, acute on chronic diastolic exacerbation, UTI, DALE, anemia, and mild hyponatremia; admit for IV diuresis and abx, follow cx, labs; other comorbidities: bipolar, adrenal insufficiency, HTN, CAD,and morbid obesity; recent admission for UTI, resp failure, PPM for 7 sec pause; per order and H&P 01/24/17
--- NOTE | 2017-01-25 11:06 | ASMTCMCOM ---
CM Note CM Note Notes: 01/25/2017 Case Management Note Met w/pt. Pt is resident at the [facility]. Pt reports [facility] RN came for intial evaluation on Sunday 01/21. Confirmed with [facility]. PT evaluation for [facility] was to happen on day of hospital admission 01/24. [facility] planned to see pt 3 x/week with PT seeing pt 2x/week. Pt reports support from Rupali, a personal aide at the [facility]. Pt reports that LUCY Kolb instructed pt to come to hospital. Attempted to reach Kennedi, she is not onsite today at the [facility] and a phone number was not given to contact her. Pt expressed concern that she might lose her room at the [facility] with this hospital admission. Left VM for La, resident coordinator, at the [facility] to discuss. Case management d/c poc: To be determined. Case management attempted to place pt in SNF rehab during last admission but required at [facility] 100 Medicaid application and 30 day minimum stay. Pt and sister declined SNF rehab and felt [facility] offerred enough support. Case Management to follow. Date Signed: 01/25/2017 11:05 AM Electronically Signed By:Soni Oh RN
[2017-01-25] MEDS: CALCIUM CARB W/VIT D 500 MG TAB PO SCH ×3 (13:00→21:19)
[2017-01-25] MEDS ORDERED: acetaZOLAMIDE 500 MG in SYRINGE 0 ML IVP ONE (14:29)
--- NOTE | 2017-01-25 14:51 | HOSPPROG ---
Hospitalist Progress Note Assessment/Plan: 67 yo F w bipolar, recemt pacer, known diastolic dysfunction admitted w acute diastolic heart failure exacerbation aDCHF: continue diuresis interrogate pacer metabolic alkalosis: give dose of diamox now query UTI: does endorse some dysuria continue abx for three days h/o FQ sens e coli (previous hosp records reviewed) recent pacer hematoma: improved bipolar: continue meds AF: warfarin, bb chronic proph: anticoagulated coagulopathy: hold warfarin- inr 3.15 Subjective: ccxr w pulm edema (interp by me). this confirmed by CTA (also interp by me) Objective: Vital Signs Temp Pulse Resp BP Pulse Ox 36.5 C 94 20 87/56 L 99 01/25/17 11:29 01/25/17 11:29 01/25/17 11:29 01/25/17 12:11 01/25/17 11:29 Laboratory Results 01/25/17 05:30 01/25/17 05:30 01/24/17 01/25/17 01/26/17 05:59 05:59 05:59 Intake Total 550 Output Total 150 Balance 400 PT 32.8 SEC (12.0-15.0) H 01/25/17 05:30 INR 3.15 (0.83-1.16) H 01/25/17 05:30 - Physical Exam Constitutional: no apparent distress, appears nourished Eyes: PERRL, anicteric sclera Ears, Nose, Mouth, Throat: moist mucous membranes, hearing normal Cardiovascular: regular rate and rhythym, no murmur, rub, or gallop, edema Respiratory: no respiratory distress, expiratory wheeze, inspiratory crackles Gastrointestinal: normoactive bowel sounds, soft, non-tender abdomen Genitourinary: no bladder fullness, No cobb in urethra Skin: warm, normal color Musculoskeletal: full muscle strength, no muscle tenderness Neurologic: AAOx3 ICD10 Worksheet Patient Problems: Problems Problem Status Onset Anemia Acute Congestive heart failure Acute Hypoxia Acute UTI (urinary tract infection) Acute Abdominal pain Acute Acute encephalopathy Acute Altered mental status Acute Atrial fibrillation Acute CAD (coronary artery disease), false pass coronary artery Acute Chronic diastolic CHF (congestive heart failure) Acute Chronic hypoxemic respiratory failure Acute Chronic kidney disease (CKD) Acute Generalized weakness Acute Hyponatremia Acute New onset atrial fibrillation Acute Palliative care encounter Acute Pyelonephritis Acute VHD (valvular heart disease) Acute
[2017-01-25] MEDS: WARFARIN SODIUM 2.5 MG TAB PO SCH (15:24)
[2017-01-25] MEDS: POLYETHYLENE GLYCOL 3350 17 GM PKT PO SCH (15:26)
[2017-01-25] MEDS: FERROUS SULFATE 325 MG TAB PO SCH (17:33)
[2017-01-25] MEDS: ARIPiprazole 5 MG TAB PO SCH (21:19)
[2017-01-25] MEDS: ATORVASTATIN CALCIUM 20 MG TAB PO SCH (21:19)
[2017-01-25] MEDS: DIVALPROEX ER 250 MG TAB PO SCH (21:19)
[2017-01-25] MEDS: PATCH REMOVAL 1 EA PATCH TD SCH (21:20)
[2017-01-26] MEDS: IPRATROPIUM/ALBUTEROL 3 ML DEYVIAL IH SCH ×4 (05:30→21:01)
[2017-01-26] MEDS: LEVOTHYROXINE 175 MCG TAB PO SCH (05:52)
[2017-01-26] MEDS: METOPROLOL SUCCINATE XR 25 MG TAB PO SCH (08:15)
[2017-01-26] MEDS: ARIPiprazole 10 MG TAB PO SCH (08:16)
[2017-01-26] MEDS: FUROSEMIDE 20 MG/2 ML VIAL IVP SCH ×2 (08:16→14:13)
[2017-01-26] MEDS: HYDROCORTISONE 10 MG TAB PO SCH ×2 (08:16→14:13)
[2017-01-26] MEDS: CHOLECALCIFEROL VIT D3 1,000 UNITS TAB PO SCH (08:16)
[2017-01-26] MEDS: DOCUSATE SODIUM 100 MG CAP PO SCH ×2 (08:17→20:20)
[2017-01-26] MEDS: FAMOTIDINE 20 MG TAB PO SCH ×2 (08:17→17:30)
[2017-01-26] MEDS: LIDOCAINE 5% 1 EA PATCH TD SCH (08:17)
[2017-01-26] MEDS: DILTIAZEM 30 MG TAB PO SCH ×2 (08:17→20:20)
[2017-01-26] MEDS: POLYETHYLENE GLYCOL 3350 17 GM PKT PO SCH (08:17)
[2017-01-26] MEDS: SODIUM CL NASAL 45 ML BTL EACHNARE SCH ×3 (09:49→20:21)
[2017-01-26 13:04] LABS: HEMATOCRIT 25.2 % (38.0-47.0); MEAN CELL HEMOGLOBIN 33.3 pg (27.9-34.1); MEAN CELL HEMOGLOBIN CONCENTR. 31.7 g/dL (32.4-36.7); RED BLOOD CELL COUNT 2.4 10^6/uL (4.18-5.33); RED CELL DISTRIBUTION WIDTH 14.9 % (11.5-15.2)
[2017-01-26 13:13] LABS: INR 4.22 (0.83-1.16); PROTIME(PATIENT) 40.2 SEC (12.0-15.0)
[2017-01-26] MEDS: FERROUS SULFATE 325 MG TAB PO SCH (14:13)
[2017-01-26] MEDS: CALCIUM CARB W/VIT D 500 MG TAB PO SCH ×3 (14:13→20:20)
[2017-01-26 14:26] LABS: ANION GAP 11 mEq/L (8-16); CALCIUM 8.9 mg/dL (8.5-10.4); CHLORIDE 71 mEq/L (97-110); CREATININE 1.2 mg/dL (0.6-1.0); GLOMERULAR FILTRATION RATE 45; GLUCOSE 114 mg/dL (70-100); POTASSIUM 4.5 mEq/L (3.5-5.2); SODIUM 122 mEq/L (134-144)
[2017-01-26 14:47] LABS: CARBON DIOXIDE 41 mEq/l (22-31)
[2017-01-26] MEDS ORDERED: acetaZOLAMIDE 500 MG in SYRINGE 0 ML IVP ONE (16:24)
[2017-01-26] MEDS ORDERED: FUROSEMIDE 20 MG/2 ML VIAL IVP SCH (16:25)
--- NOTE | 2017-01-26 16:36 | HOSPPROG ---
Hospitalist Progress Note Assessment/Plan: 67 yo F w bipolar, recemt pacer, known diastolic dysfunction admitted w acute diastolic heart failure exacerbation somnolence: ABG decrease 02 to Sa02 of 87% ADCHF: increase lasix diamox now and in AM metabolic alkalosis: give dose of diamox now con query UTI: does endorse some dysuria continue abx for three days h/o FQ sens e coli (previous hosp records reviewed) recent pacer hematoma: improved bipolar: continue meds AF: warfarin, bb chronic proph: anticoagulated coagulopathy: hold warfarin- inr 3.15 Subjective: tried on bipap overnight, bucked. on 6L. somnolent today although conversant Objective: Vital Signs Temp Pulse Resp BP Pulse Ox 37.1 C 72 25 H 86/63 L 90 L 01/26/17 11:30 01/26/17 11:30 01/26/17 11:30 01/26/17 11:30 01/26/17 11:30 Laboratory Results 01/26/17 12:58 01/26/17 12:58 01/25/17 01/26/17 01/27/17 05:59 05:59 05:59 Intake Total 550 640 450 Output Total 150 Balance 400 640 450 PT 40.2 SEC (12.0-15.0) H 01/26/17 12:58 INR 4.22 (0.83-1.16) H 01/26/17 12:58 - Physical Exam Constitutional: no apparent distress, appears nourished Eyes: PERRL, anicteric sclera Ears, Nose, Mouth, Throat: moist mucous membranes, hearing normal Cardiovascular: regular rate and rhythym, no murmur, rub, or gallop Respiratory: no respiratory distress Gastrointestinal: normoactive bowel sounds, soft, non-tender abdomen Genitourinary: no bladder fullness, No cobb in urethra Skin: warm, normal color Musculoskeletal: full muscle strength Neurologic: AAOx3 ICD10 Worksheet Patient Problems: Problems Problem Status Onset Anemia Acute Congestive heart failure Acute Hypoxia Acute UTI (urinary tract infection) Acute Abdominal pain Acute Acute encephalopathy Acute Altered mental status Acute Atrial fibrillation Acute CAD (coronary artery disease), [place] coronary artery Acute Chronic diastolic CHF (congestive heart failure) Acute Chronic hypoxemic respiratory failure Acute Chronic kidney disease (CKD) Acute Generalized weakness Acute Hyponatremia Acute New onset atrial fibrillation Acute Palliative care encounter Acute Pyelonephritis Acute VHD (valvular heart disease) Acute
[2017-01-26 16:45] LABS: BICARBONATE 41 mEq/L (22-26); MEASURED OXYGEN SATURATION 90 % (92-95); PO2 61 mmHg (65-75)
[2017-01-26 16:55] LABS: BASE EXCESS 14.3 mEq/L (-2.5-2.5)
[2017-01-26 16:58] LABS: PCO2 72 mmHg (34-38); TCO2 43 mEq/L (23-27)
[2017-01-26] MEDS: DIVALPROEX ER 250 MG TAB PO SCH (20:19)
[2017-01-26] MEDS: ATORVASTATIN CALCIUM 20 MG TAB PO SCH (20:20)
[2017-01-26] MEDS: ARIPiprazole 5 MG TAB PO SCH (20:20)
[2017-01-26] MEDS: PATCH REMOVAL 1 EA PATCH TD SCH (20:30)
[2017-01-27] MEDS: ACETAMINOPHEN 325 MG TAB PO PRN ×2 (02:29→11:29)
[2017-01-27] MEDS: LEVOTHYROXINE 175 MCG TAB PO SCH (05:58)
[2017-01-27] MEDS: IPRATROPIUM/ALBUTEROL 3 ML DEYVIAL IH SCH ×4 (06:17→20:45)
[2017-01-27 06:21] LABS: HEMATOCRIT 25.8 % (38.0-47.0); HEMOGLOBIN 8.6 g/dL (12.6-16.3); MEAN CELL HEMOGLOBIN 33.9 pg (27.9-34.1); MEAN CELL HEMOGLOBIN CONCENTR. 33.3 g/dL (32.4-36.7); MEAN CELL VOLUME 101.6 fL (81.5-99.8); RED BLOOD CELL COUNT 2.54 10^6/uL (4.18-5.33); RED CELL DISTRIBUTION WIDTH 14.7 % (11.5-15.2)
[2017-01-27 06:30] LABS: INR 3.72 (0.83-1.16); PROTIME(PATIENT) 36.5 SEC (12.0-15.0)
[2017-01-27 06:43] LABS: CALCIUM 9.5 mg/dL (8.5-10.4); CHLORIDE 74 mEq/L (97-110); CREATININE 1.1 mg/dL (0.6-1.0); GLOMERULAR FILTRATION RATE 50; GLUCOSE 88 mg/dL (70-100); POTASSIUM 3.6 mEq/L (3.5-5.2); SODIUM 125 mEq/L (134-144)
[2017-01-27 06:50] LABS: ANION GAP 10 mEq/L (8-16)
[2017-01-27 06:52] LABS: CARBON DIOXIDE 41 mEq/l (22-31)
[2017-01-27] MEDS: DOCUSATE SODIUM 100 MG CAP PO SCH ×2 (08:41→21:03)
[2017-01-27] MEDS: DILTIAZEM 30 MG TAB PO SCH ×2 (08:41→21:03)
[2017-01-27] MEDS: METOPROLOL SUCCINATE XR 25 MG TAB PO SCH (08:42)
[2017-01-27] MEDS: CHOLECALCIFEROL VIT D3 1,000 UNITS TAB PO SCH (08:42)
[2017-01-27] MEDS: FAMOTIDINE 20 MG TAB PO SCH ×2 (08:42→17:07)
[2017-01-27] MEDS: ARIPiprazole 10 MG TAB PO SCH (08:42)
[2017-01-27] MEDS: HYDROCORTISONE 10 MG TAB PO SCH ×2 (08:42→13:49)
[2017-01-27] MEDS: POLYETHYLENE GLYCOL 3350 17 GM PKT PO SCH (08:43)
[2017-01-27] MEDS: LIDOCAINE 5% 1 EA PATCH TD SCH (08:43)
[2017-01-27] MEDS: SODIUM CL NASAL 45 ML BTL EACHNARE SCH ×3 (08:46→21:10)
[2017-01-27] MEDS ORDERED: acetaZOLAMIDE 500 MG in SYRINGE 0 ML IVP SCH (09:00)
[2017-01-27] MEDS: traMADol 50 MG TAB PO PRN (11:21)
[2017-01-27] MEDS: CALCIUM CARB W/VIT D 500 MG TAB PO SCH ×3 (11:21→21:03)
[2017-01-27] MEDS: FERROUS SULFATE 325 MG TAB PO SCH (11:21)
--- NOTE | 2017-01-27 13:04 | ASMTCMCOM ---
CM Note CM Note Notes: CM spoke w/ LUCY Kaufman regarding d/c POC. OT is recommending home with HC with supports from [facility] vs SNF. PT is recommending SNF. CM met w/ pt for dispo planning. Pt reports that she is not interested in going to SNF at this time and she would like to d/c back to [facility] w/ supports and HC. CM sent updates to [facility]. CM to follow. Plan: Home w/ supports from [facility] w/ HC; PT, OT, RN Date Signed: 01/27/2017 01:03 PM Electronically Signed By:MARY Crook
--- NOTE | 2017-01-27 16:25 | HOSPPROG ---
Hospitalist Progress Note Assessment/Plan: 67 yo F w bipolar, recemt pacer, known diastolic dysfunction admitted w acute diastolic heart failure exacerbation somnolence: ABG improved today w lowering goal of SaO2 to 87% ADCHF: she is symptomatically improved but I+O's dont reflect diuresis add RAMOS's bnp and cxr in AM have dc'd lasix given profound met alk w resultant hypoventilation metabolic alkalosis: give dose of diamox now con query UTI: does endorse some dysuria continue abx for three days h/o FQ sens e coli (previous hosp records reviewed) recent pacer hematoma: improved bipolar: continue meds AF: warfarin, bb chronic proph: anticoagulated coagulopathy: hold warfarin- inr 3.15 dispo: needs snf but refusing, wishing to return to [facility] Subjective: tele: no ebvents, paced, interp by me Objective: Vital Signs Temp Pulse Resp BP Pulse Ox 37.1 C 79 20 124/81 H 99 01/27/17 11:03 01/27/17 12:30 01/27/17 11:32 01/27/17 12:30 01/27/17 12:30 Laboratory Results 01/27/17 06:09 01/27/17 06:09 01/26/17 01/27/17 01/28/17 05:59 05:59 05:59 Intake Total 640 1810 Output Total 700 Balance 640 1110 PT 36.5 SEC (12.0-15.0) H 01/27/17 06:09 INR 3.72 (0.83-1.16) H 01/27/17 06:09 - Physical Exam Constitutional: no apparent distress, appears nourished Eyes: PERRL, anicteric sclera Ears, Nose, Mouth, Throat: moist mucous membranes, hearing normal Cardiovascular: regular rate and rhythym, no murmur, rub, or gallop, edema Respiratory: no respiratory distress, no rales or rhonchi Gastrointestinal: normoactive bowel sounds, soft, non-tender abdomen Genitourinary: no bladder fullness, No cobb in urethra Skin: warm, normal color Musculoskeletal: full muscle strength, no muscle tenderness Neurologic: AAOx3 ICD10 Worksheet Patient Problems: Problems Problem Status Onset Anemia Acute Congestive heart failure Acute Hypoxia Acute UTI (urinary tract infection) Acute Abdominal pain Acute Acute encephalopathy Acute Altered mental status Acute Atrial fibrillation Acute CAD (coronary artery disease), [place] coronary artery Acute Chronic diastolic CHF (congestive heart failure) Acute Chronic hypoxemic respiratory failure Acute Chronic kidney disease (CKD) Acute Generalized weakness Acute Hyponatremia Acute New onset atrial fibrillation Acute Palliative care encounter Acute Pyelonephritis Acute VHD (valvular heart disease) Acute
[2017-01-27] MEDS: DIVALPROEX ER 250 MG TAB PO SCH (21:02)
[2017-01-27] MEDS: ARIPiprazole 5 MG TAB PO SCH (21:02)
[2017-01-27] MEDS: ATORVASTATIN CALCIUM 20 MG TAB PO SCH (21:03)
[2017-01-27] MEDS: PATCH REMOVAL 1 EA PATCH TD SCH (21:10)
[2017-01-27] MEDS: acetaZOLAMIDE 500 MG in SYRINGE 0 ML IVP SCH (21:49)
[2017-01-28 04:14] LABS: INR 2.75 (0.83-1.16)
[2017-01-28 04:17] LABS: HEMATOCRIT 26.9 % (38.0-47.0); HEMOGLOBIN 8.6 g/dL (12.6-16.3); MEAN CELL HEMOGLOBIN 32.7 pg (27.9-34.1); MEAN CELL VOLUME 102.3 fL (81.5-99.8); RED BLOOD CELL COUNT 2.63 10^6/uL (4.18-5.33); RED CELL DISTRIBUTION WIDTH 14.7 % (11.5-15.2)
[2017-01-28 04:28] LABS: CALCIUM 9.4 mg/dL (8.5-10.4); CHLORIDE 73 mEq/L (97-110); CREATININE 1.1 mg/dL (0.6-1.0); GLOMERULAR FILTRATION RATE 50; GLUCOSE 100 mg/dL (70-100); POTASSIUM 3.3 mEq/L (3.5-5.2); SODIUM 125 mEq/L (134-144)
[2017-01-28 04:35] LABS: ANION GAP 12 mEq/L (8-16); CARBON DIOXIDE 40 mEq/l (22-31)
[2017-01-28] MEDS: IPRATROPIUM/ALBUTEROL 3 ML DEYVIAL IH SCH ×4 (05:16→21:19)
[2017-01-28] MEDS: LEVOTHYROXINE 175 MCG TAB PO SCH (06:08)
[2017-01-28] MEDS: acetaZOLAMIDE 500 MG in SYRINGE 0 ML IVP SCH ×2 (09:43→21:20)
[2017-01-28] MEDS: POLYETHYLENE GLYCOL 3350 17 GM PKT PO SCH (09:43)
[2017-01-28] MEDS: ARIPiprazole 10 MG TAB PO SCH (09:44)
[2017-01-28] MEDS: HYDROCORTISONE 10 MG TAB PO SCH ×2 (09:44→13:48)
[2017-01-28] MEDS: DILTIAZEM 30 MG TAB PO SCH ×2 (09:45→21:05)
[2017-01-28] MEDS: CHOLECALCIFEROL VIT D3 1,000 UNITS TAB PO SCH (09:45)
[2017-01-28] MEDS: DOCUSATE SODIUM 100 MG CAP PO SCH ×2 (09:45→21:03)
[2017-01-28] MEDS: METOPROLOL SUCCINATE XR 25 MG TAB PO SCH (09:45)
[2017-01-28] MEDS: LIDOCAINE 5% 1 EA PATCH TD SCH (09:47)
[2017-01-28] MEDS: SODIUM CL NASAL 45 ML BTL EACHNARE SCH ×3 (09:47→21:06)
[2017-01-28] MEDS: FAMOTIDINE 20 MG TAB PO SCH ×2 (09:47→17:26)
[2017-01-28] MEDS ORDERED: BISACODYL 10 MG SUPP PR ONE (09:52)
[2017-01-28] MEDS ORDERED: FUROSEMIDE 100 MG/10 ML VIAL IVP ONE (09:52)
[2017-01-28] MEDS ORDERED: POLYETHYLENE GLYCOL 3350 17 GM PKT PO ONE (09:52)
[2017-01-28] MEDS ORDERED: POTASSIUM CL 20 MEQ/15 ML UDCUP PO ONE (09:58)
--- NOTE | 2017-01-28 10:13 | WOCRNPDOC ---
WOCRN Advanced Assessment Note - Skin Integrity Problem, Advanced Assess Right Breast Dermatitis Dressing Type: Open to Air Exudate Amount: Minimal Exudate Color: Yellow Exudate Characteristic(s): Serous [place] Wound Tissue: Blanching, Erythema, Denuded Wound Bed Color: [place] Skin Integrity Problem Comment: Patient with pink, moist area under right breast , presumably mild intertriginal dermatitis related to skin on skin contact. Recommendation is to keep area clean and dry. Patient preference is a cloth barrier. Will send interdry sheets but pillowcase can also be used. Wound care will not follow this wound. Please reconsult PRN. Bilateral Medial Buttock Dermatitis Dressing Type: Open to Air [place] Wound Tissue: Blanching Skin Integrity Problem Comment: Wound care was consulted to see this patient's gluteal cleft. Patients asked to stand from chair and viewed the area with the assist from LUCY Veras. Patient with moisture related dermatitis. Patient with frequent incontinence likely contributing to moisture. Recommend calazime cream to the area and no briefs. Wound care will not follow this wound. Please reconsult PRN.
--- NOTE | 2017-01-28 10:16 | HOSPPROG ---
Hospitalist Progress Note Assessment/Plan: 67 yo F w bipolar, recemt pacer, known diastolic dysfunction admitted w acute diastolic heart failure exacerbation somnolence: improved constipation: extra dose of miralax, suppository and ambulation ADCHF: she is symptomatically improved but I+O's dont reflect diuresis add RAMOS's cx improved., bnp higher dose of lasix today continue diamox weigh today i think she is clinically improved and has diuresed despite conflictig clinical data metabolic alkalosis: follow daily query UTI: s/p 5 days levaquin recent pacer hematoma: improved bipolar: continue meds AF: warfarin, bb chronic proph: anticoagulated coagulopathy: restart warfarin today dispo: needs snf but refusing, wishing to return to [facility] will begin ambulation today still wishes to return to [facility] Subjective: cxr- slightly improved chf (interp by me_). more alert Objective: Vital Signs Temp Pulse Resp BP Pulse Ox 35.9 C L 98 13 153/76 H 92 01/28/17 07:09 01/28/17 07:09 01/28/17 07:09 01/28/17 07:09 01/28/17 08:39 Laboratory Results 01/28/17 03:50 01/28/17 03:50 01/27/17 01/28/17 01/29/17 05:59 05:59 05:59 Intake Total 1810 640 Output Total 700 450 Balance 1110 190 PT 29.0 SEC (12.0-15.0) H 01/28/17 03:50 INR 2.75 (0.83-1.16) H 01/28/17 03:50 - Physical Exam Constitutional: no apparent distress, appears nourished Eyes: PERRL, anicteric sclera Ears, Nose, Mouth, Throat: moist mucous membranes, hearing normal Cardiovascular: regular rate and rhythym, no murmur, rub, or gallop, systolic murmur Respiratory: no respiratory distress, no rales or rhonchi, other (crackles at bases, no wheeze, good air movement) Gastrointestinal: normoactive bowel sounds, soft, non-tender abdomen Genitourinary: no bladder fullness, No cobb in urethra Skin: warm, normal color Musculoskeletal: full muscle strength Neurologic: AAOx3 Psychiatric: interacting appropriately Lymph, Heme, Immunologic: no cervical LAD ICD10 Worksheet Patient Problems: Problems Problem Status Onset Anemia Acute Congestive heart failure Acute Hypoxia Acute UTI (urinary tract infection) Acute Abdominal pain Acute Acute encephalopathy Acute Altered mental status Acute Atrial fibrillation Acute CAD (coronary artery disease), [place] coronary artery Acute Chronic diastolic CHF (congestive heart failure) Acute Chronic hypoxemic respiratory failure Acute Chronic kidney disease (CKD) Acute Generalized weakness Acute Hyponatremia Acute New onset atrial fibrillation Acute Palliative care encounter Acute Pyelonephritis Acute VHD (valvular heart disease) Acute
[2017-01-28] MEDS: CALCIUM CARB W/VIT D 500 MG TAB PO SCH ×3 (12:55→21:04)
[2017-01-28] MEDS: FERROUS SULFATE 325 MG TAB PO SCH (12:56)
--- NOTE | 2017-01-28 17:06 | ASMTCMCOM ---
CM Note CM Note Notes: Pt has HCBS services through Medicaid. CM confirmed w/ Nilson at [facility] and with [facility]. It is not feasible for pt to go to SNF at this time because pt is paying for [facility] with her SSDI. Also, pt is not interested in SNF. CM left a msg w/ La, the resident coordinator, at the [facility] and requested a call back. CM has been in contact w/ pts sister Hallie regarding d/c POC. Hallie is on board w/ pt going back to [facility]. Hallie informed CM that Thersea from [facility] will stop by today. CM was not able to meet w/ Thesea. CM to follow. Plan: [facility] w/ [facility] Date Signed: 01/28/2017 05:05 PM Electronically Signed By:MARY Crook
[2017-01-28] MEDS: WARFARIN SODIUM 5 MG TAB PO SCH (17:26)
[2017-01-28] MEDS: traMADol 50 MG TAB PO PRN (21:03)
[2017-01-28] MEDS: ARIPiprazole 5 MG TAB PO SCH (21:04)
[2017-01-28] MEDS: DIVALPROEX ER 250 MG TAB PO SCH (21:04)
[2017-01-28] MEDS: ATORVASTATIN CALCIUM 20 MG TAB PO SCH (21:05)
[2017-01-29] MEDS: PATCH REMOVAL 1 EA PATCH TD SCH (03:48)
[2017-01-29] MEDS: LEVOTHYROXINE 175 MCG TAB PO SCH (04:50)
[2017-01-29] MEDS: IPRATROPIUM/ALBUTEROL 3 ML DEYVIAL IH SCH ×4 (05:06→20:15)
[2017-01-29 05:11] LABS: INR 2.13 (0.83-1.16); PROTIME(PATIENT) 23.9 SEC (12.0-15.0)
[2017-01-29 05:32] LABS: ANION GAP 10 mEq/L (8-16); CALCIUM 9.3 mg/dL (8.5-10.4); CARBON DIOXIDE 38 mEq/l (22-31); CHLORIDE 78 mEq/L (97-110); CREATININE 0.9 mg/dL (0.6-1.0); GLOMERULAR FILTRATION RATE > 60; GLUCOSE 99 mg/dL (70-100); POTASSIUM 3.1 mEq/L (3.5-5.2); SODIUM 126 mEq/L (134-144)
[2017-01-29] MEDS: LIDOCAINE 5% 1 EA PATCH TD SCH (10:34)
[2017-01-29] MEDS: POLYETHYLENE GLYCOL 3350 17 GM PKT PO SCH (10:35)
[2017-01-29] MEDS: DILTIAZEM 30 MG TAB PO SCH ×2 (10:36→19:59)
[2017-01-29] MEDS: CHOLECALCIFEROL VIT D3 1,000 UNITS TAB PO SCH (10:37)
[2017-01-29] MEDS: DOCUSATE SODIUM 100 MG CAP PO SCH ×2 (10:37→19:58)
[2017-01-29] MEDS: METOPROLOL SUCCINATE XR 25 MG TAB PO SCH (10:37)
[2017-01-29] MEDS: FAMOTIDINE 20 MG TAB PO SCH ×2 (10:37→16:34)
[2017-01-29] MEDS: HYDROCORTISONE 10 MG TAB PO SCH ×2 (10:38→13:12)
[2017-01-29] MEDS: SODIUM CL NASAL 45 ML BTL EACHNARE SCH ×3 (10:38→19:58)
[2017-01-29] MEDS: acetaZOLAMIDE 500 MG in SYRINGE 0 ML IVP SCH (10:39)
[2017-01-29] MEDS: CALCIUM CARB W/VIT D 500 MG TAB PO SCH ×3 (13:12→19:58)
[2017-01-29] MEDS: FERROUS SULFATE 325 MG TAB PO SCH (13:12)
--- NOTE | 2017-01-29 14:31 | HOSPPROG ---
Hospitalist Progress Note Assessment/Plan: 67-year-old with a history of bipolar disease sleep apnea and pulmonary hypertension is admitted with increasing shortness of breath and probable right- sided heart failure. She was recently admitted for UTI and sepsis complicated by respiratory failure. She eventually was discharged home but readmitted fairly quickly after discharge with recurrent shortness of breath and pulmonary edema. She initially was diuresed with IV Lasix, after increasing bicarb levels her diuresis was changed to Diamox IV. She has been noted to be fairly somnolent at times with a very slow diuresis. # congestive heart failure likely right-sided due to noncompliance with CPAP * Discussed with pulmonology. * Will get ABG * Continue Diamox IV for now but will need a better solution at the time of discharge to help control her symptoms # hyponatremia, multifactorial * Changed to regular diet * Add fluid restriction * Monitor daily sodium levels. # encephalopathy: Improving today, has had significantly elevated PCO2 to levels, will repeat today # bradycardia status post recent pacemaker placement complicated by hematoma # bipolar disease continue current medications # atrial fibrillation currently rate controlled and on anticoagulation with Coumadin dispo: needs snf but refusing, wishing to return to [facility] will begin ambulation today still wishes to return to [facility], did better with physical therapy today Subjective: Patient new to me and chart reviewed. Somewhat lethargic today but apparently did work with physical therapy this morning and did better complains of pain all over her body without specific complaints of shortness of breath Objective: Vital Signs Temp Pulse Resp BP Pulse Ox 36.9 C 96 21 H 144/81 H 100 01/29/17 11:49 01/29/17 11:49 01/29/17 11:49 01/29/17 11:49 01/29/17 11:49 Laboratory Results 01/28/17 03:50 01/29/17 04:45 01/28/17 01/29/17 01/30/17 05:59 05:59 05:59 Intake Total 640 1000 Output Total 450 1200 Balance 190 -200 PT 23.9 SEC (12.0-15.0) H 01/29/17 04:45 INR 2.13 (0.83-1.16) H 01/29/17 04:45 - Physical Exam Constitutional: chronically ill appearing, obese Eyes: PERRL, EOMI Ears, Nose, Mouth, Throat: moist mucous membranes Cardiovascular: regular rate and rhythym Respiratory: no respiratory distress, reduced air movement, inspiratory crackles Gastrointestinal: soft, non-tender abdomen Genitourinary: no bladder fullness Skin: warm Musculoskeletal: generalized weakness Psychiatric: interacting appropriately, other (Sleepy) ICD10 Worksheet Patient Problems: Problems Problem Status Onset Anemia Acute Congestive heart failure Acute Hypoxia Acute UTI (urinary tract infection) Acute Abdominal pain Acute Acute encephalopathy Acute Altered mental status Acute Atrial fibrillation Acute CAD (coronary artery disease), [place] coronary artery Acute Chronic diastolic CHF (congestive heart failure) Acute Chronic hypoxemic respiratory failure Acute Chronic kidney disease (CKD) Acute Generalized weakness Acute Hyponatremia Acute New onset atrial fibrillation Acute Palliative care encounter Acute Pyelonephritis Acute VHD (valvular heart disease) Acute
[2017-01-29] MEDS: FUROSEMIDE 20 MG TAB PO SCH (16:33)
[2017-01-29] MEDS: POTASSIUM CL 20 MEQ TAB PO SCH (16:34)
[2017-01-29] MEDS: WARFARIN SODIUM 2.5 MG TAB PO SCH (16:34)
--- NOTE | 2017-01-29 17:35 | GCON ---
[f rep st] CONSULTATION PULMONARY CONSULT DATE OF CONSULTATION: 01/29/2017 HPI: The patient is a 67-year-old female who has been in and out of the hospital with a variety of p roblems, complicated by her known obstructive sleep apnea, schizophrenia, and bipolar disorder. She also has a history of atrial fibrillation, coronary artery disease, and diastolic dysfunction. She w as admitted to [facility] in early December with respiratory failure and atypical grace st pain, and was found to have sinus pauses consistent with sick sinus syndrome. A permanent pacemak er was placed on January 06, complicated by a pocket hematoma, but she was otherwise stable. During that hospitalization, she did have respiratory failure, was initially treated with BiPAP, but failed that and underwent endotracheal intubation. She subsequently got better, extubated, and went home on the to [facility], where she lives. On the , however, she was readmitted with short ness of breath and increasing edema, was found to be hypoxic, though her oxygen saturation was improv ed, and she was quickly titrated to 5 L nasal cannula. A CT angiogram was performed on admission karthik t showed no pulmonary embolism, but did show pulmonary edema. She was treated with diuretics. She d id have an elevated serum bicarb, which was interpreted as a metabolic alkalosis and more diuresis wa s desired. She started getting Diamox on the , and continued to get it on the . A blood gas on 01/26 showed a pH 7.38, pCO2 62, PO2 61, bicarb 43, with a saturation of 90%. Her Lasix was disc ontinued at that time, and she continued on Diamox. On 01/27, her saturation goal was set to be 87%, though she continued with Diamox, and she was somnolent off and on, sleeping in a chair. She get di d some Lasix 01/28. Today, she is getting close to discharge, and I was asked to help assist with th e diuresis and interpretation of her underlying respiratory issues. The patient is not able to give a very accurate history, though she says that her breathing is better now than when she came into the hospital. Her edema is certainly better, and she is anxious to go h ome. She currently denies any chest pain, cough, sputum production, hemoptysis, or syncope. She has been sleeping in a chair. A CPAP device is in the room, but I am not certain as to whether or not s he is actually using it. PAST MEDICAL HISTORY: Atrial fibrillation, sick sinus syndrome, bipolar disorder, schizophrenia, wendy ast cancer, coronary artery disease, hyperlipidemia, hypothyroidism, gastroesophageal reflux disease, diastolic dysfunction, sleep apnea, mild pulmonary hypertension on a recent echo, chronic kidney dis ease, and systemic hypertension, adrenal insufficiency. PAST SURGICAL HISTORY: Cholecystectomy, coronary artery bypass graft, I believe a lumpectomy and SVT ablation, and the recent pacemaker placement. SOCIAL HISTORY: She is a nonsmoker. No alcohol or IV drug use. FAMILY HISTORY: Noncontributory at this time. MEDICATIONS: DuoNeb, Fosamax, Abilify, Lipitor, vitamin D, diltiazem, Depakote, Colace, Pepcid, iron , hydrocortisone, Synthroid, Imodium, metoprolol, Zofran, MiraLAX, Compazine, Ultram, Coumadin. EXAM: VITAL SIGNS: At this time, her blood pressure is 144/81, heart rate of 96 and normal sinus rh ythm, respirations 21, oxygen saturation 100% on 2 L. GENERAL: She is a morbidly obese female, who is sitting up in bed, awake, alert, and able to speak in full sentences without using accessory muscl es for breathing. HEENT: Pupils are equally round and reactive to light. Nonicteric and noninjecte d. Mucous membranes moist without erythema or exudate. NECK: Supple, without adenopathy or jugular vein distention. Breath sounds were quiet, but did not have any willy wheezes, and certainly no lalit or rales or rhonchi. HEART: Appeared to have a regular rate and rhythm. ABDOMEN: Soft, nontender, nondistended without hepatosplenomegaly. EXTREMITIES: Trace edema bilaterally. There is no clubbi ng, cyanosis or edema. NEUROLOGICAL: Exam is nonfocal including cranial nerves and deep tendon refl exes. SKIN: Warm and dry without evidence of rash. LABORATORY DATA: White count of 7.1, hematocrit of 26.9, and platelets of 190 from yesterday, INR is 2.13 today. Sodium is 126, potassium 3.1, chloride 78, bicarb 38, BUN 14, creatinine 0.9. Her bloo d gas was from 01/26 with pH 7.38, pCO2 72, PO2 61, bicarb 43, saturation 90%. It is unclear what ox ygen supplement she had at that time. ASSESSMENT AND PLAN: Chronic respiratory acidosis with metabolic compensation. Her serum bicarb has been historically high in the upper 30s to low 40s, which is about where it is now. I think that he r blood gas shows compensated respiratory acidosis, likely due to obesity hypoventilation syndrome in the setting of obstructive sleep apnea. She is reportedly using CPAP on a nightly basis, which is c ertainly critically important, particularly when she is at home at the [facility]. If she con tinued to fail this, she may need some respiratory stimulant, such as Provera 20 mg p.o. three times daily in an effort to help bring down the CO2. Acetazolamide may be detrimental in the patient who d oes have a chronic respiratory acidosis since it is does cause a bicarbonate urea or something that s he needs for her compensation. I do not feel that she needs very aggressive diuresis, and she is cer tainly not terribly volume overloaded at this time, and her oxygen requirement is very very low. I d iscontinued the Diamox now, and I suppose she can go home on 20 mg of Lasix daily. The reevaluation would have to depend on the rise in her serum bicarbonate. If it does continue to rise, I would enco urage blood gases so that we can distinguish between a metabolic alkalosis and respiratory acidosis. /[id number]/MODL
[2017-01-29] MEDS: DIVALPROEX ER 250 MG TAB PO SCH (19:58)
[2017-01-29] MEDS: ATORVASTATIN CALCIUM 20 MG TAB PO SCH (19:58)
[2017-01-29] MEDS: ARIPiprazole 5 MG TAB PO SCH (20:01)
[2017-01-30] MEDS: PATCH REMOVAL 1 EA PATCH TD SCH ×2 (02:34→20:38)
[2017-01-30] MEDS: IPRATROPIUM/ALBUTEROL 3 ML DEYVIAL IH SCH ×4 (05:37→20:21)
[2017-01-30 06:04] LABS: INR 2.85 (0.83-1.16); PROTIME(PATIENT) 29.8 SEC (12.0-15.0)
[2017-01-30 06:08] LABS: ANION GAP 10 mEq/L (8-16); CALCIUM 9.3 mg/dL (8.5-10.4); CARBON DIOXIDE 40 mEq/l (22-31); CHLORIDE 79 mEq/L (97-110); CREATININE 0.8 mg/dL (0.6-1.0); GLOMERULAR FILTRATION RATE > 60; GLUCOSE 108 mg/dL (70-100); POTASSIUM 3.7 mEq/L (3.5-5.2); SODIUM 129 mEq/L (134-144)
[2017-01-30] MEDS: LEVOTHYROXINE 175 MCG TAB PO SCH (07:40)
[2017-01-30] MEDS: LIDOCAINE 5% 1 EA PATCH TD SCH (09:54)
[2017-01-30] MEDS: HYDROCORTISONE 10 MG TAB PO SCH ×2 (09:56→14:24)
[2017-01-30] MEDS: DILTIAZEM 30 MG TAB PO SCH ×2 (09:56→20:36)
[2017-01-30] MEDS: POTASSIUM CL 20 MEQ TAB PO SCH (09:56)
[2017-01-30] MEDS: METOPROLOL SUCCINATE XR 25 MG TAB PO SCH (09:56)
[2017-01-30] MEDS: FAMOTIDINE 20 MG TAB PO SCH ×2 (09:56→17:04)
[2017-01-30] MEDS: DOCUSATE SODIUM 100 MG CAP PO SCH ×2 (09:56→20:37)
[2017-01-30] MEDS: CHOLECALCIFEROL VIT D3 1,000 UNITS TAB PO SCH (09:56)
[2017-01-30] MEDS: ARIPiprazole 10 MG TAB PO SCH (09:57)
[2017-01-30] MEDS: FUROSEMIDE 20 MG TAB PO SCH (09:57)
[2017-01-30] MEDS: SODIUM CL NASAL 45 ML BTL EACHNARE SCH ×3 (09:58→20:37)
--- NOTE | 2017-01-30 10:52 | HOSPPROG ---
Hospitalist Progress Note Assessment/Plan: 67-year-old with a history of bipolar disease sleep apnea and pulmonary hypertension is admitted with increasing shortness of breath and probable right- sided heart failure. She was recently admitted for UTI and sepsis complicated by respiratory failure. She eventually was discharged home but readmitted fairly quickly after discharge with recurrent shortness of breath and pulmonary edema. She initially was diuresed with IV Lasix, after increasing bicarb levels her diuresis was changed to Diamox IV. Appreciate pulm. After talking to nurse, the patient has been sleeping in the chair and has not been on CPAP. # congestive heart failure likely right-sided due to noncompliance with CPAP * Discussed with pulmonology. * Continue po lasix * slight weight gain today * Will place on CPAP today since she is so somnolent, primarily when she is napping and use it at night. # hyponatremia, multifactorial * Changed to regular diet * Add fluid restriction * Monitor daily sodium levels. improved today. # encephalopathy: Improving today, has had significantly elevated PCO2 to levels, will repeat today # bradycardia status post recent pacemaker placement complicated by hematoma # bipolar disease continue current medications # atrial fibrillation currently rate controlled and on anticoagulation with Coumadin dispo: needs snf but refusing, wishing to return [facility] will begin ambulation today still wishes to return to [facility], did better with physical therapy today Subjective: very somnolent and difficult to arouse, this has been her MO all week. Objective: Vital Signs Temp Pulse Resp BP Pulse Ox 36.7 C 98 22 H 171/79 H 92 01/30/17 08:09 01/30/17 10:28 01/30/17 10:28 01/30/17 08:09 01/30/17 10:28 Laboratory Results 01/28/17 03:50 01/30/17 05:45 01/29/17 01/30/17 01/31/17 05:59 05:59 05:59 Intake Total 1000 1300 Output Total 1200 Balance -200 1300 PT 29.8 SEC (12.0-15.0) H 01/30/17 05:45 INR 2.85 (0.83-1.16) H 01/30/17 05:45 - Physical Exam Constitutional: no apparent distress, chronically ill appearing, obese Eyes: PERRL Ears, Nose, Mouth, Throat: moist mucous membranes Cardiovascular: regular rate and rhythym, systolic murmur, edema Respiratory: no respiratory distress, No expiratory wheeze, No inspiratory crackles Gastrointestinal: normoactive bowel sounds, soft, non-tender abdomen, No distension Genitourinary: no bladder fullness Skin: warm Neurologic: No AAOx3 Psychiatric: interacting appropriately, other (somnolent) ICD10 Worksheet Patient Problems: Problems Problem Status Onset Chronic kidney disease (CKD) Acute CAD (coronary artery disease), [place] coronary artery Acute VHD (valvular heart disease) Acute Hyponatremia Acute Altered mental status Acute Chronic hypoxemic respiratory failure Acute Acute encephalopathy Acute Atrial fibrillation Acute Chronic diastolic CHF (congestive heart failure) Acute Abdominal pain Acute New onset atrial fibrillation Acute UTI (urinary tract infection) Acute Pyelonephritis Acute Generalized weakness Acute Palliative care encounter Acute Hypoxia Acute Congestive heart failure Acute Anemia Acute
[2017-01-30] MEDS: FERROUS SULFATE 325 MG TAB PO SCH (12:58)
[2017-01-30] MEDS: CALCIUM CARB W/VIT D 500 MG TAB PO SCH ×3 (12:58→20:37)
[2017-01-30] MEDS: WARFARIN SODIUM 5 MG TAB PO SCH (17:04)
[2017-01-30] MEDS: ARIPiprazole 5 MG TAB PO SCH (20:36)
[2017-01-30] MEDS: DIVALPROEX ER 250 MG TAB PO SCH (20:36)
[2017-01-30] MEDS: ATORVASTATIN CALCIUM 20 MG TAB PO SCH (20:37)
[2017-01-31] MEDS: IPRATROPIUM/ALBUTEROL 3 ML DEYVIAL IH SCH ×4 (05:51→20:25)
[2017-01-31] MEDS: LEVOTHYROXINE 175 MCG TAB PO SCH (06:26)
[2017-01-31 06:51] LABS: INR 4.73 (0.83-1.16); PROTIME(PATIENT) 43.9 SEC (12.0-15.0)
[2017-01-31] MEDS ORDERED: ALENDRONATE SODIUM 70 MG TAB PO SCH (07:00)
[2017-01-31 07:22] LABS: ANION GAP 9 mEq/L (8-16); CALCIUM 9.1 mg/dL (8.5-10.4); CARBON DIOXIDE 38 mEq/l (22-31); CHLORIDE 82 mEq/L (97-110); CREATININE 0.7 mg/dL (0.6-1.0); GLOMERULAR FILTRATION RATE > 60; GLUCOSE 94 mg/dL (70-100); POTASSIUM 3.5 mEq/L (3.5-5.2); SODIUM 129 mEq/L (134-144)
[2017-01-31] MEDS: POLYETHYLENE GLYCOL 3350 17 GM PKT PO SCH (08:08)
[2017-01-31] MEDS: LIDOCAINE 5% 1 EA PATCH TD SCH (08:08)
[2017-01-31] MEDS: CHOLECALCIFEROL VIT D3 1,000 UNITS TAB PO SCH ×2 (08:11→08:12)
[2017-01-31] MEDS: DILTIAZEM 30 MG TAB PO SCH ×2 (08:11→20:12)
[2017-01-31] MEDS: ARIPiprazole 10 MG TAB PO SCH (08:11)
[2017-01-31] MEDS: FAMOTIDINE 20 MG TAB PO SCH ×2 (08:11→17:13)
[2017-01-31] MEDS: POTASSIUM CL 20 MEQ TAB PO SCH (08:11)
[2017-01-31] MEDS: FUROSEMIDE 20 MG TAB PO SCH (08:11)
[2017-01-31] MEDS: DOCUSATE SODIUM 100 MG CAP PO SCH ×2 (08:11→20:12)
[2017-01-31] MEDS: HYDROCORTISONE 10 MG TAB PO SCH ×2 (08:12→13:17)
[2017-01-31] MEDS: METOPROLOL SUCCINATE XR 25 MG TAB PO SCH (08:12)
[2017-01-31] MEDS: SODIUM CL NASAL 45 ML BTL EACHNARE SCH ×3 (08:14→20:12)
--- NOTE | 2017-01-31 11:43 | HOSPPROG ---
Hospitalist Progress Note Assessment/Plan: 67-year-old with a history of bipolar disease sleep apnea and pulmonary hypertension is admitted with increasing shortness of breath and probable right- sided heart failure. She was recently admitted for UTI and sepsis complicated by respiratory failure. She eventually was discharged home but readmitted fairly quickly after discharge with recurrent shortness of breath and pulmonary edema. She initially was diuresed with IV Lasix and diamox and is now on PO lasix. She does not have CPAP at home and was able to use it last night with significant improvement in MS today. # congestive heart failure likely right-sided due to noncompliance with CPAP. Has a history of Obesity and hypoventilation syndrome with elevated PCO2 of 70 on blood gas. * Discussed with pulmonology. * Continue po lasix * Discuss with RT re: getting a Trilogy machine for patient at discharge or I am sure she will be readmitted with CHF. # Chronic hypercarbic and hypoxic respiratory failure, on continuous oxygen at home and elevated PCO2 on ABG here. * Given above diagnosis, and hypoventilation, obesity syndrome with recurrent admissions for CHF 2/2 Right sided failure, recommend a Trilogy machine to avoid recurrent admissions. # hyponatremia, multifactorial * Changed to regular diet * Add fluid restriction * Monitor daily sodium levels. improved today. # encephalopathy: Improving today, has had significantly elevated PCO2 to levels, will repeat today # bradycardia status post recent pacemaker placement complicated by hematoma # bipolar disease continue current medications # atrial fibrillation currently rate controlled and on anticoagulation with Coumadin dispo: needs snf but refusing, wishing to return to [facility] will begin ambulation today still wishes to return to [facility], did better with physical therapy today Subjective: more alert today, tolerated CPAP last night and feels like she slept well. Objective: Vital Signs Temp Pulse Resp BP Pulse Ox 36.8 C 94 14 149/76 H 95 01/31/17 08:00 01/31/17 10:05 01/31/17 10:05 01/31/17 08:00 01/31/17 10:05 Laboratory Results 01/28/17 03:50 01/31/17 06:15 01/30/17 01/31/17 02/01/17 05:59 05:59 05:59 Intake Total 1300 1000 Output Total 850 Balance 1300 150 PT 43.9 SEC (12.0-15.0) H D 01/31/17 06:15 INR 4.73 (0.83-1.16) H 01/31/17 06:15 - Physical Exam Constitutional: obese, uncomfortable Eyes: PERRL, EOMI Ears, Nose, Mouth, Throat: moist mucous membranes Cardiovascular: regular rate and rhythym, systolic murmur, edema Respiratory: no respiratory distress, no rales or rhonchi, clear to auscultation Gastrointestinal: normoactive bowel sounds, No tenderness Genitourinary: no bladder fullness Skin: warm Neurologic: No facial droop Psychiatric: interacting appropriately ICD10 Worksheet Patient Problems: Problems Problem Status Onset Chronic kidney disease (CKD) Acute CAD (coronary artery disease), [place] coronary artery Acute VHD (valvular heart disease) Acute Hyponatremia Acute Altered mental status Acute Chronic hypoxemic respiratory failure Acute Acute encephalopathy Acute Atrial fibrillation Acute Chronic diastolic CHF (congestive heart failure) Acute Abdominal pain Acute New onset atrial fibrillation Acute UTI (urinary tract infection) Acute Pyelonephritis Acute Generalized weakness Acute Palliative care encounter Acute Hypoxia Acute Congestive heart failure Acute Anemia Acute
--- NOTE | 2017-01-31 13:14 | ASMTCMCOM ---
CM Note CM Note Notes: Confirmed with [facility] that patient is currently under their service for home RN/PT/OT. Also confirmed that patient's ongoing case planner for Medicaid HCBS services is Lina Gibson [phone]. Mercedes on site today to order CPAP machine for patientl; it will likely be delivered to the [facility] tomorrow. Patient will likely discharge tomorrow - LUCY Urias to call patient's sister/MDPOA with this update. Current Case Management Discharge plan: [facility] with [facility] Date Signed: 01/31/2017 01:13 PM Electronically Signed By:Katie Landeros RN
[2017-01-31] MEDS: FERROUS SULFATE 325 MG TAB PO SCH (13:17)
[2017-01-31] MEDS: CALCIUM CARB W/VIT D 500 MG TAB PO SCH ×3 (13:17→20:12)
--- NOTE | 2017-01-31 16:16 | PDINTPN ---
Dredging Inspector Progress Note Assessment/Plan: Assessment: Obesity-Hypoventilation: She meets criteria, with obesity, hypercapnea, and hypoxemia. She's done well with CPAP in hospital, but is at high risk for worsening without CPAP. Hopefully we can coordinate for her to get CPAP or AVAPS at the time of discharge. Chronic respiratory acidosis: Her last blood gas from a few days ago showed a CO2 of 72 which was well compensated. Her bicarb has come down somewhat over the last few days. She had received Diamox, but is now on only Lasix. Obstructive sleep apnea: The patient states that this was diagnosed previously but she was never put on therapy. She thinks the diagnosis is made in [place] but she can't be more specific. Anemia: Hemoglobin stable Plan: Continue CPAP at night. I will give another dose of Diamox and follow her bicarbonate level. Repeat arterial blood gas may also be beneficial depending on how how she is doing clinically and how long she stays in the hospital. Discussed with Dr. Cordova 01/31/17 16:16 01/31/17 16:18 Subjective: Feels breathing is a bit better, although it fluctuates. Tolerating CPAP at night. Objective: Vital Signs Temp Pulse Resp BP Pulse Ox 36.6 C 97 12 120/59 L 74 L 01/31/17 12:00 01/31/17 15:22 01/31/17 15:22 01/31/17 12:00 01/31/17 15:27 Laboratory Results 01/28/17 03:50 01/31/17 06:15 01/30/17 01/31/17 02/01/17 05:59 05:59 05:59 Intake Total 1300 1000 Output Total 850 Balance 1300 150 PT 43.9 SEC (12.0-15.0) H D 01/31/17 06:15 INR 4.73 (0.83-1.16) H 01/31/17 06:15 Physical Exam - Physical Exam General Appearance: alert, no apparent distress EENT: normal ENT inspection Neck: normal inspection Respiratory: lungs clear, No normal breath sounds Cardiac/Chest: regular rate, rhythm, edema (2+), No gallop, No JVD Abdomen: normal bowel sounds, non-tender, soft Skin: normal color, warm/dry Extremities: non-tender, normal inspection Neuro/Psych: alert, normal mood/affect, oriented x 3 ICD10 Worksheet Patient Problems: Problems Problem Status Onset Anemia Acute Congestive heart failure Acute Hypoxia Acute UTI (urinary tract infection) Acute Abdominal pain Acute Acute encephalopathy Acute Altered mental status Acute Atrial fibrillation Acute CAD (coronary artery disease), [place] coronary artery Acute Chronic diastolic CHF (congestive heart failure) Acute Chronic hypoxemic respiratory failure Acute Chronic kidney disease (CKD) Acute Generalized weakness Acute Hyponatremia Acute New onset atrial fibrillation Acute Palliative care encounter Acute Pyelonephritis Acute VHD (valvular heart disease) Acute
[2017-01-31] MEDS ORDERED: acetaZOLAMIDE 250 MG in SYRINGE 0 ML IVP ONE (16:19)
[2017-01-31] MEDS ORDERED: ALBUTEROL 200 PUFFS/18 GM MDI IH PRN (16:52)
[2017-01-31] MEDS: ARIPiprazole 5 MG TAB PO SCH (20:12)
[2017-01-31] MEDS: PATCH REMOVAL 1 EA PATCH TD SCH (20:12)
[2017-01-31] MEDS: DIVALPROEX ER 250 MG TAB PO SCH (20:12)
[2017-01-31] MEDS: ATORVASTATIN CALCIUM 20 MG TAB PO SCH (20:12)
[2017-02-01] MEDS: IPRATROPIUM/ALBUTEROL 3 ML DEYVIAL IH SCH ×4 (05:07→20:33)
[2017-02-01] MEDS: traMADol 50 MG TAB PO PRN (05:23)
[2017-02-01] MEDS: LEVOTHYROXINE 175 MCG TAB PO SCH (05:23)
[2017-02-01 06:18] LABS: INR 4.22 (0.83-1.16); PROTIME(PATIENT) 40.2 SEC (12.0-15.0)
[2017-02-01 06:23] LABS: ANION GAP 8 mEq/L (8-16); CALCIUM 9.6 mg/dL (8.5-10.4); CARBON DIOXIDE 39 mEq/l (22-31); CHLORIDE 84 mEq/L (97-110); CREATININE 0.7 mg/dL (0.6-1.0); GLOMERULAR FILTRATION RATE > 60; GLUCOSE 96 mg/dL (70-100); POTASSIUM 3.8 mEq/L (3.5-5.2); SODIUM 131 mEq/L (134-144)
[2017-02-01] MEDS: FUROSEMIDE 20 MG TAB PO SCH (09:31)
[2017-02-01] MEDS: METOPROLOL SUCCINATE XR 25 MG TAB PO SCH (09:31)
[2017-02-01] MEDS: FAMOTIDINE 20 MG TAB PO SCH ×2 (09:39→18:27)
[2017-02-01] MEDS: ARIPiprazole 10 MG TAB PO SCH (09:39)
[2017-02-01] MEDS: HYDROCORTISONE 10 MG TAB PO SCH ×2 (09:39→14:23)
[2017-02-01] MEDS: POTASSIUM CL 20 MEQ TAB PO SCH (09:40)
[2017-02-01] MEDS: POLYETHYLENE GLYCOL 3350 17 GM PKT PO SCH (09:40)
[2017-02-01] MEDS: DOCUSATE SODIUM 100 MG CAP PO SCH ×2 (09:40→20:39)
[2017-02-01] MEDS: SODIUM CL NASAL 45 ML BTL EACHNARE SCH ×3 (09:41→20:44)
[2017-02-01] MEDS: DILTIAZEM 30 MG TAB PO SCH ×2 (10:15→20:38)
[2017-02-01 11:09] LABS: BASE EXCESS 8.4 mEq/L (-2.5-2.5); BICARBONATE 35 mEq/L (22-26); MEASURED OXYGEN SATURATION 95 % (92-95); PCO2 66 mmHg (34-38); PO2 81 mmHg (65-75); TCO2 37 mEq/L (23-27)
[2017-02-01] MEDS: LIDOCAINE 5% 1 EA PATCH TD SCH (11:41)
[2017-02-01] MEDS: CALCIUM CARB W/VIT D 500 MG TAB PO SCH ×3 (12:04→20:39)
[2017-02-01] MEDS: FERROUS SULFATE 325 MG TAB PO SCH (12:04)
--- NOTE | 2017-02-01 12:04 | HOSPPROG ---
Hospitalist Progress Note Assessment/Plan: 67-year-old with a history of bipolar disease sleep apnea and pulmonary hypertension is admitted with increasing shortness of breath and probable right- sided heart failure. She was recently admitted for UTI and sepsis complicated by respiratory failure. She eventually was discharged home but readmitted fairly quickly after discharge with recurrent shortness of breath and pulmonary edema. She initially was diuresed with IV Lasix and diamox and is now on PO lasix. She does not have CPAP at home and was able to use it last night with significant improvement in MS today. # congestive heart failure likely right-sided due to noncompliance with CPAP. Has a history of Obesity and hypoventilation syndrome with elevated PCO2 of 70 on blood gas. * Discussed with pulmonology. * Continue po lasix * Discuss with RT regarding getting BiPAP machine for hypercapnia, ABG on awakening is elevated with a pCO2 of 66 * Awaiting PFTs # Chronic hypercarbic and hypoxic respiratory failure, on continuous oxygen at home and elevated PCO2 on ABG here. * Given above diagnosis, and hypoventilation, obesity syndrome with recurrent admissions for CHF 2/2 Right sided failure, recommend BiPAP her CPAP to avoid recurrent admissions # hyponatremia, multifactorial * Changed to regular diet * Add fluid restriction * Monitor daily sodium levels. improved today. # encephalopathy: Improving today, has had significantly elevated PCO2 to levels, will repeat today # bradycardia status post recent pacemaker placement complicated by hematoma # bipolar disease continue current medications # atrial fibrillation currently rate controlled and on anticoagulation with Coumadin dispo: Pt refusing SNF and will return to [facility]. Currently working on getting CPAP or BIPAP prior to dc. Her ABG qualifies for bipap and spirometry showed severe restriction. I have been calling Marilyn, the rep at [phone] who will set up bipap prior to dc. She will be in tomorrow to get copies of spirometry and ABG to send in and get bipap ordered for patient prior to dc. If can get tomorrow she can be discharged. Subjective: Lethargic today prior usual. Will resume her Abilify I suspect her lethargy is related to CO2 retention from her sleep apnea and hypercapnic respiratory failure Objective: Vital Signs Temp Pulse Resp BP Pulse Ox 36.5 C 101 H 19 95/65 L 98 02/01/17 11:37 02/01/17 11:37 02/01/17 11:37 02/01/17 11:37 02/01/17 11:37 Laboratory Results 01/28/17 03:50 02/01/17 05:46 01/31/17 02/01/17 02/02/17 05:59 05:59 05:59 Intake Total 1000 540 Output Total 850 400 Balance 150 140 PT 40.2 SEC (12.0-15.0) H 02/01/17 05:46 INR 4.22 (0.83-1.16) H 02/01/17 05:46 - Physical Exam Constitutional: chronically ill appearing, obese Eyes: PERRL, anicteric sclera, EOMI Ears, Nose, Mouth, Throat: moist mucous membranes Cardiovascular: regular rate and rhythym, systolic murmur, edema Respiratory: no respiratory distress, reduced air movement Gastrointestinal: normoactive bowel sounds Genitourinary: no bladder fullness Skin: warm Psychiatric: interacting appropriately ICD10 Worksheet Patient Problems: Problems Problem Status Onset Chronic kidney disease (CKD) Acute CAD (coronary artery disease), [place] coronary artery Acute VHD (valvular heart disease) Acute Hyponatremia Acute Altered mental status Acute Chronic hypoxemic respiratory failure Acute Acute encephalopathy Acute Atrial fibrillation Acute Chronic diastolic CHF (congestive heart failure) Acute Abdominal pain Acute New onset atrial fibrillation Acute UTI (urinary tract infection) Acute Pyelonephritis Acute Generalized weakness Acute Palliative care encounter Acute Hypoxia Acute Congestive heart failure Acute Anemia Acute
--- NOTE | 2017-02-01 16:22 | PDINTPN ---
Gis Analyst Progress Note Assessment/Plan: Assessment: Obesity-Hypoventilation: She meets criteria, with obesity, hypercapnea, and hypoxemia. She's done well with BiPAP in hospital, but is at high risk for worsening without BiPAP. Hopefully we can coordinate for her to get BiPAP or AVAPS at the time of discharge. Otherwise, she is at high risk of readmission. Severe Restriction: Abraham demonstrates severe restriction. Likely due to obesity , possible neuromuscular weakness as well. Has CO2 retention/respiratory acidosis as a complication, improving with BiPAP. Chronic respiratory acidosis: Her last blood gas from a few days ago showed a CO2 of 72 which was well compensated. Her bicarb has come down somewhat over the last few days, and CO2 down a bit on ABG this morning, done upon patient arising. Obstructive sleep apnea: The patient states that this was diagnosed previously but she was never put on therapy. She thinks the diagnosis is made in [place] but she can't be more specific. Anemia: Hemoglobin stable Plan: Continue BiPAP at night. Will not give Diamox again, as she is mildly acidemic. With her restrictive lung disease and CO2 retention/respiratory acidosis, she would be a good candidate for home ventilation. This will reduce her risk of readmission, and is expected to improve her quality of life. She qualifies for home BiPAP, but may benefit even more from AVAPS if possible. Will likely need home oxygen as well. Discussed with Dr. Cordova 02/01/17 16:24 Subjective: Hungry. Wants to go home. Tolerating BiPAP, feels breathing is a bit better. Denies pain. Objective: Vital Signs Temp Pulse Resp BP Pulse Ox 36.7 C 103 H 17 115/66 99 02/01/17 15:52 02/01/17 15:52 02/01/17 15:52 02/01/17 15:52 02/01/17 15:52 Laboratory Results 01/28/17 03:50 02/01/17 05:46 01/31/17 02/01/17 02/02/17 05:59 05:59 05:59 Intake Total 1000 540 440 Output Total 850 400 550 Balance 150 140 -110 PT 40.2 SEC (12.0-15.0) H 02/01/17 05:46 INR 4.22 (0.83-1.16) H 02/01/17 05:46 Bedside [place]: Severe restriction, FVC 14% predicted, FEV1 16% predicted. Laboratory Tests 02/01/17 10:58 pCO2 66 H pO2 81 H Total CO2 37 H ABG pH 7.35 ABG HCO3 35 H Physical Exam - Physical Exam General Appearance: alert, no apparent distress EENT: pharynx normal Neck: normal inspection Respiratory: decreased breath sounds Cardiac/Chest: regular rate, rhythm, edema (1+) Abdomen: normal bowel sounds, non-tender Skin: normal color, warm/dry Neuro/Psych: alert, normal mood/affect, No motor weakness ICD10 Worksheet Patient Problems: Problems Problem Status Onset Anemia Acute Congestive heart failure Acute Hypoxia Acute UTI (urinary tract infection) Acute Abdominal pain Acute Acute encephalopathy Acute Altered mental status Acute Atrial fibrillation Acute CAD (coronary artery disease), [place] coronary artery Acute Chronic diastolic CHF (congestive heart failure) Acute Chronic hypoxemic respiratory failure Acute Chronic kidney disease (CKD) Acute Generalized weakness Acute Hyponatremia Acute New onset atrial fibrillation Acute Palliative care encounter Acute Pyelonephritis Acute VHD (valvular heart disease) Acute
[2017-02-01] MEDS: ATORVASTATIN CALCIUM 20 MG TAB PO SCH (20:38)
[2017-02-01] MEDS: ARIPiprazole 5 MG TAB PO SCH (20:39)
[2017-02-01] MEDS: DIVALPROEX ER 250 MG TAB PO SCH (20:39)
[2017-02-01] MEDS: PATCH REMOVAL 1 EA PATCH TD SCH (20:40)
[2017-02-02] MEDS: IPRATROPIUM/ALBUTEROL 3 ML DEYVIAL IH SCH ×4 (05:04→22:24)
[2017-02-02] MEDS: LEVOTHYROXINE 175 MCG TAB PO SCH (05:18)
[2017-02-02] MEDS: traMADol 50 MG TAB PO PRN (05:18)
[2017-02-02 06:00] LABS: INR 2.98 (0.83-1.16); PROTIME(PATIENT) 30.8 SEC (12.0-15.0)
--- NOTE | 2017-02-02 08:43 | HOSPPROG ---
Hospitalist Progress Note Assessment/Plan: #Obesity-hypoventilation syndrome: BiPap #Interiginous rash: antifungal cream #RUE cellulitis: prior PICC site. IV Ancef #Hyponatremia: improved with fluid restriction, regular diet #Chronic hypercarbic/hypoxic resp failure: due to restrictive physio, obesity #Metabolic encephalopathy: suspect due to hypercarbia #Atrial fibrillation: rate-controlled on Dilt. Coumadin. INR 2.9 #Bipolar d/o: Abilify #Bradycardia: s/p pacer #Maculopapular rash:no oral involvement. meds vs. detergent? Depakote can cause rash, but been on for years. Trial cortisone cream. Alendronate can as well; hold. Check eosinophils. If not improved, may need punch biopsy. #Diet: regular, 1500ml fluid restriction #DVT ppx: Coumadin #Disp: warrants inpt admission with new cellulitis, rash. Cont IV abx Subjective: rash noted under breasts last couple of days. Now having it over chest and back. itchy. No mouth pain. Objective: Vital Signs Temp Pulse Resp BP Pulse Ox 36.7 C 91 16 79/46 L 98 02/02/17 08:00 02/02/17 08:00 02/02/17 08:00 02/02/17 08:00 02/02/17 08:00 Laboratory Results 01/28/17 03:50 02/01/17 05:46 02/01/17 02/02/17 02/03/17 05:59 05:59 05:59 Intake Total 540 940 Output Total 400 1200 Balance 140 -260 PT 30.8 SEC (12.0-15.0) H D 02/02/17 05:15 INR 2.98 (0.83-1.16) H 02/02/17 05:15 - Physical Exam Constitutional: chronically ill appearing, obese, other (pale) Eyes: PERRL Ears, Nose, Mouth, Throat: dry mucous membranes, other (no oral/buccal lesions or ulcerations) Cardiovascular: regular rate and rhythym, no murmur, rub, or gallop, edema (+2 LE edema), other (pacer site CDI, no hematoma) Respiratory: no respiratory distress Gastrointestinal: normoactive bowel sounds, soft, non-tender abdomen Genitourinary: no bladder fullness Skin: other (right AC fossa with intense erythema, warmth and TTP. Maculopapular rash over upper chest/neck/back. [place]-like erythema under breast) Neurologic: AAOx3, CN II-XII Intact Psychiatric: interacting appropriately, flat affect ICD10 Worksheet Patient Problems: Problems Problem Status Onset Anemia Acute Congestive heart failure Acute Hypoxia Acute UTI (urinary tract infection) Acute Abdominal pain Acute Acute encephalopathy Acute Altered mental status Acute Atrial fibrillation Acute CAD (coronary artery disease), [place] coronary artery Acute Chronic diastolic CHF (congestive heart failure) Acute Chronic hypoxemic respiratory failure Acute Chronic kidney disease (CKD) Acute Generalized weakness Acute Hyponatremia Acute New onset atrial fibrillation Acute Palliative care encounter Acute Pyelonephritis Acute VHD (valvular heart disease) Acute
[2017-02-02] MEDS ORDERED: ceFAZolin 2 GM/DEXTROSE 100 ML IV SCH (09:50)
[2017-02-02] MEDS: ARIPiprazole 10 MG TAB PO SCH (10:45)
[2017-02-02] MEDS: FAMOTIDINE 20 MG TAB PO SCH ×2 (10:46→17:16)
[2017-02-02] MEDS: CHOLECALCIFEROL VIT D3 1,000 UNITS TAB PO SCH (10:46)
[2017-02-02] MEDS: HYDROCORTISONE 10 MG TAB PO SCH ×2 (10:47→17:18)
[2017-02-02] MEDS: METOPROLOL SUCCINATE XR 25 MG TAB PO SCH (10:47)
[2017-02-02] MEDS: FUROSEMIDE 20 MG TAB PO SCH (10:49)
[2017-02-02] MEDS: DILTIAZEM 30 MG TAB PO SCH ×2 (10:49→21:57)
[2017-02-02] MEDS: POTASSIUM CL 20 MEQ TAB PO SCH (10:49)
[2017-02-02] MEDS: DOCUSATE SODIUM 100 MG CAP PO SCH ×2 (10:49→21:59)
[2017-02-02] MEDS: POLYETHYLENE GLYCOL 3350 17 GM PKT PO SCH (10:53)
[2017-02-02] MEDS: LIDOCAINE 5% 1 EA PATCH TD SCH (10:54)
[2017-02-02] MEDS: HYDROCORTISONE 1% CREAM TP SCH ×2 (10:55→22:00)
[2017-02-02] MEDS: SODIUM CL NASAL 45 ML BTL EACHNARE SCH ×3 (11:07→22:01)
[2017-02-02] MEDS: FERROUS SULFATE 325 MG TAB PO SCH (11:21)
[2017-02-02] MEDS: CALCIUM CARB W/VIT D 500 MG TAB PO SCH ×3 (11:21→21:59)
[2017-02-02 12:20] LABS: ADD DIFF? YES; ADD MORPH? NO; ATYPICAL LYMPHOCYTE FLAG 0 (0-99); FRAGMENT RBC FLAG 40 (0-99); HEMATOCRIT 31.5 % (38.0-47.0); HEMOGLOBIN 9.9 g/dL (12.6-16.3); LIPEMIA HEMOLYSIS FLAG 80 (0-99); MEAN CELL HEMOGLOBIN 32.7 pg (27.9-34.1); MEAN CELL HEMOGLOBIN CONCENTR. 31.4 g/dL (32.4-36.7); MEAN PLATELET VOLUME 9.4 fL (8.7-11.7); PLATELET CLUMPS FLAG 10 (0-99); PLATELET COUNT 213 10^3/uL (150-400); RED BLOOD CELL COUNT 3.03 10^6/uL (4.18-5.33); RED CELL DISTRIBUTION WIDTH 15.5 % (11.5-15.2)
[2017-02-02 12:21] LABS: LEFT SHIFT FLG 100 (0-99)
[2017-02-02 13:32] LABS: MACROCYTES 1+; POLYCHROMASIA 1+
[2017-02-02 13:33] LABS: PLATELET ESTIMATE ADEQUATE (ADEQ)
--- NOTE | 2017-02-02 15:22 | WOCRNPDOC ---
WOCRN Advanced Assessment Note - Skin Integrity Problem, Advanced Assess Bilateral Medial Buttock Dermatitis Dressing Type: Open to Air Exudate Amount: None Skin Integrity Problem Comment: Mild Moisture associated dermatitis in gluteal cleft without any denuded area. There is a small [id number] friction injury present. All erythema is blanching. Treat with blue top dimethicone cream. Wound care will sign off.
--- NOTE | 2017-02-02 16:11 | PDINTPN ---
Resource Management Specialist Progress Note Assessment/Plan: Assessment: Obesity-Hypoventilation: She meets criteria, with obesity, hypercapnea, and hypoxemia. She's done well with BiPAP in hospital, but is at high risk for worsening without BiPAP. Hopefully we can coordinate for her to get BiPAP or AVAPS at the time of discharge. Otherwise, she is at high risk of readmission. Severe Restriction: Abraham demonstrates severe restriction. Likely due to obesity , possible neuromuscular weakness as well. Has CO2 retention/respiratory acidosis as a complication, improving with BiPAP. Chronic respiratory acidosis: Her last blood gas from a few days ago showed a CO2 of 72 which was well compensated. Her bicarb has come down somewhat over the last few days, now stable, and CO2 down a bit on last ABG, done upon patient arising. Obstructive sleep apnea: The patient states that this was diagnosed previously but she was never put on therapy. She thinks the diagnosis is made in [place] but she can't be more specific. Anemia: Hemoglobin up today Rash: Suspect catheter-related cellulitis. Plan: Continue BiPAP at night. Will not give Diamox again, as she is mildly acidemic. Continue Lasix. Ancef for cellulitis. With her restrictive lung disease and CO2 retention/respiratory acidosis, she would be a good candidate for home ventilation. This will reduce her risk of readmission, and is expected to improve her quality of life. She qualifies for home BiPAP, but may benefit even more from AVAPS if possible. Will likely need home oxygen as well. Follow Chem-7 02/02/17 16:11 02/02/17 16:11 Subjective: Feels OK, denies dyspnea, CP. Increased activity tolerance. Objective: Vital Signs Temp Pulse Resp BP Pulse Ox 37.1 C 104 H 16 133/86 H 99 02/02/17 12:00 02/02/17 12:00 02/02/17 12:00 02/02/17 12:00 02/02/17 12:00 Laboratory Results 02/02/17 11:16 02/01/17 05:46 02/01/17 02/02/17 02/03/17 05:59 05:59 05:59 Intake Total 540 940 Output Total 400 1200 100 Balance 140 -260 -100 PT 30.8 SEC (12.0-15.0) H D 02/02/17 05:15 INR 2.98 (0.83-1.16) H 02/02/17 05:15 Physical Exam - Physical Exam General Appearance: alert, no apparent distress EENT: normal ENT inspection Neck: normal inspection Respiratory: chest non-tender, lungs clear, normal breath sounds Cardiac/Chest: regular rate, rhythm, No edema Abdomen: normal bowel sounds, non-tender, soft Skin: other (erythema right anticubital fossa. ) ICD10 Worksheet Patient Problems: Problems Problem Status Onset Anemia Acute Congestive heart failure Acute Hypoxia Acute UTI (urinary tract infection) Acute Abdominal pain Acute Acute encephalopathy Acute Altered mental status Acute Atrial fibrillation Acute CAD (coronary artery disease), [place] coronary artery Acute Chronic diastolic CHF (congestive heart failure) Acute Chronic hypoxemic respiratory failure Acute Chronic kidney disease (CKD) Acute Generalized weakness Acute Hyponatremia Acute New onset atrial fibrillation Acute Palliative care encounter Acute Pyelonephritis Acute VHD (valvular heart disease) Acute
[2017-02-02] MEDS: WARFARIN SODIUM 2.5 MG TAB PO SCH (17:16)
[2017-02-02] MEDS: DIPHENHYDRAMINE CREAM TP PRN ×2 (17:21→22:08)
[2017-02-02] MEDS: DIVALPROEX ER 250 MG TAB PO SCH (21:58)
[2017-02-02] MEDS: ATORVASTATIN CALCIUM 20 MG TAB PO SCH (21:59)
[2017-02-02] MEDS: ARIPiprazole 5 MG TAB PO SCH (21:59)
[2017-02-02] MEDS: PATCH REMOVAL 1 EA PATCH TD SCH (22:01)
[2017-02-02] MEDS: CLOTRIMAZOLE 1% 15 GM CRTUBE TP SCH (22:42)
[2017-02-03] MEDS: IPRATROPIUM/ALBUTEROL 3 ML DEYVIAL IH SCH ×4 (05:27→21:14)
[2017-02-03] MEDS: LEVOTHYROXINE 175 MCG TAB PO SCH (06:03)
[2017-02-03 06:27] LABS: INR 2.89 (0.83-1.16); PROTIME(PATIENT) 30.1 SEC (12.0-15.0)
[2017-02-03 06:33] LABS: ANION GAP 9 mEq/L (8-16); CARBON DIOXIDE 37 mEq/l (22-31); CHLORIDE 90 mEq/L (97-110); CREATININE 0.6 mg/dL (0.6-1.0); GLOMERULAR FILTRATION RATE > 60; GLUCOSE 90 mg/dL (70-100); POTASSIUM 3.8 mEq/L (3.5-5.2); SODIUM 136 mEq/L (134-144)
[2017-02-03] MEDS: ACETAMINOPHEN 325 MG TAB PO PRN (07:32)
[2017-02-03] MEDS: LIDOCAINE 5% 1 EA PATCH TD SCH (07:32)
[2017-02-03] MEDS: METOPROLOL SUCCINATE XR 25 MG TAB PO SCH (07:33)
[2017-02-03] MEDS: traMADol 50 MG TAB PO PRN (07:33)
[2017-02-03] MEDS: POLYETHYLENE GLYCOL 3350 17 GM PKT PO SCH (07:33)
[2017-02-03] MEDS: CHOLECALCIFEROL VIT D3 1,000 UNITS TAB PO SCH (07:33)
[2017-02-03] MEDS: FAMOTIDINE 20 MG TAB PO SCH ×2 (07:33→18:26)
[2017-02-03] MEDS: ARIPiprazole 10 MG TAB PO SCH (07:34)
[2017-02-03] MEDS: DIPHENHYDRAMINE CREAM TP PRN ×3 (07:42→20:02)
[2017-02-03] MEDS: SODIUM CL NASAL 45 ML BTL EACHNARE SCH ×3 (08:20→20:02)
[2017-02-03] MEDS: FUROSEMIDE 20 MG TAB PO SCH (09:55)
[2017-02-03] MEDS: POTASSIUM CL 20 MEQ TAB PO SCH (09:56)
[2017-02-03] MEDS: HYDROCORTISONE 10 MG TAB PO SCH ×2 (09:56→14:43)
[2017-02-03] MEDS: DOCUSATE SODIUM 100 MG CAP PO SCH ×2 (09:56→20:08)
[2017-02-03] MEDS: DILTIAZEM 30 MG TAB PO SCH ×2 (09:56→20:09)
[2017-02-03] MEDS: HYDROCORTISONE 1% CREAM TP SCH (09:59)
--- NOTE | 2017-02-03 10:21 | HOSPPROG ---
Hospitalist Progress Note Assessment/Plan: #Obesity-hypoventilation syndrome: BiPap has been arranged through [employer] #RUE cellulitis: prior PICC site. Not improved with Ancef. Negative for DVT #Hyponatremia: resolved with fluid restriction, regular diet #Chronic hypercarbic/hypoxic resp failure: due to restrictive physio, obesity #Metabolic encephalopathy: suspect due to hypercarbia #Atrial fibrillation: rate-controlled on Dilt. Coumadin. INR 2.9 #Bipolar d/o: Abilify, Depakote #Bradycardia: s/p pacer #Maculopapular rash:no oral involvement. Did receive Levaquin 01/24-01/27. Check ESR, CRP, C3, C4, UA. Alendronate can as well; hold. Has been on Depakote for years. Trial oral prednisone along with benadryl cream #Diet: regular, 1500ml fluid restriction #DVT ppx: Coumadin #Disp: warrants inpt admission with new cellulitis, rash. Cont IV abx Subjective: Itchiness improved on her back. No oral lesions Objective: Vital Signs Temp Pulse Resp BP Pulse Ox 36.8 C 103 H 18 156/77 H 98 02/03/17 07:19 02/03/17 08:02 02/03/17 08:02 02/03/17 07:19 02/03/17 08:02 Laboratory Results 02/02/17 11:16 02/03/17 06:10 02/02/17 02/03/17 02/04/17 05:59 05:59 05:59 Intake Total 940 1250 787 Output Total 1200 400 350 Balance -260 850 437 PT 30.1 SEC (12.0-15.0) H 02/03/17 06:10 INR 2.89 (0.83-1.16) H 02/03/17 06:10 - Physical Exam Constitutional: no apparent distress, obese Eyes: PERRL Ears, Nose, Mouth, Throat: moist mucous membranes Cardiovascular: regular rate and rhythym, edema (+ 2 edema legs) Respiratory: no respiratory distress Gastrointestinal: normoactive bowel sounds, soft, non-tender abdomen Genitourinary: no bladder fullness, No cobb in urethra Skin: other (diffuse macular rash over back, chest and neck. Band-like area of erythema over right antecubital fossa that extends up arm to axilla) Musculoskeletal: full muscle strength, No joint tenderness Neurologic: AAOx3 Psychiatric: interacting appropriately, flat affect ICD10 Worksheet Patient Problems: Problems Problem Status Onset Anemia Acute Congestive heart failure Acute Hypoxia Acute UTI (urinary tract infection) Acute Abdominal pain Acute Acute encephalopathy Acute Altered mental status Acute Atrial fibrillation Acute CAD (coronary artery disease), [place] coronary artery Acute Chronic diastolic CHF (congestive heart failure) Acute Chronic hypoxemic respiratory failure Acute Chronic kidney disease (CKD) Acute Generalized weakness Acute Hyponatremia Acute New onset atrial fibrillation Acute Palliative care encounter Acute Pyelonephritis Acute VHD (valvular heart disease) Acute
[2017-02-03] MEDS: VANCOMYCIN 1.25 GM in D5W 250 ML IV SCH (10:59)
[2017-02-03] MEDS: predniSONE 20 MG TAB PO SCH (11:12)
[2017-02-03] MEDS: FERROUS SULFATE 325 MG TAB PO SCH (11:13)
[2017-02-03] MEDS: CALCIUM CARB W/VIT D 500 MG TAB PO SCH ×3 (11:13→20:15)
[2017-02-03 11:22] LABS: HEMATOCRIT 30.3 % (38.0-47.0)
[2017-02-03] MEDS: CLOTRIMAZOLE 1% 15 GM CRTUBE TP SCH ×2 (12:01→20:07)
[2017-02-03 14:42] LABS: COLOR PALE YELLOW; LEUKOCYTE ESTERASE,URINE 1+ (NEGATIVE); NITRITE,URINE NEGATIVE (NEGATIVE)
[2017-02-03 14:47] LABS: BACTERIA TRACE /hpf (NONE SEEN); MUCUS TRACE /lpf (NONE-1+); RBC,URINE 25-50 /hpf (0-3); WBC,URINE 15-25 /hpf (0-3)
--- NOTE | 2017-02-03 15:29 | ASMTCMCOM ---
CM Note CM Note Notes: CM spoke w/ Dennise at [facility] and was informed that pt has Medicare as her primary insurance and Medicaid as her secondary insurance therefore she will need a sleepy study conducted before Medicare allows pt to have a BPAP machine. RT is in the mist of getting [facility] invovled to get pt a BPAP. CM left a msg w/ Elli at [facility]. CM to follow. Plan: pending BPAP and back to [facility] w/ [facility] Date Signed: 02/03/2017 03:28 PM Electronically Signed By:MARY Crook
[2017-02-03] MEDS: WARFARIN SODIUM 2.5 MG TAB PO SCH (18:26)
[2017-02-03] MEDS: ARIPiprazole 5 MG TAB PO SCH (20:08)
[2017-02-03] MEDS: ATORVASTATIN CALCIUM 20 MG TAB PO SCH (20:08)
[2017-02-03] MEDS: DIVALPROEX ER 250 MG TAB PO SCH (20:09)
[2017-02-03] MEDS: PATCH REMOVAL 1 EA PATCH TD SCH (20:16)
[2017-02-04] MEDS: VANCOMYCIN 1.25 GM in D5W 250 ML IV SCH ×2 (00:19→12:09)
[2017-02-04] MEDS: LEVOTHYROXINE 175 MCG TAB PO SCH (05:36)
[2017-02-04] MEDS: IPRATROPIUM/ALBUTEROL 3 ML DEYVIAL IH SCH ×4 (05:45→21:04)
[2017-02-04 05:52] LABS: HEMATOCRIT 32.3 % (38.0-47.0); HEMOGLOBIN 10.3 g/dL (12.6-16.3); INR 2.75 (0.83-1.16); MEAN CELL HEMOGLOBIN 32.6 pg (27.9-34.1); MEAN CELL HEMOGLOBIN CONCENTR. 31.9 g/dL (32.4-36.7); MEAN CELL VOLUME 102.2 fL (81.5-99.8); RED BLOOD CELL COUNT 3.16 10^6/uL (4.18-5.33)
[2017-02-04 05:55] LABS: ANION GAP 10 mEq/L (8-16); CALCIUM 9.5 mg/dL (8.5-10.4); CARBON DIOXIDE 37 mEq/l (22-31); CHLORIDE 87 mEq/L (97-110); CREATININE 0.7 mg/dL (0.6-1.0); GLOMERULAR FILTRATION RATE > 60; GLUCOSE 107 mg/dL (70-100); POTASSIUM 4.6 mEq/L (3.5-5.2); SODIUM 134 mEq/L (134-144)
--- NOTE | 2017-02-04 07:56 | HOSPPROG ---
Hospitalist Progress Note Assessment/Plan: #Obesity-hypoventilation syndrome: BiPap has been difficult to obtain. Initially approved by [employer], but now contacting [facility] #ARPITE cellulitis: prior PICC site. Improved on Vancomycin (previously on Ancef) #Hyponatremia: resolved with fluid restriction, regular diet #Chronic hypercarbic/hypoxic resp failure: due to restrictive physio, obesity #Metabolic encephalopathy: resolved with Bipap #Atrial fibrillation: rate-controlled on Dilt. Coumadin. INR at goal #Bipolar d/o: Abilify, Depakote #Bradycardia: s/p pacer #Maculopapular rash:no oral involvement. Did receive Levaquin 01/24-01/27. Inflammatory markers negative. Has been on Depakote for years. Trial oral -improved with prednisone #Diet: regular, 1500ml fluid restriction #DVT ppx: Coumadin #Disp: warrants inpt admission with new cellulitis, rash. Cont IV abx. Subjective: rash is less itchy today Objective: Vital Signs Temp Pulse Resp BP Pulse Ox 36.4 C 95 14 123/65 H 94 02/04/17 04:00 02/04/17 05:45 02/04/17 05:45 02/04/17 04:00 02/04/17 05:45 Laboratory Results 02/04/17 05:30 02/04/17 05:30 02/03/17 02/04/17 02/05/17 05:59 05:59 05:59 Intake Total 1250 2107 Output Total 400 1400 100 Balance 850 707 -100 PT 29.0 SEC (12.0-15.0) H 02/04/17 05:30 INR 2.75 (0.83-1.16) H 02/04/17 05:30 - Physical Exam Constitutional: chronically ill appearing, obese Eyes: PERRL Ears, Nose, Mouth, Throat: moist mucous membranes Cardiovascular: regular rate and rhythym, No edema Respiratory: reduced air movement Gastrointestinal: normoactive bowel sounds, soft, non-tender abdomen Genitourinary: No cobb in urethra Musculoskeletal: other (right arm cellulits decreased with less redness and warmth. Diffuse rash over chest and back less erythematous. Dry [place] around eyes. No oral lesions) ICD10 Worksheet Patient Problems: Problems Problem Status Onset Anemia Acute Congestive heart failure Acute Hypoxia Acute UTI (urinary tract infection) Acute Abdominal pain Acute Acute encephalopathy Acute Altered mental status Acute Atrial fibrillation Acute CAD (coronary artery disease), [place] coronary artery Acute Chronic diastolic CHF (congestive heart failure) Acute Chronic hypoxemic respiratory failure Acute Chronic kidney disease (CKD) Acute Generalized weakness Acute Hyponatremia Acute New onset atrial fibrillation Acute Palliative care encounter Acute Pyelonephritis Acute VHD (valvular heart disease) Acute
[2017-02-04] MEDS: LIDOCAINE 5% 1 EA PATCH TD SCH (08:55)
[2017-02-04] MEDS: METOPROLOL SUCCINATE XR 25 MG TAB PO SCH (08:56)
[2017-02-04] MEDS: POLYETHYLENE GLYCOL 3350 17 GM PKT PO SCH (08:56)
[2017-02-04] MEDS: CHOLECALCIFEROL VIT D3 1,000 UNITS TAB PO SCH (08:56)
[2017-02-04] MEDS: DILTIAZEM 30 MG TAB PO SCH ×2 (08:57→20:08)
[2017-02-04] MEDS: DOCUSATE SODIUM 100 MG CAP PO SCH ×2 (08:57→20:09)
[2017-02-04] MEDS: predniSONE 20 MG TAB PO SCH (08:57)
[2017-02-04] MEDS: HYDROCORTISONE 10 MG TAB PO SCH ×2 (08:57→15:35)
[2017-02-04] MEDS: FAMOTIDINE 20 MG TAB PO SCH ×2 (08:57→18:23)
[2017-02-04] MEDS: FUROSEMIDE 20 MG TAB PO SCH (08:57)
[2017-02-04] MEDS: POTASSIUM CL 20 MEQ TAB PO SCH (08:57)
[2017-02-04] MEDS: ARIPiprazole 10 MG TAB PO SCH (08:57)
[2017-02-04] MEDS: SODIUM CL NASAL 45 ML BTL EACHNARE SCH ×3 (09:04→20:18)
[2017-02-04] MEDS: CLOTRIMAZOLE 1% 15 GM CRTUBE TP SCH ×2 (10:00→20:10)
[2017-02-04] MEDS: FERROUS SULFATE 325 MG TAB PO SCH (12:09)
[2017-02-04] MEDS: CALCIUM CARB W/VIT D 500 MG TAB PO SCH ×3 (12:09→20:07)
--- NOTE | 2017-02-04 14:13 | PDINTPN ---
Guest Laundry Attendant Progress Note Assessment/Plan: Assessment: Obesity-Hypoventilation: She meets criteria, with obesity, hypercapnea, and hypoxemia. She's done well with BiPAP in hospital, but is at high risk for worsening without BiPAP. Hopefully we can coordinate for her to get BiPAP or AVAPS at the time of discharge. Otherwise, she is at high risk of readmission. Severe Restriction: [place] demonstrates severe restriction. Likely due to obesity , possible neuromuscular weakness as well. Has CO2 retention/respiratory acidosis as a complication, improving with BiPAP. Chronic respiratory acidosis: Her last blood gas from a few days ago showed a CO2 of 72 which was well compensated. Her bicarb has come down somewhat over the last few days, now stable, and CO2 down a bit on last ABG, done upon patient arising. Obstructive sleep apnea: The patient states that this was diagnosed previously but she was never put on therapy. She thinks the diagnosis is made in [place] but she can't be more specific. Anemia: Hemoglobin up today Rash: Suspect catheter-related cellulitis. Plan: Continue BiPAP at night. Will not give Diamox again, as she is mildly acidemic. Continue Lasix, will increase dose. Ancef for cellulitis. With her restrictive lung disease and CO2 retention/respiratory acidosis, she would be a good candidate for home ventilation. This will reduce her risk of readmission, and is expected to improve her quality of life. She qualifies for home BiPAP, but may benefit even more from AVAPS if possible. Will likely need home oxygen as well. Follow Chem-7 02/04/17 14:13 Subjective: Feels that strength is better. Sleeping well. Increased Denies dyspnea. Objective: Vital Signs Temp Pulse Resp BP Pulse Ox 36.9 C 100 22 H 123/72 H 93 02/04/17 11:01 02/04/17 11:38 02/04/17 11:38 02/04/17 11:01 02/04/17 11:38 Laboratory Results 02/04/17 05:30 02/04/17 05:30 02/03/17 02/04/17 02/05/17 05:59 05:59 05:59 Intake Total 1250 2107 Output Total 400 1400 100 Balance 850 707 -100 PT 29.0 SEC (12.0-15.0) H 02/04/17 05:30 INR 2.75 (0.83-1.16) H 02/04/17 05:30 Physical Exam - Physical Exam General Appearance: alert, no apparent distress EENT: normal ENT inspection Neck: normal inspection Respiratory: lungs clear, normal breath sounds Cardiac/Chest: regular rate, rhythm, No edema Abdomen: normal bowel sounds, non-tender, soft Skin: normal color, warm/dry Extremities: normal inspection Neuro/Psych: alert, normal mood/affect, oriented x 3 ICD10 Worksheet Patient Problems: Problems Problem Status Onset Anemia Acute Congestive heart failure Acute Hypoxia Acute UTI (urinary tract infection) Acute Abdominal pain Acute Acute encephalopathy Acute Altered mental status Acute Atrial fibrillation Acute CAD (coronary artery disease), [place] coronary artery Acute Chronic diastolic CHF (congestive heart failure) Acute Chronic hypoxemic respiratory failure Acute Chronic kidney disease (CKD) Acute Generalized weakness Acute Hyponatremia Acute New onset atrial fibrillation Acute Palliative care encounter Acute Pyelonephritis Acute VHD (valvular heart disease) Acute
[2017-02-04] MEDS: WARFARIN SODIUM 2.5 MG TAB PO SCH (15:35)
[2017-02-04 18:31] LABS: C3 COMPLEMENT COMPONENT 107 mg/dL (75 - 175); C4 COMPLEMENT COMPONENT 25 mg/dL (14 - 40)
[2017-02-04] MEDS: DIVALPROEX ER 250 MG TAB PO SCH (20:07)
[2017-02-04] MEDS: ARIPiprazole 5 MG TAB PO SCH (20:08)
[2017-02-04] MEDS: ATORVASTATIN CALCIUM 20 MG TAB PO SCH (20:08)
[2017-02-04] MEDS: PATCH REMOVAL 1 EA PATCH TD SCH (20:11)
[2017-02-04] MEDS: traMADol 50 MG TAB PO PRN (21:00)
[2017-02-04] MEDS: ACETAMINOPHEN 325 MG TAB PO PRN (21:00)
[2017-02-05] MEDS: VANCOMYCIN 1.25 GM in D5W 250 ML IV SCH (00:46)
[2017-02-05] MEDS: ACETAMINOPHEN 325 MG TAB PO PRN ×3 (01:42→18:10)
[2017-02-05] MEDS: LEVOTHYROXINE 175 MCG TAB PO SCH (05:02)
[2017-02-05 05:37] LABS: CALCIUM 8.8 mg/dL (8.5-10.4); CHLORIDE 86 mEq/L (97-110); CREATININE 0.8 mg/dL (0.6-1.0); GLOMERULAR FILTRATION RATE > 60; GLUCOSE 94 mg/dL (70-100); POTASSIUM 4.2 mEq/L (3.5-5.2); SODIUM 134 mEq/L (134-144)
[2017-02-05 05:39] LABS: INR 4.13 (0.83-1.16); PROTIME(PATIENT) 39.6 SEC (12.0-15.0)
[2017-02-05 05:47] LABS: ANION GAP 7 mEq/L (8-16)
[2017-02-05 05:49] LABS: CARBON DIOXIDE 41 mEq/l (22-31)
[2017-02-05] MEDS: IPRATROPIUM/ALBUTEROL 3 ML DEYVIAL IH SCH ×4 (05:51→20:03)
[2017-02-05] MEDS: DIPHENHYDRAMINE CREAM TP PRN ×2 (07:30→20:02)
[2017-02-05] MEDS: POTASSIUM CL 20 MEQ TAB PO SCH (09:25)
[2017-02-05] MEDS: predniSONE 20 MG TAB PO SCH (09:26)
[2017-02-05] MEDS: HYDROCORTISONE 10 MG TAB PO SCH ×2 (09:26→14:47)
[2017-02-05] MEDS: ARIPiprazole 10 MG TAB PO SCH (09:26)
[2017-02-05] MEDS: CHOLECALCIFEROL VIT D3 1,000 UNITS TAB PO SCH (09:27)
[2017-02-05] MEDS: FUROSEMIDE 20 MG TAB PO SCH (09:27)
[2017-02-05] MEDS: FAMOTIDINE 20 MG TAB PO SCH ×2 (09:27→17:52)
[2017-02-05] MEDS: DOCUSATE SODIUM 100 MG CAP PO SCH ×2 (09:28→20:49)
[2017-02-05] MEDS: POLYETHYLENE GLYCOL 3350 17 GM PKT PO SCH (09:31)
[2017-02-05] MEDS: LIDOCAINE 5% 1 EA PATCH TD SCH (09:31)
[2017-02-05] MEDS: DILTIAZEM 30 MG TAB PO SCH ×2 (10:31→20:49)
[2017-02-05] MEDS: METOPROLOL SUCCINATE XR 25 MG TAB PO SCH (10:31)
[2017-02-05] MEDS: traMADol 50 MG TAB PO PRN ×2 (10:32→20:49)
[2017-02-05] MEDS: SODIUM CL NASAL 45 ML BTL EACHNARE SCH ×3 (10:43→20:00)
[2017-02-05] MEDS: CLOTRIMAZOLE 1% 15 GM CRTUBE TP SCH ×2 (10:46→20:50)
[2017-02-05] MEDS ORDERED: VANCOMYCIN 750 MG in D5W 150 ML IV SCH (11:00)
[2017-02-05] MEDS ORDERED: diphenhydrAMINE 25 MG CAP PO PRN (11:35)
[2017-02-05] MEDS ORDERED: diphenhydrAMINE 12.5 MG/5 ML UDCUP PO PRN (11:38)
[2017-02-05] MEDS ORDERED: DOXYCYCLINE HYCLATE 100 MG CAP/TAB PO SCH (11:45)
[2017-02-05] MEDS: CALCIUM CARB W/VIT D 500 MG TAB PO SCH ×3 (12:46→20:49)
[2017-02-05] MEDS: FERROUS SULFATE 325 MG TAB PO SCH (12:46)
[2017-02-05] MEDS: CEPHALEXIN 500 MG CAP PO SCH ×2 (12:46→17:52)
--- NOTE | 2017-02-05 14:37 | HOSPPROG ---
Hospitalist Progress Note Assessment/Plan: #Obesity-hypoventilation syndrome: BiPap has been difficult to obtain. Initially approved by [employer], but now [facility]. Bipap is critical at discharge as this is reason for readmissions. Will have a high chance of bounce back if does not go home with it. #RUE cellulitis: much improved. Change to Keflex (Day 3/ abx) #Hyponatremia: resolved with fluid restriction, regular diet #Chronic hypercarbic/hypoxic resp failure: due to restrictive physio, obesity #High-risk medication: vanc trough 24 with normal Cr. Stop medication #Metabolic encephalopathy: resolved with Bipap #Atrial fibrillation: rate-controlled on Dilt. Coumadin. INR >4, no signs of bleeding. Hold coumadin now and will reduce when restart #Bipolar d/o: Abilify, Depakote #Bradycardia: s/p pacer #Hypothyroidism: LT4 #Maculopapular rash: much improved with oral prednisone. Unclear cause, maybe due to Levaquin 01/24-01/27? Inflammatory markers negative. Has been on Depakote for years. #Deconditioning: working with PT #Diet: regular, 1500ml fluid restriction #DVT ppx: Coumadin #Disp: warrants inpt admission with need for Bipap. Requires approval for device prior to DC. Monitor INR closely Subjective: rash improved. No CP. Objective: Vital Signs Temp Pulse Resp BP Pulse Ox 36.7 C 101 H 17 106/55 L 91 L 02/05/17 12:00 02/05/17 12:00 02/05/17 12:00 02/05/17 12:00 02/05/17 12:00 Laboratory Results 02/04/17 05:30 02/05/17 05:05 02/04/17 02/05/17 02/06/17 05:59 05:59 05:59 Intake Total 2107 1300 Output Total 1400 1200 Balance 707 100 PT 39.6 SEC (12.0-15.0) H D 02/05/17 05:05 INR 4.13 (0.83-1.16) H 02/05/17 05:05 - Physical Exam Constitutional: chronically ill appearing, obese Eyes: PERRL Ears, Nose, Mouth, Throat: moist mucous membranes Cardiovascular: irregularly irregular Respiratory: reduced air movement Gastrointestinal: normoactive bowel sounds Genitourinary: No cobb in urethra Skin: other (RUE erythema minimal. Rash over chest, neck nearly resolved. Newman macular rash still persists on back, but improved. [place] rash under axilla and breasts improved) Musculoskeletal: full muscle strength Neurologic: AAOx3, CN II-XII Intact Psychiatric: interacting appropriately, flat affect ICD10 Worksheet Patient Problems: Problems Problem Status Onset Anemia Acute Congestive heart failure Acute Hypoxia Acute UTI (urinary tract infection) Acute Abdominal pain Acute Acute encephalopathy Acute Altered mental status Acute Atrial fibrillation Acute CAD (coronary artery disease), [place] coronary artery Acute Chronic diastolic CHF (congestive heart failure) Acute Chronic hypoxemic respiratory failure Acute Chronic kidney disease (CKD) Acute Generalized weakness Acute Hyponatremia Acute New onset atrial fibrillation Acute Palliative care encounter Acute Pyelonephritis Acute VHD (valvular heart disease) Acute
[2017-02-05] MEDS: PATCH REMOVAL 1 EA PATCH TD SCH (20:02)
[2017-02-05] MEDS: DIVALPROEX ER 250 MG TAB PO SCH (20:49)
[2017-02-05] MEDS: ARIPiprazole 5 MG TAB PO SCH (20:49)
[2017-02-05] MEDS: ATORVASTATIN CALCIUM 20 MG TAB PO SCH (20:49)
[2017-02-06] MEDS: CEPHALEXIN 500 MG CAP PO SCH ×5 (00:09→23:33)
[2017-02-06 03:47] LABS: INR 4.05 (0.83-1.16)
[2017-02-06 04:08] LABS: ANION GAP 13 mEq/L (8-16); CALCIUM 9.5 mg/dL (8.5-10.4); CARBON DIOXIDE 36 mEq/l (22-31); CHLORIDE 86 mEq/L (97-110); CREATININE 0.9 mg/dL (0.6-1.0); GLOMERULAR FILTRATION RATE > 60; GLUCOSE 100 mg/dL (70-100); POTASSIUM 4.3 mEq/L (3.5-5.2); SODIUM 135 mEq/L (134-144)
[2017-02-06] MEDS: IPRATROPIUM/ALBUTEROL 3 ML DEYVIAL IH SCH ×4 (04:21→20:44)
[2017-02-06] MEDS: LEVOTHYROXINE 175 MCG TAB PO SCH (05:37)
--- NOTE | 2017-02-06 08:41 | HOSPPROG ---
Hospitalist Progress Note Assessment/Plan: #Obesity-hypoventilation syndrome: BiPap has been difficult to obtain. Initially approved by [employer], but now contacting [facility]. Bipap is critical at discharge as this is reason for readmissions. Will have a high chance of bounce back if does not go home with it. #RUE cellulitis: much improved. Change to Keflex (Day 4 abx) #Hyponatremia: resolved with fluid restriction, regular diet #Chronic hypercarbic/hypoxic resp failure: due to restrictive physio, obesity. Must have Bipap at DC #High-risk medication: vanc trough 24 with normal Cr. Discontinued #Metabolic encephalopathy: resolved with Bipap #Atrial fibrillation: rate-controlled on Dilt. Coumadin. INR 4, no signs of bleeding. Hold coumadin now and will reduce when restart #Bipolar d/o: Abilify, Depakote #Bradycardia: s/p pacer #Hypothyroidism: LT4 #Maculopapular rash: Unclear cause, maybe due to Levaquin 01/24-01/27? Inflammatory markers negative. Has been on Depakote for years. -Day 06/02 of prednisone #Deconditioning: working with PT #Diet: regular, 1500ml fluid restriction #DVT ppx: Coumadin #Disp: warrants inpt admission with need for Bipap. Requires approval for device prior to DC. Monitor INR closely Subjective: Working with PT. Not dizzy or lightheaded Objective: Vital Signs Temp Pulse Resp BP Pulse Ox 36.9 C 100 20 121/95 H 99 02/06/17 03:58 02/06/17 03:58 02/06/17 04:23 02/06/17 03:58 02/06/17 04:23 Laboratory Results 02/04/17 05:30 02/06/17 03:31 02/05/17 02/06/17 02/07/17 05:59 05:59 05:59 Intake Total 1300 1350 Output Total 1200 950 Balance 100 400 PT 39.0 SEC (12.0-15.0) H 02/06/17 03:31 INR 4.05 (0.83-1.16) H 02/06/17 03:31 - Physical Exam Eyes: PERRL Ears, Nose, Mouth, Throat: moist mucous membranes Cardiovascular: regular rate and rhythym, edema Respiratory: no respiratory distress Gastrointestinal: normoactive bowel sounds Genitourinary: no bladder fullness, No cobb in urethra Skin: rash (chest/neck rash nearly resolved. Light pink macular rash over back improved. Breast/axillary candidal rash much improved. Cellulitis RUE nearly resolved) Musculoskeletal: full muscle strength Neurologic: AAOx3 Psychiatric: interacting appropriately ICD10 Worksheet Patient Problems: Problems Problem Status Onset Anemia Acute Congestive heart failure Acute Hypoxia Acute UTI (urinary tract infection) Acute Abdominal pain Acute Acute encephalopathy Acute Altered mental status Acute Atrial fibrillation Acute CAD (coronary artery disease), [place] coronary artery Acute Chronic diastolic CHF (congestive heart failure) Acute Chronic hypoxemic respiratory failure Acute Chronic kidney disease (CKD) Acute Generalized weakness Acute Hyponatremia Acute New onset atrial fibrillation Acute Palliative care encounter Acute Pyelonephritis Acute VHD (valvular heart disease) Acute
[2017-02-06] MEDS: FAMOTIDINE 20 MG TAB PO SCH ×2 (08:45→16:59)
[2017-02-06] MEDS: POTASSIUM CL 20 MEQ TAB PO SCH (08:45)
[2017-02-06] MEDS: CHOLECALCIFEROL VIT D3 1,000 UNITS TAB PO SCH (08:45)
[2017-02-06] MEDS: ARIPiprazole 10 MG TAB PO SCH (08:45)
[2017-02-06] MEDS: DILTIAZEM 30 MG TAB PO SCH ×2 (08:46→22:32)
[2017-02-06] MEDS: FUROSEMIDE 20 MG TAB PO SCH (08:46)
[2017-02-06] MEDS: DOCUSATE SODIUM 100 MG CAP PO SCH ×2 (08:46→22:32)
[2017-02-06] MEDS: METOPROLOL SUCCINATE XR 25 MG TAB PO SCH (08:46)
[2017-02-06] MEDS: predniSONE 20 MG TAB PO SCH (08:46)
[2017-02-06] MEDS: HYDROCORTISONE 10 MG TAB PO SCH ×2 (08:51→13:16)
[2017-02-06] MEDS: SODIUM CL NASAL 45 ML BTL EACHNARE SCH ×3 (08:51→19:40)
--- NOTE | 2017-02-06 13:06 | PDINTPN ---
Clothes Ironer Progress Note Assessment/Plan: Assessment: Obesity-Hypoventilation: She meets criteria, with obesity, hypercapnea, and hypoxemia. She's done well with CPAP in hospital, but is at high risk for worsening without BiPAP. Hopefully we can coordinate for her to get BiPAP or AVAPS at the time of discharge. Otherwise, she is at high risk of readmission. Severe Restriction: [place] demonstrates severe restriction. Likely due to obesity , possible neuromuscular weakness as well. Has CO2 retention/respiratory acidosis as a complication, improving with BiPAP. Chronic respiratory acidosis: Her last blood gas from a few days ago showed a CO2 of 72 which was well compensated. Her bicarb has come down somewhat over the last few days, now stable, and CO2 down a bit on last ABG, done upon patient arising. Obstructive sleep apnea: The patient states that this was diagnosed previously but she was never put on therapy. She thinks the diagnosis is made in [place] but she can't be more specific. Anemia: Hemoglobin up today Rash: Suspect catheter-related cellulitis. Plan: Continue CPAP at night. She's been intolerant of BiPAP. Continue Lasix, will increase dose. Ancef for cellulitis. With her restrictive lung disease and CO2 retention/respiratory acidosis, she would be a good candidate for home ventilation. This will reduce her risk of readmission, and is expected to improve her quality of life. She qualifies for home CPAP, but may benefit even more from AVAPS if possible. Will likely need home oxygen as well. trying to arrange this with [facility]. Follow Chem-7 02/06/17 13:05 Subjective: Feels better, breathing improved. Notices less swelling in feet. Sleeping OK with CPAP. Objective: Vital Signs Temp Pulse Resp BP Pulse Ox 36.6 C 96 18 114/55 L 94 02/06/17 12:15 02/06/17 12:15 02/06/17 12:15 02/06/17 12:15 02/06/17 12:15 Laboratory Results 02/04/17 05:30 02/06/17 03:31 02/05/17 02/06/17 02/07/17 05:59 05:59 05:59 Intake Total 1300 1350 Output Total 1200 950 150 Balance 100 400 -150 PT 39.0 SEC (12.0-15.0) H 02/06/17 03:31 INR 4.05 (0.83-1.16) H 02/06/17 03:31 Physical Exam - Physical Exam General Appearance: alert, no apparent distress EENT: normal ENT inspection Neck: normal inspection Respiratory: lungs clear, No normal breath sounds Cardiac/Chest: regular rate, rhythm, edema (1+) Abdomen: normal bowel sounds, non-tender Skin: normal color, warm/dry Extremities: normal inspection Neuro/Psych: alert, normal mood/affect, oriented x 3 ICD10 Worksheet Patient Problems: Problems Problem Status Onset Anemia Acute Congestive heart failure Acute Hypoxia Acute UTI (urinary tract infection) Acute Abdominal pain Acute Acute encephalopathy Acute Altered mental status Acute Atrial fibrillation Acute CAD (coronary artery disease), [place] coronary artery Acute Chronic diastolic CHF (congestive heart failure) Acute Chronic hypoxemic respiratory failure Acute Chronic kidney disease (CKD) Acute Generalized weakness Acute Hyponatremia Acute New onset atrial fibrillation Acute Palliative care encounter Acute Pyelonephritis Acute VHD (valvular heart disease) Acute
[2017-02-06] MEDS: FERROUS SULFATE 325 MG TAB PO SCH (13:14)
[2017-02-06] MEDS: CALCIUM CARB W/VIT D 500 MG TAB PO SCH ×3 (13:15→22:50)
[2017-02-06] MEDS: CLOTRIMAZOLE 1% 15 GM CRTUBE TP SCH ×2 (13:24→22:33)
[2017-02-06] MEDS: LIDOCAINE 5% 1 EA PATCH TD SCH (13:25)
--- NOTE | 2017-02-06 15:20 | PDHOMEO2F ---
Home Oxygen Face to Face Home Orders: I certify that a physician or a nurse practitioner or physician's design assistant has had a [id number] encounter with this patient on the date of this order due to the diagnosis listed, which relates to the primary reason the patient requires home oxygen. Alternative treatments have been tried, or considered, and deemed ineffective. It is anticipated that supplemental oxygen will result in improvement with treatment. Home oxygen qualifying diagnosis: OHS-SHAUNA Home oxygen secondary diagnosis: hypercarbia, COPD, hypoxemia SpO2 on room air (%): 87 Frequency of home oxygen needed: continuous Home oxygen liters per minute: 1-2 Home oxygen delivery device: nasal cannula Concentrator: Yes E-tanks for mobility and back up: Yes If ordering portable O2, is the patient mobile in the home?: Yes I certify that, based on these findings, the home oxygen is medically necessary for this patient for the following length of time. Length of time home oxygen needed: 99 years Home Oxygen Comment: Patient requires CPAP at night. Has been on it here with auto-titration to 12cwp. 2liters oxygen bled in
--- NOTE | 2017-02-06 16:17 | ASMTCMCOM ---
CM Note CM Note Notes: RT Nilson has worked hours on this discharge. Patient's O2 company to come to [facility] Tuesday and fit mask for c-pap then she can be discharged back to [facility]. Date Signed: 02/06/2017 04:17 PM Electronically Signed By:Lucille Araiza LCSW
[2017-02-06] MEDS: ACETAMINOPHEN 325 MG TAB PO PRN ×2 (16:59→22:29)
[2017-02-06] MEDS: traMADol 50 MG TAB PO PRN ×2 (16:59→22:29)
[2017-02-06] MEDS: ATORVASTATIN CALCIUM 20 MG TAB PO SCH (22:30)
[2017-02-06] MEDS: DIVALPROEX ER 250 MG TAB PO SCH (22:31)
[2017-02-06] MEDS: ARIPiprazole 5 MG TAB PO SCH (22:31)
[2017-02-06] MEDS: PATCH REMOVAL 1 EA PATCH TD SCH (22:32)
[2017-02-07] MEDS: ACETAMINOPHEN 325 MG TAB PO PRN (03:50)
[2017-02-07 04:27] LABS: INR 2.49 (0.83-1.16); PROTIME(PATIENT) 26.9 SEC (12.0-15.0)
[2017-02-07 04:40] LABS: CALCIUM 9.5 mg/dL (8.5-10.4); CHLORIDE 83 mEq/L (97-110); CREATININE 0.9 mg/dL (0.6-1.0); GLOMERULAR FILTRATION RATE > 60; GLUCOSE 86 mg/dL (70-100); POTASSIUM 4.4 mEq/L (3.5-5.2); SODIUM 135 mEq/L (134-144)
[2017-02-07 04:41] LABS: ANION GAP 12 mEq/L (8-16)
[2017-02-07 04:56] LABS: CARBON DIOXIDE 40 mEq/l (22-31)
[2017-02-07] MEDS: CEPHALEXIN 500 MG CAP PO SCH ×2 (05:25→11:07)
[2017-02-07] MEDS: LEVOTHYROXINE 175 MCG TAB PO SCH (05:25)
[2017-02-07] MEDS: IPRATROPIUM/ALBUTEROL 3 ML DEYVIAL IH SCH ×2 (05:31→10:48)
[2017-02-07 07:06] VITALS: BP 137/72; TEMP 98.2
[2017-02-07] MEDS: FUROSEMIDE 20 MG TAB PO SCH (08:55)
[2017-02-07] MEDS: METOPROLOL SUCCINATE XR 25 MG TAB PO SCH (08:55)
[2017-02-07] MEDS: POLYETHYLENE GLYCOL 3350 17 GM PKT PO SCH (08:55)
[2017-02-07] MEDS: ARIPiprazole 10 MG TAB PO SCH (08:55)
[2017-02-07] MEDS: CHOLECALCIFEROL VIT D3 1,000 UNITS TAB PO SCH (08:55)
[2017-02-07] MEDS: POTASSIUM CL 20 MEQ TAB PO SCH (08:56)
[2017-02-07] MEDS: predniSONE 20 MG TAB PO SCH (08:56)
[2017-02-07] MEDS: DOCUSATE SODIUM 100 MG CAP PO SCH (08:56)
[2017-02-07] MEDS: HYDROCORTISONE 10 MG TAB PO SCH ×2 (08:56→14:54)
[2017-02-07] MEDS: FAMOTIDINE 20 MG TAB PO SCH (08:56)
[2017-02-07] MEDS: DILTIAZEM 30 MG TAB PO SCH (08:56)
[2017-02-07] MEDS: SODIUM CL NASAL 45 ML BTL EACHNARE SCH ×2 (08:57→11:07)
[2017-02-07] MEDS: LIDOCAINE 5% 1 EA PATCH TD SCH (08:58)
[2017-02-07] MEDS: CLOTRIMAZOLE 1% 15 GM CRTUBE TP SCH (08:58)
--- NOTE | 2017-02-07 10:49 | PDIAF ---
- Diagnosis Diagnosis: OHS-OHA, rash Code Status: Full Code - Medication Management Discharge Medications: Medications to Continue on Transfer ARIPiprazole [Abilify 10 mg (*)] 10 mg PO DAILY@11/19/14 [Last Taken 08:00] ARIPiprazole [Abilify 5 mg (*)] 5 mg PO HS@11/19/14 [Last Taken 01/23/17] Alendronate Sodium [Fosamax 70 MG (*)] 70 mg PO MO@0711/19/14 [Last Taken ] Atorvastatin Calcium [Lipitor 20 mg (*)] 20 mg PO HS@11/19/14 [Last Taken ] Calcium Carbonate/Vitamin D3 [Os-Derek 500-Vit D3 600 Caplet] 1 tab PO TID@, 11/19/14 [Last Taken 01/23/17] Divalproex ER [Depakote ER 250 MG (*)] 750 mg PO HS@11/19/14 [Last Taken ] Ferrous Sulfate [Ferrous Sulf 325 MG (*)] 325 mg PO DAILY@11/19/14 [Last Taken 01/24/17] Levothyroxine [Synthroid 175 mcg (*)] 175 mcg PO DAILY@11/19/14 [Last Taken 01/24/17] Ranitidine HCl [Zantac] 150 mg PO BID@11/19/14 [Last Taken 01/24/17] Polyethylene Glycol 3350 [Miralax 17 gm (*)] 8.5 gm PO MOTUWETHFRSA@01/14/15 [Last Taken 01/24/17] Hydrocortisone [Cortef 10 mg (*)] 20 mg PO DAILY@01/19/15 [Last Taken ] Cholecalciferol Vit D3 [Vitamin D3 (*)] 1,000 units PO DAILY@12/25/16 [Last Taken 01/24/17] Docusate Sodium [Colace 100 MG (*)] 100 mg PO BID 12/25/16 [Last Taken 01/23/17] Hydrocortisone [Cortef 10 mg (*)] 10 mg PO DAILY@12/25/16 [Last Taken ] Lidocaine 5% [Lidoderm 5% Patch (*)] 1 ea TD DAILY@08 12/25/16 [Last Taken 01/24] Prochlorperazine Maleate [Compazine 10mg (*)] 10 mg PO Q6 PRN 12/25/16 [Last Taken Unknown] Sodium Chloride [[place]] 1 spray EACHNARE TID@08,12,20 12/25/16 [Last Taken ] Diltiazem [Cardizem Ir Q6hr] 30 mg PO Q12HRS #60 tab 01/18/17 [Last Taken ] Loperamide HCl [Imodium 2 mg (*)] 2 mg PO PRN PRN 01/24/17 [Last Taken Unknown] Albuterol [Ventolin Hfa Inhaler] 2 puffs IH Q4HRS PRN #1 mdi 02/06/17 [Last Taken Unknown] Furosemide [Lasix 20 MG (*)] 40 mg PO DAILY #60 tab 02/06/17 [Last Taken Unknown ] Metoprolol Succinate Xr [Toprol Xl 25 mg (*)] 12.5 mg PO DAILY@08 #30 tab [Last Taken Unknown] Polyethylene Glycol 3350 [Miralax 17 gm (*)] 8.5 gm PO MOTUWETHFRSA@08 pkt 12/14 [Last Taken Unknown] traMADol [Ultram 50 mg (*)] 50 mg PO Q12 PRN #30 tab 02/06/17 [Last Taken Unknown] Warfarin Sodium 2.5 mg PO DAILY #30 tablet 02/07/17 [Last Taken Unknown] Discharge Medications: Refer to the Discharge Home Medication list for PRN reason. - Orders Services needed: Home Care, Registered Nurse, Certified Hand Miter Operator, Physical Therapy, Occupational Therapy Home Care Face to Face: I certify that this patient was under my care and that I had the required [id number] encounter meeting the encounter requirements on the discharge day. My findings support the fact that the patient is homebound as defined in Home Care Face to Face Continued: CMS Chapter 7 Medicare Benefits Manual 30.1.1 , The condition of the patient is such that there exists a normal inability to leave home and consequently, leaving home would require a considerable and taxing effort. Isolation Type: None Diet Recommendation: sodium restricted Diet Texture: Regular Texture Diet Equipment: MUST wear CPAP nightly - Labs/Radiology PT/INR Date: 02/09/17 - Follow Up Care Current Providers and Referrals: Manpreet Kelly MD [Medical Doctor] - As per Instructions
[2017-02-07 10:56] VITALS: PULSE 98; RESP 22
[2017-02-07] MEDS: CALCIUM CARB W/VIT D 500 MG TAB PO SCH (11:07)
[2017-02-07] MEDS: FERROUS SULFATE 325 MG TAB PO SCH (11:07)
[2017-02-07 11:24] VITALS: O2SAT 80
--- NOTE | 2017-02-07 13:35 | HOSPPROG ---
Hospitalist Progress Note Assessment/Plan: #Obesity-hypoventilation syndrome: BiPap has been difficult to obtain. Initially approved by [employer], but now contacting [facility]. Bipap is critical at discharge as this is reason for readmissions. Will have a high chance of bounce back if does not go home with it. -patient is being sent for sleep study at discharge #RUE cellulitis: much improved. Has completed a course of abx #Hyponatremia: resolved with fluid restriction, regular diet #Chronic hypercarbic/hypoxic resp failure: due to restrictive physio, obesity. Must have Bipap at DC. Outpatient sleep study pending #High-risk medication: vanc trough 24 with normal Cr. Discontinued #Metabolic encephalopathy: resolved with Bipap #Atrial fibrillation: rate-controlled on Dilt. Coumadin. INR now 2.5. DC on coumadin 2.5mg, INR check 02/09 #Bipolar d/o: Abilify, Depakote #Bradycardia: s/p pacer #Hypothyroidism: LT4 #Maculopapular rash: Unclear cause, maybe due to Levaquin 01/24-01/27? Inflammatory markers negative. Has been on Depakote for years. -nearly resolved. Completed 5 days prednisone #Deconditioning: working with PT #Diet: regular, 1500ml fluid restriction #DVT ppx: Coumadin #Disp: DC today with home oxygen and CPAP Subjective: walking with walker without issue Objective: Vital Signs Temp Pulse Resp BP Pulse Ox 36.8 C 98 22 H 137/72 H 80 L 02/07/17 07:04 02/07/17 10:50 02/07/17 10:50 02/07/17 07:04 02/07/17 11:23 Laboratory Results 02/04/17 05:30 02/07/17 04:06 02/06/17 02/07/17 02/08/17 05:59 05:59 05:59 Intake Total 1350 1500 Output Total 950 710 Balance 400 790 PT 26.9 SEC (12.0-15.0) H D 02/07/17 04:06 INR 2.49 (0.83-1.16) H 02/07/17 04:06 - Physical Exam Constitutional: no apparent distress, obese Eyes: PERRL Ears, Nose, Mouth, Throat: moist mucous membranes, hearing normal Cardiovascular: irregularly irregular, edema (+2 pitting edema over ankles) Respiratory: no respiratory distress Gastrointestinal: normoactive bowel sounds Genitourinary: no bladder fullness Skin: warm, rash (nearly resolved rash over chest and back. ) Musculoskeletal: full muscle strength Neurologic: AAOx3, CN II-XII Intact Psychiatric: interacting appropriately ICD10 Worksheet Patient Problems: Problems Problem Status Onset Anemia Acute Congestive heart failure Acute Hypoxia Acute UTI (urinary tract infection) Acute Abdominal pain Acute Acute encephalopathy Acute Altered mental status Acute Atrial fibrillation Acute CAD (coronary artery disease), [place] coronary artery Acute Chronic diastolic CHF (congestive heart failure) Acute Chronic hypoxemic respiratory failure Acute Chronic kidney disease (CKD) Acute Generalized weakness Acute Hyponatremia Acute New onset atrial fibrillation Acute Palliative care encounter Acute Pyelonephritis Acute VHD (valvular heart disease) Acute
--- NOTE | 2017-02-07 14:31 | GDS ---
[f rep st] DISCHARGE SUMMARY DISCHARGE DIAGNOSES: 1. Atrial fibrillation. 2. Sick sinus syndrome status post pacemaker recently. 3. Bipolar disorder. 4. Schizophrenia. 5. h/o breast cancer. 6. Coronary disease. 7. Hyperlipidemia. 8. Hypothyroidism. 9. Gastroesophageal reflux disease. 10. Diastolic dysfunction. 11. Sleep apnea. 12. Obesity hypoventilation syndrome. 13. Mild pulmonary hypertension/. 14. Chronic kidney disease. 15. Hypertension. 16. Adrenal insufficiency. 17. Maculopapular rash. 18. Supratherapeutic INR. 19. Morbid obesity. HISTORY: This is a 67-year-old female with history of atrial fibrillation, sick sinus syndrome status post pacer, bipolar disorder, who has been in and out of the hospital multiple times with volume overload and respiratory failure. She was admitted in December, with atypical chest pain, and was found to have sinus pauses consistent with sick sinus syndrome and had a permanent pacemaker placed January 06, which was complicated by a pocket hematoma. During that stay, she had respiratory failure, was initially treated with BiPAP, but failed and underwent intubation. She went home on the to [facility] where [facility]. She was readmitted on with increased shortness of breath and edema, found to be hypoxic. CTA was negative for PE but showed pulmonary edema. She was treated with diuretics. HOSPITAL COURSE BY PROBLEM: 1. Obesity hypoventilation syndrome: meets criteria with obesity, hypercapnia and hypoxemia. CPAP arranged at [place] and scheduled sleep study scheduled for tomorrow. Will FU with Dr. Sin who may try to prescribe Bipap. 2. Chronic respiratory acidosis secondary: CPAP 3. Rash: may have been due to Cipro that she received the end of December. Has been on Depakote for years without issue. Resolved with prednisone burst.. 4. Right arm cellulitis: completed a full course of abx. 5. Hyponatremia: resolved with fluid restriction. 6. Metabolic encephalopathy:due to hypercarbia. Resolved with scheduled CPAP. 7. Atrial fibrillation: rate-controlled on diltiazem. INR today is 2.5. DC on Coumadin 2.5mg daily. 8. Bipolar disorder: Abilify and Depakote. 9. Bradycardia: Status post pacemaker in December 2016. Hematoma has completely resolved. 10. Hypothyroidism. Synthroid. 11. Deconditioning. Discharged with a walker. DISPOSITION: Patient is stable for discharge with CPAP and walker. NEW MEDICATIONS: 1. Increase Lasix to 40 mg daily. 2. Change Coumadin to 2.5 mg daily. FOLLOWUP: 1. Sleep study tomorrow 2. Anticoagulation Clinic on 02/09 for INR. 3. Cardiology as previously scheduled. Time spent on coordinating discharge was 60 minutes discussing treatment plan with patient as well as coordinating CPAP and oxygen. /[id number]/MODL MTDD
--- NOTE | 2017-02-07 16:42 | ASDISCHSUM ---
Discharge Information Plan Status:Home with Home Health Medically Cleared to Leave:02/06/2017 Discharge Date:02/07/2017 04:28 PM CM D/C Disposition:Home Health Service ADT D/C Disposition:Home, Routine, Self-Care Projected Discharge Date:01/27/2017 11:00 AM Transportation at D/C:Family Discharge Delay Reason: Follow-Up Date:01/27/2017 11:00 AM Discharge Slot: Final Diagnosis:Hypoxia, CHF, Anemia, UTI Placement Information Referral Type:*Home Health Care Services Referral ID:[id number] Provider Name:[facility] Address 1:[address] Phone Number: Address 2: Fax Number: City:[place] Selection Factors: State:[place] Patient Contact Information Contact Name:CUONG Relationship:Sister Address:[address] [place] [address] Work Phone: City:[facility] Phone: State/Zip Code:[place] [address] Email: Financial Information Financial Class: Primary Plan Desc:MEDICARE IP PART B ONLY Primary Plan Number:[id number] Secondary Plan Desc:MEDICAID HEALTH FIRST [place] Secondary Plan Number:[id number] Assessment Information [facility] CM Progress Note CM Note CM Note Notes: 01/25/2017 Case Management Note Met w/pt. Pt is resident at the [facility]. Pt reports [facility] RN came for intial evaluation on Sunday 01/21. Confirmed with [facility]. PT evaluation for [facility] was to happen on day of hospital admission 01/24. [facility] planned to see pt 3 x/week with PT seeing pt 2x/week. Pt reports support from Rupali, a personal aide at the [facility]. Pt reports that LUCY Kolb instructed pt to come to hospital. Attempted to reach Kennedi, she is not onsite today at the [facility] and a phone number was not given to contact her. Pt expressed concern that she might lose her room at the [facility] with this hospital admission. Left VM for La, resident coordinator, at the [facility] to discuss. Case management d/c poc: To be determined. Case management attempted to place pt in SNF rehab during last admission but required at [facility] 100 Medicaid application and 30 day minimum stay. Pt and sister declined SNF rehab and felt [facility]red enough support. Case Management to follow. Date Signed: 01/25/2017 11:05 AM Electronically Signed By:Soni Oh RN [facility] CM Progress Note CM Note CM Note Notes: CM spoke w/ LUCY Kaufman regarding d/c POC. OT is recommending home with HC [facility]. PT is recommending SNF. CM met w/ pt for dispo planning. Pt reports that she is not interested in going to SNF at this time and she [facility]. CM sent updates to [facility]. CM to follow. Plan: Home w/ supports from [facility]/ HC; PT, OT, RN Date Signed: 01/27/2017 01:03 PM Electronically Signed By:MARY Crook [facility] MARSHA Progress Note CM Note MARSHA Note Notes: Pt has HCBS services through Medicaid. CM confirmed w/ Nilson at [facility] and with [facility]. It is not feasible for pt to go to SNF at this time because pt is paying for [facility] with her SSDI. Also, pt is not interested in SNF. CM left a w/ La, the resident coordinator, at the [facility] and requested a call back. CM has been in contact w/ pts sister Hallie regarding d/c POC. Hallie is on board w/ pt going back to [facility]. Hallie informed CM that Thersea from [facility] will stop by today. CM was not able to meet w/ Thesea. CM to follow. Plan: [facility]/ [facility] Date Signed: 01/28/2017 05:05 PM Electronically Signed By:MARY Crook [facility] MARSHA Progress Note CM Note CM Note Notes: Confirmed with [facility] that patient is currently under their service for home RN/PT/OT. 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 [facility] on site today to order CPAP machine for patientl; it will likely be delivered to the [facility] [place] tomorrow. Patient will likely discharge tomorrow - LUCY Urias to call patient's sister/FRANCISCO with this update. Current Case Management Discharge plan: [facility] with [facility] Date Signed: 01/31/2017 01:13 PM Electronically Signed By:Katie Landeros RN [facility] MARSHA Progress Note CM Note CM Note Notes: CM spoke w/ Dennise at [facility] and was informed that pt has Medicare as her primary insurance and Medicaid as her secondary insurance therefore she will need a sleepy study conducted before Medicare allows pt to have a BPAP machine. RT is in the mist of getting [employer] [employer] invovled to get pt a BPAP. CM left a msg w/ Elli at [facility]. CM to follow. Plan: pending BPAP and back to [facility] w/ [facility] Date Signed: 02/03/2017 03:28 PM Electronically Signed By:MARY Crook [facility] CM Progress Note CM Note CM Note Notes: RT Nilson has worked hours on this discharge. Patient's O2 company to come to [facility] Tuesday and fit mask for c-pap then she can be discharged back to [facility]. Date Signed: 02/06/2017 04:17 PM Electronically Signed By:Lucille Araiza LCSW Case Management Discharge Plan Note Case Management Discharge Discharge Order Complete? Answers: Yes Patient to Obtain Answers: Other Notes: [facility] Medications Transportation Arranged Answers: Family/Friends Faxed Final Orders Answers: Yes Agency/Facility Transfer Answers: Yes Report Printed & Faxed to Receiving Agency Family Notified Answers: Yes Notes: Via phone Discharge Comments Notes: 02/07/2017 Case Management Note Notified sister Hallie [phone] of d/c. Hallie's to transport to the [facility]. Notified [facility] and [facility]. Faxed final orders. Date Signed: 02/07/2017 11:14 AM Electronically Signed By:Soni Oh RN LACE LACE Length of stay for Answers: 14 days or more current admission Acuity / Level of Care Answers: Was the patient admitted to hospital via the emergency department? Yes: Comorbidities - select Answers: Cerebrovascular disease all that apply Congestive heart failure Chronic pulmonary disease Emergency dept visits in Answers: 4+ last 6 months Score: 19 Date Signed: 02/07/2017 11:21 AM Electronically Signed By:Soni Oh RN Intervention Information Intervention Type:*IM-Signed Date of Service:02/07/2017 01:58 PM Patient Type:Inpatient Staff Member:Catherine Olson Hours: Discipline: Severity: Comment:
== END 2017-02-07 16:28 | disposition home or self-care (01) | DRG 189 ==
LOC: EDUNIT# → F2W 17:00
PROVIDERS: ADMIT Student in an Organized Health Care Education/Training Program; ATTEND Student in an Organized Health Care Education/Training Program
DX: J96.21 Acute and chronic respiratory failure with hypoxia (principal); G93.41 Metabolic encephalopathy; E66.2 Morbid (severe) obesity with alveolar hypoventilation; E27.40 Unspecified adrenocortical insufficiency; L03.113 Cellulitis of right upper limb; E87.1 Hypo-osmolality and hyponatremia; E87.2 Acidosis; I13.0 Hypertensive heart and chronic kidney disease with heart failure and stage 1 through stage 4 chronic kidney disease, or unspecified chronic kidney disease; I50.32 Chronic diastolic (congestive) heart failure; N18.9 Chronic kidney disease, unspecified; I48.91 Unspecified atrial fibrillation; F31.9 Bipolar disorder, unspecified; F20.9 Schizophrenia, unspecified; I25.10 Atherosclerotic heart disease of native coronary artery without angina pectoris; E78.5 Hyperlipidemia, unspecified; E03.9 Hypothyroidism, unspecified; K21.9 Gastro-esophageal reflux disease without esophagitis; I27.20 Pulmonary hypertension, unspecified; R21 Rash and other nonspecific skin eruption; Z85.3 Personal history of malignant neoplasm of breast; Z79.01 Long term (current) use of anticoagulants; Z95.0 Presence of cardiac pacemaker
CPT/HCPCS: 96365; 97110-GP; 97116-GP; 97162-GP; 97166-GO; 97530-GO; 97530-GP; 97535-GO; G8978-GP-CJ; G8978-GP-CL; G8979-GP-CI; G8979-GP-CJ; G8987-GO-CK; G8987-GO-CL; G8988-GO-CJ; G8989-GO-CJ; J0690; J1120; J1642; J1940; J1956; J2310; J3370; Q9967

== ENCOUNTER → 2017-04-05 | Outpatient (CLI) | payer OTHER, MEDICAID | LOC: FCPNEURO 20:00 | PROVIDERS: ATTEND Student in an Organized Health Care Education/Training Program | DX: G47.33 Obstructive sleep apnea (adult) (pediatric) (principal); G47.31 Primary central sleep apnea ==

== ENCOUNTER 2017-08-10 14:32 | Inpatient (IN) | payer MEDICAID ==
--- NOTE | 2017-08-10 14:50 | EDPHY ---
H & P Time Seen by Provider: 08/10/17 14:48 HPI/ROS: CHIEF COMPLAINT: Abdominal pain HISTORY OF PRESENT ILLNESS: Patient states she has had abdominal pain for the past 2 days. Right upper quadrant and not associated with vomiting or diarrhea or recent injury. Waxes and wanes and says symptoms are moderate currently. And does not radiate and not associated with urinary symptoms or fever. Patient has a well-healed midline incision says she thinks her gallbladder might be gone but she can't be sure. REVIEW OF SYSTEMS: Eye: no change in vision ENT: no sore throat Cardiac: no chest pain or syncope Pulmonary: Chronic hypoxic respiratory failure unchanged Abdomen: HPI Musculoskeletal: Chronic bilateral edema Skin: no rash Neuro: no headache Constitutional: no fever : no urinary symptoms A comprehensive 10 point review of systems is otherwise negative aside from elements mentioned in the history of present illness. PAST MEDICAL HISTORY: Includes AFib on Coumadin, coronary disease, pacemaker, adrenal insufficiency, bipolar disorder on Depakote, hypertension, breast cancer. Right chest port. Social history: [facility]. Temperature 36.9 degrees. General Appearance: Alert and conversant, cooperative. Eyes: No scleral icterus. ENT, Mouth: Normal mucous membranes. Respiratory: Normal respiratory effort, breath sounds equal, lungs are clear to auscultation. Cardiovascular: Regular rate and rhythm. Gastrointestinal: Right upper quadrant and middle abdominal tenderness to palpation, no rebound or guarding. Neurological: Alert, face symmetric, normal motor and sensory in extremities. Skin: Warm and dry, no rashes. Musculoskeletal: Bilateral peripheral edema Psychiatric: Not agitated. Emergency Department course/MDM: Fentanyl 50 mcg IV, i-STAT and CT scan ordered. Protime and liver function test and lipase. 1636: CT scan shows right perinephric fluid otherwise negative for abdominal pain per Dr. Falcon. The admission for pyelonephritis, ceftriaxone 1 g IV, urology consultation. Discussed with Dr. Sinha at 4:56 p.m.. Discussed the patient at 5:05 p.m. 1754: Kaushik for Urology will consult. Smoking Status: Never smoked Constitutional: Initial Vital Signs Heart Rate 92 08/10/17 15:03 Respiratory Rate 18 08/10/17 15:03 Blood Pressure 108/70 08/10/17 15:03 O2 Sat (%) 97 06/13/18 15:03 O2 Delivery Mode Nasal Cannula O2 (L/minute) 36.9 Allergies/Adverse Reactions: morphine [Morphine] Allergy (Severe, Verified 08/10/17 15:07) SEVERE GENERALIZED PAIN codeine [Codeine] Allergy (Mild, Verified 08/10/17 15:07) hydrocodone bitartrate [From Vicodin] Allergy (Mild, Verified 08/10/17 15:07) Home Medications: Medication Instructions Recorded ARIPiprazole [Abilify 10 mg (*)] 10 mg PO DAILY@11/19/14 ARIPiprazole [Abilify 5 mg (*)] 5 mg PO HS@11/19/14 Alendronate Sodium [Fosamax 70 MG 70 mg PO MO@0711/19/14 (*)] Atorvastatin Calcium [Lipitor 20 20 mg PO HS@11/19/14 mg (*)] Calcium Carbonate/Vitamin D3 1 tab PO TID@,,11/19/14 [Os-Derek 500-Vit D3 600 Caplet] Divalproex ER [Depakote ER 250 MG 750 mg PO HS@11/19/14 (*)] Ferrous Sulfate [Ferrous Sulf 325 325 mg PO DAILY@11/19/14 MG (*)] Levothyroxine [Synthroid 175 mcg 175 mcg PO DAILY@11/19/14 (*)] Ranitidine HCl [Zantac] 150 mg PO BID@,11/19/14 Polyethylene Glycol 3350 [Miralax 8.5 gm PO MOTUWETHFRSA@01/14/15 17 gm (*)] Hydrocortisone [Cortef 10 mg (*)] 20 mg PO DAILY@01/19/15 Cholecalciferol Vit D3 [Vitamin D3 1,000 units PO DAILY@12/25/16 (*)] Docusate Sodium [Colace 100 MG (*)] 100 mg PO BID 12/25/16 Hydrocortisone [Cortef 10 mg (*)] 10 mg PO DAILY@12/25/16 Prochlorperazine Maleate 10 mg PO Q6 PRN 12/25/16 [Compazine 10mg (*)] Sodium Chloride [[place]] 1 spray EACHNARE TID@08,,12/25/16 Diltiazem [Cardizem Ir Q6hr] 30 mg PO Q12HRS #60 tab 01/18/17 Loperamide HCl [Imodium 2 mg (*)] 2 mg PO PRN PRN 01/24/17 Albuterol [Ventolin Hfa Inhaler] 2 puffs IH Q4HRS PRN #1 mdi 02/06/17 Furosemide [Lasix 20 MG (*)] 40 mg PO DAILY #60 tab 02/06/17 Metoprolol Succinate Xr [Toprol Xl 12.5 mg PO DAILY@08 #30 tab 02/06/17 25 mg (*)] traMADol [Ultram 50 mg (*)] 50 mg PO Q12 PRN #30 tab 02/06/17 Acetaminophen [Tylenol ES 500 mg 500 mg PO Q6 PRN 08/10/17 (*)] Warfarin Sodium [Coumadin 5MG (*)] 2.5 mg PO SUMOWEFRSA@16 08/10/17 Warfarin Sodium [Coumadin 5MG (*)] 5 mg PO TUTH@16 08/10/17 Medical Decision Making - Diagnostics Imaging Results: Imaging Impressions Abdomen CT 08/10/17 15:19 Impression: 1. Right perinephric fluid, which may represent a urinary tract infection. No definite obstruction or hydronephrosis. 2. Cirrhotic heterogeneous liver. 3. Atherosclerotic aorta, without aneurysm. 4. Sigmoid diverticulosis and constipation, without evidence of diverticulitis or bowel obstruction. 5. Several mild to moderate lower thoracic and lumbar compression fractures. Consider DEXA bone scan evaluation for osteoporosis. Findings and recommendations discussed with Emergency Department physician, Felix Ny M.D., at 1640 hours, on August 10, 2017. Final report concurs with initial preliminary interpretation. Imaging: Discussed imaging studies w/ salt refiner Radiologist Differential Diagnosis: Differential considered including but not limited to hepatitis, gallbladder disease, pancreatitis, appendicitis, diverticulitis, bowel obstruction. - Data Points Laboratory Results: Laboratory Results 08/10/17 14:45 08/10/17 14:45 08/10/17 08/10/17 08/10/17 15:50 15:09 14:45 WBC RBC Hgb POC Hgb 12.2 gm/dL L gm/dL (12.6-16.3) Hct POC Hct 36 % L % (38-47) MCV MCH MCHC RDW Plt Count MPV Neut % (Auto) Lymph % (Auto) [place] % (Auto) Eos % (Auto) Baso % (Auto) Nucleat RBC Rel Count Absolute Neuts (auto) Absolute Lymphs (auto) Absolute Monos (auto) Absolute Eos (auto) Absolute Basos (auto) Absolute Nucleated RBC Immature Gran % Immature Gran # RBC/WBC/PLT Morphology Platelet Estimate PT 30.6 SEC H SEC (12.0-15.0) INR 2.95 H (0.83-1.16) POC Sodium 128 mEq/L L mEq/L (135-145) Sodium POC Potassium 3.6 mEq/L mEq/L (3.3-5.0) Potassium POC Chloride 79 mEq/L L mEq/L (97-110) Chloride Carbon Dioxide Anion Gap POC BUN 22 mg/dL mg/dL (7-23) BUN Creatinine POC Creatinine 1.0 mg/dL mg/dL (0.6-1.0) Estimated GFR Glucose POC Glucose 128 mg/dL H mg/dL (70-100) Calcium Total Bilirubin Conjugated Bilirubin Unconjugated Bilirubin AST ALT Alkaline Phosphatase Total Protein Albumin Lipase Urine Color YELLOW Urine Appearance CLEAR Urine pH 7.0 (5.0-7.5) Ur Specific [place] 1.005 (1.002-1.030) Urine Protein NEGATIVE (NEGATIVE) Urine Ketones NEGATIVE (NEGATIVE) Urine Blood 1+ H (NEGATIVE) Urine Nitrate NEGATIVE (NEGATIVE) Urine Bilirubin NEGATIVE (NEGATIVE) Urine Urobilinogen NEGATIVE EU EU (0.2-1.0) Ur Leukocyte Esterase 3+ H (NEGATIVE) Urine RBC 10-15 /hpf H /hpf (0-3) Urine WBC 50-182 /hpf H /hpf (0-3) Ur Epithelial Cells TRACE /lpf /lpf (NONE-1+) Urine Bacteria 3+ /hpf H /hpf (NONE SEEN) Urine Mucus TRACE /lpf /lpf (NONE-1+) Urine Glucose NEGATIVE (NEGATIVE) 08/10/17 08/10/17 14:45 14:45 WBC 9.42 10^3/uL 10^3/uL (3.80-9.50) RBC 3.52 10^6/uL L 10^6/uL (4.18-5.33) Hgb 11.3 g/dL L g/dL (12.6-16.3) POC Hgb Hct 33.1 % L % (38.0-47.0) POC Hct MCV 94.0 fL fL (81.5-99.8) MCH 32.1 pg pg (27.9-34.1) MCHC 34.1 g/dL g/dL (32.4-36.7) RDW 14.6 % % (11.5-15.2) Plt Count 163 10^3/uL 10^3/uL (150-400) MPV 9.8 fL fL (8.7-11.7) Neut % (Auto) 76.6 % H % (39.3-74.2) Lymph % (Auto) 7.5 % L % (15.0-45.0) [place] % (Auto) 12.2 % % (4.5-13.0) Eos % (Auto) 0.1 % L % (0.6-7.6) Baso % (Auto) 0.3 % % (0.3-1.7) Nucleat RBC Rel Count 0.0 % % (0.0-0.2) Absolute Neuts (auto) 7.22 10^3/uL H 10^3/uL (1.70-6.50) Absolute Lymphs (auto) 0.71 10^3/uL L 10^3/uL (1.00-3.00) Absolute Monos (auto) 1.15 10^3/uL H 10^3/uL (0.30-0.80) Absolute Eos (auto) 0.01 10^3/uL L 10^3/uL (0.03-0.40) Absolute Basos (auto) 0.03 10^3/uL 10^3/uL (0.02-0.10) Absolute Nucleated RBC 0.00 10^3/uL 10^3/uL (0-0.01) Immature Gran % 3.3 % H % (0.0-1.1) Immature Gran # 0.31 10^3/uL H 10^3/uL (0.00-0.10) RBC/WBC/PLT Morphology TNP Platelet Estimate TNP PT INR POC Sodium Sodium 128 mEq/L L mEq/L (135-145) POC Potassium Potassium 3.8 mEq/L mEq/L (3.3-5.0) POC Chloride Chloride 79 mEq/L L mEq/L (97-110) Carbon Dioxide 40 mEq/l H mEq/l (22-31) Anion Gap 9 mEq/L mEq/L (8-16) POC BUN BUN 25 mg/dL H mg/dL (7-23) Creatinine 0.8 mg/dL mg/dL (0.6-1.0) POC Creatinine Estimated GFR > 60 Glucose 118 mg/dL H mg/dL (70-100) POC Glucose Calcium 8.6 mg/dL mg/dL (8.5-10.4) Total Bilirubin 0.5 mg/dL mg/dL (0.1-1.4) Conjugated Bilirubin 0.3 mg/dL mg/dL (0.0-0.5) Unconjugated Bilirubin 0.2 mg/dL mg/dL (0.0-1.1) AST 24 IU/L IU/L (14-46) ALT 25 IU/L IU/L (9-52) Alkaline Phosphatase 85 IU/L IU/L (38-126) Total Protein 6.7 g/dL g/dL (6.3-8.2) Albumin 3.6 g/dL g/dL (3.5-5.0) Lipase 123 IU/L IU/L (23-300) Urine Color Urine Appearance Urine pH Ur Specific [place] Urine Protein Urine Ketones Urine Blood Urine Nitrate Urine Bilirubin Urine Urobilinogen Ur Leukocyte Esterase Urine RBC Urine WBC Ur Epithelial Cells Urine Bacteria Urine Mucus Urine Glucose Medications Given: Sodium Chloride (Ns) 1,000 mls @ 75 mls/hr IV CONT ANNA Stop: 08/11/17 07:34 Last Admin: 08/10/17 20:54 Dose: 1,000 mls Discontinued Medications Fentanyl (Sublimaze) 50 mcg IVP EDNOW ONE Stop: 08/10/17 14:59 Last Admin: 08/10/17 15:11 Dose: 50 mcg Ceftriaxone Sodium/Dextrose (Rocephin 1 Gm (Premix)) 50 mls @ 100 mls/hr IV EDNOW ONE PRN Reason: Protocol Stop: 08/10/17 17:26 Last Admin: 08/10/17 17:15 Dose: 50 mls Point of Care Test Results: Chemistry 08/10/17 15:09 POC Sodium 128 mEq/L L mEq/L (135-145) POC Potassium 3.6 mEq/L mEq/L (3.3-5.0) POC Chloride 79 mEq/L L mEq/L (97-110) POC BUN 22 mg/dL mg/dL (7-23) POC Creatinine 1.0 mg/dL mg/dL (0.6-1.0) POC Glucose 128 mg/dL H mg/dL (70-100) ISTAT H&H 08/10/17 15:09 POC Hgb 12.2 gm/dL L gm/dL (12.6-16.3) POC Hct 36 % L % (38-47) Departure - Departure Disposition: [facility] Inpatient Acute Clinical Impression: Hyponatremia, Acute pyelonephritis Condition: Good
[2017-08-10] MEDS ORDERED: fentaNYL 100 MCG/2 ML INJ IVP ONE (14:58)
[2017-08-10 15:07] LABS: PLATELET COUNT 163 10^3/uL (150-400)
[2017-08-10 15:14] LABS: INR 2.95 (0.83-1.16); PROTIME(PATIENT) 30.6 SEC (12.0-15.0)
[2017-08-10] MEDS ORDERED: IOPAMIDOL (ISOVUE-300) 100 ML BTL ONE (16:01)
[2017-08-10] MEDS ORDERED: ACETAMINOPHEN 325 MG TAB PO PRN (17:44)
[2017-08-10] MEDS ORDERED: ONDANSETRON DISINTEGRATING 4 MG TAB PO PRN (17:44)
[2017-08-10] MEDS ORDERED: ONDANSETRON 4 MG/2 ML VIAL IVP PRN (17:44)
[2017-08-10] MEDS ORDERED: PIPERACILLIN/TAZO 3.375 GM/DEX 50 ML IV SCH (18:00)
[2017-08-10] MEDS ORDERED: fentaNYL 100 MCG/2 ML INJ IVP PRN (18:00)
[2017-08-10] MEDS ORDERED: traMADol 50 MG TAB PO PRN (18:05)
[2017-08-10] MEDS ORDERED: PROCHLORPERAZINE MALEATE 10 MG TAB PO PRN (18:05)
[2017-08-10] MEDS ORDERED: ALBUTEROL 60 PUFFS/8 GM MDI IH PRN (18:15)
[2017-08-10] MEDS ORDERED: NS 1,000 ML IV SCH (18:15)
--- NOTE | 2017-08-10 18:33 | GHP ---
[f rep st] HISTORY AND PHYSICAL DATE OF ADMISSION: 08/10/2017 CHIEF COMPLAINT: Abdominal pain. HISTORY OF PRESENT ILLNESS: This 67-year-old female presents with a few days of abdominal pain, described as diffuse, moderate to severe and located on the right side. She felt nauseous; however, she did not have any emesis. Has had normal bowel movements. Has had a few urinary tract infections in the past. No fevers. PAST MEDICAL/SURGICAL HISTORY: 1. Atrial fibrillation, status post pacemaker. 2. Chronic diastolic CHF. 3. Chronic hypoxic respiratory failure, on 2-3 L of oxygen. 4. Bipolar disorder. 5. Adrenal insufficiency. 6. Pulmonary hypertension. 7. Chronic hyponatremia. 8. SHAUNA. 9. Morbid obesity. 10. Hypertension. 11. History of breast cancer. MEDICATIONS: Please see medication reconciliation. ALLERGIES: Morphine, codeine, hydrocodone. FAMILY HISTORY: Reviewed, noncontributory. SOCIAL HISTORY: She lives at [facility]. She does not drink or smoke. REVIEW OF SYSTEMS: 10-point review of systems is conducted and is negative except per HPI. PHYSICAL EXAM: VITAL SIGNS: Blood pressure 129/77, heart rate 92, respiration rate 20, satting 100% on 3 L. Temperature is 36.6. GENERAL: The patient is a pleasant female, who is resting comfortably, in no acute distress. HEENT: Shows her to be normocephalic, atraumatic. CARDIOVASCULAR: Shows her to have a regular rate and rhythm. No murmurs, rubs, or gallops. PULMONARY: Lungs clear to auscultation bilaterally. ABDOMEN: Soft. She is diffusely mildly tender to palpation. She is more tender on the right middle part of her abdomen. SKIN: Exam shows no rash. : Exam shows no Sam. NEUROLOGIC: Exam shows her to be alert and oriented x3. She is moving all extremities. She is giving a good history. PSYCHIATRIC: Exam shows a normal mood and affect. LABS: Hemoglobin is 1.3. INR is 2.9. Sodium is 128, creatinine 0.8. Urinalysis shows 50-182 whites, 1+ blood. DATA: 1. Discussed with Dr. Epstein. 2. I reviewed her abdominal CT scan. The preliminary read is right perinephric fluid collection. 3. I reviewed her chart. IMPRESSION/PLAN: 1. Pyelonephritis with right perinephric fluid collection: Urine cultures drawn and pending. No blood cultures were drawn in the emergency department. I will draw these. Empiric therapy for a perinephric abscess is broad spectrum antibiotics, I will change her to Zosyn pending culture data, Urology has been consulted by the emergency department and will see her tomorrow morning. We will provide her adequate pain control. 2. Hyponatremia: Acute on chronic. Her volume status is difficult. I suspect that she is intravascularly dry, though she has some edema. I will give her 1 L of normal saline very slowly and recheck her sodium in the morning. 3. Diastolic congestive heart failure: I believe she is likely at her baseline. We will need to follow her volume status closely through this hospitalization. 4. Bipolar: Currently compensated. We will continue her medications. 5. Adrenal insufficiency: May be part of the underlying problem with her sodium. We will continue her steroids. 6. Morbid obesity. 7. Hypertension: We will continue her antihypertensives. 8. Venous thromboembolism risk is moderate to high, although I will hold prophylaxis in the setting of an elevated INR, as well as the potential need for intervention. 9. Atrial fibrillation, status post pacemaker: She has a therapeutic INR. I will hold warfarin for now pending urologic evaluation. Restart if no intervention planned. /[id number]/MODL MTDD
[2017-08-10] MEDS ORDERED: SODIUM CL NASAL GEL 14.1 GM TUBE TP SCH (20:00)
[2017-08-10] MEDS: PIPERACILLIN SODIUM/TAZOBACTAM 3.375 GM in D5W 50 ML IV SCH (21:16)
[2017-08-10] MEDS: FAMOTIDINE 20 MG TAB PO SCH (22:37)
[2017-08-10] MEDS: DILTIAZEM 30 MG TAB PO SCH (22:49)
[2017-08-10] MEDS: ATORVASTATIN CALCIUM 20 MG TAB PO SCH (22:49)
[2017-08-10] MEDS: DIVALPROEX ER 250 MG TAB PO SCH (22:49)
[2017-08-10] MEDS: ARIPiprazole 5 MG TAB PO SCH (22:49)
[2017-08-10] MEDS: DOCUSATE SODIUM 100 MG CAP PO SCH (22:49)
[2017-08-10] MEDS: CALCIUM CARBONATE PO SCH (22:50)
[2017-08-10] MEDS: VITAMIN D3 PO SCH (22:50)
[2017-08-10] MEDS: SODIUM CL NASAL 45 ML BTL EACHNARE SCH (22:50)
[2017-08-11] MEDS: PIPERACILLIN SODIUM/TAZOBACTAM 3.375 GM in D5W 50 ML IV SCH ×4 (00:36→17:02)
[2017-08-11] MEDS: LEVOTHYROXINE 175 MCG TAB PO SCH (05:27)
[2017-08-11 05:53] LABS: PLATELET COUNT 159 10^3/uL (150-400)
[2017-08-11] MEDS ORDERED: HYDROCORTISONE 10 MG TAB PO SCH ×2 (08:00→14:00)
[2017-08-11] MEDS ORDERED: POLYETHYLENE GLYCOL 3350 17 GM PKT PO SCH (08:00)
[2017-08-11] MEDS: LIDOCAINE 4%/MENTHOL 1% PATCH TD SCH (08:55)
[2017-08-11] MEDS: ARIPiprazole 10 MG TAB PO SCH (08:56)
[2017-08-11] MEDS: CHOLECALCIFEROL VIT D3 1,000 UNITS TAB PO SCH (08:58)
[2017-08-11] MEDS: FAMOTIDINE 20 MG TAB PO SCH ×2 (08:58→16:23)
[2017-08-11] MEDS: DOCUSATE SODIUM 100 MG CAP PO SCH ×2 (08:58→20:51)
[2017-08-11] MEDS: SODIUM CL NASAL 45 ML BTL EACHNARE SCH ×3 (09:00→20:52)
--- NOTE | 2017-08-11 10:04 | ASMTLACE ---
MCKAYLA Acuity / Level of Answers: Yes Care: Did the patient have an inpatient admission? Comorbidities - select Answers: Any tumor (including all that apply lymphoma or leukemia) Congestive heart failure Coronary Artery Disease Other Notes: AFib w/ Pacemaker; HTN # of Emergency department Answers: 1-2 visits in the last 6 months Social determinants Answers: Mental health diagnosis (anxiety, depression, pers onality disorders, etc.) Score: 14 Date Signed: 08/11/2017 10:04 AM Electronically Signed By:Claudia Kelly LCSW
--- NOTE | 2017-08-11 10:12 | ASMTCMCOM ---
CM Note CM Note Notes: [facility] admitted from [facility]. At this time plan is for pt to return there at [place]. Date Signed: 08/11/2017 10:12 AM Electronically Signed By:Claudia Kelly LCSW
[2017-08-11] MEDS: METOPROLOL SUCCINATE XR 25 MG TAB PO SCH (10:27)
[2017-08-11] MEDS: DILTIAZEM 30 MG TAB PO SCH (10:28)
[2017-08-11] MEDS: FUROSEMIDE 20 MG TAB PO SCH (10:34)
[2017-08-11] MEDS: POLYETHYLENE GLYCOL 3350 17 GM PKT PO SCH ×2 (10:55→13:28)
[2017-08-11] MEDS ORDERED: NS 500 ML IV ONE (10:57)
[2017-08-11] MEDS ORDERED: NS W/ 20 KCl/L 1,000 ML IV SCH (11:00)
[2017-08-11] MEDS: traMADol 50 MG TAB PO PRN (11:57)
[2017-08-11] MEDS: FERROUS SULFATE 325 MG TAB PO SCH (11:57)
[2017-08-11 12:32] LABS: INR 2.7 (0.83-1.16); PROTIME(PATIENT) 28.6 SEC (12.0-15.0)
[2017-08-11] MEDS: HYDROCORTISONE 100 MG/2 ML VIAL IVP SCH ×2 (12:53→20:51)
--- NOTE | 2017-08-11 13:33 | HOSPPROG ---
Hospitalist Progress Note Assessment/Plan: #Pyelonephritis with Right Perinephric Fluid collection #Hypotension #Acute Encephalopathy #Adrenal Insufficiency with possible Adrenal Crisis #Hx of HTN #Afib #Diastolic CHF #chronic Resp Failure Plan: The patient has become acutely ill. Mentation has become impaired acutely. BP has dropped and has maintained low. She wakes up but is confused. Will provided stress dose IV steroids now Fluid challenge Zosyn Urology to see Hold Lasix Hold antihypertensive meds total critical care time is 33 minutes Subjective: acutely confused. BP has dropped. Objective: Vital Signs Temp Pulse Resp BP Pulse Ox 36.6 C 94 17 127/70 H 96 08/11/17 11:43 08/11/17 11:43 08/11/17 11:43 08/11/17 11:43 08/11/17 11:43 Laboratory Results 08/11/17 05:30 08/11/17 05:30 08/10/17 08/11/17 08/12/17 05:59 05:59 05:59 Intake Total 700 Output Total 300 350 Balance 400 -350 PT 28.6 SEC (12.0-15.0) H 08/11/17 12:00 INR 2.70 (0.83-1.16) H 08/11/17 12:00 - Physical Exam Constitutional: no apparent distress Eyes: PERRL, EOMI Ears, Nose, Mouth, Throat: moist mucous membranes, hearing normal Cardiovascular: regular rate and rhythym, No edema Respiratory: no respiratory distress, no rales or rhonchi Gastrointestinal: normoactive bowel sounds, soft, non-tender abdomen Skin: warm Neurologic: No AAOx3 Psychiatric: not anxious, encephalopathic, No interacting appropriately Lymph, Heme, Immunologic: No petechiae ICD10 Worksheet Patient Problems: Problems Problem Status Onset Acute pyelonephritis Acute Hyponatremia Acute Abdominal pain Acute Acute encephalopathy Acute Altered mental status Acute Anemia Acute Atrial fibrillation Acute CAD (coronary artery disease), [place] coronary artery Acute Chronic diastolic CHF (congestive heart failure) Acute Chronic hypoxemic respiratory failure Acute Chronic kidney disease (CKD) Acute Congestive heart failure Acute Generalized weakness Acute Hypoxia Acute New onset atrial fibrillation Acute Palliative care encounter Acute Pyelonephritis Acute UTI (urinary tract infection) Acute VHD (valvular heart disease) Acute
[2017-08-11] MEDS: CALCIUM CARBONATE PO SCH ×3 (13:34→20:48)
[2017-08-11] MEDS: VITAMIN D3 PO SCH ×3 (13:34→20:48)
--- NOTE | 2017-08-11 13:50 | PDMN ---
Medical Necessity Medical necessity: est los>2mn for pyelonephritis with R perinephric fluid collection, and hyponatremia; admit for IV abx, urology consutl, follow cx's; comorbid afib s/p PPM, chronic diastolic CHF and resp failure on O@, bipolar, adrenal insufficiency, pulm htn, SHAUNA, and morbid obesity; per order and H&P 08/10
--- NOTE | 2017-08-11 13:53 | GCON ---
[f rep st] CONSULTATION REASON FOR CONSULT: Right-sided abdominal pain, UTI. HISTORY OF PRESENT ILLNESS: This is a 67-year-old female who apparently presented to the emergency r oom with right upper quadrant pain that began on Tuesday and worsened. She also had some nausea. Was denying gross hematuria, dysuria, fever, or chills. Does have a history of UTIs she reports every f ew years. Denies history of kidney stones. PAST MEDICAL AND SURGICAL HISTORY: Atrial fibrillation, pacemaker, chronic diastolic CHF, chronic hy poxic respiratory failure, bipolar, adrenal insufficiency, pulmonary hypertension, chronic hyponatrem ia, SHAUNA, obesity, hypertension, breast cancer for which she still has a port in place. MEDICATIONS: Please see med reconciliation. ALLERGIES: Morphine, codeine, hydrocodone. FAMILY HISTORY: Noncontributory. SOCIAL HISTORY: Lives at the [facility]. Denies drinking or smoking. REVIEW OF SYSTEMS: 10-point review of system negative except as mentioned in the HPI with the additi on of feeling tired. PHYSICAL EXAM: VITAL SIGNS: Blood pressure 127/70, heart rate 94, respiration 17, O2 of 96 on 2 L/m inutes. GENERAL: This is an overweight female in no acute distress. HEENT: Normocephalic, atraumat ic. Extraocular movements intact. NECK: Supple. No lymphadenopathy. NECK: Trachea midline. RES PIRATORY: No accessory respiratory muscle use. CARDIAC: Regular rate and rhythm. No obvious lower extremity edema. No JVD. ABDOMEN: Diffusely tender to palpation, more so on the right upper, right mid quadrant. Soft, nondistended. No hepatosplenomegaly appreciated. : No distinct CVA tendern ess. No bladder distention or tenderness to palpation. INTEGUMENT: No rashes or lesions. MUSCULAR : Patient was examined while in bed and supine. NEUROLOGIC: Patient was somewhat somnolent, althou gh able to give a good history. Affect appropriate. LABS: Her white blood cell count is 8.37, hematocrit 34.1, hemoglobin 11.7, platelets 159. Chemistr y, sodium 133, potassium 3.7, chloride 85, carbon dioxide 39, BUN 16, creatinine 0.7, glucose 84, chiqui cium 7.9. Her urinalysis was positive for blood, bacteria, leukocytes. Preliminary cultures positiv e for gram-negative rods. CT done of the abdomen and pelvis was reviewed and shows perhaps a small area of fluid collection kaden ng the right kidney without obvious stones, hydronephrosis, or abscess by my review and Dr. Jarvis's. ASSESSMENT AND PLAN: Urinary tract infection, abdominal pain. Unclear exactly the cause of this gabo ent's abdominal pain. Does not appear that she has obvious abscess around the kidney. Recommend karthik t she continue to be treated with appropriate antibiotics and will order an ultrasound to try and bet ter assess fluid around kidney. /[id number]/MODL
[2017-08-11] MEDS: DIVALPROEX ER 250 MG TAB PO SCH (20:51)
[2017-08-11] MEDS: ATORVASTATIN CALCIUM 20 MG TAB PO SCH (20:51)
[2017-08-11] MEDS: ARIPiprazole 5 MG TAB PO SCH (20:51)
[2017-08-12] MEDS: PIPERACILLIN SODIUM/TAZOBACTAM 3.375 GM in D5W 50 ML IV SCH ×3 (00:59→12:47)
[2017-08-12] MEDS: LEVOTHYROXINE 175 MCG TAB PO SCH (05:38)
[2017-08-12 05:56] LABS: PLATELET COUNT 154 10^3/uL (150-400)
[2017-08-12 06:14] LABS: INR 2.7 (0.83-1.16); PROTIME(PATIENT) 28.6 SEC (12.0-15.0)
[2017-08-12] MEDS: ARIPiprazole 10 MG TAB PO SCH (08:01)
[2017-08-12] MEDS: FAMOTIDINE 20 MG TAB PO SCH ×2 (08:01→17:29)
[2017-08-12] MEDS: CHOLECALCIFEROL VIT D3 1,000 UNITS TAB PO SCH (08:01)
[2017-08-12] MEDS: DOCUSATE SODIUM 100 MG CAP PO SCH ×2 (08:02→22:04)
[2017-08-12] MEDS: POLYETHYLENE GLYCOL 3350 17 GM PKT PO SCH (08:02)
[2017-08-12] MEDS: HYDROCORTISONE 100 MG/2 ML VIAL IVP SCH ×2 (08:02→22:05)
[2017-08-12] MEDS: SODIUM CL NASAL 45 ML BTL EACHNARE SCH ×3 (08:04→22:05)
[2017-08-12] MEDS: LIDOCAINE 4%/MENTHOL 1% PATCH TD SCH (08:13)
[2017-08-12] MEDS: METOPROLOL SUCCINATE XR 25 MG TAB PO SCH (09:33)
--- NOTE | 2017-08-12 11:27 | SOAPPROG ---
SOAP Progress Note Assessment/Plan: Assessment: Acute pyelonephritis Acute Klebsiella and being rxed appopriately Plan: follow up as outpatient 08/12/17 11:26 Subjective: UTI Objective: Vital Signs Temp Pulse Resp BP Pulse Ox 36.5 C 91 16 107/59 L 92 08/12/17 08:44 08/12/17 09:33 08/12/17 08:44 08/12/17 09:33 08/12/17 08:44 Laboratory Results 08/12/17 05:40 08/12/17 05:40 08/11/17 08/12/17 08/13/17 05:59 05:59 05:59 Intake Total 700 2058 Output Total 300 1100 Balance 400 958 PT 28.6 SEC (12.0-15.0) H 08/12/17 05:40 INR 2.70 (0.83-1.16) H 08/12/17 05:40 Physical Exam - Physical Exam General Appearance: no apparent distress ICD10 Worksheet Patient Problems: Problems Problem Status Onset Acute pyelonephritis Acute Hyponatremia Acute Abdominal pain Acute Acute encephalopathy Acute Altered mental status Acute Anemia Acute Atrial fibrillation Acute CAD (coronary artery disease), [place] coronary artery Acute Chronic diastolic CHF (congestive heart failure) Acute Chronic hypoxemic respiratory failure Acute Chronic kidney disease (CKD) Acute Congestive heart failure Acute Generalized weakness Acute Hypoxia Acute New onset atrial fibrillation Acute Palliative care encounter Acute Pyelonephritis Acute UTI (urinary tract infection) Acute VHD (valvular heart disease) Acute
[2017-08-12] MEDS: FERROUS SULFATE 325 MG TAB PO SCH (12:47)
[2017-08-12] MEDS: VITAMIN D3 PO SCH ×3 (12:48→22:06)
[2017-08-12] MEDS: CALCIUM CARBONATE PO SCH ×3 (12:48→22:06)
[2017-08-12] MEDS: traMADol 50 MG TAB PO PRN ×2 (12:56→22:04)
--- NOTE | 2017-08-12 14:20 | HOSPPROG ---
Hospitalist Progress Note Assessment/Plan: #Pyelonephritis with Right Perinephric Fluid collection -UCX c/w Klebsiella #Hypotension, resolved #Acute Encephalopathy, resolved #Adrenal Insufficiency with possible Adrenal Crisis. chronic steroid use #Hx of HTN #Afib #Diastolic CHF #chronic Resp Failure Plan: Change ABX to Levaquin cont stress dose steroids hopefully home tomorrow Hold Lasix Hold antihypertensive meds Subjective: feels better. not confused. no cp or sob Objective: Vital Signs Temp Pulse Resp BP Pulse Ox 37.0 C 93 16 111/79 99 08/12/17 12:20 08/12/17 12:20 08/12/17 12:20 08/12/17 12:20 08/12/17 12:20 Laboratory Results 08/12/17 05:40 08/12/17 05:40 08/11/17 08/12/17 08/13/17 05:59 05:59 05:59 Intake Total 700 2058 Output Total 300 1100 Balance 400 958 PT 28.6 SEC (12.0-15.0) H 08/12/17 05:40 INR 2.70 (0.83-1.16) H 08/12/17 05:40 - Physical Exam Constitutional: no apparent distress Eyes: PERRL, EOMI Ears, Nose, Mouth, Throat: moist mucous membranes, hearing normal Cardiovascular: regular rate and rhythym, No edema Respiratory: no respiratory distress, no rales or rhonchi, clear to auscultation Gastrointestinal: normoactive bowel sounds, soft, non-tender abdomen Skin: warm Neurologic: AAOx3 Psychiatric: interacting appropriately, not anxious, not encephalopathic Lymph, Heme, Immunologic: No petechiae ICD10 Worksheet Patient Problems: Problems Problem Status Onset Acute pyelonephritis Acute Hyponatremia Acute Abdominal pain Acute Acute encephalopathy Acute Altered mental status Acute Anemia Acute Atrial fibrillation Acute CAD (coronary artery disease), [place] coronary artery Acute Chronic diastolic CHF (congestive heart failure) Acute Chronic hypoxemic respiratory failure Acute Chronic kidney disease (CKD) Acute Congestive heart failure Acute Generalized weakness Acute Hypoxia Acute New onset atrial fibrillation Acute Palliative care encounter Acute Pyelonephritis Acute UTI (urinary tract infection) Acute VHD (valvular heart disease) Acute
--- NOTE | 2017-08-12 15:52 | ASMTCMCOM ---
CM Note CM Note Notes: Chart reviewed. Plan unchanged. To return to [facility] when medically cleared for discharge. Date Signed: 08/12/2017 03:51 PM Electronically Signed By:Reny Coleman RN
[2017-08-12] MEDS: WARFARIN SODIUM 5 MG TAB PO SCH (17:27)
[2017-08-12] MEDS ORDERED: PIPERACILLIN/TAZO 3.375 GM/DEX 50 ML IV SCH (18:00)
[2017-08-12] MEDS: ARIPiprazole 5 MG TAB PO SCH (22:04)
[2017-08-12] MEDS: ATORVASTATIN CALCIUM 20 MG TAB PO SCH (22:04)
[2017-08-12] MEDS: DIVALPROEX ER 250 MG TAB PO SCH (22:04)
[2017-08-12] MEDS: levOFLOXACIN 500 MG/DEXTROSE 100 ML IV SCH (22:05)
[2017-08-13] MEDS: LEVOTHYROXINE 175 MCG TAB PO SCH (05:28)
[2017-08-13 05:47] LABS: INR 2.66 (0.83-1.16); PROTIME(PATIENT) 28.3 SEC (12.0-15.0)
[2017-08-13] MEDS: ARIPiprazole 10 MG TAB PO SCH (09:40)
[2017-08-13] MEDS: FAMOTIDINE 20 MG TAB PO SCH ×2 (09:40→17:19)
[2017-08-13] MEDS: LIDOCAINE 4%/MENTHOL 1% PATCH TD SCH (09:40)
[2017-08-13] MEDS: CHOLECALCIFEROL VIT D3 1,000 UNITS TAB PO SCH (09:40)
[2017-08-13] MEDS: DOCUSATE SODIUM 100 MG CAP PO SCH ×2 (09:40→20:44)
[2017-08-13] MEDS: HYDROCORTISONE 100 MG/2 ML VIAL IVP SCH ×2 (09:40→20:44)
[2017-08-13] MEDS: SODIUM CL NASAL 45 ML BTL EACHNARE SCH ×3 (09:50→20:43)
[2017-08-13] MEDS: POLYETHYLENE GLYCOL 3350 17 GM PKT PO SCH (10:47)
[2017-08-13] MEDS: levOFLOXACIN 500 MG/DEXTROSE 100 ML IV SCH (10:50)
--- NOTE | 2017-08-13 12:34 | HOSPPROG ---
Hospitalist Progress Note Assessment/Plan: #Pyelonephritis with Right Perinephric Fluid collection -UCX c/w Klebsiella -Started on Zosyn and then transitioned to Levaquin #Hypotension, resolved, multifactoria #Acute Encephalopathy, resolved #Adrenal Insufficiency with possible Adrenal Crisis. chronic steroid use #Hx of HTN #Afib #Diastolic CHF #chronic Resp Failure #Hypokalemia Plan: cont Levaquin cont stress dose steroids, will decrease dose, can likely decrease further tomorrow Dispo: prob home tomorrow or Tuesday restart Lasix restart Diltiazem Subjective: K is elevated. She is feeling better. no cp Objective: Vital Signs Temp Pulse Resp BP Pulse Ox 36.8 C 91 16 140/81 H 99 08/13/17 07:32 08/13/17 07:32 08/13/17 07:32 08/13/17 07:32 08/13/17 07:32 Laboratory Results 08/12/17 05:40 08/13/17 05:22 08/12/17 08/13/17 08/14/17 05:59 05:59 05:59 Intake Total 2058 1170 Output Total 1100 650 Balance 958 520 PT 28.3 SEC (12.0-15.0) H 08/13/17 05:22 INR 2.66 (0.83-1.16) H 08/13/17 05:22 - Physical Exam Constitutional: no apparent distress Eyes: PERRL, EOMI Ears, Nose, Mouth, Throat: moist mucous membranes, hearing normal Cardiovascular: regular rate and rhythym Respiratory: no respiratory distress Gastrointestinal: normoactive bowel sounds Skin: warm Musculoskeletal: generalized weakness Neurologic: AAOx3 Psychiatric: interacting appropriately Lymph, Heme, Immunologic: No petechiae ICD10 Worksheet Patient Problems: Problems Problem Status Onset Acute pyelonephritis Acute Hyponatremia Acute Abdominal pain Acute Acute encephalopathy Acute Altered mental status Acute Anemia Acute Atrial fibrillation Acute CAD (coronary artery disease), [place] coronary artery Acute Chronic diastolic CHF (congestive heart failure) Acute Chronic hypoxemic respiratory failure Acute Chronic kidney disease (CKD) Acute Congestive heart failure Acute Generalized weakness Acute Hypoxia Acute New onset atrial fibrillation Acute Palliative care encounter Acute Pyelonephritis Acute UTI (urinary tract infection) Acute VHD (valvular heart disease) Acute
[2017-08-13] MEDS: CALCIUM CARB W/VIT D 500 MG TAB PO SCH ×3 (13:58→20:42)
[2017-08-13] MEDS: FERROUS SULFATE 325 MG TAB PO SCH (13:59)
[2017-08-13] MEDS: traMADol 50 MG TAB PO PRN ×2 (17:19→22:18)
[2017-08-13] MEDS: WARFARIN SODIUM 5 MG TAB PO SCH (17:20)
[2017-08-13] MEDS: DIVALPROEX ER 250 MG TAB PO SCH (20:42)
[2017-08-13] MEDS: ARIPiprazole 5 MG TAB PO SCH (20:42)
[2017-08-13] MEDS: DILTIAZEM 30 MG TAB PO SCH (20:42)
[2017-08-13] MEDS: ATORVASTATIN CALCIUM 20 MG TAB PO SCH (20:42)
[2017-08-13] MEDS ORDERED: levOFLOXACIN 500 MG/DEXTROSE 100 ML IV SCH (21:00)
[2017-08-14] MEDS: LEVOTHYROXINE 175 MCG TAB PO SCH (05:39)
[2017-08-14 06:05] LABS: INR 2.82 (0.83-1.16); PROTIME(PATIENT) 29.6 SEC (12.0-15.0)
[2017-08-14] MEDS ORDERED: BENZONATATE 100 MG CAP PO PRN (06:16)
[2017-08-14] MEDS ORDERED: CEPACOL LOZENGE PO PRN (06:16)
--- NOTE | 2017-08-14 09:36 | SOAPPROG ---
SOAP Progress Note Assessment/Plan: Assessment: Acute pyelonephritis Acute Klebsiella and being rxed appopriately Plan: follow up as outpatient 08/14/17 09:35 Subjective: plan to see as outpatient in office Objective: Vital Signs Temp Pulse Resp BP Pulse Ox 36.2 C 105 H 18 127/87 H 100 08/14/17 07:30 08/14/17 07:30 08/14/17 07:30 08/14/17 07:30 08/14/17 07:30 Microbiology 08/13/17 18:00 - Final Sputum, Expectorated Laboratory Results 08/12/17 05:40 08/14/17 05:40 08/13/17 08/14/17 08/15/17 05:59 05:59 05:59 Intake Total 1170 1100 Output Total 650 400 200 Balance 520 700 -200 PT 29.6 SEC (12.0-15.0) H 08/14/17 05:40 INR 2.82 (0.83-1.16) H 08/14/17 05:40 ICD10 Worksheet Patient Problems: Problems Problem Status Onset Acute pyelonephritis Acute Hyponatremia Acute Abdominal pain Acute Acute encephalopathy Acute Altered mental status Acute Anemia Acute Atrial fibrillation Acute CAD (coronary artery disease), [place] coronary artery Acute Chronic diastolic CHF (congestive heart failure) Acute Chronic hypoxemic respiratory failure Acute Chronic kidney disease (CKD) Acute Congestive heart failure Acute Generalized weakness Acute Hypoxia Acute New onset atrial fibrillation Acute Palliative care encounter Acute Pyelonephritis Acute UTI (urinary tract infection) Acute VHD (valvular heart disease) Acute
--- NOTE | 2017-08-14 10:45 | WOCRNPDOC ---
WOCRN Advanced Assessment Note - Skin Integrity Problem, Advanced Assess Bilateral Lower Gluteal Cleft Dressing Type: Open to Air Exudate Amount: None [place] Wound Tissue: Blanching, Erythema, Intact, Scarred Wound Bed Color: [place] Wound Edges: Well Defined Skin Integrity Problem Comment: Patient rolled unassisted to her left side. Patient has evidence of scarring to the bilateral lower gluteal cleft. Patient unable to tell me how these now healed wounds occurred but it is possible that at one point she had pressure related injuries to this area. Skin currently pink and scarred but intact and blanching. Recommend we take measures to offload the areas and encourage patient to shift weight frequently. Wound care does not need to follow.
[2017-08-14] MEDS: SODIUM CL NASAL 45 ML BTL EACHNARE SCH (10:49)
[2017-08-14] MEDS: DILTIAZEM 30 MG TAB PO SCH (10:50)
[2017-08-14] MEDS: FUROSEMIDE 20 MG TAB PO SCH (10:52)
[2017-08-14] MEDS: DOCUSATE SODIUM 100 MG CAP PO SCH (10:54)
[2017-08-14] MEDS: CHOLECALCIFEROL VIT D3 1,000 UNITS TAB PO SCH (10:58)
[2017-08-14] MEDS: ARIPiprazole 10 MG TAB PO SCH (10:58)
[2017-08-14] MEDS: FAMOTIDINE 20 MG TAB PO SCH (10:59)
[2017-08-14] MEDS: LOPERAMIDE HCL 2 MG CAP PO PRN ×2 (10:59→12:49)
[2017-08-14] MEDS: LIDOCAINE 4%/MENTHOL 1% PATCH TD SCH (11:00)
[2017-08-14] MEDS: HYDROCORTISONE 100 MG/2 ML VIAL IVP SCH (11:00)
[2017-08-14] MEDS ORDERED: FUROSEMIDE 20 MG/2 ML VIAL IVP ONE (11:28)
--- NOTE | 2017-08-14 11:40 | PDDCSUM ---
Discharge Summary Discharge Summary: This is a 67 yo Female admitted with pyelonephritis. UCx c/w Klebsiella. Treated with Zosyn and then transitioned to Levaquin. Did require stress steroids. Now back to baseline. She will f/u with Dr. Jarvis in one week. #Pyelonephritis with Right Perinephric Fluid collection -UCX c/w Klebsiella -Started on Zosyn and then transitioned to Levaquin. Will treat for 4 more days -Urology consulted, no need for interventions, but would like to have her f/u in clinic #Hypotension, resolved, multifactorial, now back on home meds #Acute Encephalopathy, resolved #Adrenal Insufficiency with possible Adrenal Crisis. chronic steroid use -now back to home steroid use #HTN: home meds #Afib: home meds #Diastolic CHF: Diuretics #chronic Resp Failure #Hypokalemia, now normal Exam: NAD AAOX3 RRR CTA B S/NT/ND TRACE LE EDEMA MEDS: SEE MED REC F/U: PER ABOVE TOTAL TIME SPENT ON D/C IS 35 MINS
[2017-08-14 11:41] VITALS: BP 118/74
[2017-08-14] MEDS: CALCIUM CARB W/VIT D 500 MG TAB PO SCH (12:50)
[2017-08-14] MEDS: FERROUS SULFATE 325 MG TAB PO SCH (12:50)
--- NOTE | 2017-08-14 15:56 | ASMTCMCOM ---
CM Note CM Note Notes: Chart reviewed. The patient has been medically cleared for discharge to home. She has no transportation, will provide taxi voucher. No ability to get to pharmacy and reports she has no money. CM to MAP her 4 levaquin. RN needs to give patient lasix. She will call for taxi about 5 pm. Patient will get list of medications that she can provide to her assisted living. CM available should other needs arise. Plan: Return to [facility] via taxi. Date Signed: 08/14/2017 03:55 PM Electronically Signed By:Reny Coleman RN
--- NOTE | 2017-08-15 08:59 | ASMTCMCOM ---
CM Note CM Note Notes: Late entry: This CM spoke to two separate individuals from [facility] and neither employee stated patient could not return home. Inquired about ability to provide patient pm meal and they reported that they could accommodate They reported they do not provide transportation. CM provided the patient with taxi voucher and antibiotics for 4 days. Date Signed: 08/15/2017 08:58 AM Electronically Signed By:Reny Coleman RN
--- NOTE | 2017-08-15 15:30 | ASDISCHSUM ---
Discharge Information Plan Status:Assisted Living Medically Cleared to Leave:08/15/2017 Discharge Date:08/14/2017 05:20 PM D/C Disposition:Assisted Living ADT D/C Disposition:Home, Routine, Self-Care Projected Discharge Date:08/14/2017 11:00 AM Transportation at D/C: Discharge Delay Reason: Follow-Up Date:08/14/2017 11:00 AM Discharge Slot: Final Diagnosis: Placement Information Referral Type:Assisted Living Residence Referral ID:[id number] Provider Name:Darshana [facility]inal [place] Address 1:[address] Address 2: City:[place] Selection Factors: State:[place] Patient Contact Information Contact Name:CUONG Relationship:Sister [facility] Work Phone: City:[facility] Phone: State/Zip Code:[place] [address] Email: Financial Information Financial Class:Medicaid Primary Plan Desc:[place] Primary Plan Number:[id number] Secondary Plan Desc: Secondary Plan Number: Assessment Information LACE LACE Acuity / Level of Answers: Yes Care: Did the patient have an inpatient admission? Comorbidities - select Answers: Any tumor (including all that apply lymphoma or leukemia) Congestive heart failure Coronary Artery Disease Other Notes: AFib w/ Pacemaker; HTN # of Emergency department Answers: 1-2 visits in the last 6 months Social determinants Answers: Mental health diagnosis (anxiety, depression, pers onality disorders, etc.) Score: 14 Date Signed: 08/11/2017 10:04 AM Electronically Signed By:Claudia Kelly LCSW [facility] CM Progress Note CM Note CM Note Notes: Pt admitted from [facility]. At this time plan is for pt to return there at [place]. Date Signed: 08/11/2017 10:12 AM Electronically Signed By:Clauida Kelly LCSW [facility] CM Progress Note CM Note CM Note Notes: Chart reviewed. Plan unchanged. To return to [facility] when medically cleared for discharge. Date Signed: 08/12/2017 03:51 PM Electronically Signed By:Reny Coleman RN [facility] CM Progress Note CM Note CM Note Notes: Chart reviewed. The patient has been medically cleared for discharge to home. She has no transportation, will provide taxi voucher. No ability to get to pharmacy and reports she has no money. CM to MAP her 4 levaquin. RN needs to give patient lasix. She will call for taxi about 5 pm. Patient will get list of medications that she can provide to her assisted living. CM available should other needs arise. Plan: Return to [facility] via taxi. Date Signed: 08/14/2017 03:55 PM Electronically Signed By:Reny Coleman RN [facility] CM Progress Note CM Note CM Note Notes: Late entry: This CM spoke to two separate individuals from [facility] and neither employee stated patient could not return home. Inquired about ability to provide patient pm meal and they reported that they could accommodate They reported they do not provide transportation. CM provided the patient with taxi voucher and antibiotics for 4 days. Date Signed: 08/15/2017 08:58 AM Electronically Signed By:Reny Coleman RN Intervention Information
[2017-08-16] MEDS ORDERED: WARFARIN SODIUM 5 MG TAB PO SCH (16:00)
== END 2017-08-14 17:20 | disposition home or self-care (01) | DRG 463 ==
LOC: EDBD → EDUNIT# → F1N 17:24
PROVIDERS: ADMIT Student in an Organized Health Care Education/Training Program; ATTEND Family Medicine
DX: N10 Acute pyelonephritis (principal); G93.40 Encephalopathy, unspecified; E87.1 Hypo-osmolality and hyponatremia; J96.11 Chronic respiratory failure with hypoxia; E27.40 Unspecified adrenocortical insufficiency; I27.20 Pulmonary hypertension, unspecified; E66.01 Morbid (severe) obesity due to excess calories; I50.32 Chronic diastolic (congestive) heart failure; B96.1 Klebsiella pneumoniae [K. pneumoniae] as the cause of diseases classified elsewhere; I48.91 Unspecified atrial fibrillation; I25.10 Atherosclerotic heart disease of native coronary artery without angina pectoris; I11.0 Hypertensive heart disease with heart failure; F31.9 Bipolar disorder, unspecified; K57.30 Diverticulosis of large intestine without perforation or abscess without bleeding; K74.60 Unspecified cirrhosis of liver; G47.33 Obstructive sleep apnea (adult) (pediatric); Z79.01 Long term (current) use of anticoagulants; Z95.0 Presence of cardiac pacemaker; Z68.30 Body mass index [BMI] 30.0-30.9, adult; Z85.3 Personal history of malignant neoplasm of breast; Z79.52 Long term (current) use of systemic steroids
CPT/HCPCS: 82435-PO; 82565-PO; 82947-PO; 84132-PO; 84295-PO; 84520-PO; 85014-PO; 96365; 97116-GP; 97161-GP; G8978-GP-CJ; G8979-GP-CI; J0696; J1642; J1720; J1940; J1956; J2543; J3010; Q9967

== ENCOUNTER 2017-11-11 17:12 | Inpatient (IN) | payer OTHER, MEDICAID ==
[2017-11-11] MEDS ORDERED: DILTIAZEM 25 MG/5 ML VIAL IVP ONE ×2 (17:26→17:28)
[2017-11-11] MEDS ORDERED: LORazepam 2 MG/ML INJ ONE (17:31)
--- NOTE | 2017-11-11 17:31 | EDPHY ---
HPI/HX/ROS/PE/MDM Narrative: CHIEF COMPLAINT: Leg pain, rapid heart rate HPI: The patient is a 67 y/o female with multiple comorbidities who arrives via EMS from the [facility] with initial report of severe right upper leg pain and then extreme tachycardia around 210 once EMS moved her to their bed this afternoon. Her medical history is extensive and includes CAD post CABG, valvular disease, CHF, atrial fibrillation post pacemaker placement 11/2016, chronic respiratory failure, chronic hyponatremia, and adrenal insufficiency. EMS reports their initial HR was 80, but as soon as they moved her she became extremely tremulous though not seizing, tachypneic, and her heart rate jumped above 200. Patient is unable to provide much history, but denies pain anywhere other than her right thigh. She is on Warfarin per history. REVIEW OF SYSTEMS: Limited by presentation. PMH: 1. CAD post CABG 2. Valvular heart disease 3. CKD with a baseline creatinine of 1.1-1.4 4. Chronic hyponatremia 5. Diastolic heart failure 6. Pulmonary hypertension 7. Chronic hypoxemic respiratory failure - on home O2 constantly 8. Hypothyroidism 9. Hypertension 10. History of breast cancer 11. Anemia 12. AVNRT ablation 2014 13. SHAUNA 14. Bipolar disorder 15. Atrial fibrillation, post [facility] pacemaker 12/26/[address] Hanks. 16. Adrenal insufficiency Prior medical records reviewed including admission 03/02/16 for abdominal pain and back pain, admission 08/10/17 for pyelonephritis, and [place] for limited [facility] records. SOCIAL HISTORY: Lives at the [facility] PHYSICAL EXAM: General:Patient is alert, tachycardic, tachypneic, tremulous. ENT:Eyes are normal to inspection. ENT inspection normal. Neck: Normal inspection. Full range of motion. Respiratory: Acute respiratory distress, shallow rapid breathing, 1-2-word dyspnea. Chest: Port right chest. Well-healed midline sternotomy scar, left mastectomy. Cardiovascular: Tachycardic. Strong peripheral pulses. Normal cap refill. Abdomen:The abdomen is nontender to palpation. There are no peritoneal signs. Back: Normal to inspection. No tenderness to palpation. Skin: Normal color. No rash. Warm and dry. Extremities: Chronic venous stasis changes to lower extremities. Full range of motion. Neuro: Oriented x3. Movement in all extremities. Extremely tremulous. ED Course: This is a 67 y/o female who presents via EMS from her assisted living facility complaining of right thigh pain and is currently tachycardic around 210, tachypneic with shallow breathing, and extremely tremulous. She is able to answer some questions minimally with one or two word answers. Minimal history known at this time. Plan for urgent IV access, EKG, rate control, and respiratory support. 1720: Difficulty obtaining IV access, considering IO. 1728: Obtained port access. 20mg IV Diltazem administered. 1729: 83% on nasal cannula, NRB applied at 15lpm. Unable to obtain 12-lead EKG due to artifact from tremulousness. Monitor shows narrow complex tachycardia. 1730: HR 140-160 after Diltazem bolus. 1733: HR irregular around 110. Tremors and tachypnea persist. 1mg IV Ativan administered. 1738: 10mg IV Decadron administered in case of adrenal crisis. 1740: Chest x-ray: cardiomegaly. No obvious infiltrate. 1743: Auto BP 178/162, likely inaccurate. HR 92, irregular. 95% on 15LPM. 1746: Sodium low 114. History of chronic hyponatremia noted in records. 1750: The 12 lead EKG was interpreted by myself. Atrial fibrillation rate 83. See hard copy and/or "tracemaster" electronic copy for interpretation. 1752: Limited bedside US shows right ventricle dilation. Consistent with echo Dec 2016 reviewed in [place]. HR improved to 80 range. Breathing is less labored, but still tachypneic. Plan for bipap. 1755: BP 62/40. Plan for arterial line. 1810: Procedure: Femoral arterial line with ultrasound guidance. Indication: hypotension, unstable vitals. Using the linear probe covered in a sterile sheath, a short axis of the artery was obtained. The non-compressible arterial structure was identified. Under real -time guidance, the introducer needle was observed up to the artery, and then punctured with it. Risks, benefits, alternatives discussed with the patient including but not limited to bleeding, infection, vascular injury, and collapsed lung and consent obtained. A timeout was observed. Full maximal sterile barrier technique was used including cap, gown, sterile gloves, large sheet, hand washing and chlorhexidine prep. The area was anesthetized with 1% lidocaine. Attempted to place an arterial line in the right femoral artery using standard Seldinger technique. Procedure was unsuccessful. Patient tolerated procedure well. The procedure was performed by myself, Dr. Hidalgo. 1814: [facility] will be here in 1 hour to interrogate pacer. 181: Dopamine drip started for hypotension. 182: BP now 93/52. 182: Arterial line unsuccessful. Troponin negative. 183: Spoke with hospitalist service. Dr. Miranda accepts admission. Patient has received less than 1L IV NS in the ED. 1851: BP 112/62, HR 90. INR elevated at 5.29, lactic acid elevated 4.3, hyponatremia 116. Critical care time spent by me, Dr. Hidlago, exclusively with this patient was 70 minutes, exclusive of PA time and exclusive of procedures. The organ system at risk was multisystem. Time spent in urgent assessment and serial reassessments of the patient, review of electronic medical records, consideration of interventions, hospitalist consultation, and review of imaging and lab results. - Data Points Imaging Results: Imaging Impressions Chest X-Ray 11/11/17 17:34 Impression: Stable cardiomegaly without failure. Imaging: I viewed and interpreted images myself Laboratory Results: Laboratory Results 11/11/17 17:40 11/11/17 19:41 11/11/17 11/11/17 11/11/17 19:41 18:56 18:15 WBC RBC Hgb POC Hgb Hct POC Hct MCV MCH MCHC RDW Plt Count MPV Neut % (Auto) Lymph % (Auto) [place] % (Auto) Eos % (Auto) Baso % (Auto) Nucleat RBC Rel Count Absolute Neuts (auto) Absolute Lymphs (auto) Absolute Monos (auto) Absolute Eos (auto) Absolute Basos (auto) Absolute Nucleated RBC Immature Gran % Seg Neutrophils % Band Neutrophils % Lymphocytes % Monocytes % Eosinophils % Basophils % Metamyelocytes % Myelocytes % Promyelocytes % Blast Cells % Immature Gran # Absolute Seg Neuts Absolute Band Neuts Absolute Lymphocytes Absolute Monocytes Absolute Eosinophils Absolute Basophils Absolute Metamyelocyte Absolute Myelocytes Absolute Promyelocytes Absolute Plasma Cells Nucleated RBCs Absolute Blast Cells Plasma Cells % Platelet Estimate Polychromasia Echinocytes Acanthocytes (Spur) PT INR APTT Puncture Site pCO2 pO2 Total CO2 ABG pH ABG HCO3 ABG O2 Saturation ABG Base Excess VBG Lactic Acid 4.3 mmol/L H mmol/L (0.7-2.1) POC Sodium Sodium 117 mEq/L L* mEq/L (135-145) POC Potassium Potassium 4.0 mEq/L mEq/L (3.3-5.0) POC Chloride Chloride 71 mEq/L L mEq/L (97-110) Carbon Dioxide 33 mEq/l H mEq/l (22-31) Anion Gap 13 mEq/L mEq/L (8-16) POC BUN BUN 18 mg/dL mg/dL (7-23) Creatinine 0.9 mg/dL mg/dL (0.6-1.0) POC Creatinine Estimated GFR > 60 Glucose 183 mg/dL H mg/dL (70-100) POC Glucose Calcium 8.7 mg/dL mg/dL (8.5-10.4) Creatine Kinase POC Troponin I Troponin I Cortisol PM Sample 18.2 ug/dL H ug/dL (1.7-14.1) 11/11/17 11/11/17 11/11/17 18:15 17:47 17:45 WBC RBC Hgb POC Hgb Hct POC Hct MCV MCH MCHC RDW Plt Count MPV Neut % (Auto) Lymph % (Auto) [place] % (Auto) Eos % (Auto) Baso % (Auto) Nucleat RBC Rel Count Absolute Neuts (auto) Absolute Lymphs (auto) Absolute Monos (auto) Absolute Eos (auto) Absolute Basos (auto) Absolute Nucleated RBC Immature Gran % Seg Neutrophils % Band Neutrophils % Lymphocytes % Monocytes % Eosinophils % Basophils % Metamyelocytes % Myelocytes % Promyelocytes % Blast Cells % Immature Gran # Absolute Seg Neuts Absolute Band Neuts Absolute Lymphocytes Absolute Monocytes Absolute Eosinophils Absolute Basophils Absolute Metamyelocyte Absolute Myelocytes Absolute Promyelocytes Absolute Plasma Cells Nucleated RBCs Absolute Blast Cells Plasma Cells % Platelet Estimate Polychromasia Echinocytes Acanthocytes (Spur) PT 47.8 SEC H SEC (12.0-15.0) INR 5.29 H* (0.83-1.16) APTT 45.1 SEC H SEC (23.0-38.0) Puncture Site TNP pCO2 TNP pO2 TNP Total CO2 TNP ABG pH TNP ABG HCO3 TNP ABG O2 Saturation TNP ABG Base Excess TNP VBG Lactic Acid POC Sodium Sodium POC Potassium Potassium POC Chloride Chloride Carbon Dioxide Anion Gap POC BUN BUN Creatinine POC Creatinine Estimated GFR Glucose POC Glucose Calcium Creatine Kinase POC Troponin I 0.02 ng/mL ng/mL (0.00-0.08) Troponin I Cortisol PM Sample 11/11/17 11/11/17 11/11/17 17:44 17:40 17:40 WBC RBC Hgb POC Hgb 14.3 gm/dL gm/dL (12.6-16.3) Hct POC Hct 42 % % (38-47) MCV MCH MCHC RDW Plt Count MPV Neut % (Auto) Lymph % (Auto) [place] % (Auto) Eos % (Auto) Baso % (Auto) Nucleat RBC Rel Count Absolute Neuts (auto) Absolute Lymphs (auto) Absolute Monos (auto) Absolute Eos (auto) Absolute Basos (auto) Absolute Nucleated RBC Immature Gran % Seg Neutrophils % Band Neutrophils % Lymphocytes % Monocytes % Eosinophils % Basophils % Metamyelocytes % Myelocytes % Promyelocytes % Blast Cells % Immature Gran # Absolute Seg Neuts Absolute Band Neuts Absolute Lymphocytes Absolute Monocytes Absolute Eosinophils Absolute Basophils Absolute Metamyelocyte Absolute Myelocytes Absolute Promyelocytes Absolute Plasma Cells Nucleated RBCs Absolute Blast Cells Plasma Cells % Platelet Estimate Polychromasia Echinocytes Acanthocytes (Spur) PT REJ INR TNP APTT Puncture Site pCO2 pO2 Total CO2 ABG pH ABG HCO3 ABG O2 Saturation ABG Base Excess VBG Lactic Acid POC Sodium 114 mEq/L L* mEq/L (135-145) Sodium 116 mEq/L L* mEq/L (135-145) POC Potassium 4.1 mEq/L mEq/L (3.3-5.0) Potassium 3.8 mEq/L mEq/L (3.3-5.0) POC Chloride 72 mEq/L L mEq/L (97-110) Chloride 69 mEq/L L mEq/L (97-110) Carbon Dioxide 23 mEq/l mEq/l (22-31) Anion Gap 24 mEq/L H mEq/L (8-16) POC BUN 17 mg/dL mg/dL (7-23) BUN 15 mg/dL mg/dL (7-23) Creatinine 1.0 mg/dL mg/dL (0.6-1.0) POC Creatinine 1.0 mg/dL mg/dL (0.6-1.0) Estimated GFR 56 Glucose 258 mg/dL H mg/dL (70-100) POC Glucose 258 mg/dL H mg/dL (70-100) Calcium 8.7 mg/dL mg/dL (8.5-10.4) Creatine Kinase 36 IU/L IU/L (0-156) POC Troponin I Troponin I < 0.012 ng/mL ng/mL (0.000-0.034) Cortisol PM Sample 11/11/17 17:40 WBC 14.44 10^3/uL H 10^3/uL (3.80-9.50) RBC 3.97 10^6/uL L 10^6/uL (4.18-5.33) Hgb 12.8 g/dL g/dL (12.6-16.3) POC Hgb Hct 36.5 % L % (38.0-47.0) POC Hct MCV 91.9 fL fL (81.5-99.8) MCH 32.2 pg pg (27.9-34.1) MCHC 35.1 g/dL g/dL (32.4-36.7) RDW 14.9 % % (11.5-15.2) Plt Count 190 10^3/uL 10^3/uL (150-400) MPV 9.3 fL fL (8.7-11.7) Neut % (Auto) Not Reported Lymph % (Auto) Not Reported [place] % (Auto) Not Reported Eos % (Auto) Not Reported Baso % (Auto) Not Reported Nucleat RBC Rel Count Not Reported Absolute Neuts (auto) Not Reported Absolute Lymphs (auto) Not Reported Absolute Monos (auto) Not Reported Absolute Eos (auto) Not Reported Absolute Basos (auto) Not Reported Absolute Nucleated RBC Not Reported Immature Gran % Not Reported Seg Neutrophils % 73.7 % % Band Neutrophils % 0.0 % % Lymphocytes % 8.1 % % Monocytes % 14.2 % % Eosinophils % 0.0 % % Basophils % 0.0 % % Metamyelocytes % 2.0 % % Myelocytes % 2.0 % % Promyelocytes % 0.0 % % Blast Cells % 0.0 % % Immature Gran # Not Reported Absolute Seg Neuts 10.64 10^/uL H 10^/uL (1.70-6.50) Absolute Band Neuts 0.00 10^3/uL 10^3/uL (0.00-0.70) Absolute Lymphocytes 1.17 10^3/uL 10^3/uL (1.00-3.00) Absolute Monocytes 2.05 10^3/uL H 10^3/uL (0.30-0.80) Absolute Eosinophils 0.00 10^3/uL L 10^3/uL (0.03-0.40) Absolute Basophils 0.00 10^3/uL L 10^3/uL (0.02-0.10) Absolute Metamyelocyte 0.29 10^3/mL H 10^3/mL (0.00-0.00) Absolute Myelocytes 0.29 10^3/mL H 10^3/mL (0.00-0.00) Absolute Promyelocytes 0.00 10^3/uL 10^3/uL (0.00-0.00) Absolute Plasma Cells 0.00 10^3/uL 10^3/uL (0.00-0.00) Nucleated RBCs 0 /100 WBC /100 WBC (0-0) Absolute Blast Cells 0.00 10^3/uL 10^3/uL (0.00-0.00) Plasma Cells % 0.0 % % Platelet Estimate ADEQUATE (ADEQ) Polychromasia 1+ H Echinocytes 2+ H Acanthocytes (Spur) 1+ H PT INR APTT Puncture Site pCO2 pO2 Total CO2 ABG pH ABG HCO3 ABG O2 Saturation ABG Base Excess VBG Lactic Acid POC Sodium Sodium POC Potassium Potassium POC Chloride Chloride Carbon Dioxide Anion Gap POC BUN BUN Creatinine POC Creatinine Estimated GFR Glucose POC Glucose Calcium Creatine Kinase POC Troponin I Troponin I Cortisol PM Sample Medications Given: Discontinued Medications Dexamethasone (Decadron Injection) 10 mg IVP EDNOW ONE Stop: 11/11/17 17:37 Last Admin: 11/11/17 17:38 Dose: 10 mg Diltiazem HCl (Cardizem 25 Mg/5 Ml Vial) 20 mg IVP EDNOW ONE Stop: 11/11/17 17:29 Last Admin: 11/11/17 17:29 Dose: 20 mg Sodium Chloride (Ns) 1,000 mls @ 0 mls/hr IV ONCE ONE PRN Reason: Wide Open Stop: 11/11/17 17:43 Last Admin: 11/11/17 17:43 Dose: 1,000 mls Diltiazem HCl 125 mg/ Dextrose 125 mls @ 0 mls/hr IV EDNOW ONE; As Directed PRN Reason: Protocol Stop: 11/11/17 17:50 Last Admin: 11/11/17 18:42 Dose: Not Given Dopamine HCl/Dextrose (Dopamine 1600 Mcg/Ml (Premix)) 250 mls @ 0 mls/hr IV EDNOW ONE; Per Protocol PRN Reason: Protocol Stop: 11/11/17 18:24 Last Admin: 11/11/17 18:25 Dose: 250 mls Sodium Chloride (Ns) 1,000 mls @ 0 mls/hr IV ONCE ONE PRN Reason: Wide Open Stop: 11/11/17 18:01 Last Admin: 11/11/17 19:12 Dose: 1,000 mls Phytonadione 1 mg/ Sodium (Chloride) 50.1 mls @ 204 mls/hr IV ONCE ONE Stop: 11/11/17 20:22 Last Admin: 11/11/17 20:50 Dose: 50.1 mls Lorazepam (Ativan Injection) 1 mg IVP EDNOW ONE Stop: 11/11/17 17:35 Last Admin: 11/11/17 17:32 Dose: 1 mg Point of Care Test Results: Chemistry 11/11/17 11/11/17 17:47 17:44 POC Sodium 114 mEq/L L* mEq/L (135-145) POC Potassium 4.1 mEq/L mEq/L (3.3-5.0) POC Chloride 72 mEq/L L mEq/L (97-110) POC BUN 17 mg/dL mg/dL (7-23) POC Creatinine 1.0 mg/dL mg/dL (0.6-1.0) POC Glucose 258 mg/dL H mg/dL (70-100) POC Troponin I 0.02 ng/mL ng/mL (0.00-0.08) ISTAT H&H 11/11/17 17:44 POC Hgb 14.3 gm/dL gm/dL (12.6-16.3) POC Hct 42 % % (38-47) General Time Seen by Provider: 11/11/17 17:19 Initial Vital Signs: Initial Vital Signs Heart Rate 205 H 11/11/17 17:28 Respiratory Rate 40 H 11/11/17 17:28 O2 Sat (%) 89 L 11/11/17 17:28 O2 Delivery Mode Oxymask O2 (L/minute) 10 Allergies/Adverse Reactions: morphine [Morphine] Allergy (Severe, Verified 08/10/17 15:07) SEVERE GENERALIZED PAIN codeine [Codeine] Allergy (Mild, Verified 08/10/17 15:07) hydrocodone bitartrate [From Vicodin] Allergy (Mild, Verified 08/10/17 15:07) Home Medications: Medication Instructions Recorded ARIPiprazole [Abilify 10 mg (*)] 10 mg PO DAILY@11/19/14 ARIPiprazole [Abilify 5 mg (*)] 5 mg PO HS@11/19/14 Alendronate Sodium [Fosamax 70 MG 70 mg PO MO@0711/19/14 (*)] Atorvastatin Calcium [Lipitor 20 20 mg PO HS@11/19/14 mg (*)] Calcium Carbonate/Vitamin D3 1 tab PO TID@,,11/19/14 [Os-Derek 500-Vit D3 600 Caplet] Divalproex ER [Depakote ER 250 MG 750 mg PO HS@11/19/14 (*)] Ferrous Sulfate [Ferrous Sulf 325 325 mg PO DAILY@11/19/14 MG (*)] Levothyroxine [Synthroid 175 mcg 175 mcg PO DAILY@11/19/14 (*)] Ranitidine HCl [Zantac] 150 mg PO BID@,11/19/14 Polyethylene Glycol 3350 [Miralax 8.5 gm PO MOTUWETHFRSA@01/14/15 17 gm (*)] Hydrocortisone [Cortef 10 mg (*)] 20 mg PO DAILY@01/19/15 Cholecalciferol Vit D3 [Vitamin D3 1,000 units PO DAILY@12/25/16 (*)] Docusate Sodium [Colace 100 MG (*)] 100 mg PO BID 12/25/16 Hydrocortisone [Cortef 10 mg (*)] 10 mg PO DAILY@12/25/16 Prochlorperazine Maleate 10 mg PO Q6 PRN 12/25/16 [Compazine 10mg (*)] Sodium Chloride [[place]] 1 spray EACHNARE TID@,,12/25/16 Loperamide HCl [Imodium 2 mg (*)] 2 mg PO PRN PRN 01/24/17 Albuterol [Ventolin Hfa Inhaler] 2 puffs IH Q4HRS PRN #1 mdi 02/06/17 Furosemide [Lasix 20 MG (*)] 40 mg PO DAILY #60 tab 02/06/17 Metoprolol Succinate Xr [Toprol Xl 12.5 mg PO DAILY@08 #30 tab 02/06/17 25 mg (*)] traMADol [Ultram 50 mg (*)] 50 mg PO Q12 PRN #30 tab 02/06/17 Acetaminophen [Tylenol ES 500 mg 500 mg PO Q6 PRN 08/10/17 (*)] Warfarin Sodium [Coumadin 5MG (*)] 2.5 mg PO SUMOWEFRSA@16 08/10/17 Warfarin Sodium [Coumadin 5MG (*)] 5 mg PO TUTH@16 08/10/17 Diltiazem [Cardizem Ir Q6hr] 30 mg PO BID@08,20 11/11/17 Departure - Departure Disposition: [facility] Inpatient Acute Clinical Impression: Narrow complex tachycardia, Hypoxemia, Tachypnea, Tremulousness, Atrial fibrillation with RVR Hypotension Qualifiers: Hypotension type: other hypotension type Qualified Code(s): I95.89 - Other hypotension Condition: Serious Report Scribed for: James Hidalgo Report Scribed by: Jennifer Dan Date of Report: 11/11/17 Time of Report: 18:16 Physician Review and Approval Statement: Portions of this note were transcribed by an ED scribe. I personally performed the history, physical exam, and medical decision making; and confirm the accuracy of the information in the transcribed note.
[2017-11-11] MEDS ORDERED: LORazepam 2 MG/ML INJ IVP ONE (17:34)
[2017-11-11] MEDS ORDERED: DEXAMETHASONE 10 MG/ML VIAL ONE (17:36)
[2017-11-11] MEDS ORDERED: DEXAMETHASONE 10 MG/ML VIAL IVP ONE (17:36)
[2017-11-11] MEDS ORDERED: NS 1,000 ML IV ONE ×2 (17:42→18:00)
[2017-11-11] MEDS ORDERED: DILTIAZEM 125 MG in D5W 125 ML IV ONE (17:49)
[2017-11-11 17:56] LABS: PLATELET COUNT 190 10^3/uL (150-400)
[2017-11-11] MEDS ORDERED: DOPamine/DEXTROSE 400 MG/250 ML BAG IV ONE (18:09)
[2017-11-11 18:17] LABS: CREATINE KINASE 36 IU/L (0-156)
--- NOTE | 2017-11-11 18:29 | ASMTCMCOM ---
CM Note CM Note Notes: [facility] I hav econtacted her sister Hallie Hogan who is patient's listed contact on paperwork from [facility]. Hallie informs this CM that she is patient's MDPOA. Hallie denies knowledge any advance directives or DNR status. Hallie tells me that she is home with her who is in hospice care and is unable to come in at this time, but will remain available by phone. I contacted [facility] and spoke with [facility] who informs me that patient does NOT have a DNR order or other Advance Directives that they are aware of. Date Signed: 11/11/2017 06:29 PM Electronically Signed By:Olinda Pedroza RN
[2017-11-11 19:06] LABS: INR 5.29 (0.83-1.16); PROTIME(PATIENT) 47.8 SEC (12.0-15.0)
[2017-11-11] MEDS ORDERED: ONDANSETRON 4 MG/2 ML VIAL IVP PRN (19:44)
[2017-11-11] MEDS ORDERED: ONDANSETRON DISINTEGRATING 4 MG TAB PO PRN (19:44)
[2017-11-11] MEDS ORDERED: PHYTONADIONE 1 MG in NS 50 ML IV ONE (20:08)
[2017-11-11 20:53] LABS: PLATELET COUNT 197 10^3/uL (150-400)
[2017-11-11 21:00] LABS: INR 4.73 (0.83-1.16); PROTIME(PATIENT) 43.9 SEC (12.0-15.0)
[2017-11-11] MEDS ORDERED: MAGNESIUM SULF 2 GM/WATER 50 ML IV ONE (21:25)
[2017-11-11] MEDS ORDERED: ALBUTEROL 60 PUFFS/8 GM MDI IH PRN (21:26)
[2017-11-11] MEDS ORDERED: PROCHLORPERAZINE MALEATE 10 MG TAB PO PRN (21:26)
--- NOTE | 2017-11-11 21:35 | CPEKG ---
Test Reason : OPEN Blood Pressure : / mmHG Vent. Rate : 083 BPM Atrial Rate : 000 BPM P-R Int : 153 ms QRS Dur : 100 ms QT Int : 363 ms P-R-T Axes : 000 155 042 degrees QTc Int : 427 ms Atrial fibrillation Ventricular premature complex Right axis deviation Abnormal R-wave progression, early transition Abnormal lateral Q waves Probable anteroseptal infarct, old Borderline repol abnormality, diffuse leads Confirmed by James Hidalgo ([id number] on 11/11/2017 9:34:28 PM Referred By: Confirmed By:James Hidalgo
--- NOTE | 2017-11-11 21:40 | GHP ---
DATE OF ADMISSION: 11/11/2017 HISTORY OF PRESENT ILLNESS: Ms. Gimenez is a 67-year-old female with a history of bipolar, breast cance r, chronic hyponatremia, and atrial fibrillation with diastolic dysfunction, who presents [facility] the [facility] today. On presentation, she was initially found to have a heart rate of about 200 that was felt to be atrial fibrillation and she was confused and hypotensive. She received less than a li ter of IV fluids, and this largely resolved. She also had some complaint of right upper leg pain. When I speak with the patient, it is at least 90 minutes after she has been in the hospital and resus citated. She is alert and conversant. She says she has good access to water and she drinks a lot of water frequently. Her medication list from previous admission, she had a most recent one which was July shows chronic daily Lasix. She does wear oxygen at home. She denies recent fever, chills, cough, sputum, nausea, vomiting, diarrhea. She also has a history o f adrenal insufficiency and takes daily steroids. Notably her hypotension resolved with minimal inte rvention other than a bit of IV fluids. Her pacer was interrogated by the inbound call center representative and it showed 1 episode of heart rate of 200 about 4 p.m., today and then at about 6 p.m., today when she was here. Other than that, the last event of g reater than 150 was 1 event earlier in the year then this goes back all the way to July. A review of her medication list, although it may not be the most up to date, suggests she does not take a dali agent. I have taken care of her previously in the hospital and rapid atrial fibrillation has not bee n part of her presentations in the past. She lives in the [facility] largely because of her bipolar, which is longstanding. She has no t had fever, chills, cough, sputum. REVIEW OF SYSTEMS: Complete 10-point review of systems conducted negative except as noted in the HPI . PAST MEDICAL HISTORY: Breast cancer status post bilateral mastectomy, CABG about 10 years ago. [employer] Designer michael hyponatremia with a baseline of about 130; her sodium here at 116 is the lowest she has had. Hina stolic heart failure, pulmonary hypertension, chronic hypoxemic respiratory failure on home oxygen. She had a pacemaker placed in September of this year that is a single-chamber pacer. She has adrenal in sufficiency, obstructive sleep apnea, coronary artery disease, CKD with baseline creatinine 1.4 or le ss. SOCIAL HISTORY: Monet Thornton. No alcohol. No tobacco. No drugs. ALLERGIES: Morphine, codeine, hydrocodone. MEDICATION LIST: Includes albuterol, alendronate, aripiprazole, atorvastatin, calcium with vitamin D , diltiazem, valproate, docusate, ferrous sulfate, Lasix; hydrocortisone 10 at 2 p.m., 20 at 8 a.m.; levothyroxine, loperamide, metoprolol-XL, MiraLAX, Compazine, ranitidine, tramadol, warfarin. FAMILY HISTORY: Parents . PHYSICAL EXAMINATION: VITAL SIGNS: Temp 37.8, blood pressure 118/67, pulse 100, breathing 26 times a minute, 93% on BiPAP. She is now 90% on room air. GENERAL: No acute distress. Conversant. HEEN T: Sclerae anicteric. Oropharynx clear. Mucous membranes moist. NECK: Supple. No lymphadenopath y or JVD. LUNGS: Clear to auscultation anterolaterally. Difficult exam. HEART: S1, S2 without sig nificant murmurs. ABDOMEN: Soft, obese, nontender. LOWER EXTREMITIES: Show mild chronic venous st asis changes without significant edema. NEUROLOGIC: She has a pill rolling tremor of her right hand that, per her, is not new, has not been evaluated, and she is moving all extremities and alert. LABS: Sodium 116, potassium 3.8, chloride 69, bicarb 23, BUN 15, creatinine 1.0, glucose 258. Tropo holger is less than 0.012. The point of care subsequently is about the same. A repeat is pending. Cor tisol is pending. Venous lactate is 4.3. INR is elevated at 5.3. White count 14.4, hematocrit 36, platelets are 190,000. Chest x-ray interpreted by me shows sequelae of CABG and pacemaker, otherwise no acute cardiopulmonary disease. It is not end inspiration film, so everything looks a bit crowded , but I do not suspect there is an infiltrate. EKG interpreted by me is pending. Discussed the case with Dr. Benito Hidalgo and . ASSESSMENT/PLAN: 67-year-old female with multiple medical problems, who presents with vague symptoms , hypotension, rapid heart rate concerning for atrial fibrillation versus supraventricular tachycardi a, and severe hyponatremia. 1. Rapid heart rate. 200 is awfully fast for atrial fibrillation. She does take 2 dali agents; I had misspoken earlier in the history. These are new events for her on the basis of the interrogation of her pacer. We will follow on telemetry. Cardiology will see her in the morning. She does have a history of ablation of atrioventricular dali reentrant tachycardia. I suspect it is more likely t he answer than atrial fibrillation. Cardiology will see her in the morning. 2. Hyponatremia. Her chronic baseline is high 120s, low 130s, although she has had normal values on previous presentations. I suspected the etiology of this is diuretic therapy with water intake. I am concerned it will rise a bit rapidly given the concomitant volume resuscitation she received for t he systolic pressures of 65. We will hold further IV fluids. I have a repeat labs pending and order ed q.4 overnight. Cortisol is pending. Urine osmoles are pending. Will hold diuretics. She is euv olemic. I suspect that this is probably a patient with degree of syndrome of inappropriate antidiure tic hormone from psychiatric medications, who was not following fluid restriction. 3. Hypotension. This has resolved with resolution of her arrhythmia. I suspect that this is diasto lic dysfunction in that setting. We will follow. 4. Question sepsis. The patient had a low-grade temp and leukocytosis. She does not really have se ptic physiology at this time. At this point in time, her chest is clear. Her belly is soft. We will order blood cultures and a urinalysis. We will repeat a lactate. 5. History of congestive heart failure. The patient, like I said, is euvolemic. We will follow. 6. Bipolar. Continue her medications and they have been reconciled. DISPOSITION: ICU. CRITICAL CARE TIME: 45 minutes. /[id number]/MODL
[2017-11-12] MEDS: D5W 1,000 ML IV SCH ×2 (04:13→20:22)
[2017-11-12] MEDS: LEVOTHYROXINE 175 MCG TAB PO SCH (07:28)
[2017-11-12 07:44] LABS: INR 2.05 (0.83-1.16); PROTIME(PATIENT) 23.2 SEC (12.0-15.0)
[2017-11-12] MEDS: METOPROLOL SUCCINATE XR 25 MG TAB PO SCH (09:00)
[2017-11-12] MEDS: DILTIAZEM 30 MG TAB PO SCH (09:00)
--- NOTE | 2017-11-12 09:20 | PDCARCONS ---
Cardiology Consult Reason for Consult: Tachycardia, hypotension. Chief Complaint: I do not feel well. Requesting Physician: Dr. Per Miranda. History of Present Illness: This is a 76-year-old female who has a previous cardiovascular history significant for known coronary artery disease with previous 2 vessel coronary artery bypass graft surgery in 2003, permanent atrial fibrillation, sick sinus syndrome with a previous single-chamber pacemaker implantation and hyperlipidemia. 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 Historically, her cardiovascular disease has been stable. She does have regular and routine interrogations of her pacemaker. She has occasional episodes of high ventricular rates sometimes lasting up to 9 min at a time. Typically these have been well tolerated and asymptomatic. As an outpatient her rates have been controlled with a combination of low-dose metoprolol and diltiazem. She takes warfarin for systemic anticoagulation. She was admitted through the emergency department last night after being transferred here from her care facility. At that time, she was complaining of symptoms of lightheadedness and dizziness. She states that the room was spinning around her and that she was not feeling well. She was not experiencing chest pain or chest pressure. Apparently, on arrival she had a heart rate of 200 beats per minute associated with a systolic blood pressure in the 60s. She was treated with intravenous fluids. This resulted in improvement of her hemodynamics and resolution of her tachycardia. She had a pacemaker interrogation done. I personally reviewed those intracardiac electrograms. This demonstrated normal pacemaker function. She did have an episode of high ventricular rates noted earlier in the day. The appearance of the electrograms indicate that these are likely atrial fibrillation with a rapid ventricular response. Overnight she has been supported with pressors in the form of dopamine. She is also being treated with intravenous antibiotics for a presumed urinary tract infection. Cardiac enzymes were negative. Her initial ECG indicated atrial fibrillation with a rapid ventricular response with no ischemic changes. History Information - Allergies/Home Medication List Allergies/Adverse Reactions: morphine [Morphine] Allergy (Severe, Verified 08/10/17 15:07) SEVERE GENERALIZED PAIN codeine [Codeine] Allergy (Mild, Verified 08/10/17 15:07) hydrocodone bitartrate [From Vicodin] Allergy (Mild, Verified 08/10/17 15:07) Home Medications: ARIPiprazole [Abilify 10 mg (*)] 10 mg PO DAILY@11/19/14 [Last Taken 11/11/17 ] ARIPiprazole [Abilify 5 mg (*)] 5 mg PO HS@11/19/14 [Last Taken 11/10/17] Alendronate Sodium [Fosamax 70 MG (*)] 70 mg PO MO@0700 11/19/14 [Last Taken 12/15] Atorvastatin Calcium [Lipitor 20 mg (*)] 20 mg PO HS@11/19/14 [Last Taken ] Calcium Carbonate/Vitamin D3 [Os-Derek 500-Vit D3 600 Caplet] 1 tab PO TID@,, 11/19/14 [Last Taken 11/11/17 17:00] Divalproex ER [Depakote ER 250 MG (*)] 750 mg PO HS@11/19/14 [Last Taken ] Ferrous Sulfate [Ferrous Sulf 325 MG (*)] 325 mg PO DAILY@11/19/14 [Last Taken 11/11/17] Levothyroxine [Synthroid 175 mcg (*)] 175 mcg PO DAILY@11/19/14 [Last Taken 11/11/17] Ranitidine HCl [Zantac] 150 mg PO BID@11/19/14 [Last Taken 11/11/17 08:00] Polyethylene Glycol 3350 [Miralax 17 gm (*)] 8.5 gm PO MOTUWETHFRSA@01/14/15 [Last Taken 11/11/17] Hydrocortisone [Cortef 10 mg (*)] 20 mg PO DAILY@01/19/15 [Last Taken ] Cholecalciferol Vit D3 [Vitamin D3 (*)] 1,000 units PO DAILY@12/25/16 [Last Taken 11/11/17] Docusate Sodium [Colace 100 MG (*)] 100 mg PO BID 12/25/16 [Last Taken 11/11/17] Hydrocortisone [Cortef 10 mg (*)] 10 mg PO DAILY@12/25/16 [Last Taken ] Prochlorperazine Maleate [Compazine 10mg (*)] 10 mg PO Q6 PRN 12/25/16 [Last Taken Unknown] Sodium Chloride [[employer]] 1 spray EACHNARE TID@,12/25/16 [Last Taken 14:00] Loperamide HCl [Imodium 2 mg (*)] 2 mg PO PRN PRN 01/24/17 [Last Taken Unknown] Acetaminophen [Tylenol ES 500 mg (*)] 500 mg PO Q6 PRN 08/10/17 [Last Taken 09/14] Warfarin Sodium [Coumadin 5MG (*)] 2.5 mg PO SUMOWEFR@08/10/17 [Last Taken ] Warfarin Sodium [Coumadin 5MG (*)] 5 mg PO TUTHSA@08/10/17 [Last Taken ] Diltiazem [Cardizem Ir Q6hr] 30 mg PO BID@11/11/17 [Last Taken 11/11/17 08 :00] I have personally reviewed and updated: family history, medical history, social history, surgical history Past Medical History: Permanent atrial fibrillation, sick sinus syndrome with previous single-chamber pacemaker implantation, coronary artery disease with previous bypass surgery, history of breast cancer status post bilateral mastectomy, chronic hyponatremia , chronic right-sided heart failure, chronic hypoxemia, obstructive sleep apnea using home oxygen, chronic kidney disease, bipolar disorder. - Surgical History Reports: no pertinent surgical hx - Family History Positive for: non-pertinent - Social History Smoking Status: Never smoked Alcohol Use: None Drug Use: None (She has a history of bipolar disorder.) Additional social history: She has a history of bipolar disorder and is currently a resident of the [facility]. Physical Exam Physical Exam: Temp Pulse Resp BP Pulse Ox 36.4 C 80 28 H 91/59 L 99 11/12/17 06:00 11/12/17 08:00 11/12/17 08:00 11/12/17 08:00 11/12/17 08:00 O2 (L/minute) 3 FIO2 (%) 50 Constitutional: no apparent distress, appears nourished, not in pain Eyes: PERRL, anicteric sclera, EOMI Ears, Nose, Mouth, Throat: moist mucous membranes, hearing normal, ears appear normal, no oral mucosal ulcers Cardiovascular: no murmur, rub, or gallop, irregularly irregular, other ( Pacemaker present), No edema Peripheral Pulses: 2+: carotid (R), carotid (L) Respiratory: no respiratory distress, no rales or rhonchi, clear to auscultation Gastrointestinal: normoactive bowel sounds, soft, non-tender abdomen, no palpable masses Genitourinary: no bladder fullness, no bladder tenderness Skin: warm, normal color, no rashes or abrasions, no fluctuance, no induration, No mottled Musculoskeletal: full muscle strength, no muscle tenderness, normal joint ROM, no joint effusions Psychiatric: interacting appropriately, not anxious, not encephalopathic, thought process linear Lymph, Heme, Immunologic: no cervical LAD, no supraclavicular LAD Lab and Imaging 11/11/17 20:40 11/12/17 06:20 WBC 15.09 10^3/uL (3.80-9.50) H 11/11/17 20:40 RBC 4.37 10^6/uL (4.18-5.33) 11/11/17 20:40 Hgb 14.0 g/dL (12.6-16.3) 11/11/17 20:40 POC Hgb 14.3 gm/dL (12.6-16.3) 11/11/17 17:44 Hct 38.8 % (38.0-47.0) 11/11/17 20:40 POC Hct 42 % (38-47) 11/11/17 17:44 MCV 88.8 fL (81.5-99.8) 11/11/17 20:40 MCH 32.0 pg (27.9-34.1) 11/11/17 20:40 MCHC 36.1 g/dL (32.4-36.7) 11/11/17 20:40 RDW 14.7 % (11.5-15.2) 11/11/17 20:40 Plt Count 197 10^3/uL (150-400) 11/11/17 20:40 MPV 9.2 fL (8.7-11.7) 11/11/17 20:40 Neut % (Auto) Not Reported 11/11/17 20:40 Lymph % (Auto) Not Reported 11/11/17 20:40 [place] % (Auto) Not Reported 11/11/17 20:40 Eos % (Auto) Not Reported 11/11/17 20:40 Baso % (Auto) Not Reported 11/11/17 20:40 Nucleat RBC Rel Count Not Reported 11/11/17 20:40 Absolute Neuts (auto) Not Reported 11/11/17 20:40 Absolute Lymphs (auto) Not Reported 11/11/17 20:40 Absolute Monos (auto) Not Reported 11/11/17 20:40 Absolute Eos (auto) Not Reported 11/11/17 20:40 Absolute Basos (auto) Not Reported 11/11/17 20:40 Absolute Nucleated RBC Not Reported 11/11/17 20:40 Immature Gran % Not Reported 11/11/17 20:40 Seg Neutrophils % 92.0 % 11/11/17 20:40 Band Neutrophils % 1.0 % 11/11/17 20:40 Lymphocytes % 2.0 % 11/11/17 20:40 Monocytes % 5.0 % 11/11/17 20:40 Eosinophils % 0.0 % 11/11/17 20:40 Basophils % 0.0 % 11/11/17 20:40 Metamyelocytes % 0.0 % 11/11/17 20:40 Myelocytes % 0.0 % 11/11/17 20:40 Promyelocytes % 0.0 % 11/11/17 20:40 Blast Cells % 0.0 % 11/11/17 20:40 Immature Gran # Not Reported 11/11/17 20:40 Absolute Seg Neuts 13.88 10^/uL (1.70-6.50) H 11/11/17 20:40 Absolute Band Neuts 0.15 10^3/uL (0.00-0.70) 11/11/17 20:40 Absolute Lymphocytes 0.30 10^3/uL (1.00-3.00) L 11/11/17 20:40 Absolute Monocytes 0.75 10^3/uL (0.30-0.80) 11/11/17 20:40 Absolute Eosinophils 0.00 10^3/uL (0.03-0.40) L 11/11/17 20:40 Absolute Basophils 0.00 10^3/uL (0.02-0.10) L 11/11/17 20:40 Absolute Metamyelocyte 0.00 10^3/mL (0.00-0.00) 11/11/17 20:40 Absolute Myelocytes 0.00 10^3/mL (0.00-0.00) 11/11/17 20:40 Absolute Promyelocytes 0.00 10^3/uL (0.00-0.00) 11/11/17 20:40 Absolute Plasma Cells 0.00 10^3/uL (0.00-0.00) 11/11/17 20:40 Nucleated RBCs 0 /100 WBC (0-0) 11/11/17 20:40 Absolute Blast Cells 0.00 10^3/uL (0.00-0.00) 11/11/17 20:40 Plasma Cells % 0.0 % 11/11/17 20:40 Platelet Estimate ADEQUATE (ADEQ) 11/11/17 20:40 Polychromasia 1+ H 11/11/17 20:40 Oval Macrocytes 1+ H 11/11/17 20:40 Echinocytes 1+ H 11/11/17 20:40 Acanthocytes (Spur) 1+ H 11/11/17 17:40 PT 23.2 SEC (12.0-15.0) H 11/12/17 06:20 INR 2.05 (0.83-1.16) H 11/12/17 06:20 APTT 45.1 SEC (23.0-38.0) H 11/11/17 18:15 Puncture Site TNP 11/11/17 17:45 pCO2 TNP 11/11/17 17:45 pO2 TNP 11/11/17 17:45 Total CO2 TNP 11/11/17 17:45 ABG pH TNP 11/11/17 17:45 ABG HCO3 TNP 11/11/17 17:45 ABG O2 Saturation TNP 11/11/17 17:45 ABG Base Excess TNP 11/11/17 17:45 VBG Lactic Acid 2.0 mmol/L (0.7-2.1) 11/11/17 20:40 POC Sodium 114 mEq/L (135-145) L* 11/11/17 17:44 Sodium 124 mEq/L (135-145) L 11/12/17 06:20 POC Potassium 4.1 mEq/L (3.3-5.0) 11/11/17 17:44 Potassium 4.3 mEq/L (3.3-5.0) 09/15/18 06:20 POC Chloride 72 mEq/L (97-110) L 11/11/17 17:44 Chloride 77 mEq/L (97-110) L 11/12/17 06:20 Carbon Dioxide 37 mEq/l (22-31) H 11/12/17 06:20 Anion Gap 10 mEq/L (8-16) 11/12/17 06:20 POC BUN 17 mg/dL (7-23) 11/11/17 17:44 BUN 17 mg/dL (7-23) 11/12/17 06:20 Creatinine 0.7 mg/dL (0.6-1.0) 11/12/17 06:20 POC Creatinine 1.0 mg/dL (0.6-1.0) 11/11/17 17:44 Estimated GFR > 60 11/12/17 06:20 Glucose 157 mg/dL (70-100) H 11/12/17 06:20 POC Glucose 258 mg/dL (70-100) H 11/11/17 17:44 Calcium 8.5 mg/dL (8.5-10.4) 11/12/17 06:20 Magnesium 1.4 mg/dL (1.6-2.3) L 11/11/17 20:40 Creatine Kinase 36 IU/L (0-156) 11/11/17 17:40 POC Troponin I 0.02 ng/mL (0.00-0.08) 11/11/17 17:47 Troponin I < 0.012 ng/mL (0.000-0.034) 11/11/17 17:40 TSH 0.251 uIU/mL (0.465-4.680) L 11/12/17 06:20 Cortisol PM Sample 18.2 ug/dL (1.7-14.1) H 11/11/17 18:15 Urine Color YELLOW 11/11/17 20:10 Urine Appearance HAZY 11/11/17 20:10 Urine pH 5.0 (5.0-7.5) 11/11/17 20:10 Ur Specific [place] 1.009 (1.002-1.030) 11/11/17 20:10 Urine Protein 1+ (NEGATIVE) H 11/11/17 20:10 Urine Ketones NEGATIVE (NEGATIVE) 11/11/17 20:10 Urine Blood 3+ (NEGATIVE) H 11/11/17 20:10 Urine Nitrate NEGATIVE (NEGATIVE) 11/11/17 20:10 Urine Bilirubin NEGATIVE (NEGATIVE) 11/11/17 20:10 Urine Urobilinogen NEGATIVE EU (0.2-1.0) 11/11/17 20:10 Ur Leukocyte Esterase 2+ (NEGATIVE) H 11/11/17 20:10 Urine RBC 5-10 /hpf (0-3) H 11/11/17 20:10 Urine WBC 50-182 /hpf (0-3) H 11/11/17 20:10 Ur Epithelial Cells TRACE /lpf (NONE-1+) 11/11/17 20:10 Urine Bacteria 3+ /hpf (NONE SEEN) H 11/11/17 20:10 Urine Mucus TRACE /lpf (NONE-1+) 11/11/17 20:10 Urine Osmolality 232 mosmo/kg (300-900) L 11/11/17 20:10 Urine Glucose 1+ (NEGATIVE) H 11/11/17 20:10 A/P Assessment: 1. Acute presentation with tachycardia associated with hypotension. In reviewing her pacemaker intracardiac electrograms it looks as if she had atrial fibrillation with a rapid ventricular response. She has manifested this arrhythmia in the past however not associated with hypotension. Her hypotension appears to be on the basis of what is likely urosepsis. She has responded to therapy with intravenous fluids and antibiotics. She has on very low doses of pressors which are currently being weaned. There is no indication that she experienced a malignant ventricular arrhythmia. 2. History of coronary artery disease with previous bypass surgery. This appears to be stable at the present time. Her ECG is non ischemic. Her troponins were negative. She had a previous Lexiscan myocardial perfusion imaging study which was done in February of 2015. At that time, she had no indications of fixed or reversible perfusion defects. 3. Sick sinus syndrome with previous single-chamber pacemaker implantation implanted in November of 2016. She has a [employer] device. This was interrogated last night with normal function. 4. History of chronic right-sided congestive heart failure. Previous echocardiograms have indicated moderate to severe pulmonary hypertension associated with moderate dilatation of the RV/RA associated with severe tricuspid regurgitation. Today she appears to be well compensated. She does have jugular venous distension likely related to her tricuspid insufficiency and not to volume overload. In this setting she will be preload dependent and prone to right-sided edema. 5. Probable urosepsis. Is being managed by the hospitalist/filter washer and presser. 6. Elevated INRs. This is noted in the setting of chronic Coumadin therapy and the acute illness. Coumadin has been held. INRs are trending down. Plan: 1. For the time being I think that her AV dali agents can be held. I would allow her to have permissive tachycardia in the setting of sepsis. 2. Her pressors are being weaned gradually. Once she is off her pressors the AV dali agents can be reinstituted gradually. 3. I think that her warfarin can be restarted today. 4. We will follow along with you. Review of Systems Review of Systems: - Review of Systems Constitutional: no symptoms reported EENTM: no symptoms reported Respiratory: see HPI Cardiac: see HPI Gastrointestinal/Abdominal: no symptoms reported Genitourinary: no symptoms Musculoskelatal: other (She indicates that she has slight pain in her right thigh) Skin: no symptoms Neurological: no symptoms Hematologic/Lymphatic: no symptoms reported Immunologic/allergic: no symptoms reported All Other Systems: Reviewed and Negative
--- NOTE | 2017-11-12 09:22 | HOSPPROG ---
Hospitalist Progress Note Assessment/Plan: 67 yo F w AF, CAD, bipolar, chronic hyponatremia a/w vague sx, transient tachyarrhythmia at 200, severe hyponatremia hyponatremia: baseline about 130; 116 on presentation low serum and urine osm and rapid correction w only fluid restriction indicative of water intoxication plus imaired water handling from psych meds she has corrected a bit faster than desired and [id number] fluids have been started await repeat Na. may need ddAVP if continues to rise she is alert, and was last evening, so unclear [id number] to current [id number] tachyarrythmia: pacer interrogation reveals two episodes of narrow complex tachycardia at 200 bpm occurring at 4 and 6 pm yesterday has h/o AVNRT requiring ablation as well as AF. this is awfully fast for AF on dilt and BB follow hypotension: resolved uti: has pyuria and complex presentation reasonable to treat adrenal insufficiency: random cortisol high on admit continue replacement HC bipolar: continue meds coagulopathy: INR 2 after low dose vit K dispo: to pcu Subjective: case d/w dr solano. tele: no tachyarrhythmia (interp by me). alert Objective: Vital Signs Temp Pulse Resp BP Pulse Ox 36.4 C 80 28 H 91/59 L 99 11/12/17 06:00 11/12/17 08:00 11/12/17 08:00 11/12/17 08:00 11/12/17 08:00 Laboratory Results 11/11/17 20:40 11/12/17 06:20 11/11/17 11/12/17 11/13/17 05:59 05:59 05:59 Intake Total 1758 Output Total 100 Balance 1658 PT 23.2 SEC (12.0-15.0) H 11/12/17 06:20 INR 2.05 (0.83-1.16) H 11/12/17 06:20 - Physical Exam Constitutional: no apparent distress Eyes: PERRL, anicteric sclera Ears, Nose, Mouth, Throat: moist mucous membranes, hearing normal Cardiovascular: regular rate and rhythym, no murmur, rub, or gallop, No systolic murmur Respiratory: no respiratory distress, no rales or rhonchi Gastrointestinal: normoactive bowel sounds, soft, non-tender abdomen Genitourinary: no bladder fullness, No cobb in urethra Skin: warm, normal color Musculoskeletal: full muscle strength Neurologic: AAOx3, sensation intact bilaterally Psychiatric: interacting appropriately Lymph, Heme, Immunologic: no cervical LAD ICD10 Worksheet Patient Problems: Problems Problem Status Onset Atrial fibrillation with RVR Acute Hypotension Acute Hypoxemia Acute Narrow complex tachycardia Acute Tachypnea Acute Tremulousness Acute Abdominal pain Acute Acute encephalopathy Acute Acute pyelonephritis Acute Altered mental status Acute Anemia Acute Atrial fibrillation Acute CAD (coronary artery disease), [place]ana coronary artery Acute Chronic diastolic CHF (congestive heart failure) Acute Chronic hypoxemic respiratory failure Acute Chronic kidney disease (CKD) Acute Congestive heart failure Acute Generalized weakness Acute Hyponatremia Acute Hypoxia Acute New onset atrial fibrillation Acute Palliative care encounter Acute Pyelonephritis Acute UTI (urinary tract infection) Acute VHD (valvular heart disease) Acute
[2017-11-12] MEDS: SODIUM CL NASAL GEL 14.1 GM TUBE TP SCH ×3 (09:32→20:09)
[2017-11-12] MEDS: POLYETHYLENE GLYCOL 3350 17 GM PKT PO SCH (09:32)
[2017-11-12] MEDS: HYDROCORTISONE 10 MG TAB PO SCH ×2 (09:32→15:48)
[2017-11-12] MEDS: DOCUSATE SODIUM 100 MG CAP PO SCH ×2 (09:32→20:08)
[2017-11-12] MEDS: NON-FORMULARY NEW DRUG (Ranitidine Hcl [Zantac] 150 MG) PO SCH ×2 (09:33→16:38)
[2017-11-12] MEDS: ARIPiprazole 10 MG TAB PO SCH (09:33)
--- NOTE | 2017-11-12 09:51 | PDMN ---
Medical Necessity Medical necessity: [facility] M505 Afib and M300 UTI: 67 y/o with tachycardia rate 200 , hypotensive (SBG 60s), hyponatremia (116), confusion, questionable sepsis in setting of low grade temp and leukocytosis. Cardiology consulted, pacer interrogated, prob afib w/ rapid ventricular response. Dopamine drip started for low BP, IV antibx started for infection prob r/t urosepsis, Hx CHF, CABG 2003, pacemaker in place, breast ca and bipolar d/o
[2017-11-12] MEDS: CALCIUM CARB W/VIT D 500 MG TAB PO SCH ×4 (12:32→21:04)
[2017-11-12] MEDS: FERROUS SULFATE 325 MG TAB PO SCH (12:34)
[2017-11-12] MEDS: traMADol 50 MG TAB PO PRN (16:11)
[2017-11-12] MEDS: ARIPiprazole 5 MG TAB PO SCH (20:07)
[2017-11-12] MEDS: ATORVASTATIN CALCIUM 20 MG TAB PO SCH (20:07)
[2017-11-12] MEDS: ACETAMINOPHEN 325 MG TAB PO PRN (20:07)
[2017-11-12] MEDS: DIVALPROEX ER 250 MG TAB PO SCH (20:08)
[2017-11-13] MEDS: LEVOTHYROXINE 175 MCG TAB PO SCH (05:19)
[2017-11-13] MEDS: NON-FORMULARY NEW DRUG (Ranitidine Hcl [Zantac] 150 MG) PO SCH (07:13)
[2017-11-13] MEDS: SODIUM CL NASAL GEL 14.1 GM TUBE TP SCH ×3 (07:13→21:03)
[2017-11-13] MEDS: ARIPiprazole 10 MG TAB PO SCH (09:11)
[2017-11-13] MEDS: DOCUSATE SODIUM 100 MG CAP PO SCH ×2 (09:11→21:02)
[2017-11-13] MEDS: HYDROCORTISONE 10 MG TAB PO SCH ×2 (09:11→13:08)
--- NOTE | 2017-11-13 09:43 | HOSPPROG ---
Hospitalist Progress Note Assessment/Plan: 67 yo F w AF, CAD, bipolar, chronic hyponatremia a/w vague sx, transient tachyarrhythmia at 200, severe hyponatremia hyponatremia: baseline about 130; 116 on presentation now mid 120's dc hypotonic fluid 2L fluid restriction follow bid tachyarrhythmia: pacer interrogation reveals two episodes of narrow complex tachycardia at 200 bpm occurring at 4 and 6 pm day of admit (11/11) has h/o AVNRT requiring ablation as well as AF. this is awfully fast for AF on dilt and BB follow AF: restart warfarin hypotension: resolved uti: has pyuria and complex presentation reasonable to treat ucx w pseudomonas- change to levofloxacin day03/04 GPR bacteremia: suspect contaminant given 03/01 port noted repeat cx adrenal insufficiency: random cortisol high on admit continue replacement HC bipolar: continue meds coagulopathy: INR 2 after low dose vit K dispo: to pcu Subjective: case d/w dr funes. Na normalized Objective: Vital Signs Temp Pulse Resp BP Pulse Ox 36.4 C 79 16 112/51 L 100 11/13/17 04:00 11/13/17 08:00 11/13/17 08:00 11/13/17 08:00 11/13/17 08:00 Microbiology 11/11/17 20:10 Urine Culture - Final Urine,Clean Catch Pseudomonas Aeruginosa Laboratory Results 11/11/17 20:40 11/13/17 05:20 11/12/17 11/13/17 11/14/17 05:59 05:59 05:59 Intake Total 1758 1140 Output Total 100 185 Balance 1658 955 PT 23.2 SEC (12.0-15.0) H 11/12/17 06:20 INR 2.05 (0.83-1.16) H 11/12/17 06:20 - Physical Exam Constitutional: no apparent distress, appears nourished Eyes: PERRL, anicteric sclera Ears, Nose, Mouth, Throat: moist mucous membranes, hearing normal Cardiovascular: regular rate and rhythym, no murmur, rub, or gallop Respiratory: no respiratory distress, no rales or rhonchi, clear to auscultation Gastrointestinal: normoactive bowel sounds, soft, non-tender abdomen Genitourinary: no bladder fullness, No cobb in urethra Skin: warm, normal color, mottled Musculoskeletal: full muscle strength Neurologic: AAOx3 Psychiatric: interacting appropriately ICD10 Worksheet Patient Problems: Problems Problem Status Onset Atrial fibrillation with RVR Acute Hypotension Acute Hypoxemia Acute Narrow complex tachycardia Acute Tachypnea Acute Tremulousness Acute Abdominal pain Acute Acute encephalopathy Acute Acute pyelonephritis Acute Altered mental status Acute Anemia Acute Atrial fibrillation Acute CAD (coronary artery disease), [place] coronary artery Acute Chronic diastolic CHF (congestive heart failure) Acute Chronic hypoxemic respiratory failure Acute Chronic kidney disease (CKD) Acute Congestive heart failure Acute Generalized weakness Acute Hyponatremia Acute Hypoxia Acute New onset atrial fibrillation Acute Palliative care encounter Acute Pyelonephritis Acute UTI (urinary tract infection) Acute VHD (valvular heart disease) Acute
[2017-11-13] MEDS: CALCIUM CARB W/VIT D 500 MG TAB PO SCH ×3 (13:08→21:02)
[2017-11-13] MEDS: FERROUS SULFATE 325 MG TAB PO SCH (13:08)
--- NOTE | 2017-11-13 13:59 | PDCARPN ---
Cardiology Progress Note Chief Complaint: Dizzyness, lightheadedness. Assessment/Plan: Assessment: 1. Hypotension 2. Afib with RVR 3. Hx of CAD sp CABG 4. Urosepsis Plan: -Continiue to hold Metoprolol and Diltiazem -Restart coumadin in the setting of AFib -Will follow 11/13/17 13:58 11/13/17 13:59 Subjective: Ms. Gimenez is now off of pressor support and in the PCU. She remains off of Metoprolol and Diltiazem. Currently in NSR. INR is 2.05. which is down from over 5 on admission. 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 She has no new cardiac complaints. Objective: Vital Signs (8 Hrs) Temp Pulse Resp BP Pulse Ox 11/13/17 12:52 36.7 C 100/59 L 11/13/17 08:00 79 16 112/51 L 100 Intake/Output (24 Hrs) 11/12/17 11/13/17 11/14/17 05:59 05:59 05:59 Intake Total 1758 1140 Output Total 100 185 Balance 1658 955 Intake: Oral (ml) 200 400 IV Infused (ml) 1558 740 D5w 1,000 ml @ 75 mls/hr 433 700 IV CONT [facility] Rx#: [id number] DOPamine/DEXTROSE 250 ml 125 40 @ Per Protocol IV [facility] ONE Rx#:[id number] Output: Urine (ml) 100 185 Bedpan 100 185 Other: Weight 68.3 kg 73 kg Output Comment Bedpan incont Number of Voids Bedpan 1 Incontinence 1 4 Result Diagrams: 11/11/17 20:40 11/13/17 05:20 - Physical Exam Constitutional: no apparent distress, obese Ears, Nose, Mouth, Throat: moist mucous membranes Cardiovascular: regular rate and rhythm, no murmurs, no rubs, no gallops, other (Mild bilareral ankle edema. ) Respiratory: clear to auscultate bilat ICD10 Worksheet Patient Problems: Problems Problem Status Onset Atrial fibrillation with RVR Acute Hypotension Acute Hypoxemia Acute Narrow complex tachycardia Acute Tachypnea Acute Tremulousness Acute Abdominal pain Acute Acute encephalopathy Acute Acute pyelonephritis Acute Altered mental status Acute Anemia Acute Atrial fibrillation Acute CAD (coronary artery disease), [place] coronary artery Acute Chronic diastolic CHF (congestive heart failure) Acute Chronic hypoxemic respiratory failure Acute Chronic kidney disease (CKD) Acute Congestive heart failure Acute Generalized weakness Acute Hyponatremia Acute Hypoxia Acute New onset atrial fibrillation Acute Palliative care encounter Acute Pyelonephritis Acute UTI (urinary tract infection) Acute VHD (valvular heart disease) Acute
[2017-11-13] MEDS ORDERED: NS 500 ML IV ONE (16:30)
[2017-11-13] MEDS: FAMOTIDINE 20 MG TAB PO SCH (16:49)
[2017-11-13] MEDS: WARFARIN SODIUM 5 MG TAB PO SCH (16:49)
[2017-11-13] MEDS ORDERED: FAMOTIDINE 20 MG TAB PO SCH (17:00)
[2017-11-13] MEDS: ATORVASTATIN CALCIUM 20 MG TAB PO SCH (21:02)
[2017-11-13] MEDS: DIVALPROEX ER 250 MG TAB PO SCH (21:02)
[2017-11-13] MEDS: ARIPiprazole 5 MG TAB PO SCH (21:03)
[2017-11-14] MEDS: LEVOTHYROXINE 175 MCG TAB PO SCH (05:10)
[2017-11-14] MEDS: traMADol 50 MG TAB PO PRN (05:12)
[2017-11-14] MEDS: ACETAMINOPHEN 325 MG TAB PO PRN (06:30)
[2017-11-14] MEDS: DOCUSATE SODIUM 100 MG CAP PO SCH ×2 (10:32→20:35)
[2017-11-14] MEDS: FAMOTIDINE 20 MG TAB PO SCH ×2 (10:38→17:01)
[2017-11-14] MEDS: HYDROCORTISONE 10 MG TAB PO SCH ×2 (10:38→14:06)
[2017-11-14] MEDS: POLYETHYLENE GLYCOL 3350 17 GM PKT PO SCH (10:39)
[2017-11-14] MEDS: SODIUM CL NASAL GEL 14.1 GM TUBE TP SCH ×3 (10:40→20:40)
[2017-11-14] MEDS: ARIPiprazole 10 MG TAB PO SCH (10:41)
[2017-11-14] MEDS ORDERED: traMADol 50 MG TAB PO ONE (10:45)
--- NOTE | 2017-11-14 11:40 | HOSPPROG ---
Hospitalist Progress Note Assessment/Plan: 67 yo F w AF, CAD, bipolar, chronic hyponatremia a/w vague sx, transient tachyarrhythmia at 200, severe hyponatremia hyponatremia: baseline about 130; 116 on presentation now mid 120's dc hypotonic fluid 2L fluid restriction follow daily tachyarrhythmia: pacer interrogation reveals two episodes of narrow complex tachycardia at 200 bpm occurring at 4 and 6 pm day of admit (11/11) has h/o AVNRT requiring ablation as well as AF. this is awfully fast for AF on dilt and BB follow AF: restart warfarin hypotension: resolved uti: has pyuria and complex presentation reasonable to treat ucx w pseudomonas- change to levofloxacin day03/04 GPR bacteremia: suspect contaminant given 03/01 port noted repeat cx pending, neg tus far leg pain: follow adrenal insufficiency: random cortisol high on admit continue replacement HC bipolar: continue meds coagulopathy: INR 2 after low dose vit K dispo: to pcu Subjective: case d/w dr funes. c/o leg pain Objective: Vital Signs Temp Pulse Resp BP Pulse Ox 36.7 C 80 16 82/42 L 100 11/14/17 07:42 11/14/17 07:42 11/14/17 07:42 11/14/17 07:42 11/14/17 07:42 Microbiology 11/11/17 20:54 Blood Panel (PCR) - Final Blood No Organism Detected 11/11/17 20:10 Urine Culture - Final Urine,Clean Catch Pseudomonas Aeruginosa Laboratory Results 11/11/17 20:40 11/14/17 05:17 11/13/17 11/14/17 11/15/17 05:59 05:59 05:59 Intake Total 1140 1290 Output Total 185 Balance 955 1290 PT 23.2 SEC (12.0-15.0) H 11/12/17 06:20 INR 2.05 (0.83-1.16) H 11/12/17 06:20 - Physical Exam Constitutional: no apparent distress, appears nourished Eyes: PERRL, anicteric sclera Ears, Nose, Mouth, Throat: moist mucous membranes, hearing normal Cardiovascular: regular rate and rhythym, no murmur, rub, or gallop Respiratory: no respiratory distress, no rales or rhonchi Gastrointestinal: normoactive bowel sounds, soft, non-tender abdomen Genitourinary: no bladder fullness, No cobb in urethra Skin: warm, normal color Musculoskeletal: other (legs w no erythema/warmth/edema) Neurologic: AAOx3 Psychiatric: interacting appropriately ICD10 Worksheet Patient Problems: Problems Problem Status Onset Atrial fibrillation with RVR Acute Hypotension Acute Hypoxemia Acute Narrow complex tachycardia Acute Tachypnea Acute Tremulousness Acute Abdominal pain Acute Acute encephalopathy Acute Acute pyelonephritis Acute Altered mental status Acute Anemia Acute Atrial fibrillation Acute CAD (coronary artery disease), [place] coronary artery Acute Chronic diastolic CHF (congestive heart failure) Acute Chronic hypoxemic respiratory failure Acute Chronic kidney disease (CKD) Acute Congestive heart failure Acute Generalized weakness Acute Hyponatremia Acute Hypoxia Acute New onset atrial fibrillation Acute Palliative care encounter Acute Pyelonephritis Acute UTI (urinary tract infection) Acute VHD (valvular heart disease) Acute
[2017-11-14] MEDS: CALCIUM CARB W/VIT D 500 MG TAB PO SCH ×3 (14:05→20:35)
[2017-11-14] MEDS: FERROUS SULFATE 325 MG TAB PO SCH (14:06)
--- NOTE | 2017-11-14 15:58 | PDCARPN ---
Cardiology Progress Note Chief Complaint: Patient reports fatigue symptoms Assessment/Plan: Assessment: 67-year-old female with significant past history that includes CAD with previous 2 vessel bypass in 2004, paroxysmal atrial fibrillation, sick sinus syndrome with previous single chamber ppm, hyperlipidemia. Admitted 11/01/2017 for tachycardia and hypotension. Pacemaker interrogation by Dr. Vale showed what appeared to be atrial fibrillation with rapid ventricular response. Noted to have urosepsis. Initially admitted to ICU for pressor support with dopamine , which has been weaned off. Patient has been transferred to PCU. Noted to be supratherapeutic with warfarin therapy, INR 4.73. Also noted be hyponatremic with sodium level of 119 on admission. Troponin less than 0.012. 11/14/2017: She reports she continues to feel fatigued. Denies of any chest pressure or pain. She remains in what appears to be A sense V paced rhythm with no malignant arrhythmias or pauses. She denies of any chest pressure or pain. She has been taken off of both her AV dali agents of metoprolol and diltiazem due to hypotension, which have not been resumed as of this time. INR on November 12 down to 2.05, and has been resumed on warfarin. Laboratories today showing improvement in sodium to 128. BUN 14, creatinine 0.6. Remains on Levaquin. A.m. Blood pressures were mildly on low side with systolic running between 80-90 BPM, asymptomatic of lightheadedness, near-syncope or syncopal events. Plan: 1. Tachycardia: Ppm interrogation reviewed by Dr. Vale, which appeared to be AFib with RVR in the setting of urosepsis. Improvement with IV fluid, and starting antibiotic therapy. 2. Hypotension: Decrease this happened morning, but improved this afternoon. Currently not on any pressors. Will restart metoprolol succinate tomorrow, will consider restarting back on diltiazem in the next few days. 3. PAF: Currently appears to be sinus rhythm. Restarting metoprolol as mentioned above, restarted on anticoagulation of warfarin. Repeat INR in a.m.. 4. CAD: Patient reports no chest pain, pressure, or symptoms suggesting ischemia. Currently not on aspirin therapy due to being on warfarin. Restarted beta-hiral as mentioned above. Negative troponin. Most recent stress testing was done February of 2015, showing no signs of ischemia or infarction. Consideration of repeating stress test as an outpatient, once infection is resolved. 5. Hyperlipidemia: Resumed on statin dosage. 6. Hyponatremia: Improved from yesterday, management per hospital services. 7. Urosepsis: Continue on antibiotic therapy. 11/14/17 15:56 Subjective: Patient denies of any chest pressure, pain. Denies of any significant shortness of breath. Continues to feel fatigued. Denies of any palpitations, lightheadedness, near-syncope or syncopal events. Reviewed/Discussed With: hospitalist, other (Dr. Salazar) Objective: Vital Signs (8 Hrs) Temp Pulse Resp BP Pulse Ox 11/14/17 14:59 36.9 C 78 16 101/54 L 100 11/14/17 14:18 98/51 L Intake/Output (24 Hrs) 11/13/17 11/14/17 11/15/17 05:59 05:59 05:59 Intake Total 1140 1290 Output Total 185 Balance 955 1290 Intake: Oral (ml) 400 640 IV Infused (ml) 740 650 D5w 1,000 ml @ 75 mls/hr 700 IV CONT [facility] Rx#: [id number] DOPamine/DEXTROSE 250 ml 40 @ Per Protocol IV [facility] Rx#:[id number] Ns 500 ml @ As Directed 500 IV ONCE ONE Rx#: [id number] levOFLOXACIN 750 MG/ 150 DEXTROSE 150 ml @ 100 mls /hr IV DAILY [facility] Rx#: [id number] Output: Urine (ml) 185 Bedpan 185 Other: Weight 73 kg Output Comment Bedpan incont Number of Voids Bedpan 1 Incontinence 4 2 2 Result Diagrams: 11/11/17 20:40 11/14/17 05:17 - Physical Exam Constitutional: no apparent distress, obese Ears, Nose, Mouth, Throat: moist mucous membranes Cardiovascular: regular rate and rhythm, no rubs, no gallops, pulses symmetric bilat, No jugular vein distention, No carotid bruit Peripheral Pulses: 1+: dorsalis-pedis (R), dorsalis-pedis (L), 2+: carotid (R), carotid (L) Respiratory: other (Lungs are clear but diminished in bases bilateral, no rhonchi, rales, or wheezing noted. No accessary muscle use, no intercostal muscle retraction noted.) Gastrointestinal: normoactive bowel sounds, no tenderness, no masses Skin: no rashes, warm, no edema Neurologic: AAOx3 Psychiatric: cooperative, interactive ICD10 Worksheet Patient Problems: Problems Problem Status Onset Chronic kidney disease (CKD) Acute CAD (coronary artery disease), [place] coronary artery Acute VHD (valvular heart disease) Acute Hyponatremia Acute Altered mental status Acute Chronic hypoxemic respiratory failure Acute Acute encephalopathy Acute Atrial fibrillation Acute Chronic diastolic CHF (congestive heart failure) Acute Abdominal pain Acute New onset atrial fibrillation Acute UTI (urinary tract infection) Acute Pyelonephritis Acute Generalized weakness Acute Palliative care encounter Acute Hypoxia Acute Congestive heart failure Acute Anemia Acute Acute pyelonephritis Acute Narrow complex tachycardia Acute Hypoxemia Acute Tachypnea Acute Hypotension Acute Tremulousness Acute Atrial fibrillation with RVR Acute
[2017-11-14] MEDS: WARFARIN SODIUM 5 MG TAB PO SCH (17:02)
--- NOTE | 2017-11-14 19:35 | ASMTCMCOM ---
CM Note CM Note Notes: Spoke with patient's MDPOA (sister), Hallie, today. Patient resides at [facility] and receives services through [facility]. Confirmed with sister that she is okay with continuing services with [facility] . Updates sent to [facility] today - also updated Elli verbally. After reviewing therapy recommendations, it appears that patient may benefit from a SNF stay. CM will follow-up on Tuesday and assess the need for a higher level of care. Plan: Return to [facility] with [facility] or possible SNF Date Signed: 11/14/2017 07:34 PM Electronically Signed By:Yuko Hedrick RN
[2017-11-14 20:22] LABS: INR 1.3 (0.83-1.16); PROTIME(PATIENT) 16.4 SEC (12.0-15.0)
[2017-11-14] MEDS: DIVALPROEX ER 250 MG TAB PO SCH (20:34)
[2017-11-14] MEDS: ARIPiprazole 5 MG TAB PO SCH (20:35)
[2017-11-14] MEDS: ATORVASTATIN CALCIUM 20 MG TAB PO SCH (20:35)
[2017-11-15] MEDS: LEVOTHYROXINE 175 MCG TAB PO SCH (04:24)
[2017-11-15 07:06] LABS: INR 1.39 (0.83-1.16); PROTIME(PATIENT) 17.2 SEC (12.0-15.0)
[2017-11-15] MEDS: POLYETHYLENE GLYCOL 3350 17 GM PKT PO SCH (09:19)
[2017-11-15] MEDS: SODIUM CL NASAL GEL 14.1 GM TUBE TP SCH ×2 (09:20→12:51)
[2017-11-15] MEDS: FAMOTIDINE 20 MG TAB PO SCH ×2 (09:20→16:00)
[2017-11-15] MEDS: DOCUSATE SODIUM 100 MG CAP PO SCH ×2 (09:20→21:21)
[2017-11-15] MEDS: ARIPiprazole 10 MG TAB PO SCH (09:20)
[2017-11-15] MEDS: HYDROCORTISONE 10 MG TAB PO SCH ×2 (09:20→12:50)
--- NOTE | 2017-11-15 12:17 | CPEKG ---
Test Reason : OPEN Blood Pressure : / mmHG Vent. Rate : 095 BPM Atrial Rate : 000 BPM P-R Int : 100 ms QRS Dur : 087 ms QT Int : 362 ms P-R-T Axes : -52 165 129 degrees QTc Int : 455 ms Atrial fibrillation Right axis deviation Low voltage, precordial leads Abnormal T, consider ischemia, lateral leads Confirmed by Jitendra Torres ([id number]) on 11/15/2017 12:17:17 PM Referred By: Confirmed By:Jitendra Torres
[2017-11-15] MEDS: FERROUS SULFATE 325 MG TAB PO SCH (12:50)
[2017-11-15] MEDS: CALCIUM CARB W/VIT D 500 MG TAB PO SCH ×3 (12:51→21:20)
--- NOTE | 2017-11-15 13:02 | ASMTLACE ---
MCKAYLA Length of stay for Answers: 4-6 days current admission Acuity / Level of Answers: Yes Care: Did the patient have an inpatient admission? Comorbidities - select Answers: Congestive heart failure all that apply Coronary Artery Disease Mild liver or renal disease Opioid dependence / Chronic pain Other Notes: AFib; Chronic resp failure; HTN # of Emergency department Answers: 1-2 visits in the last 6 months Social determinants Answers: Mental health diagnosis (anxiety, depression, pers onality disorders, etc.) Score: 22 Date Signed: 11/15/2017 01:02 PM Electronically Signed By:Adina Antoine
--- NOTE | 2017-11-15 13:04 | PDIAF ---
- Diagnosis Diagnosis: hyponatremia Code Status: Full Code - Medication Management Discharge Medications: Medications to Continue on Transfer ARIPiprazole [Abilify 10 mg (*)] 10 mg PO DAILY@11/19/14 [Last Taken 11/11/17 ] ARIPiprazole [Abilify 5 mg (*)] 5 mg PO HS@11/19/14 [Last Taken 11/10/17] Alendronate Sodium [Fosamax 70 MG (*)] 70 mg PO MO@0700 11/19/14 [Last Taken 12/15] Atorvastatin Calcium [Lipitor 20 mg (*)] 20 mg PO HS@11/19/14 [Last Taken ] Calcium Carbonate/Vitamin D3 [Os-Derek 500-Vit D3 600 [place]] 1 tab PO TID@,, 11/19/14 [Last Taken 11/11/17 17:00] Divalproex ER [Depakote ER 250 MG (*)] 750 mg PO HS@11/19/14 [Last Taken ] Ferrous Sulfate [Ferrous Sulf 325 MG (*)] 325 mg PO DAILY@11/19/14 [Last Taken 11/11/17] Levothyroxine [Synthroid 175 mcg (*)] 175 mcg PO DAILY@11/19/14 [Last Taken 11/11/17] Ranitidine HCl [Zantac] 150 mg PO BID@11/19/14 [Last Taken 11/11/17 08:00] Polyethylene Glycol 3350 [Miralax 17 gm (*)] 8.5 gm PO MOTUWETHFRSA@01/14/15 [Last Taken 11/11/17] Hydrocortisone [Cortef 10 mg (*)] 20 mg PO DAILY@01/19/15 [Last Taken ] Cholecalciferol Vit D3 [Vitamin D3 (*)] 1,000 units PO DAILY@12/25/16 [Last Taken 11/11/17] Docusate Sodium [Colace 100 MG (*)] 100 mg PO BID 12/25/16 [Last Taken 11/11/17] Hydrocortisone [Cortef 10 mg (*)] 10 mg PO DAILY@12/25/16 [Last Taken ] Prochlorperazine Maleate [Compazine 10mg (*)] 10 mg PO Q6 PRN 12/25/16 [Last Taken Unknown] Sodium Chloride [[place]] 1 spray EACHNARE TID@,,12/25/16 [Last Taken 14:00] Loperamide HCl [Imodium 2 mg (*)] 2 mg PO PRN PRN 01/24/17 [Last Taken Unknown] Albuterol [Ventolin Hfa Inhaler] 2 puffs IH Q4HRS PRN #1 mdi 02/06/17 [Last Taken Unknown] Furosemide [Lasix 20 MG (*)] 40 mg PO DAILY #60 tab 02/06/17 [Last Taken ] Metoprolol Succinate Xr [Toprol Xl 25 mg (*)] 12.5 mg PO DAILY@08 #30 tab [Last Taken 11/11/17] traMADol [Ultram 50 mg (*)] 50 mg PO Q12 PRN #30 tab 02/06/17 [Last Taken 16:30] Acetaminophen [Tylenol ES 500 mg (*)] 500 mg PO Q6 PRN 08/10/17 [Last Taken 09/14] Warfarin Sodium [Coumadin 5MG (*)] 2.5 mg PO SUMOWEFR@16 08/10/17 [Last Taken ] Warfarin Sodium [Coumadin 5MG (*)] 5 mg PO TUTHSA@16 08/10/17 [Last Taken ] Diltiazem [Cardizem Ir Q6hr] 30 mg PO BID@11/11/17 [Last Taken 11/11/17 08 :00] levOFLOXACIN [Levofloxacin] 750 mg PO Q2D #2 tablet 11/15/17 [Last Taken Unknown ] Discharge Medications: Refer to the Discharge Home Medication list for PRN reason. - Orders Services needed: Home Care, Registered Nurse Home Care Face to Face: I certify that this patient was under my care and that I had the required [id number] encounter meeting the encounter requirements on the discharge day. My findings support the fact that the patient is homebound as defined in Home Care Face to Face Continued: CMS Chapter 7 Medicare Benefits Manual 30.1.1 , The condition of the patient is such that there exists a normal inability to leave home and consequently, leaving home would require a considerable and taxing effort. Isolation Type: None Diet Recommendation: other (fluid restriction < 2000 cc per day) - Labs/Radiology BMP Date: 11/21/17 (weekly) PT/INR Date: 11/21/17 (weekly) Call or Fax Lab and Imaging Results to: labs to dr mclean - Follow Up Care Current Providers and Referrals: Arnaldo Mclean, [Primary Care Provider] - As per Instructions
--- NOTE | 2017-11-15 13:05 | HOSPPROG ---
Hospitalist Progress Note Assessment/Plan: 67 yo F w AF, CAD, bipolar, chronic hyponatremia a/w vague sx, transient tachyarrhythmia at 200, severe hyponatremia hyponatremia: baseline about 130; 116 on presentation now mid 120's dc hypotonic fluid 2L fluid restriction follow daily tachyarrhythmia: pacer interrogation reveals two episodes of narrow complex tachycardia at 200 bpm occurring at 4 and 6 pm day of admit (11/11) has h/o AVNRT requiring ablation as well as AF. this is awfully fast for AF on dilt and BB follow AF: restart warfarin hypotension: resolved uti: has pyuria and complex presentation reasonable to treat ucx w pseudomonas- change to levofloxacin day03/04 GPR bacteremia: suspect contaminant given 03/01 port noted repeat cx pending, neg tus far leg pain: follow adrenal insufficiency: random cortisol high on admit continue replacement HC bipolar: continue meds coagulopathy: INR 2 after low dose vit K dc today > 30 minutes on dc Subjective: back in AF. ready for dc Objective: Vital Signs Temp Pulse Resp BP Pulse Ox 36.9 C 102 H 20 107/47 L 97 11/15/17 11:45 11/15/17 11:45 11/15/17 11:45 11/15/17 11:45 11/15/17 11:45 Microbiology 11/11/17 20:54 Blood Panel (PCR) - Final Blood No Organism Detected Laboratory Results 11/11/17 20:40 11/15/17 06:40 11/14/17 11/15/17 11/16/17 05:59 05:59 05:59 Intake Total 1290 450 Output Total 350 Balance 1290 450 -350 PT 17.2 SEC (12.0-15.0) H 11/15/17 06:40 INR 1.39 (0.83-1.16) H 11/15/17 06:40 - Physical Exam Constitutional: no apparent distress, appears nourished Eyes: PERRL, anicteric sclera Ears, Nose, Mouth, Throat: moist mucous membranes, hearing normal Cardiovascular: no murmur, rub, or gallop, irregularly irregular Respiratory: no respiratory distress, no rales or rhonchi Genitourinary: no bladder fullness, No cobb in urethra Skin: warm, normal color, mottled Neurologic: AAOx3 ICD10 Worksheet Patient Problems: Problems Problem Status Onset Atrial fibrillation with RVR Acute Hypotension Acute Hypoxemia Acute Narrow complex tachycardia Acute Tachypnea Acute Tremulousness Acute Abdominal pain Acute Acute encephalopathy Acute Acute pyelonephritis Acute Altered mental status Acute Anemia Acute Atrial fibrillation Acute CAD (coronary artery disease), [place] coronary artery Acute Chronic diastolic CHF (congestive heart failure) Acute Chronic hypoxemic respiratory failure Acute Chronic kidney disease (CKD) Acute Congestive heart failure Acute Generalized weakness Acute Hyponatremia Acute Hypoxia Acute New onset atrial fibrillation Acute Palliative care encounter Acute Pyelonephritis Acute UTI (urinary tract infection) Acute VHD (valvular heart disease) Acute
[2017-11-15] MEDS: WARFARIN SODIUM 5 MG TAB PO SCH (16:00)
--- NOTE | 2017-11-15 17:42 | PDCARPN ---
Cardiology Progress Note Chief Complaint: Patient reports fatigue. Assessment/Plan: Assessment: 67-year-old female with significant past history that includes CAD with previous 2 vessel bypass in 2004, paroxysmal atrial fibrillation, sick sinus syndrome with previous single chamber ppm, hyperlipidemia. Admitted 11/01/2017 for tachycardia and hypotension. Pacemaker interrogation by Dr. Vale showed what appeared to be atrial fibrillation with rapid ventricular response. Noted to have urosepsis. Initially admitted to ICU for pressor support with dopamine , which has been weaned off. Patient has been transferred to PCU. Noted to be supratherapeutic with warfarin therapy, INR 4.73. Also noted be hyponatremic with sodium level of 119 on admission. Troponin less than 0.012. 11/15/2017: Patient reports no chest pain or pressure. Denies of any lightheadedness. Reports no palpitations. Pulse noted to be irregular. Electrocardiogram done today showing AFib with right axis deviation. Rate at 95 BPM. Noted elevated heart rate last evening at 117 BPM. Blood pressures been stable. Laboratories show sodium up to 129, potassium stable at 4.6. INR subtherapeutic at 1.39 today. Plan: 1. PAF: Currently in AFib. Well rate controlled. Resume metoprolol and diltiazem home dose. Patient restarted on warfarin, INRs are subtherapeutic. Patient to get 5 mg of warfarin today. Re-evaluate INR a.m.. 2. CAD: Patient reports no chest pain, pressure, or symptoms suggesting ischemia. Currently not on aspirin therapy due to being on warfarin. Restarted beta-hiral as mentioned above. Negative troponin. Most recent stress testing was done February of 2015, showing no signs of ischemia or infarction. Consideration of repeating stress test as an outpatient, once infection is resolved. 3. Sick sinus syndrome: Remote ppm implantation. Recent device check showing functioning within limits. Single lead VVI device 4. Hypotension: Resolved 5. Hyperlipidemia: Resumed on statin dosage. 6. Hyponatremia: Improved from yesterday, fluid restriction, management per hospital services. 7. Urosepsis: Continue on antibiotic therapy. Patient to potentially be discharged to SNF in the next day or so. Have arranged for patient to be follow-up in office within the next 2-3 weeks. 11/15/17 17:37 Subjective: Denies of any chest pressure or pain. Reports no significant shortness of breath. Denies of any palpitations, lightheadedness, near-syncope or syncopal events. Reports no symptoms suggestive of TIA or CVA. Reviewed/Discussed With: hospitalist (Dr Miranda), other (Dr Reardon) Objective: Vital Signs (8 Hrs) Temp Pulse Resp BP Pulse Ox 11/15/17 16:00 36.7 C 92 18 107/61 20 L 11/15/17 11:45 36.9 C 102 H 20 107/47 L 97 Intake/Output (24 Hrs) 11/14/17 11/15/17 11/16/17 05:59 05:59 05:59 Intake Total 1290 450 700 Output Total 700 Balance 1290 450 0 Intake: Oral (ml) 640 450 700 IV Infused (ml) 650 0 Ns 500 ml @ As Directed 500 IV ONCE ONE Rx#: [id number] levOFLOXACIN 750 MG/ 150 0 DEXTROSE 150 ml @ 100 mls /hr IV DAILY [facility] Rx#: [id number] Output: Urine (ml) 700 Bedside Commode 700 Other: Number of Voids Bedside Commode 1 2 Incontinence 2 1 Number of Stools Bedside Commode 1 Incontinence 1 Result Diagrams: 11/11/17 20:40 11/15/17 06:40 - Physical Exam Constitutional: no apparent distress, obese Ears, Nose, Mouth, Throat: moist mucous membranes Cardiovascular: irregularly irregular, pulses symmetric bilat, No jugular vein distention, No carotid bruit Peripheral Pulses: 1+: dorsalis-pedis (R), dorsalis-pedis (L), 2+: carotid (R), carotid (L) Respiratory: other (Lungs are clear but diminished in bases bilateral, no rhonchi, rales, or wheezing noted.) Gastrointestinal: normoactive bowel sounds, no tenderness, no masses Skin: warm, no edema Neurologic: AAOx3 Psychiatric: cooperative, interactive, following commands ICD10 Worksheet Patient Problems: Problems Problem Status Onset Chronic kidney disease (CKD) Acute CAD (coronary artery disease), [place] coronary artery Acute VHD (valvular heart disease) Acute Hyponatremia Acute Altered mental status Acute Chronic hypoxemic respiratory failure Acute Acute encephalopathy Acute Atrial fibrillation Acute Chronic diastolic CHF (congestive heart failure) Acute Abdominal pain Acute New onset atrial fibrillation Acute UTI (urinary tract infection) Acute Pyelonephritis Acute Generalized weakness Acute Palliative care encounter Acute Hypoxia Acute Congestive heart failure Acute Anemia Acute Acute pyelonephritis Acute Narrow complex tachycardia Acute Hypoxemia Acute Tachypnea Acute Hypotension Acute Tremulousness Acute Atrial fibrillation with RVR Acute
--- NOTE | 2017-11-15 17:46 | ASMTCMCOM ---
CM Note CM Note Notes: Discussed with PT who doesn't feel patient is at her baseline and is recommending SNF. CM spoke to patient and sister about recommendations, they are in agreement to SNF and have chosen [facility]. Referral sent to [facility] before there was question of patient only having Medicare B and Medicaid. CM contacted [facility] to get clarification on Medicare benefits - awaiting response. If patient cannot go to [facility] under Medicare benefits, not sure she would agree to any other LTC SNF options as she is not interested in [facility] or the SNFs in [place]. CM has given both [facility] a heads up as well as [facility]. Will need to connect with [facility] tomorrow to confirm Medicare benefits before proceeding. [facility] is concerned about accepting patient back if she is not at baseline and further discussion would need to happen with their supervisor litharge, Ramila. CM will continue to follow. Plan: SNF vs [facility] with [facility] Date Signed: 11/15/2017 05:46 PM Electronically Signed By:Yuko Hedrick RN
[2017-11-15] MEDS: ATORVASTATIN CALCIUM 20 MG TAB PO SCH (21:20)
[2017-11-15] MEDS: DIVALPROEX ER 250 MG TAB PO SCH (21:21)
[2017-11-15] MEDS: ARIPiprazole 5 MG TAB PO SCH (21:21)
[2017-11-15] MEDS: DILTIAZEM 30 MG TAB PO SCH (21:21)
[2017-11-16] MEDS: SODIUM CL NASAL GEL 14.1 GM TUBE TP SCH ×4 (00:25→21:09)
[2017-11-16 04:12] LABS: INR 1.62 (0.83-1.16); PROTIME(PATIENT) 19.4 SEC (12.0-15.0)
[2017-11-16] MEDS: LEVOTHYROXINE 175 MCG TAB PO SCH (06:08)
[2017-11-16] MEDS: ARIPiprazole 10 MG TAB PO SCH (09:42)
[2017-11-16] MEDS: FAMOTIDINE 20 MG TAB PO SCH ×2 (09:42→18:38)
[2017-11-16] MEDS: METOPROLOL SUCCINATE XR 25 MG TAB PO SCH (09:42)
[2017-11-16] MEDS: DOCUSATE SODIUM 100 MG CAP PO SCH ×2 (09:43→20:38)
[2017-11-16] MEDS: DILTIAZEM 30 MG TAB PO SCH ×2 (09:43→20:38)
[2017-11-16] MEDS: HYDROCORTISONE 10 MG TAB PO SCH ×2 (09:44→14:20)
[2017-11-16] MEDS: POLYETHYLENE GLYCOL 3350 17 GM PKT PO SCH (09:44)
[2017-11-16] MEDS ORDERED: MAGNESIUM SULF 2 GM/WATER 50 ML IV ONE (12:47)
--- NOTE | 2017-11-16 12:54 | HOSPPROG ---
Hospitalist Progress Note Assessment/Plan: 67 yo F w AF, CAD, bipolar, chronic hyponatremia a/w vague sx, transient tachyarrhythmia at 200, severe hyponatremia hyponatremia: baseline about 130; 116 on presentation now 129, much improved dc hypotonic fluid 2L fluid restriction follow daily tachyarrhythmia: pacer interrogation reveals two episodes of narrow complex tachycardia at 200 bpm occurring at 4 and 6 pm day of admit (11/11) has h/o AVNRT requiring ablation as well as AF. this is awfully fast for AF on dilt and BB follow AF: restart warfarin hypotension: resolved uti: has pyuria and complex presentation reasonable to treat ucx w pseudomonas- change to levofloxacin GPR bacteremia: suspect contaminant given 1/2 port noted repeat cx pending, neg tus far leg pain: follow adrenal insufficiency: random cortisol high on admit continue replacement HC bipolar: continue meds coagulopathy: improved Hypomagnesemia: will replace today. Hyperkalemia, slight: will replace today. Meds reviewed Generalized Weakness d/c soon pending placement. CM is following Subjective: no cp or sob. VSS. awaiting placement. Objective: Vital Signs Temp Pulse Resp BP Pulse Ox 37.0 C 102 H 16 103/61 99 11/16/17 08:00 11/16/17 11:28 11/16/17 11:28 11/16/17 11:28 11/16/17 11:28 Microbiology 11/11/17 20:54 Blood Panel (PCR) - Final Blood No Organism Detected Laboratory Results 11/11/17 20:40 11/16/17 03:50 11/15/17 11/16/17 11/17/17 05:59 05:59 05:59 Intake Total 450 1250 Output Total 700 Balance 450 550 PT 19.4 SEC (12.0-15.0) H 11/16/17 03:50 INR 1.62 (0.83-1.16) H 11/16/17 03:50 - Physical Exam Constitutional: chronically ill appearing Eyes: PERRL Ears, Nose, Mouth, Throat: moist mucous membranes, hearing normal Cardiovascular: No edema Respiratory: no respiratory distress, no rales or rhonchi, clear to auscultation Gastrointestinal: normoactive bowel sounds, soft, non-tender abdomen Skin: warm Musculoskeletal: generalized weakness Neurologic: AAOx3 Psychiatric: interacting appropriately, not anxious, not encephalopathic ICD10 Worksheet Patient Problems: Problems Problem Status Onset Atrial fibrillation with RVR Acute Hypotension Acute Hypoxemia Acute Narrow complex tachycardia Acute Tachypnea Acute Tremulousness Acute Abdominal pain Acute Acute encephalopathy Acute Acute pyelonephritis Acute Altered mental status Acute Anemia Acute Atrial fibrillation Acute CAD (coronary artery disease), [place] coronary artery Acute Chronic diastolic CHF (congestive heart failure) Acute Chronic hypoxemic respiratory failure Acute Chronic kidney disease (CKD) Acute Congestive heart failure Acute Generalized weakness Acute Hyponatremia Acute Hypoxia Acute New onset atrial fibrillation Acute Palliative care encounter Acute Pyelonephritis Acute UTI (urinary tract infection) Acute VHD (valvular heart disease) Acute
--- NOTE | 2017-11-16 13:31 | ASMTCMCOM ---
CM Note CM Note Notes: CM spoke to La (P#: [phone]) at [facility]. CM spoke to Karen with financial counseling. Pt does not have Medicare part A. CM informed La that pt would need to go to SNF under her medicaid and would need to stay a total of 30 days. La is recommending that pt returns with increased PT, OT, RN services. [facility] cannot hold bed for 30 days. Pt does not have the means to pay rent at [facility] and go to SNF at the same time. MARSHA discussed this case w/ Dr. Chris. CM to follow. Plan: [facility] Date Signed: 11/16/2017 01:13 PM Electronically Signed By:MARY Crook
[2017-11-16] MEDS: CALCIUM CARB W/VIT D 500 MG TAB PO SCH ×3 (14:05→20:38)
[2017-11-16] MEDS: FERROUS SULFATE 325 MG TAB PO SCH (14:05)
[2017-11-16] MEDS: FUROSEMIDE 20 MG TAB PO SCH (15:59)
[2017-11-16] MEDS: WARFARIN SODIUM 5 MG TAB PO SCH (16:13)
--- NOTE | 2017-11-16 18:14 | PDCARPN ---
Cardiology Progress Note Chief Complaint: Patient reports she feeling better. Assessment/Plan: Assessment: 67-year-old female with significant past history that includes CAD with previous 2 vessel bypass in 2004, paroxysmal atrial fibrillation, sick sinus syndrome with previous single chamber ppm, hyperlipidemia. Admitted 11/01/2017 for tachycardia and hypotension. Pacemaker interrogation by Dr. Vale showed what appeared to be atrial fibrillation with rapid ventricular response. Noted to have urosepsis. Initially admitted to ICU for pressor support with dopamine , which has been weaned off. Patient has been transferred to PCU. Noted to be supratherapeutic with warfarin therapy, INR 4.73. Also noted be hyponatremic with sodium level of 119 on admission. Troponin less than 0.012. 11/16/2017: Patient reports no chest pressure or pain. Pulse is irregular, but rate within normal limits. Mild peripheral edema bilateral lower extremities, patient denies of any significant shortness of breath. Blood pressures been stable with resumption diltiazem and metoprolol. INRs steadily improving, today of 1.62 Plan: 1. PAF: Currently in AFib. Well rate controlled. Continue on current dose of metoprolol and diltiazem. Patient restarted on warfarin, INRs are subtherapeutic, but improving. Continue on current dose of warfarin, repeat INR in a.m. Mild peripheral edema started, will resume patient back on Lasix as his home. 2. CAD: Patient reports no chest pain, pressure, or symptoms suggesting ischemia. Currently not on aspirin therapy due to being on warfarin. Restarted beta-hiral as mentioned above. Negative troponin. Most recent stress testing was done February of 2015, showing no signs of ischemia or infarction. Consideration of repeating stress test as an outpatient, once infection is resolved. 3. Sick sinus syndrome: Remote ppm implantation. Recent device check showing functioning within limits. Single lead VVI device 4. Hypotension: Resolved 5. Hyperlipidemia: Resumed on statin dosage. 6. Hyponatremia: Improved from yesterday, fluid restriction, management per hospital services. 7. Urosepsis: Continue on antibiotic therapy. Patient to potentially be discharged to SNF in the next day or so. Have arranged for patient to be follow-up in office within the next 2-3 weeks. 11/16/17 18:14 Subjective: She informs me that she continues to feel dyspnea on exertion, but fatigue symptoms are improved. Denies of any chest pressure or pain. Reports no orthopnea, PND, lightheadedness, near-syncope or syncopal events. Reviewed/Discussed With: hospitalist (Dr Chris), other (Dr Salazar) Objective: Vital Signs (8 Hrs) Temp Pulse Resp BP Pulse Ox 11/16/17 17:01 94/55 L 11/16/17 16:01 117/61 11/16/17 15:22 37.1 C 92 16 87/47 L 100 11/16/17 11:28 102 H 16 103/61 99 Intake/Output (24 Hrs) 11/15/17 11/16/17 11/17/17 05:59 05:59 05:59 Intake Total 450 1250 590 Output Total 700 Balance 450 550 590 Intake: Oral (ml) 450 1250 590 IV Infused (ml) 0 levOFLOXACIN 750 MG/ 0 DEXTROSE 150 ml @ 100 mls /hr IV DAILY [facility] Rx#: [id number] Output: Urine (ml) 700 Bedside Commode 700 Other: Output Comment Toilet 3-5 small stools, soft, diarrhea like Number of Voids Bedside Commode 1 2 Incontinence 1 4 Toilet 1 Number of Stools Bedside Commode 1 Incontinence 1 Toilet 1 Result Diagrams: 11/11/17 20:40 11/16/17 03:50 - Physical Exam Constitutional: no apparent distress, obese Ears, Nose, Mouth, Throat: moist mucous membranes Cardiovascular: irregularly irregular, jugular vein distention (4 cm above sternal notch), pulses symmetric bilat, No carotid bruit Peripheral Pulses: 1+: dorsalis-pedis (L), 2+: carotid (R), carotid (L) Respiratory: other (Diminished in bases, but no rhonchi, rales, or wheezing noted.) Gastrointestinal: normoactive bowel sounds Skin: warm, No no edema (Trace to +1 peripheral edema bilateral lower extremities) Neurologic: AAOx3 Psychiatric: cooperative, interactive, following commands ICD10 Worksheet Patient Problems: Problems Problem Status Onset Atrial fibrillation with RVR Acute Hypotension Acute Hypoxemia Acute Narrow complex tachycardia Acute Tachypnea Acute Tremulousness Acute Abdominal pain Acute Acute encephalopathy Acute Acute pyelonephritis Acute Altered mental status Acute Anemia Acute Atrial fibrillation Acute CAD (coronary artery disease), [place] coronary artery Acute Chronic diastolic CHF (congestive heart failure) Acute Chronic hypoxemic respiratory failure Acute Chronic kidney disease (CKD) Acute Congestive heart failure Acute Generalized weakness Acute Hyponatremia Acute Hypoxia Acute New onset atrial fibrillation Acute Palliative care encounter Acute Pyelonephritis Acute UTI (urinary tract infection) Acute VHD (valvular heart disease) Acute
[2017-11-16] MEDS: DIVALPROEX ER 250 MG TAB PO SCH (20:38)
[2017-11-16] MEDS: ARIPiprazole 5 MG TAB PO SCH (20:39)
[2017-11-16] MEDS: ATORVASTATIN CALCIUM 20 MG TAB PO SCH (20:39)
[2017-11-17] MEDS: LEVOTHYROXINE 175 MCG TAB PO SCH (06:23)
[2017-11-17 06:51] LABS: INR 1.94 (0.83-1.16); PROTIME(PATIENT) 22.2 SEC (12.0-15.0)
[2017-11-17] MEDS: POLYETHYLENE GLYCOL 3350 17 GM PKT PO SCH (08:42)
[2017-11-17] MEDS: ARIPiprazole 10 MG TAB PO SCH (08:43)
[2017-11-17] MEDS: FUROSEMIDE 20 MG TAB PO SCH (08:43)
[2017-11-17] MEDS: FAMOTIDINE 20 MG TAB PO SCH ×2 (08:43→16:24)
[2017-11-17] MEDS: METOPROLOL SUCCINATE XR 25 MG TAB PO SCH (08:43)
[2017-11-17] MEDS: HYDROCORTISONE 10 MG TAB PO SCH ×2 (08:44→13:29)
[2017-11-17] MEDS: DOCUSATE SODIUM 100 MG CAP PO SCH (08:44)
[2017-11-17] MEDS: DILTIAZEM 30 MG TAB PO SCH (08:44)
[2017-11-17] MEDS: SODIUM CL NASAL GEL 14.1 GM TUBE TP SCH ×2 (11:42→17:20)
[2017-11-17 11:47] VITALS: BP 97/43
[2017-11-17] MEDS: CALCIUM CARB W/VIT D 500 MG TAB PO SCH ×2 (13:29→16:24)
[2017-11-17] MEDS: FERROUS SULFATE 325 MG TAB PO SCH (13:29)
--- NOTE | 2017-11-17 13:51 | PDIAF ---
- Diagnosis Diagnosis: hyponatremia Code Status: Full Code - Medication Management Discharge Medications: Medications to Continue on Transfer ARIPiprazole [Abilify 10 mg (*)] 10 mg PO DAILY@11/19/14 [Last Taken 11/11/17 ] ARIPiprazole [Abilify 5 mg (*)] 5 mg PO HS@11/19/14 [Last Taken 11/10/17] Alendronate Sodium [Fosamax 70 MG (*)] 70 mg PO MO@0700 11/19/14 [Last Taken 12/15] Atorvastatin Calcium [Lipitor 20 mg (*)] 20 mg PO HS@11/19/14 [Last Taken ] Calcium Carbonate/Vitamin D3 [Os-Derek 500-Vit D3 600 Caplet] 1 tab PO TID@,, 11/19/14 [Last Taken 11/11/17 17:00] Divalproex ER [Depakote ER 250 MG (*)] 750 mg PO HS@11/19/14 [Last Taken ] Ferrous Sulfate [Ferrous Sulf 325 MG (*)] 325 mg PO DAILY@11/19/14 [Last Taken 11/11/17] Levothyroxine [Synthroid 175 mcg (*)] 175 mcg PO DAILY@11/19/14 [Last Taken 11/11/17] Ranitidine HCl [Zantac] 150 mg PO BID@11/19/14 [Last Taken 11/11/17 08:00] Polyethylene Glycol 3350 [Miralax 17 gm (*)] 8.5 gm PO MOTUWETHFRSA@01/14/15 [Last Taken 11/11/17] Hydrocortisone [Cortef 10 mg (*)] 20 mg PO DAILY@01/19/15 [Last Taken ] Cholecalciferol Vit D3 [Vitamin D3 (*)] 1,000 units PO DAILY@12/25/16 [Last Taken 11/11/17] Docusate Sodium [Colace 100 MG (*)] 100 mg PO BID 12/25/16 [Last Taken 11/11/17] Hydrocortisone [Cortef 10 mg (*)] 10 mg PO DAILY@12/25/16 [Last Taken ] Prochlorperazine Maleate [Compazine 10mg (*)] 10 mg PO Q6 PRN 12/25/16 [Last Taken Unknown] Sodium Chloride [Cataumet] 1 spray EACHNARE TID@08,12,20 12/25/16 [Last Taken 14:00] Loperamide HCl [Imodium 2 mg (*)] 2 mg PO PRN PRN 01/24/17 [Last Taken Unknown] Albuterol [Ventolin Hfa Inhaler] 2 puffs IH Q4HRS PRN #1 mdi 02/06/17 [Last Taken Unknown] Metoprolol Succinate Xr [Toprol Xl 25 mg (*)] 12.5 mg PO DAILY@08 #30 tab [Last Taken 11/11/17] traMADol [Ultram 50 mg (*)] 50 mg PO Q12 PRN #30 tab 02/06/17 [Last Taken 16:30] Acetaminophen [Tylenol ES 500 mg (*)] 500 mg PO Q6 PRN 08/10/17 [Last Taken 09/14] Warfarin Sodium [Coumadin 5MG (*)] 2.5 mg PO SUMOWEFR@16 08/10/17 [Last Taken ] Warfarin Sodium [Coumadin 5MG (*)] 5 mg PO TUTHSA@16 08/10/17 [Last Taken ] levOFLOXACIN [levAQUIN (*)] 750 mg PO DAILY10 #4 tab 11/16/17 [Last Taken Unknown] Discharge Medications: Refer to the Discharge Home Medication list for PRN reason. - Orders Services needed: Home Care, Registered Nurse Home Care Face to Face: I certify that this patient was under my care and that I had the required [id number] encounter meeting the encounter requirements on the discharge day. My findings support the fact that the patient is homebound as defined in Home Care Face to Face Continued: CMS Chapter 7 Medicare Benefits Manual 30.1.1 , The condition of the patient is such that there exists a normal inability to leave home and consequently, leaving home would require a considerable and taxing effort. Isolation Type: None Diet Recommendation: fluid restriction (use comment for amount) (1800ml fluid restrict), other Diet Texture: Regular Texture Diet Additional Instructions: Activity: as tolerated F/u: with PCP in 1 weeks F/U: With Cardiology in 1-2 weeks - Labs/Radiology BMP Date: 11/21/17 (weekly) PT/INR Date: 11/21/17 (weekly) Call or Fax Lab and Imaging Results to: labs to dr mclean - Follow Up Care Current Providers and Referrals: Arnaldo Mclean, [Primary Care Provider] - As per Instructions Avi Foster MD [Medical Doctor] - 12/15/17 10:45 am
--- NOTE | 2017-11-17 13:55 | PDDCSUM ---
Discharge Summary Discharge Summary: 67 yo F w AF, CAD, bipolar, chronic hyponatremia admitted with severe hyponatremia and hypotension. Found to have UTI. Cardiology consulted. Meds have been adjusted. She is now back to her baseline. She will f/u with her PCP as well as Cardiology in 1-2 weeks. Please see below for details per problem list DDX: hyponatremia: baseline about 130; 116 on presentation. She is back to baseline tachyarrhythmia: pacer interrogation reveals two episodes of narrow complex tachycardia at 200 bpm occurring at 4 and 6 pm day of admit (11/11) has h/o AVNRT requiring ablation as well as AF. this is awfully fast for AF on BB. CCB was discontinued AF: on warfarin hypotension: resolved uti: has pyuria and complex presentation ucx w pseudomonas- cont Levaquin GPR bacteremia: suspect contaminant given 1/2 adrenal insufficiency: random cortisol high on admit continue replacement HC bipolar: continue meds coagulopathy: improved Hypomagnesemia: replaced Hyperkalemia: on Lasix Generalized Weakness: will need further PT EXAM: NAD AAOX3 RRR CTA B S/NT/ND MEDS: SEE MED REC F/U: PER ABOVE TOTAL TIME SPENT ON D/C IS 35 MINS
--- NOTE | 2017-11-17 14:08 | ASMTCMCOM ---
CM Note CM Note Notes: Pts case discussed w/ Dr. Chris. Pt is being discharged today back to [facility]. DC orders sent to [facility]. CM notified La at [facility] of the d/c. CM sent d/c paperwork to [facility]. CM notified Hallie, sister/FRANCISCO of the d/c. CM set up [facility] to pick pt up in a wheelchair. sign shop supervisor is scheduled for 5PM. CM available for changes. Plan: [facility] w/ [facility]; PT, OT, RN Date Signed: 11/17/2017 02:07 PM Electronically Signed By:MARY Crook
--- NOTE | 2017-11-17 14:20 | ASDISCHSUM ---
Discharge Information Plan Status:SNF Medically Cleared to Leave:11/17/2017 Discharge Date:11/17/2017 CM D/C Disposition:[facility] ADT D/C Disposition:[facility] Facility Projected Discharge Date:11/17/2017 11:00 AM Transportation at D/C:Wheelchair Van Discharge Delay Reason: Follow-Up Date:11/17/2017 11:00 AM Discharge Slot: Final Diagnosis: Placement Information Referral Type:*Home Health Care Services Referral ID:[id number] Provider Name:[facility] Address 1:[address] [address] Phone Number: Address 2: Fax Number: City:[place] Selection Factors: State:[place] Referral Type:*Long Term/SNF Referral ID:[facility]-[id number] Provider Name: Address 1: Phone Number: Address 2: Fax Number: City: Selection Factors: State: Patient Contact Information Contact Name:OLGAYAZMINCHAR Relationship:Sister Address:[address] [place] [address] Work Phone: City:[facility] Phone: State/Zip Code:[place] [address] Email: Financial Information Financial Class:Medicare Primary Plan Desc:MEDICARE IP PART B ONLY Primary Plan Number:[id number] Secondary Plan Desc:[place] Secondary Plan Number:[id number] Assessment Information [facility] CM Progress Note CM Note CM Note Notes: Patient presents to ER via EMS from [facility] (see ER report). I hav econtacted her sister Hallie Hogan who is patient's listed contact on paperwork from [facility]. Hallie informs this CM that she is patient's MDPOA. Hallie denies knowledge any advance directives or DNR status. Hallie tells me that she is home with her who is in hospice care and is unable to come in at this time, but will remain available by phone. I contacted [facility] and spoke with Nano who informs me that patient does NOT have a DNR order or other Advance Directives that they are aware of. Date Signed: 11/11/2017 06:29 PM Electronically Signed By:Olinda Pedroza RN [facility] Length of stay for Answers: 4-6 days current admission Acuity / Level of Answers: Yes Care: Did the patient have an inpatient admission? Comorbidities - select Answers: Congestive heart failure all that apply Coronary Artery Disease Mild liver or renal disease Opioid dependence / Chronic pain Other Notes: AFib; Chronic resp failure; HTN # of Emergency department Answers: 1-2 visits in the last 6 months Social determinants Answers: Mental health diagnosis (anxiety, depression, pers onality disorders, etc.) Score: 22 Date Signed: 11/15/2017 01:02 PM Electronically Signed By:Adina Antoine [facility] CM Progress Note CM Note CM Note Notes: Spoke with patient's MDPOA (sister), Hallie, today. Patient resides at [facility] and receives services through [facility]. Confirmed with sister that she is okay with continuing services with [facility]. Updates sent to [facility] today - also updated Elli verbally. After reviewing therapy recommendations, it appears that patient may benefit from a SNF stay. CM will follow-up on Tuesday and assess the need for a higher level of care. Plan: Return to [facility] with [facility] or possible SNF Date Signed: 11/14/2017 07:34 PM Electronically Signed By:Yuko Hedrick RN [facility] Progress Note CM Note MARSHA Note Notes: Discussed with PT who doesn't feel patient is at her baseline and is recommending SNF. CM spoke to patient and sister about recommendations, they are in agreement to SNF and have chosen [facility]. Referral sent to [facility] before there was question of patient only having Medicare B and Medicaid. MARSHA contacted to get clarification on Medicare benefits - awaiting response. If patient cannot go to [facility] under Medicare benefits, not sure she would agree to any other LTC SNF options as she is not interested in [facility] or the SNFs in [place]. MARSHA has given both [facility] a heads up as well as [facility]. Will need to connect with tomorrow to confirm Medicare benefits before proceeding. [facility] is concerned about accepting patient back if she is not at baseline and further discussion would need to happen with their supervisor throwing department, Ramila. MARSHA will continue to follow. Plan: SNF vs [facility] with [facility] Date Signed: 11/15/2017 05:46 PM Electronically Signed By:Yuko Hedrick RN [facility] Progress Note MARSHA Note MARSHA Note Notes: MARSHA spoke to La (P#: [phone] ext [phone]) at [facility] [place]. MARSHA spoke to Karen with financial counseling. Pt does not have Medicare part A. MARSHA informed La that pt would need to go to SNF under her medicaid and would need to stay a total of 30 days. La is recommending that pt returns with increased PT, OT, RN services. [facility] cannot hold bed for 30 days. Pt does not have the means to pay rent at [facility] and go to SNF at the same time. CM discussed this case w/ Dr. Chris. CM to follow. Plan: [facility] Date Signed: 11/16/2017 01:13 PM Electronically Signed By:MARY Crook [facility] Progress Note CM Note CM Note Notes: Pts case discussed w/ Dr. Chris. Pt is being discharged today back to [facility]. DC orders sent to [facility]. CM notified La at [facility] of the d/c. CM sent d/c paperwork to [facility]. CM notified Hallie, sister/FRANCISCO of the d/c. CM set up [facility] to pick pt up in a wheelchair. church supervisor is scheduled for 5PM. CM available for changes. Plan: [facility] w/ [facility]; PT, OT, RN Date Signed: 11/17/2017 02:07 PM Electronically Signed By:MARY Crook Intervention Information
[2017-11-17] MEDS: WARFARIN SODIUM 5 MG TAB PO SCH (16:24)
== END 2017-11-17 19:35 | DRG 641 ==
LOC: EDUNIT# → F2N 19:56 → F2W 11-13 12:25 → UNDODISIN 11-16 16:51
PROVIDERS: ADMIT Internal Medicine; ATTEND Internal Medicine
DX: E87.1 Hypo-osmolality and hyponatremia (principal); N39.0 Urinary tract infection, site not specified; R78.81 Bacteremia; E27.40 Unspecified adrenocortical insufficiency; I25.10 Atherosclerotic heart disease of native coronary artery without angina pectoris; F31.9 Bipolar disorder, unspecified; I95.9 Hypotension, unspecified; I48.91 Unspecified atrial fibrillation; E83.42 Hypomagnesemia; E87.5 Hyperkalemia; Z95.0 Presence of cardiac pacemaker; Z79.01 Long term (current) use of anticoagulants; Z95.1 Presence of aortocoronary bypass graft; Z23 Encounter for immunization
CPT/HCPCS: 82435-PO; 82565-PO; 82947-PO; 84132-PO; 84295-PO; 84484-PO; 84520-PO; 85014-PO; 96365; 97116-GP; 97162-GP; 97165-GO; 97530-GO; 97530-GP; 97535-GO; G0008; G8978-GP-CJ; G8979-GP-CI; G8987-GO-CJ; G8988-GO-CI; G8989-GO-CJ; J0696; J1100; J1265; J1956; J2060; J3430; J3475

== ENCOUNTER → 2018-03-27 | Outpatient (CLI) | payer OTHER, MEDICAID | LOC: CIMAGING 15:00 | PROVIDERS: ATTEND Family Medicine | DX: M19.011 Primary osteoarthritis, right shoulder (principal) | CPT/HCPCS: 73030-PO; 73060-PO ==

== ENCOUNTER → 2018-06-21 | Outpatient (CLI) | payer OTHER, MEDICAID | LOC: BHFA 13:00 | PROVIDERS: ATTEND Internal Medicine Cardiovascular Disease | DX: I25.10 Atherosclerotic heart disease of native coronary artery without angina pectoris (principal) | CPT/HCPCS: 78452; 93017; A9500; J2785 ==

== ENCOUNTER → 2018-08-08 | Outpatient (CLI) | payer OTHER, MEDICAID | LOC: FIMAGING 15:03 ==